=== PATIENT | male | born 1950 | race Caucasian/White ===

== ENCOUNTER 2022-01-07 14:35 | Emergency (ER) | payer OTHER ==
[2022-01-07 16:13] LABS: Absolute Lymphocytes (CBC) 2.1 K/uL (0.7-4.9); Hematocrit 46.5 % (39.6-49.0); Lymphocytes % 28.9 % (15.3-44.8); RBC Red Blood Cell Count 5.09 M/uL (4.33-5.43)
--- NOTE | 2022-01-07 16:26 | RAD REPORT ---
EXAM DESCRIPTION: RAD - Chest Single View - 01/07/2022 3:56 pm CLINICAL HISTORY: DYSPNEA COMPARISON: None available TECHNIQUE: AP portable chest image was obtained 01/07/2022 3:56 pm . FINDINGS: Prominent interstitial lung pattern is present probably baseline. This could mask early in terstitial edema or infiltrate. No consolidated infiltrates seen. Significant failure or volume overl oad are not identified. A 6-8 mm oval nodular density is seen in the left upper lung field superimpos ed on the clavicle. This is probably a calcified granuloma in the lung parenchyma. Small sclerotic fo cus in the clavicle is possible. Neither etiology is considered significant. No worrisome mass the jerri ng parenchyma is seen. Heart and vasculature are normal. No measurable pleural effusion and no pneumothorax. No acute bony abnormality seen. No acute aortic findings suspected. IMPRESSION: Prominent interstitial lung pattern is present. This is probably baseline severity could mask acute interstitial edema or infiltrate.
[2022-01-07 16:39] LABS: Troponin High Sensitivity 12.8 pg/mL (<58.9)
[2022-01-07 16:41] LABS: Potassium 3.9 mmol/L (3.5-5.1)
[2022-01-07] MEDS ORDERED: FUROSEMIDE 20 MG/ 2ML VIAL ONE (16:49)
[2022-01-07] MEDS ORDERED: LEVALBUTEROL 1.25 MG/3 ML NEB ONE (16:49)
--- NOTE | 2022-01-07 18:22 | ER ---
Nurse's Notes [facility] Name: Timoteo Gunn Age: 71 yrs Sex: Male : 1950 Arrival Date: 01/07/2022 Time: 14:38 Bed 14 Private MD: Diagnosis: Dyspnea, unspecified;Edema, unspecified Presentation: 01/07 14:47 Chief complaint: Patient states: Bilateral leg swelling for at least 3 weeks. Hasn't ss had nay meds for a few months since he moved down here with his son. Coronavirus screen: Vaccine status: Patient reports being unvaccinated. Client denies travel out of the [place] in the last 14 days. At this time, the client does not indicate any symptoms associated with coronavirus-19. Ebola Screen: Patient denies travel to an Ebola-affected area in the 21 days before illness onset. Initial Sepsis Screen: Does the patient meet any 2 criteria? No. Patient's initial sepsis screen is negative. Does the patient have a suspected source of infection? No. Patient's initial sepsis screen is negative. Risk Assessment: Do you want to hurt yourself or someone else? Patient reports no desire to harm self or others. Onset of symptoms was December 16, 2021. 14:47 Method Of Arrival: Ambulatory ss 14:47 Acuity: ABIEL 3 ss Historical: - Allergies: 14:46 No Known Allergies; ss - PMHx: 14:46 Myocardial infarction; stroke; Hypercholesterolemia; ss - PSHx: 14:46 heart stent; ss - Immunization history:: Client reports having NOT received the Covid vaccine. - Social history:: Smoking status: Patient reports the use of cigarette tobacco products, smokes one pack cigarettes per day. - Family history:: not pertinent. - Hospitalizations: : No recent hospitalization is reported. Screenin:46 Abuse screen: Denies threats or abuse. Denies injuries from another. Nutritional ss screening: No deficits noted. Tuberculosis screening: Never had TB. Assessment: 16:40 General: Appears in no apparent distress. Behavior is calm, cooperative. Neuro: Level ww of Consciousness is awake, alert, obeys commands, Oriented to person, place, time, situation, Moves all extremities. Gait is steady, Speech is normal. Cardiovascular: Capillary refill Patient's skin is warm and dry. Rhythm is regular Chest pain is denied. Respiratory: Airway is patent Respiratory effort is even, unlabored. 16:40 GI: No signs and/or symptoms were reported involving the gastrointestinal system. ww Abdomen is non-distended. : No signs and/or symptoms were reported regarding the genitourinary system. Derm: No signs and/or symptoms reported regarding the dermatologic system. Skin is intact. 17:24 Reassessment: Patient appears in no apparent distress at this time. No changes from ww previously documented assessment. Patient and/or family updated on plan of care and expected duration. Pain level reassessed. Patient states feeling better. Pain: Denies pain. 18:15 Reassessment: Patient appears in no apparent distress at this time. No changes from ww previously documented assessment. Patient and/or family updated on plan of care and expected duration. Pain level reassessed. Patient states feeling better. Reassessment: Patient walked 2 laps around the nursing station, O2 sat after walking 90-92%. : Urine is clear. Vital Signs: 14:47 BP 141 / 115; Pulse 96; Resp 18; Temp 98.4; Pulse Ox 96% ; Weight 103.87 kg; Height 6 ss ft. 3 in. (190.50 cm); Pain 0/10; 15:46 BP 147 / 78; Pulse 84; Resp 17; ss 17:00 BP 168 / 100; Pulse 91; Resp 16; Pulse Ox 100% ; ww 18:16 BP 157 / 104; Pulse 100; Resp 16; Pulse Ox 100% ; ww 14:47 Body Mass Index 28.62 (103.87 kg, 190.50 cm) ss ED Course: 14:38 Patient arrived in ED. as 14:48 Triage completed. ss 14:48 Arm band placed on. ss 15:21 Figueroa Alicia MD is Attending Physician. rn 15:40 Yenny Eason RN is Primary Nurse. ww 15:46 Patient has correct armband on for positive identification. Placed in gown. Bed in low ss position. Call light in reach. Side rails up X 1. Client placed on continuous cardiac and pulse oximetry monitoring. NIBP monitoring applied. Warm blanket given. 15:58 XRAY Chest (1 view) In Process Unspecified. EDMS 17:00 Inserted saline lock: 20 gauge in right antecubital area, using aseptic technique. ww 18:56 No provider procedures requiring assistance completed. IV discontinued, bleeding ww controlled, No redness/swelling at site. Pressure dressing applied. Administered Medications: 16:57 Drug: Xopenex (levalbuterol) 1.25 mg Route: Inhalation; ww 16:57 Drug: Lasix (furosemide) 20 mg Route: IVP; Site: right antecubital; ww Outcome: 18:21 Discharge ordered by . rn 18:56 Discharged to home with family. ww 18:56 Condition: stable 18:56 Discharge instructions given to patient, family, Instructed on discharge instructions, follow up and referral plans. medication usage, safety practices, Demonstrated understanding of instructions, follow-up care, medications, Prescriptions given X 2. 18:56 Patient left the ED. ww Signatures: Dispatcher [employer] EDMS Breanne Pratt Roman, MD MD rn Smirch, Shelby, RN RN ss Wood, Whitney, RN RN ww Corrections: (The following items were deleted from the chart) 18:15 16:40 Respiratory: Airway is patent Respiratory effort is even, unlabored, ww ww
--- NOTE | 2022-01-07 18:22 | EDPHYS ---
Physician Documentation [facility] Name: Timoteo Gunn Age: 71 yrs Sex: Male : 1950 Arrival Date: 01/07/2022 Time: 14:38 Bed 14 Private MD: ED Physician Figueroa Alicia HPI: 01/07 16:01 This 71 yrs old Male presents to ER via Ambulatory with complaints of Leg Swelling, rn Feet Swelling, Shortness Of Breath. 16:01 The patient has shortness of breath at rest, with light activity. rn 16:02 Onset: The symptoms/episode began/occurred 2 week(s) ago. Duration: The symptoms are rn intermittent. The patient's shortness of breath is aggravated by exertion, light activity, talking, walking, is alleviated by rest, sitting up. Associated signs and symptoms: Pertinent positives:. 16:12 Severity of symptoms: At their worst the symptoms were moderate in the emergency rn department the symptoms are unchanged. The patient has experienced similar episodes in the past. The patient has not recently seen a physician. Pt reports about 3 months of being out of medication, moved here from [place], sent here by pcp for sob and lower ext swelling. Also reports pants have been fitting tight lately and reports dyspnea on exertion. Son does not recall what medications he is supposed to be taking but knows he has not taken them in a few months.. Historical: - Allergies: 14:46 No Known Allergies; ss - PMHx: 14:46 Myocardial infarction; stroke; Hypercholesterolemia; ss - PSHx: 14:46 heart stent; ss - Immunization history:: Client reports having NOT received the Covid vaccine. - Social history:: Smoking status: Patient reports the use of cigarette tobacco products, smokes one pack cigarettes per day. - Family history:: not pertinent. - Hospitalizations: : No recent hospitalization is reported. ROS: 16:12 Constitutional: Negative for fever, chills, and weight loss, Eyes: Negative for injury, rn pain, redness, and discharge, Neck: Negative for injury, pain, and swelling, Cardiovascular: Negative for chest pain, palpitations Respiratory: Negative for pleuritic chest pain, + dyspnea on exertion Abdomen/GI: Negative for abdominal pain, nausea, vomiting, diarrhea, and constipation, Back: Negative for injury and pain, MS/Extremity: + lower ext swelling Skin: Negative for injury, rash, and discoloration, Neuro: Negative for headache, weakness, numbness, tingling, and seizure. Exam: 16:12 Constitutional: This is a well developed, well nourished patient who is awake, alert, rn and in no acute distress. Head/Face: Normocephalic, atraumatic. Eyes: Periorbital areas with no swelling, redness, or edema. Cardiovascular: Regular rate and rhythm. No pulse deficits. Respiratory: Mild tachypnea, no retractions, speaks full sentences Abdomen/GI: Soft, non-tender Skin: Warm, dry MS/ Extremity: Pulses equal, no cyanosis. Neurovascular intact. Full, normal range of motion. Equal circumference. 1+ non-pitting edema bilateral lower ext Neuro: Awake and alert, GCS 15, oriented to person, place, time, and situation. Cranial nerves II-XII grossly intact. Motor strength 5/5 in all extremities. Sensory grossly intact. Vital Signs: 14:47 BP 141 / 115; Pulse 96; Resp 18; Temp 98.4; Pulse Ox 96% ; Weight 103.87 kg; Height 6 ss ft. 3 in. (190.50 cm); Pain 0/10; 15:46 BP 147 / 78; Pulse 84; Resp 17; ss 17:00 BP 168 / 100; Pulse 91; Resp 16; Pulse Ox 100% ; ww 18:16 BP 157 / 104; Pulse 100; Resp 16; Pulse Ox 100% ; ww 14:47 Body Mass Index 28.62 (103.87 kg, 190.50 cm) MDM: 15:21 Patient medically screened. rn 18:18 Differential diagnosis: Anemia Anxiety Reaction CHF exacerbation, Chronic Obstructive rn Pulmonary Disease Myocardial Infarction pneumonia, Pneumothorax pulmonary edema. Data reviewed: vital signs, nurses notes, lab test result(s), EKG, radiologic studies, and as a result, I will discharge patient. Counseling: I had a detailed discussion with the patient and/or guardian regarding: the historical points, exam findings, and any diagnostic results supporting the discharge/admit diagnosis, lab results, radiology results, the need for outpatient follow up, to return to the emergency department if symptoms worsen or persist or if there are any questions or concerns that arise at home. Response to treatment: the patient's symptoms have markedly improved after treatment, and as a result, I will discharge patient. Special discussion: I discussed with the patient/guardian in detail that at this point there is no indication for admission to the hospital. It is understood, however, that if the symptoms persist or worsen the patient needs to return immediately for re-evaluation. ED course: Patient states feels much better, ambulatory to bathroom without dyspnea. Ambulated twice around nurses station without desaturation and without apparent dyspnea. Son states appears much better. Only Lasix given. BNP normal range. Chest x-ray without acute findings. Repeat ECG after ambulating shows sinus rhythm without ischemia. For observation in the hospital but patient and son declined, want to go home and will follow up with PCP. Will restart patient's lisinopril and tamsulosin.. 01/07 15:20 Order name: Basic Metabolic Panel; Complete Time: 17:47 rn 01/07 15:20 Order name: CBC with Diff; Complete Time: 16:27 rn 01/07 15:20 Order name: NT PRO-BNP; Complete Time: 17:47 rn 01/07 15:20 Order name: Troponin HS; Complete Time: 17:47 rn 01/07 15:20 Order name: XRAY Chest (1 view); Complete Time: 16:27 rn 01/07 16:01 Order name: Procalcitonin rn 01/07 15:20 Order name: EKG; Complete Time: 15:21 rn 01/07 15:20 Order name: Cardiac monitoring; Complete Time: 15:45 rn 01/07 15:20 Order name: EKG - Nurse/Tech; Complete Time: 16:42 rn 01/07 15:20 Order name: IV Saline Lock; Complete Time: 16:08 rn 01/07 15:20 Order name: Labs collected and sent; Complete Time: 16:08 rn 01/07 15:20 Order name: O2 Per Protocol; Complete Time: 15:45 rn 01/07 15:20 Order name: O2 Sat Monitoring; Complete Time: 15:45 rn Administered Medications: 16:57 Drug: Xopenex (levalbuterol) 1.25 mg Route: Inhalation; ww 16:57 Drug: Lasix (furosemide) 20 mg Route: IVP; Site: right antecubital; ww Disposition Summary: 01/07/22 18:21 Discharge Ordered Location: Home rn Problem: an ongoing problem rn Symptoms: have improved rn Condition: Stable rn Diagnosis - Dyspnea, unspecified rn - Edema, unspecified rn Followup: rn - With: Private Physician - When: 2 - 3 days - Reason: Recheck today's complaints, Re-evaluation by your physician Discharge Instructions: - Discharge Summary Sheet rn - Shortness of Breath, Adult rn - Peripheral Edema rn Forms: - Medication Reconciliation Form rn - Thank You Letter rn - Antibiotic 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
[2022-01-07 21:22] VITALS: TEMP 98.4
[2022-01-07 21:24] VITALS: O2SAT 100
[2022-01-07 21:26] VITALS: BP 157/104
--- NOTE | 2022-01-08 12:54 | EKG ---
Test Date: 2022-01-07 Test Time: 16:21:58 Director Of Instructional Technology: PEDRO MEASUREMENT RESULTS: Intervals: Rate: 99 SC: QRSD: 92 QT: 370 QTc: 474 [place]: P: SC: QRS: 60 T: 106 INTERPRETIVE STATEMENTS: Accelerated Junctional rhythm Septal infarct, age undetermined ST & T wave abnormality, consider inferior ischemia Abnormal ECG No previous ECG available for comparison Electronically Signed On 01-08-22 12:52:05 CDT by Torrey Bucio
== END 2022-01-07 18:56 | disposition home or self-care (01) ==
LOC: ER 14:35
DX: R06.00 Dyspnea, unspecified (principal); R60.9 Edema, unspecified; F17.210 Nicotine dependence, cigarettes, uncomplicated; I25.2 Old myocardial infarction; Z86.73 Personal history of transient ischemic attack (TIA), and cerebral infarction without residual deficits
CPT/HCPCS: 93005; 85025; 80048; 36415; 84484; 84145; 83880; 71045; J1940; 96374; 99284

== ENCOUNTER 2022-04-26 12:14 | Emergency (ER) | payer OTHER ==
--- OUTSIDE RECORDS SUMMARY | 2022-04-26 12:18 | XMS REPORT | Continuity of Care Document ---
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 11.5-14.5 RDW) PLT (test code = 221 K/UL 150-450 PLT) MPV (test code = 10.1 FL 7.4-10.4 MPV) MANDIFF (test code = NO MANDIFF) SCAN (test code = NO SCAN) NEUT% (test code = 52.1 % 40-75 NEUT%) LYMPH% (test code = 35.5 % 24-44 LYMPH%) MONO% (test code = 9.1 % 0-13 MONO%) EOS% (test code = 1.9 % 0-4 EOS%) BASO % (test code = 1.1 % 0-2 BASO%) IG (test code = IG) 0 % 0-1 IG% (test code = 0.3 % 0-1 IG% = Metam yelocytes, IG%) Myelocytes, and Promyelocytes. (Immature neutr ophils not including " bands".) > 3% IG indic ates risk of sepsis NRBC% (test code = 0 /100 WBC NRBC%) ABS NEUT (test code 3.8 K/UL 1.2-7.2 = NEUT) TROPONIN [id number] 20:30:00 Test Item Value Reference Range Interpretation Comments TROPER (test code = 0.00 NG/ML 0.0-0.08 INTE RPRETIVE TROPER) DATA A POC T ROPONIN OF </= 0.08 NG/ ML IS CONSIDERED NEGA TIVE ISTAT CHEM [id number] 19:50:00 Test Item Value Reference Range Interpretation Comments ISTATNA (test code = 142 MMOL/L 137-145 ISTATNA) ISTATK (test code = 4.1 MMOL/L 3.6-5.0 ISTATK) ISTATCL (test code = 102 MMOL/L 98-107 ISTATCL) ISTIONCA (test code = 1.27 MMOL/L 1.12-1.32 ISTIONCA) ISTCO2 (test code = 30 MMOL/L 22-30 ISTCO2) ISTATGLU (test code = 79 MG/DL 65-110 ISTATGLU) ISTATBUN (test code = 18.0 MG/DL 7.0-20.0 ISTATBUN) ISTCREA (test code = 1.0 MG/DL 0.7-1.5 ISTCREA) ISTATHCT (test code = 50 %PCV 37.0-52.0 ISTATHCT) ISTATHGB (test code = 17.0 G/DL 12.0-18.0 Notifi ed Nurse/MD of ISTATHGB) results outside of Reference Range s ISTANGAP (test code = 16 MMOL/L Notifi ed Nurse/MD of ISTANGAP) results outside of Reference Range s CT HEAD W/O [id number] 17:23:[address] [id number] IMAGING REPORTPatient Name: GUNN, JERRYDate of Service: [id number]: 69 Sex: M Order #: [id number] Room: QERDOB: 1950 X-Ray Number: [id number] Record Number: [id number] Hospital Number: [id number] Physician: ANDRZEJ BOCANEGRAOrdering Physician: ANDRZEJ BOCANEGRACT scan of the brain done without contrast.This patient presents with dizziness.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 There is no recent ischemic infarction. Thereis no mass. There is no evidence of an intracerebral hemorrhageor subduralhematoma.The fossa structures, sellar region, orbits and paranasal sinuses arenormal.IMPRESSION:There are old infarcts in the thalamus bilaterally. There is been no changesince 08 February 2017.Electronically Signed By: Esau Orourke M.D., 04/17/2020 5:20 PMLegally authenticated by ALICIA HECK 2020-04-17 17:20:55ECHO COMPLETE W/[id number] 19:32:00[facility] POINTEECHOCARDIOGRAM REPORTName: MAXINE GUNN Study Date: 02/09/2017 01:39 PMMRN: [id number] Patient Location: 4S\\S\\419\\S\\AHR: 61DOB: 1950 (M/d/yyyy)Gender: MaleAge: 66 yrsHeight: 75 in Weight: 225 lbBSA: 2.3 s5Krajgs For Study: StrokeHistory:CVAProceduresA complete two- dimensional transthoracic echocardiogram was performed (2D,M-mode, Doppler and color flow Doppler).MMode/2D Measurements and CalculationsRVDd: 3.8 cm LVIDd: 5.6 cmIVSd: 0.98cm LVIDs: 3.8 cmIVSs: 1.2 cm LVPWd: 0.96 cmLVPWs: 1.6 cm FS: 32.6 % % IVS thick: 26.3 %EDV(Teich): 154.3 mlESV(Teich): 61.2 mlEF(Teich): 60.4 % SV(Teich): 93.1 ml MV excursion: 2.2 cmMV E-F slope: 14.4 cm/sec Ao root diam: 3.4 cm LVOT diam: 2.0 cmAo root area: 9.1 cm LVOT area: 3.1 cm2ACS: 2.2 cmLA dimension: 4.1 cm RVOT diam: 1.9 cm LVLd ap4: 8.8 cmEDV(MOD-sp4): 159.0 mlLVLs ap4: 7.7 cmESV(MOD-sp4): 56.0 mlEF(MOD- sp4): 64.8 % SV(MOD- sp4): 103.0 mlDoppler Measurements and CalculationsMV E max leann: 72.7 cm/sec MV dec time: 0.28 secMV A max leann: 89.8 cm/secMV E/A: 0.81 Ao V2 max: 117.0 cm/sec LV V1 max P.5 mmHgAo max P.5 mmHg LV V1 mean P.0 mmHgAo V2 mean: 79.3 cm/sec LV V1 max: 117.0 cm/secAo mean P.0 mmHg LV V1 mean: 73.2 cm/secAo V2 VTI: 22.8 cm LV V1 VTI: 22.6 cmAVA(I,D): 3.1 cmAVA(V,D): 3.1 cm2 MR max leann: 148.0 cm/sec SV(LVOT): 71.0 mlMR max P.8 mmHg PA V2 max: 96.1 cm/sec TR max leann: 202.7 cm/secPA max P.7 mmHg TR max P.0 mmHgPA V2 mean: 74.2 cm/sec RVSP(TR): 26.0 mmHgPA mean P.0 mmHgPA V2 VTI: 21.4 cm RAP systole: 10.0 mmHgLeft VentricleThe left ventricle is grossly normal size. Left ventricular systolicfunction is normal. Ejection Fraction = 55-60%. The transmitral spectralDoppler flow pattern is suggestive of impaired LV relaxation. The leftventricular wall motion is normal.Right VentricleThe right ventricle is theo sly normal size. The right ventricular systolicfunction is normal.AtriaThe left atrium is borderlinedilated. Right atrial size is normal.Mitral ValveThe mitral valve is grossly normal. There is mild mitral regurgitation.Tricuspid ValveThe tricuspid valve is not well visualized, but is grossly normal.Rightventricular systolic pressure is normal. There is mild tricuspidregurgitation.Aortic ValveThe aortic valve is normal in structure and function.Great VesselsThe aortic root is normal size.Pericardium/PleuralThere is no pericardial effusion.Interpretation SummaryLeft ventricular systolic function is normal.Ejection Fraction = 55-60%.The transmitral spectral Doppler flow pattern is suggestive of impaired LVrelaxation.Right ventricular systolic pressure is normal. Gatito Lacy MD 02/16/2017Reading Physician: Electronically signed by:07:32 PMOrdering Physician: SADI BURROUGHSeferrangie Physician: PEDRO MARIEEPerformedBy: Aundrea Tilley RVSCTA HEAD 2017-02-09 16:09:[address] [id number] IMAGING REPORTPatient Name: Francia GUNN of Service: [id number]: 66 Sex: M Order #: [id number] Room: [facility] 4SDOB: 1950 X-Ray Number: [id number] Record Number: [id number] Hospital Number: [id number] Physician: PEDRO MARIEE -Ordering Physician: SANTOSH DUMONT carotid angiogram, CT intracranial angiogram.History: Slurred speech, confusion.Technique: CT images of the carotid and intracranial vessels. 3-D MIPSimages were included. This CT exam was performed using one or more of thefollowing dose reduction techniques: Automated exposure control, adjustmentof the MA and/or KV according to patient size or use of iterativereconstruction technique.Findings:There is no evidence to suggest significant carotid vascular disease. Bothcommon carotids appear patent. There is no significant disease involvingthe carotid bulbs. The internal and external carotid arteries are patentthroughout their length. Thereis some mild carotid vascular diseaseinvolving the cavernous carotids.Both middle cerebral arteries appear patent. Both anterior cerebralarteries appear patent. The anterior and posterior communicatingarteriesappear patent. The posterior circulation is intact with patent bilateralvertebral arteries, right vertebral dominant. The basilar artery appearsnormal. There are normal cerebellar and posteriorcerebral arteries.Impression:No evidence of significant carotid or intracranial vascular disease.Electronically Signed By: Luis Vazquez M.D., 02/09/2017 4:06 PMLegally authenticated by ROBYN Stanley 2017-02-09 16:06:37CTA NECK 2017-02-09 16:09:[address]IAGNOST[address] IMAGING REPORTPatient Name: Francia GUNN of Service: [id number]: 66 Sex: M Order #: [id number] Room: [facility] 4SDOB: 1950 X-Ray Number: [id number] Record Number: [id number] Hospital Number: [id number] Physician: PEDRO MARIEE -Ordering Physician: SANTOSH DUMONT carotid angiogram, CT intracranial angiogram.History: Slurred speech, confusion.Technique: CT images of the carotid and intracranial vessels. 3-D MIPSimages were included. This CT exam was performed using one or more of thefollowing dose reduction techniques: Automated exposure control, adjustmentof the MA and/or KV according to patient size or use of iterativereconstruction technique.Findings:There is no evidence to suggest significant carotid vascular disease. Bothcommon carotids appear patent. There is no significant disease involvingthe carotid bulbs. The internal and external carotid arteries are patentthroughout their length. Thereis some mild carotid vascular diseaseinvolving the cavernous carotids.Both middle cerebral arteries appear patent. Both anterior cerebralarteries appear patent. The anterior and posterior communicatingarteriesappear patent. The posterior circulation is intact with patent bilateralvertebral arteries, right vertebral dominant. The basilar artery appearsnormal. There are normal cerebellar and posteriorcerebral arteries.Impression:No evidence of significant carotid or intracranial vascular disease.Electronically Signed By: Luis Vazquez M.D., 02/09/2017 4:06 PMLegally authenticated by ROBYN Stanley 2017-02-09 16:06:37MRI BRAIN W 2017-02-09 09:30:00[place] [id number] IMAGING REPORTPatient Name: Frnacia GUNN of Service: [id number]: 66 Sex: M Order #: [id number] Room: [facility]/ A 4SDOB: 1950 X-Ray Number: [id number] Record Number: [id number] Hospital Number: [id number] Physician: PEDRO MARIEE -Ordering Physician: VANGIE WHELANRI of the brain with and without contrast dated 2:00 AMHistory CVA, slurred beats.Findings:Diffusion weighted imaging demonstrates areas of restricted diffusion rightand the thalamus measuring approximately 2.1 x 1.5 cm and within thethalamus measuring approximately 1.4 x 9 cm., consistent with subacuteinfarcts.There is diffuse cortical atrophy and white matter changes in thedistribution suggestive of mild chronic small vessel gliosis.There is no mass effect or midline shift present.There is no intracranial hemorrhage or hydrocephalus.Enhancement pattern is physiologic.There is no abnormal enhancing mass lesion.Impression:Subacute infarcts in the bilateral thalami.Electronically Signed By: Henry Mcintyre M.D., 02/09/2017 9:27 AMLegallyauthenticated by DAVID ROMEO 2017-02-09 09:27:59US CAROTID [id number] 06:44:00[place] [id number] IMAGING REPORTPatient Name: Francia GUNN of Service: [id number]: 66 Sex: M Order #: [id number] Room: 419/ A 4SDOB: 1950 X-Ray Number: [id number] Record Number: [id number] Hospital Number: [id number] Physician: PEDRO MARIEE -Ordering Physician: UCBAMICHAEL, ELANIEBilateral cervical carotid. duplex ultrasound (grayscale, color flowDoppler, and spectral Doppler analysis performed)History: Carotid stenosis CVAFindings: There is intimal thickening of the cervical carotid arteries.There is homogeneous plaque formation in the left cervical carotidarteries. No elevation of vascular velocities. Antegrade flow bothvertebral arteries.Impression:1. Bilateral cervical internal carotid artery less than 50% stenosis.Electronically Signed By: Bernardo Solorzano M.D., 02/09/2017 6:42 AMLegally authenticated by MARIANNE RAJAN 2017-02-09 06:42:20CT HEAD W/O [id number] 21:13:[address]IAGNOSTIC IMAGING REPORTPatient Name: AMINAFrancia of Service: [id number]: 66 Sex: M Order #: [id number] Room: [facility]: 1950 X-Ray Number: [id number] Record Number: [id number] Hospital Number: [id number] Physician: FABY TAOOrdering Physician: Sharon WHELAN CT exam was performed using one or more of the following dosereduction techniques: Automated exposure control, adjustment of the mAand/or kV according to patient size, or use of iterative reconstructiontechnique.CT headHistory: CVA. Confusion slurred speechCT head: There are moderate-sized areas of hypoattenuation in the bilateralthalami, suspicious for subacute to remote lacunar infarcts. Nointracranial hemorrhage, mass, or mass effect. Calvar ium intact. Moderatemucosal thickening ethmoid air cells.Impression:1. Suspected Subacute to remote infarcts in the bilateral thalami.Electronically Signed By: Bernardo Solorzano M.D., 02/08/2017 9:11 PMLegally authenticated by MARIANNE RAJAN 2017-02-08 21:11:06CHEST 1 VIEW [id number] 21:10:00[place] [id number] IMAGING REPORTPat ient Name: Francia GUNN of Service: [id number]: 66 Sex: M Order #: [id number] [facility] 1950 [facility]-Ray Number: [id number] Record Number: [id number] Hospital Number: [id number] Physician: FABY TAOOrdering Physician: BRIGHT WHELAN chest one viewHistory:DX) AMSPT. FRIEND FOUND HIM WALKING AROUND HIS RESIDENCEAPPEARED CONFUSEDD, SO HE CALLED [id number] SPEECHBPP 167/60HX) HTNPSV: FPFindings:. There is mild basilar pulmonary atelectasis. There is mildpulmonary vascular congestion. Heart size upper limits of normal. Noairspace consolidation or pleural fluid identified.Electronically Signed By: Bernardo Solorzano M.D., 02/08/2017 9:08 PMLegally authenticated by MARIANNE RAJAN 2017-02-08 21:08:48
[2022-04-26 15:07] LABS: Absolute Lymphocytes (CBC) 1.7 K/uL (0.7-4.9); Hematocrit 46.6 % (39.6-49.0); Lymphocytes % 18.8 % (15.3-44.8); MCV 90.1 fL (80-100); MPV 7.9 fL (7.6-11.3); RBC Red Blood Cell Count 5.17 M/uL (4.33-5.43)
[2022-04-26 15:20] LABS: Protime INR 1.13
--- NOTE | 2022-04-26 15:28 | RAD REPORT ---
EXAM DESCRIPTION: Shoulder Right 2 View - 04/26/2022 3:17 pm CLINICAL HISTORY: PAIN COMPARISON: No comparisons TECHNIQUE: Internal and external rotation views of the right shoulder were obtained. FINDINGS: There is no fracture or dislocation. Mild AC joint degenerative changes are present. Acro mial humeral joint space is maintained with no abnormal soft tissue calcification. No acute or suspic ious findings. IMPRESSION: Negative two-view right shoulder examination for acute finding.
--- NOTE | 2022-04-26 15:30 | RAD REPORT ---
EXAM DESCRIPTION: RAD - Elbow Right 3 View - 04/26/2022 3:17 pm CLINICAL HISTORY: Pain COMPARISON: No comparisons FINDINGS: No fracture is identified and no elevated posterior fat pad. There is no dislocation or pe riosteal reaction noted. Joint space narrowing is present. Articular marginal spurs are seen. No path ologic bone process. No suspicious soft tissue finding. Minimal spurring seen at the triceps tendon a ttachment. 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
--- NOTE | 2022-04-26 15:31 | RAD REPORT ---
EXAM DESCRIPTION: RAD - Wrist Right 3 View - 04/26/2022 3:17 pm CLINICAL HISTORY: PAIN COMPARISON: No comparisons FINDINGS: No fracture is identified. There is no dislocation or periosteal reaction noted. Radiocarp al joint space is narrowed. There is irregular cortical contour the distal radius believed to be irvin deling from remote fracture. Advanced degenerative change present at the trapezium first metacarpal a rticulation. No foreign body or other soft tissue abnormality. No pathologic changes. IMPRESSION: Right wrist degenerative change present as detailed. No acute finding.
[2022-04-26 15:33] LABS: Potassium 3.9 mmol/L (3.5-5.1)
--- NOTE | 2022-04-26 15:41 | RAD REPORT ---
EXAM DESCRIPTION: US - Extremity Venous Uni Ltd - 04/26/2022 3:36 pm CLINICAL HISTORY: Right arm pain and swelling COMPARISON: None. TECHNIQUE: Real-time sonographic evaluation of the right upper extremity deep venous systems was per formed. FINDINGS: Normal compressibility, flow augmentation, phasic flow and spontaneous flow are identified in the right upper extremity deep venous system. No intraluminal filling defects seen. Internal jugu lar and subclavian veins are normal as well. IMPRESSION: No DVT in the right upper extremity.
[2022-04-26] MEDS ORDERED: FENTANYL CITR 100 MCG/2 ML ONE (15:43)
--- NOTE | 2022-04-26 16:36 | ER ---
Nurse's Notes [facility] Name: Timoteo Gunn Age: 71 yrs Sex: Male : 1950 Arrival Date: 04/26/2022 Time: 12:15 Bed 10 Private MD: Diagnosis: Pain in right arm Presentation: 04/26 12:31 Chief complaint: Patient states: Pt reports spontaneous onset of right elbow pain kb3 approximately 2100 last night. States pain radiates from right shoulder into right hand, centering in right elbow. Denies injury. Coronavirus screen: Vaccine status: Client denies travel out of the [place] in the last 14 days. At this time, the client does not indicate any symptoms associated with coronavirus-19. Ebola Screen: Patient negative for fever greater than or equal to 101.5 degrees Fahrenheit, and additional compatible Ebola Virus Disease symptoms Patient denies exposure to infectious person. Patient denies travel to an Ebola-affected area in the 21 days before illness onset. No symptoms or risks identified at this time. Initial Sepsis Screen: Does the patient meet any 2 criteria? No. Patient's initial sepsis screen is negative. Does the patient have a suspected source of infection? No. Patient's initial sepsis screen is negative. Risk Assessment: Do you want to hurt yourself or someone else? Patient reports no desire to harm self or others. Onset of symptoms was April 25, 2022 at 21:00. 12:31 Method Of Arrival: Ambulatory kb3 12:31 Acuity: ABIEL 3 kb3 Triage Assessment: 12:34 General: Appears in no apparent distress. uncomfortable, Behavior is calm, cooperative. kb3 Pain: Complains of pain in right elbow Pain radiates to posterior aspect of right shoulder and right hand Pain currently is 10 out of 10 on a pain scale. Quality of pain is described as aching, throbbing, Pain began 1 day ago. Historical: - Allergies: 12:34 No Known Allergies; kb3 - Home Meds: 12:34 lisinopril Oral [Active]; tamsulosin oral [Active]; kb3 - PMHx: 12:34 Hypercholesterolemia; stroke; Myocardial infarction; kb3 - PSHx: 12:34 heart stent; kb3 - Immunization history:: Adult Immunizations up to date, Client reports receiving the 2nd dose of the Covid vaccine, Last tetanus immunization: up to date. - Social history:: Smoking status: Patient reports the use of cigarette tobacco products, smokes one-half pack cigarettes per day, Patient/guardian denies using alcohol, street drugs. Screenin:50 Abuse screen: Denies threats or abuse. Denies injuries from another. Nutritional iw screening: No deficits noted. Tuberculosis screening: No symptoms or risk factors identified. Fall Risk None identified. Assessment: 14:00 General: Appears in no apparent distress. Behavior is calm, cooperative. Pain: iw Complains of pain in right arm and right elbow. Neuro: Level of Consciousness is awake, alert, obeys commands, Oriented to person, place, time, situation, Moves all extremities. Cardiovascular: Patient's skin is warm and dry. Respiratory: Respiratory effort is even, unlabored, Respiratory pattern is regular, symmetrical. Derm: Skin is fragile, is thin. Musculoskeletal: Range of motion: intact in all extremities, Swelling present in right arm. 15:00 Reassessment: Patient appears in no apparent distress at this time. Patient and/or iw family updated on plan of care and expected duration. Pain level reassessed. Patient is alert, oriented x 3, equal unlabored respirations, skin warm/dry/pink. Vital Signs: 12:31 BP 138 / 77; Pulse 110; Resp 20; Pulse Ox 96% ; Weight 96.16 kg; Height 6 ft. 3 in. kb3 (190.50 cm); Pain 10/10; 12:37 Temp 98.3; kb3 12:31 Body Mass Index 26.50 (96.16 kg, 190.50 cm) kb3 ED Course: 12:15 Patient arrived in ED. as 12:34 Triage completed. kb3 12:34 Arm band placed on left wrist. kb3 12:48 Stoney Lipscomb PA is PHCP. cp 12:48 Sierra Puckett MD is Attending Physician. cp 13:40 Lucille Aguilar, CITLALLI is Primary Nurse. iw 14:00 Patient has correct armband on for positive identification. iw 14:37 Basic Metabolic Panel Sent. kc6 14:37 CBC with Diff Sent. kc6 14:37 Magnesium Sent. kc6 14:37 PT-INR Sent. kc6 15:18 Elbow Right 3 View XRAY In Process Unspecified. EDMS 15:19 XRAY Wrist RIGHT 3 view In Process Unspecified. EDMS 15:19 XRAY Shoulder RIGHT 2 view In Process Unspecified. EDMS 15:38 US Extremity Venous Unilateral Ltd In Process Unspecified. EDMS 16:57 No provider procedures requiring assistance completed. IV discontinued, intact, iw bleeding controlled, No redness/swelling at site. Pressure dressing applied. Administered Medications: 13:46 Drug: HYDROcodone-acetaminophen 5 mg-325 mg 1 tabs Route: PO; iw 14:45 Follow up: Response: No adverse reaction; Pain is decreased iw 13:46 Drug: Ibuprofen 400 mg Route: PO; iw 14:30 Follow up: Response: No adverse reaction; Pain is decreased iw 16:35 Drug: fentaNYL (PF) 25 mcg Route: IVP; Site: left antecubital; iw 17:00 Follow up: Response: No adverse reaction; Pain is decreased iw Medication: 16:00 VIS not applicable for this client. iw Outcome: 16:36 Discharge ordered by MD. cp 16:57 Discharged to home via wheelchair, with family. iw 16:57 Condition: good 16:57 Discharge instructions given to patient, family, Instructed on discharge instructions, follow up and referral plans. Demonstrated understanding of instructions, follow-up care, medications, Prescriptions given X 2. 16:58 Patient left the ED. iw Signatures: Dispatcher [employer] Breanne Molina Irene, RN RN iw Stoney Lipscomb PA PA cp Campbell, Kaitlyn kc6 Vinita Lester RN RN kb3 Corrections: (The following items were deleted from the chart) 04/27 07:18 08 16:57 Discharge instructions given to patient, family, Instructed on discharge iw instructions, follow up and referral plans. Demonstrated understanding of instructions, follow-up care, medications, Prescriptions given X 1, iw
--- NOTE | 2022-04-26 16:36 | EDPHYS ---
Physician Documentation [facility] Name: Timoteo Gunn Age: 71 yrs Sex: Male : 1950 Arrival Date: 04/26/2022 Time: 12:15 Bed 10 Private MD: ED Physician Sierra Puckett HPI: 04/26 13:45 This 71 yrs old Male presents to ER via Ambulatory with complaints of r elbow swelling. cp 13:45 The patient or guardian complains of pain, that is acute. Context: resulted from cp unknown cause. Onset: The symptoms/episode began/occurred last night. Associated signs and symptoms: Pertinent positives: swelling, Pertinent negatives: fever, numbness, weakness, chest pain. 13:45 Patient reports right elbow pain started last night that now radiates to right shoulder cp and right elbow. Historical: - Allergies: 12:34 No Known Allergies; kb3 - Home Meds: 12:34 lisinopril Oral [Active]; tamsulosin oral [Active]; kb3 - PMHx: 12:34 Hypercholesterolemia; stroke; Myocardial infarction; kb3 - PSHx: 12:34 heart stent; kb3 - Immunization history:: Adult Immunizations up to date, Client reports receiving the 2nd dose of the Covid vaccine, Last tetanus immunization: up to date. - Social history:: Smoking status: Patient reports the use of cigarette tobacco products, smokes one-half pack cigarettes per day, Patient/guardian denies using alcohol, street drugs. ROS: 13:50 Constitutional: Negative for body aches, chills, fever, poor PO intake. cp 13:50 Eyes: Negative for injury, pain, redness, and discharge. cp 13:50 Neck: Negative for pain with movement, pain at rest, stiffness. 13:50 Cardiovascular: Negative for chest pain, edema, palpitations. 13:50 Respiratory: Negative for cough, shortness of breath, wheezing. 13:50 Abdomen/GI: Negative for abdominal pain, nausea, vomiting, and diarrhea. 13:50 Back: Negative for pain at rest, pain with movement. 13:50 MS/extremity: Positive for pain, swelling, tenderness, of the right arm, Negative for injury or acute deformity, decreased range of motion. 13:50 Skin: Negative for cellulitis, rash. 13:50 Neuro: Negative for altered mental status, headache, weakness. 13:50 All other systems are negative. Exam: 14:00 Head/Face: Normocephalic, atraumatic. cp 14:00 Constitutional: The patient appears in no acute distress, alert, awake, non-toxic, well developed, well nourished. 14:00 ENT: External ear(s): are unremarkable, Nose: is normal, Mouth: Lips: moist, Oral mucosa: pink and intact, moist, Posterior pharynx: Airway: no evidence of obstruction, patent. 14:00 Neck: ROM/movement: is normal, is supple, without pain, no range of motions limitations, Lymph nodes: 14:00 Chest/axilla: Inspection: normal, Palpation: is normal, no crepitus, no tenderness. 14:00 Cardiovascular: Rate: normal, Rhythm: regular, Edema: is not appreciated, JVD: is not appreciated. 14:00 Respiratory: the patient does not display signs of respiratory distress, Respirations: normal, no use of accessory muscles, no retractions, labored breathing, is not present, Breath sounds: are clear throughout, no decreased breath sounds, no stridor, no wheezing. 14:00 Abdomen/GI: Inspection: abdomen appears normal, Bowel sounds: active, all quadrants, Palpation: abdomen is soft and non-tender, in all quadrants. 14:00 Back: pain, is absent, ROM is normal. 14:00 Musculoskeletal/extremity: Extremities: noted in the right arm: ROM: full active range of motion, in the right arm, Perfusion: the extremity is normally perfused throughout, the right arm Sensation intact. 14:00 Skin: cellulitis, is not appreciated, no rash present. 14:00 Eyes: Periorbital structures: appear normal, Conjunctiva: normal, no exudate, no cp injection, Sclera: no appreciated abnormality, Lids and lashes: appear normal, bilaterally. 14:00 Neuro: Orientation: to person, place \T\ time. Mentation: is normal, Motor: moves all fours, strength is normal, Sensation: is normal. 14:57 ECG was reviewed by the Attending Physician. cp Vital Signs: 12:31 BP 138 / 77; Pulse 110; Resp 20; Pulse Ox 96% ; Weight 96.16 kg; Height 6 ft. 3 in. kb3 (190.50 cm); Pain 10/10; 12:37 Temp 98.3; kb3 12:31 Body Mass Index 26.50 (96.16 kg, 190.50 cm) kb3 MDM: 13:18 Patient medically screened. cp 04/26 13:59 Order name: Basic Metabolic Panel; Complete Time: 15:48 cp 04/26 15:49 Interpretation: Normal except: BUN 24; GFR 69. cp 04/26 13:59 Order name: CBC with Diff; Complete Time: 15:28 cp 04/26 15:29 Interpretation: Reviewed. cp 04/26 13:40 Order name: Elbow Right 3 View XRAY; Complete Time: 15:48 iw 04/26 15:50 Interpretation: Report reviewed. cp 04/26 13:58 Order name: US Extremity Venous Unilateral Ltd; Complete Time: 15:48 cp 04/26 15:49 Interpretation: Report reviewed. cp 04/26 13:59 Order name: Magnesium; Complete Time: 15:48 cp 04/26 13:59 Order name: PT-INR; Complete Time: 15:28 cp 04/26 13:58 Order name: XRAY Wrist RIGHT 3 view; Complete Time: 15:48 cp 04/26 15:50 Interpretation: Report reviewed. cp 04/26 13:58 Order name: XRAY Shoulder RIGHT 2 view; Complete Time: 15:48 cp 04/26 13:59 Order name: EKG; Complete Time: 14:00 cp 04/26 13:59 Order name: EKG - Nurse/Tech; Complete Time: 14:58 cp 04/26 13:59 Order name: Cardiac monitoring; Complete Time: 15:07 cp 04/26 13:59 Order name: IV Saline Lock; Complete Time: 14:37 cp 04/26 13:59 Order name: Labs collected and sent; Complete Time: 14:37 cp 04/26 13:59 Order name: O2 Per Protocol; Complete Time: 15:07 cp 04/26 13:59 Order name: O2 Sat Monitoring; Complete Time: 14:37 cp EC:57 Rate is 81 beats/min. Rhythm is regular. [place] interval is normal. QRS interval is normal. cp QT interval is normal. T waves are Inverted in lead aVR. Interpreted by me. Reviewed by me. Administered Medications: 13:46 Drug: HYDROcodone-acetaminophen 5 mg-325 mg 1 tabs Route: PO; iw 14:45 Follow up: Response: No adverse reaction; Pain is decreased iw 13:46 Drug: Ibuprofen 400 mg Route: PO; iw 14:30 Follow up: Response: No adverse reaction; Pain is decreased iw 16:35 Drug: fentaNYL (PF) 25 mcg Route: IVP; Site: left antecubital; iw 17:00 Follow up: Response: No adverse reaction; Pain is decreased iw Disposition: 18:04 Co-signature as Attending Physician, Sierra Puckett MD STAFF ATTESTATION STATEMENT: I sd2 was immediately available onsite in the emergency department for consultation in the care of this patient. I did not see or examine this patient. Sierra Puckett MD. Disposition Summary: 04/26/22 16:36 Discharge Ordered Location: Home cp Problem: new cp Symptoms: have improved cp Condition: Stable cp Diagnosis - Pain in right arm cp Followup: cp - With: Private Physician - When: 2 - 3 days - Reason: Recheck today's complaints Discharge Instructions: - Discharge Summary Sheet cp - Musculoskeletal Pain cp - Heat Therapy cp Forms: - Medication Reconciliation Form cp - Thank You Letter cp - Antibiotic Education cp - Prescription Opioid Use cp Prescriptions: - Diclofenac Sodium 75 mg Oral Tablet Sustained Release - take 1 tablet by ORAL route 2 times per day; 30 tablet; Refills: 0, Product cp Selection Permitted - Tramadol 50 mg Oral Tablet - take 1 tablet by ORAL route every 8 hours as needed; 12 tablet; Refills: 0, cp Product Selection Permitted Signatures: Dispatcher [employer] Lucille Hernandez RN RN Stoney Parmar PA PA cp Dunlop, Stephanie, MD MD sd2 Vinita Lester RN RN kb3 Corrections: (The following items were deleted from the chart) 04/27 16:04/26 14:30 Constitutional: The patient appears in no acute distress, alert, awake, cp non-toxic, well developed, well nourished, cp 04/27 16:04/26 14:30 Head/Face: Normocephalic, atraumatic. cp cp 04/27 16:04/26 14:30 Eyes: Periorbital structures: appear normal, Conjunctiva: normal, no cp exudate, no injection, Sclera: no appreciated abnormality, Lids and lashes: appear normal, bilaterally, cp 08/21 16:57 08/20 14:30 ENT: External ear(s): are unremarkable, Nose: is normal, Mouth: Lips: cp moist, Oral mucosa: pink and intact, moist, Posterior pharynx: Airway: no evidence of obstruction, patent, cp 04/27 16:57 04/26 14:30 Neck: ROM/movement: is normal, is supple, without pain, no range of motions cp limitations, Lymph nodes: cp 04/27 16:04/26 14:30 Chest/axilla: Inspection: normal, Palpation: is normal, no crepitus, no cp tenderness, cp 04/27 16:57 04/26 14:30 Cardiovascular: Rate: normal, Rhythm: regular, Edema: is not appreciated, cp JVD: is not appreciated, cp 04/27 16:04/26 14:30 Respiratory: the patient does not display signs of respiratory distress, cp Respirations: normal, no use of accessory muscles, no retractions, labored breathing, is not present, Breath sounds: are clear throughout, no decreased breath sounds, no stridor, no wheezing, cp 04/27 16:04/26 14:30 Abdomen/GI: Inspection: abdomen appears normal, Bowel sounds: active, all cp quadrants, Palpation: abdomen is soft and non-tender, in all quadrants, cp 04/27 16:04/26 14:30 Back: pain, is absent, ROM is normal, cp cp 04/27 16:04/26 14:30 Neuro: Orientation: to person, place \T\ time. Mentation: is normal, Motor: cp moves all fours, strength is normal, Sensation: is normal, cp 04/27 16:57 04/26 14:30 Musculoskeletal/extremity: Extremities: noted in the right arm: ROM: full cp active range of motion, in the right arm, Perfusion: the extremity is normally perfused throughout, the right arm Sensation intact. cp 04/27 16:04/26 14:30 Skin: cellulitis, is not appreciated, no rash present. cp cp
[2022-04-26 17:07] VITALS: BP 138/77; O2SAT 96
[2022-04-26 17:12] VITALS: TEMP 98.3
--- NOTE | 2022-04-28 08:12 | EKG ---
Test Date: 2022-04-26 Test Time: 14:52:48 Dancing Master: RAI MEASUREMENT RESULTS: Intervals: Rate: 81 MT: 132 QRSD: 86 QT: 406 QTc: 471 [place]: P: 87 MT: 132 QRS: 51 T: 48 INTERPRETIVE STATEMENTS: Normal sinus rhythm Septal infarct, age undetermined Abnormal ECG Compared to ECG 01/07/2022 16:21:58 Accelerated junctional rhythm no longer present ST (T wave) deviation no longer present Possible ischemia no longer present Myocardial infarct finding still present Electronically Signed On 04-28-22 08:06:50 CDT by Torrey Bucio
== END 2022-04-26 16:58 | disposition home or self-care (01) ==
LOC: ER 12:14
DX: M79.601 Pain in right arm (principal); E78.00 Pure hypercholesterolemia, unspecified; F17.210 Nicotine dependence, cigarettes, uncomplicated; Z86.73 Personal history of transient ischemic attack (TIA), and cerebral infarction without residual deficits; Z95.5 Presence of coronary angioplasty implant and graft; I25.2 Old myocardial infarction
CPT/HCPCS: 93005; 85025; 80048; 36415; 83735; 85610; 73080; 73030; 73110; 93971; 96374; 99284; J3010

== ENCOUNTER 2022-08-18 14:45 | Inpatient (IN) | payer OTHER ==
--- OUTSIDE RECORDS SUMMARY | 2022-08-18 14:50 | XMS REPORT | Continuity of Care Document ---
:1950 Author Organization [facility] t Address [address] [place] [address] Dr. Barreto [address] [place] [id number] Care Team Providers Name Role Phone Luciana Go MD Primary Care Physician ROD HANNAH S Attending Clinician Unavailable LUCIANA GO Attending Clinician Unavailable JAS LAST Attending Clinician Unavailable Lab, Ang - Db Attending Clinician Unavailable Doctor Unassigned, [place] Attending Clinician Unavailable KRISTI LEDEZMA Attending Clinician Unavailable Korina Flores MD Attending Clinician KORINA FLORES Attending Clinician Unavailable BRYCE STARKS Attending Clinician Unavailable ZAHRA CARDONA Attending Clinician Unavailable SUJIT VINES Attending Clinician Unavailable ANDRZEJ BOCANEGRA Attending Clinician Unavailable PEDRO MARIEE - Attending Clinician Unavailable AWILDA HANNAHD S Admitting Clinician Unavailable ZAHRA CARDONA S Admitting Clinician Unavailable SUJIT VINES Admitting Clinician Unavailable ANDRZEJ BOCANEGRA Admitting Clinician Unavailable PEDRO MARIEE - Admitting Clinician Unavailable Payers Payer Name Policy Type Policy Number Effective Date Expiration Date Alden Nava [id number] [facility] PLUS [id number] 2022 CLASSIC NO PREMIUM 00:00:00 HMO Problems Condition Condition Condition Status Onset Resolution [...] rs active active ity of problems problems [facility] Allergies, Adverse Reactions, Alerts Allergy Allergy Status Severity Reaction(s) Onset Inactive Treating Comm ents Source Name Type Date Date Clinician No Known NA Active 2020-0 [facility]11 [facility] 21:14: l 59 ([facility]) No Known NA Active 2020-0 [facility] Allergie 9-11 [facility]ospita [facility] 21:14: l 58 ([facility]) No known Miscella Active U Not 2020-0 [facility] Spec[facility] 9- [facility]ospita Allergie Allergy 21:14: l s 07 ([facility]) Denies Miscella Active U Not 2020-0 [facility] latex neous Specified 9- [facility]ospita allergy Allergy 21:14: l 07 ([facility]) No known Miscella Active U Not 2020-0 [facility] Specified 9- Hospita Allergie Allergy 21:14: l s 07 ([facility]) Denies Miscella Active U Not 2020-0 [facility] latex neous Specified 9-11 Hospita allergy Allergy 21:14: l 07 ([facility]) No known Miscella Active U Not 2020-0 [facility] Specified 9-11 [facility]ospita Allergie Allergy 21:14: l s 07 ([facility]) Denies Miscella Active U Not 2020-0 [facility] latex neous Specified 9- Hospita allergy Allergy 21:14: l 07 ([facility]) No known Miscella Active U Not 2020-0 [facility] neous Specified 9-11 Hospita Allergie Allergy 21:14: l s 07 ([facility]) No known Miscella Active U Not 2020-0 [facility] drug neous Specified 8-11 Hospita Allergie Allergy 16:43: l s 09 ([facility]) Denies Miscella Active U Not 2020-0 [facility] latex neous Specified 8-11 Hospita allergy Allergy 16:43: l 09 ([facility]) No known Miscella Active U Not 2020-0 [facility] drug neous Specified 8-11 Hospita Allergie Allergy 16:43: l s 09 ([facility]) Denies Miscella Active U Not 2020-0 [facility] latex neous Specified 8-11 Hospita allergy Allergy 16:43: l 09 ([facility]) No known Miscella Active U Not 2020-0 [facility] neous Specified 8-11 Hospita Allergie Allergy 16:43: l s 09 ([facility]) Denies Miscella Active U Not 2020-0 [facility] latex neous Specified 8-11 Hospita allergy Allergy 16:43: l 09 ([facility]) No known Miscella Active U Not 2020-0 [facility] drug neous Specified 8-11 Hospita Allergie Allergy 16:43: l s 09 ([facility]) Denies Miscella Active U Not 2020-0 [facility] latex neous Specified 8-11 Hospita allergy Allergy 16:43: l 09 ([facility]) No known Miscella Active U Not 2020-0 [facility] drug neous Specified 8-11 Hospita Allergie Allergy 16:43: l s 09 ([facility]) Denies Miscella Active U Not 2020-0 [facility] latex neous Specified 8-11 Hospita allergy Allergy 16:43: l 09 ([facility]) No known Miscella Active U Not 2020-0 [facility] drug neous Specified 8-11 Hospita Allergie Allergy 16:43: l s 09 ([facility]) Denies Miscella Active U Not 2020-0 [facility] latex neous Specified 8-11 Hospita allergy Allergy 16:43: l 09 ([facility]) No Known NA Active 2016-0 [facility] Allergie 6-05 Hospita s 00:46: l 57 ([facility]) No Known Allergy Active Unknown 2014- DONELL U Drug to 05-15 S Allergie substanc 00:00: Health s e 00 NO KNOWN Drug Active Univers ALLERGIE Class ity of S [facility] Social History Social Habit Start Date Stop Date Quantity Comments Source History of Smokes tobacco University of tobacco use daily [facility] Exposure to 2022-06-21 2022-07-01 Not sure University SARS-CoV-2 00:00:00 09:56:00 [facility] (event) [place] Alcohol intake 2022-07-01 2022-07-01 Ex-drinker University 00:00:00 00:00:00 (finding) [facility] Tobacco use and 2022-06-17 2022-06-17 Smokeless tobacco Un iversity of exposure 00:00:00 00:00:00 non-user [facility] Sex Assigned At [birth year] Universit y of 00:00:00 00:00:00 [facility] Smoking Status Start Date Stop Date Source Smokes tobacco daily 2022-06-17 00:00:00 Univers ity of [facility] Medications Ordered Filled Start Stop Current Ordering Indication Dosage Frequency Signature Comments Components Source Medication Medication Date Date Medication? Clinician (SIG) Name Name FLUoxetine 2021-09 Yes [id number] 10mg Take 1 U nivers 10 mg 0-27 capsule by ity of capsule 00:00: mouth in [place] 00 the Medical morning. Branch FLUoxetine 2021-09 Yes [id number] 10mg Take 1 U nivers 10 mg 0-27 capsule by ity of capsule 00:00: mouth in [place] 00 the Medical morning. Branch traMADoL 50 2021-09- Yes [id number] 50mg Take 1 Uni vers mg tablet 0-26 11-03 tablet by ity of 00:00: 04:59 mouth [place] 00 :00 every 6 Medical (six) Branch hours as needed for Pain (scale 4-6) for up to 7 days. Indication s: acute pain, chronic pain traMADoL 50 2021-09- Yes [id number] 50mg Take 1 Uni vers mg tablet 0-26 11-03 tablet by ity of 00:00: 04:59 mouth [place] 00 :00 every 6 Medical (six) Branch hours as needed for Pain (scale 4-6) for up to 7 days. Indication s: acute pain, chronic pain traMADoL 50 2021-09- Yes [id number] 50mg Take 1 Uni vers mg tablet 0-26 11-03 tablet by ity of 00:00: 04:59 mouth [place] 00 :00 every 6 Medical (six) Branch hours as needed for Pain (scale 4-6) for up to 7 days. Indication s: acute pain, chronic pain No known 2021-09 No No known Unive rs medications 0-25 medication it y of 10:00: s [address] PARoxetine 2021-09 Yes [id number] 10mg Take 1 U nivers 10 mg 0-25 tablet by ity of tablet 00:00: mouth in [place] 00 the Medical morning. Branch PARoxetine 2021-09 Yes [id number] 10mg Take 1 U nivers 10 mg 0-25 tablet by ity of tablet 00:00: mouth in [place] 00 the Medical morning. Branch PARoxetine 2021-09 Yes [id number] 10mg Take 1 U nivers 10 mg 0-25 tablet by ity of tablet 00:00: mouth in [place] 00 the Medical morning. Branch PARoxetine 2021-09 Yes [id number] 10mg Take 1 U nivers 10 mg 0-25 tablet by ity of tablet 00:00: mouth in [place] 00 the Medical morning. Branch PARoxetine 2021-09 Yes [id number] 10mg Take 1 U nivers 10 mg 0-25 tablet by ity of tablet 00:00: mouth in [place] 00 the Medical morning. [place] PARoxetine 2021-09 Yes [id number] 10mg Take 1 U nivers 10 mg 0-25 tablet by ity of tablet 00:00: mouth in [place] 00 the Medical morning. Branch PARoxetine 2021-09- No [id number] 10mg Take 1 Univers 10 mg 0-25 10-27 tablet by ity of tablet 00:00: 00:00 mouth in [place] 00 :00 the Medical morning. [place] lisinopriL 2021-09 Yes [id number] 20mg Take 1 U nivers 20 mg 0-11 tablet by ity of tablet 00:00: mouth in [place] 00 the Medical morning. [place] lisinopriL 2021-09 Yes [id number] 20mg Take 1 U nivers 20 mg 0-11 tablet by ity of tablet 00:00: mouth in [place] 00 the Medical morning. Branch lisinopriL 2021-09- No [id number] 20mg Take 1 Univers 20 mg 0-11 10-25 tablet by ity of tablet 00:00: 00:00 mouth in [place] 00 :00 the Medical morning. Branch lisinopriL 2021-09- No [id number] 20mg Take 1 Univers 20 mg 0-11 10-25 tablet by ity of tablet 00:00: 00:00 mouth in [place] 00 :00 the Medical morning. Branch lisinopriL 2021-09- No [id number] 20mg Take 1 Univers 20 mg 0-11 10-25 tablet by ity of tablet 00:00: 00:00 mouth in [place] 00 :00 the Medical morning. Branch lisinopriL 2021-09- No [id number] 20mg Take 1 Univers 20 mg 0-11 10-25 tablet by ity of tablet 00:00: 00:00 mouth in [place] 00 :00 the Medical morning. Branch traMADoL 50 2021-09- Yes [id number] 50mg Take 1 Uni vers mg tablet 0-07 17-19 tablet by ity of 00:00: 04:59 mouth [place] 00 :00 every 6 Medical (six) Branch hours as needed for Pain (scale 4-6) for up to 7 days. Indication s: acute pain traMADoL 50 2021-09- Yes [id number] 50mg Take 1 Uni vers mg tablet 0-07 17-19 tablet by ity of 00:00: 04:59 mouth [place] 00 :00 every 6 Medical (six) Branch hours as needed for Pain (scale 4-6) for up to 7 days. Indication s: acute pain tamsulosin 2021- No .4mg Take 0.4 Un je 0.4 mg 24 02-05 mg by ity of hr capsule 14:07: 00:00 mouth [place] 15 :00 daily. Medical Branch lisinopriL 2021- No 40mg Take 40 mg Univers 40 mg 02-05 by mouth ity of tablet 14:07: 00:00 daily. [place] 15 :00 Medical Branch tamsulosin 0 Yes [id number] .4mg Take 1 Univers 0.4 mg 24 02-05 capsule by ity of hr capsule 00:00: mouth [place] 00 daily. Medical Branch tamsulosin 0 Yes [id number] .4mg Take 1 Univers 0.4 mg 24 02-05 01 capsule by ity of hr capsule 00:00: mouth [place] 00 daily. Medical Branch tamsulosin 2021-0 Yes [id number] .4mg Take 1 Univers 0.4 mg 24 - 01 capsule by ity of hr capsule 00:00: mouth [place] 00 daily. Medical Branch lisinopriL 2021-0 Yes [id number] 40mg Take 1 U nivers 40 mg 6- tablet by ity of tablet 00:00: mouth [place] 00 daily. Medical Branch tamsulosin 2021-0 Yes [id number] .4mg Take 1 Univers 0.4 mg 24 6- 01 capsule by ity of hr capsule 00:00: mouth [place] 00 daily. Medical Branch lisinopriL 2021-0 Yes [id number] 40mg Take 1 U nivers 40 mg 6-01 tablet by ity of tablet 00:00: mouth [place] 00 daily. Medical Branch tamsulosin 2021-0 Yes [id number] .4mg Take 1 Univers 0.4 mg 24 6- 01 capsule by ity of hr capsule 00:00: mouth [place] 00 daily. Medical Branch lisinopriL 2021-0 Yes [id number] 40mg Take 1 U nivers 40 mg 6-01 tablet by ity of tablet 00:00: mouth [place] 00 daily. Medical Branch tamsulosin 2021-0 Yes [id number] .4mg Take 1 Univers 0.4 mg 24 6- 01 capsule by ity of hr capsule 00:00: mouth [place] 00 daily. Medical Branch lisinopriL 2021-0 Yes [id number] 40mg Take 1 U nivers 40 mg 6-01 tablet by ity of tablet 00:00: mouth [place] 00 daily. Medical Branch tamsulosin 2021-0 Yes [id number] .4mg Take 1 Univers 0.4 mg 24 6-09 07 capsule by ity of hr capsule 00:00: mouth [place] 00 daily. Medical Branch lisinopriL 2021-0 Yes [id number] 40mg Take 1 U nivers 40 mg 6-01 tablet by ity of tablet 00:00: mouth [place] 00 daily. Medical Branch tamsulosin 2021-0 Yes [id number] .4mg Take 1 Univers 0.4 mg 24 6- 01 capsule by ity of hr capsule 00:00: mouth [place] 00 daily. Medical Branch lisinopriL 2021-0 Yes [id number] 40mg Take 1 U nivers 40 mg 6-01 tablet by ity of tablet 00:00: mouth [place] 00 daily. Medical Branch tamsulosin 2021-0 2021- No [id number] .4mg Take 1 Univers 0.4 mg 24 6-09 16-01 10 capsule by ity of hr capsule 00:00: 00:00 mouth [place] 00 :00 daily. Medical Branch tamsulosin 2021-2021- No [id number] .4mg Take 1 Univers 0.4 mg 24 02-05 capsule by ity of hr capsule 00:00: 00:00 mouth [place] 00 :00 daily. Medical Branch tamsulosin 2021- No [id number] .4mg Take 1 Univers 0.4 mg 24 02-05 capsule by ity of hr capsule 00:00: 00:00 mouth [place] 00 :00 daily. Medical Branch tamsulosin 2021- No [id number] .4mg Take 1 Univers 0.4 mg 24 02-05 capsule by ity of hr capsule 00:00: 00:00 mouth [place] 00 :00 daily. Medical Branch lisinopriL 2021- No [id number] 40mg Take 1 Univers 40 mg - 10-11 tablet by ity of tablet 00:00: 00:00 mouth [place] 00 :00 daily. Medical Branch lisinopriL 2021- No [id number] 40mg Take 1 Univers 40 mg 02-05 1011 tablet by ity of tablet 00:00: 00:00 mouth [place] 00 :00 daily. Medical Branch Tramadol No 1 Q 4-6 Hr JUN TU Hcl 2-12 Prn S (Ultram) 50 22:56: Health Mg TAB 00 Budesonide/ 0 No 2 Twice A CHR ISTU Formoterol 9-08 Day S Fumarate 12:05: Health (Symbicort 00 160/4.5 Mcg Inh) 120 Puff/10.2 Gm AERO Nitroglycer No .4mg Every 5 CHR ISTU in 7-30 Minutes X S (Nitrostat) 10:35: 3 Doses Hea lth 0.4 Mg SUBL 00 Prasugrel 0 2015- No 10mg Daily DONELL U (Effient) 7-30 09-07 S 10 Mg TAB 08:09: 00:00 Health 00 :00 Aspirin 2014-0 No 81mg Daily CHRISTU (Aspirin 7-30 S Chewable) 08:08: Health 81 Mg CHEW 00 Atorvastati 0 No 40mg Every JUN TU n Calcium 7-30 Evening S (Lipitor) 08:08: Health 40 Mg TAB 00 Metoprolol 0 No 25mg Daily DONELL U Succinate 7-30 S (Toprol Xl) 08:08: Health 25 Mg TABCR 00 Aspirin No 324mg Every 6 CHRISTU (Margaret-Seltz Hours S er Blue) Health 324 Mg TABLET.EFF Clopidogrel No 75mg Daily CHRISTU Bisulfate S (Plavix) 75 Health Mg TAB Vital Signs Vital Name Observation Time Observation Value Comments Source Systolic blood 2022-07-01 15:08:00 150 mm[Hg] Univer sity of pressure [facility] Diastolic blood 2022-07-01 15:08:00 85 mm[Hg] Unive rsity of [facility] Heart rate 2022-07-01 15:00:00 78 /min Universi ty of [facility] Body temperature 2022-07-01 15:00:00 36.72 Kirsten [facility] ersity of [facility] Body height 2022-07-01 15:00:00 190.5 cm Universi ty of [place] [facility] [place] Body weight 2022-07-01 15:00:00 92.08 kg Universi ty of [place] [facility] [place] BMI 2022-07-01 15:00:00 25.37 kg/m2 Universi ty of [place] [facility] [place] Oxygen saturation in 2022-07-01 15:00:00 96 /min University of Arterial blood by [place] [employer] rosalio Pulse oximetry Branch Systolic blood 2022-06-17 21:00:00 93 mm[Hg] Univer sity of pressure [facility] Diastolic blood 2022-06-17 21:00:00 54 mm[Hg] Unive rsity of pressure [facility] Heart rate 2022-06-17 21:00:00 106 /min Universi ty of [place] [facility] [place] Body temperature 2022-06-17 21:00:00 37 Kirsten Univ ersity of [place] [facility] [place] Body height 2022-06-17 21:00:00 190.5 cm Universi ty of [place] [facility] Body weight 2022-06-17 21:00:00 91.173 kg Universi ty of [place] [facility] BMI 2022-06-17 21:00:00 25.12 kg/m2 Universi ty of [place] [facility] Oxygen saturation in 2022-06-17 21:00:00 95 /min University of Arterial blood by [employer] rosalio Pulse oximetry Branch Systolic blood 2022-02-05 18:43:00 154 mm[Hg] Univer sity of pressure [facility] Diastolic blood 2022-02-05 18:43:00 74 mm[Hg] Unive rsity of pressure [facility] Heart rate 2022-02-05 18:42:00 93 /min [facility] Body temperature 2022-02-05 18:42:00 36.78 Kirsten [facility] Body height 2022-02-05 18:42:00 190.5 cm [facility] Body weight 2022-02-05 18:42:00 102.513 kg [facility] BMI 2022-02-05 18:42:00 28.25 kg/m2 [facility] Oxygen saturation in 2022-02-05 18:42:00 95 /min [facility] blood by [facility] Pulse oximetry Branch Procedures Procedure Date / Time Performing Clinician Source Performed CBC WITH DIFF 2022-07-01 15:49:00 [facility] URINE CULTURE 2022-07-01 15:49:00 [facility] ASSIGNMENT OF BENEFITS 2022-06-17 20:33:00 Doctor Unassigned, No [facility] EXTERNAL PROVIDER 2022-04-15 05:01:00 Doctor Unassigned, No [facility] AUTHORIZATION TO RELEASE 2022-02-05 05:01:00 Doctor Unassigned, No [facility] PHI TO [facility] Minor level new patient 2020-08-17 00:00:00 [facility] office visit Encounters Start End Encounter Admission Attending Care Care Encounter Source Date/Time Date/Time Type Type Clinicians Facility Department ID 2020-05-20 Inpatient 1 MANI HANNAH TEL [id number] - [facility] 09:00:00 MOHAMMAD [id number] [facility] ([facility] 2022-08-04 2022-08-04 Outpatient R ABBI [facility] [id number] Univers 14:00:00 14:00:00 [facility] 2022-07-30 2022-07-30 Telephone Abbi [facility] [id number] Univers 00:00:00 00:00:00 Luciana HEALTH 350.1.13.10 ity of [place] 4.2.7.2.686 Arturo as BRAD?BLEA [id number] [address] OFFICE [facility] 2022-07-03 2022-07-03 Telephone [facility] [id number] Univers 00:00:00 00:00:00 Luciana HEALTH 350.1.13.10 ity of [place] 4.2.7.2.686 Arturo as BRAD?BLEA [id number] [address] OFFICE [facility] 2022-07-03 2022-07-03 Telephone [facility] [id number] Univers 00:00:00 00:00:00 Luciana HEALTH 350.1.13.10 ity of [place] 4.2.7.2.686 Arturo as BRAD?BLEA [id number] [address] 2022-07-01 2022-07-01 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, Ang - [facility] [id number] Univers 10:45:00 11:00:00 [facility] 350.1.13.10 ity of [place] 4.2.7.2.686 Arturo as BRAD?BLEA [id number] [address] 2022-07-01 2022-07-01 [facility] [id number] Univers 09:40:00 10:38:49 LUCIANA ity [facility] 2022-07-01 2022-07-01 Office [facility] [id number] Univers 09:40:00 10:38:49 Visit [facility] 350.1.13.10 ity of [place] 4.2.7.2.686 Arturo as BRAD?BLEA [id number] [address] OFFICE [facility] 2022-07-01 2022-07-01 Telephone [facility] [id number] Univers 00:00:00 00:00:00 Luciana HEALTH 350.1.13.10 ity of [place] 4.2.7.2.686 Arturo as BRAD?BLEA [id number] [facility] [address] [place] MEDICAL OFFICE [facility] 2022-06-17 2022-06-17 Outpatient R ABBI [facility] [id number] Univers 15:20:00 16:43:52 LUCIANA ity [facility] 2022-06-17 2022-06-17 [facility] [id number] Univers 15:20:00 15:40:00 Visit [facility] 350.1.13.10 ity of [facility] 4.2.7.2.686 Arturo as BRAD?BLEA [id number] [address] OFFICE [facility] 2022-06-17 2022-06-17 Orders Doctor JULIAN [id number] Univers 00:00:00 00:00:00 Only Unassigned, [place] 350.1.13.10 ity of [place] [facility] 4.2.7.2.686 Arturo as [id number] [address] 2022-04-15 2022-04-15 Orders Doctor JULIAN [id number] Univers 00:00:00 00:00:00 Only [place]assigned[place] 350.1.13.10 ity of [place] [facility] 4.2.7.2.686 Arturo as [id number] [address] 2022-03-20 2022-03-20 Outpatient R DARIEN [facility] [id number] Univers 13:00:00 13:00:00 KRISTI lutz o f [facility] 2022-02-14 2022-02-14 Outpatient R DARIEN [facility] [id number] Univers 10:40:00 10:40:00 KRISTI paintingy o f [facility] 2022-02-05 2022-02-05 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, Kieran - Christian [facility] 1.2.840.1 [id number] Univers 14:15:00 14:30:00 [facility] 350.1.13 .10 ity of [place] 4.2.7.2.686 Arturo as BRAD?BLEA [id number] [place] dicorlando LANIER [address] [place] MEDICAL OFFICE [facility] 2022-02-05 2022-02-05 Outpatient R [facility] [id number] Univers 14:15:00 14:15:00 [facility] 2022-02-05 2022-02-05 Office [facility] [id number] Univers 13:30:00 14:00:00 Visit [facility] 350.1.13.10 it y of [facility] 4.2.7.2.686 Arturo as BRAD?BLEA [id number] [facility] [address] [place] MEDICAL OFFICE [facility] 2022-02-05 2022-02-05 Outpatient R [facility] [id number] Univers 13:30:00 13:30:00 [facility] 2022-02-05 2022-02-05 Telephone [facility] [id number] Univers 00:00:00 00:00:00 [facility] 350.1.13.10 it y of [facility] 4.2.7.2.686 Arturo as BRAD?BLEA [id number] [facility] [address] [place] MEDICAL OFFICE [facility] 2022-02-05 2022-02-05 Orders Doctor JULIAN [id number] Univers 00:00:00 00:00:00 Only [place]assigned, [place] 350.1.13.10 ity of [place] [facility] 4.2.7.2.686 Arturo as [id number] [address] 2020-08-17 2020-08-17 Discharged REINA CORTEZ REINA [id number] CHRISTEnriqueta 12:57:00 12:57:[address] 2020-06-06 2020-06-06 Outpatient 3 DOMINIKENDER MANI OPE 120 [id number] [facility] 11:08:00 11:08:00 , ZAHRA [id number] [facility] ([facility]) 2020-05-18 2020-05-18 Emergency VINES, MEAGAN QER [id number]- [facility] 16:02:00 16:02:00 SUJIT [id number] Hospi [facility] l ([facility]) 2020-04-17 2020-04-17 Emergency MANI BOCANEGRA QER [id number] [facility] 16:42:00 16:42:00 ANDRZEJ [id number] [facility] 2017-02-08 2017-02-12 Inpatient 1 MANI MARIEE TEL [id number] [facility] 23:47:00 17:45:00 RAEES [facility] l [facility] Results Test Description Test Time Test Comments Results Result Comments Source CBC WITH DIFF 2022-07-01 18:43:30 Test Item Value Reference Range Interpretation Comme nts WBC (test code = 6690-2) See_Comment [A utomated message] The system which generated this result transmitted ref erence range: 4.20 - 10.70 10*3/?L . The reference range was not u sed to interpret this result as normal/abnormal. RBC (test code = 789-8) See_Comment [Au tomated message] The system which generated this result transmitted ref erence range: 4.26 - 5.52 10*6/?L. The reference range was not u sed to interpret this result as normal/abnormal. HGB (test code = 718-7) 14.9 g/dL 12.2-16.4 HCT (test code = 4544-3) 45.7 % 38.4-49.3 MCV (test code = 787-2) 92.1 fL 81.7-95.6 MCH (test code = 785-6) 30.0 pg 26.1-32.7 MCHC (test code = 786-4) 32.6 g/dL 31.2-35 RDW-SD (test code = 43.7 fL 38.5-51.6 42928-7) RDW-CV (test code = 13.0 % 12.1-15.4 788-0) PLT (test code = 777-3) See_Comment [Au tomated message] The system which generated this result transmitted ref erence range: 150 - 328 10*3/?L. The reference range was not u sed to interpret this result as normal/abnormal. MPV (test code = 05490-5) 10.2 fL 9.8-13 NRBC/100 WBC (test code = See_Comment [ Automated message] The system [id number]) which generated this result transmitted ref erence range: 0.0 - 10.0 /100 WBC s. The reference range was not u sed to interpret this result as normal/abnormal. NRBC x10^3 (test code = See_Comment [Au tomated message] The system [id number]) which generated this result transmitted ref erence range: 10*3/?L. The re ference range was not used to int erpret this result as normal/abnor mal. GRAN MAT (NEUT) % (test 59.9 % code = 770-8) IMM GRAN % (test code = 0.30 % [id number]) LYMPH % (test code = 29.0 % 736-9) MONO % (test code = 7.5 % 5905-5) EOS % (test code = 713-8) 2.2 % BASO % (test code = 1.1 % 706-2) GRAN MAT x10^3(ANC) (test 4.34 10*3/uL 1.99-6.95 code = [id number]) IMM GRAN x10^3 (test code 0-0.06 = [id number]) LYMPH x10^3 (test code = 2.10 10*3/uL 1.09-3.23 731-0) MONO x10^3 (test code = 0.54 10*3/uL 0.36-1.02 742-7) EOS x10^3 (test code = 0.16 10*3/uL 0.06-0.53 711-2) BASO x10^3 (test code = 0.08 10*3/uL 0.01-0.09 704-7) [facility] WITH [id number] 18:43:30 Test Item Value Reference Range Interpretation Comments WBC (test code = See_Comment [Automated message] 6690-2) The system [employer] generated this result transmitted ref erence range: 4.20 - 1 0.70 10*3/?L. The re ference range was not u sed to interpret this result as normal/abnor mal. RBC (test code = See_Comment [Automated message] 789-8) The system [employer] generated this result transmitted ref erence range: 4.26 - 5 .52 10*6/?L. The re ference range was not u sed to interpret this result as normal/abnor mal. HGB (test code = 14.9 g/dL 12.2-16.4 718-7) HCT (test code = 45.7 % 38.4-49.3 4544-3) MCV (test code = 92.1 fL 81.7-95.6 787-2) MCH (test code = 30.0 pg 26.1-32.7 785-6) MCHC (test code = 32.6 g/dL 31.2-35 786-4) RDW-SD (test code 43.7 fL 38.5-51.6 = 79232-1) RDW-CV (test code 13.0 % 12.1-15.4 = 788-0) PLT (test code = See_Comment [Automated message] 777-3) The system [employer] generated this result transmitted ref erence range: 150 - 32 8 10*3/?L. The re ference range was not u sed to interpret this result as normal/abnor mal. MPV (test code = 10.2 fL 9.8-13 81436-4) NRBC/100 WBC (test See_Comment [Automat ed message] code = 2770698552) The syste m which generated this result transmitted ref erence range: 0.0 - 10 .0 /100 WBCs. The refer ence range was not u sed to interpret this result as normal/abnor mal. NRBC x10^3 (test See_Comment [Automated message] code = 1737339884) The syste m which generated this result transmitted ref erence range: 10*3/?L. The reference range was not used to interpr et this result as normal/abnormal . GRAN MAT (NEUT) % 59.9 % (test code = 770-8) IMM GRAN % (test 0.30 % code = 5420207422) LYMPH % (test code 29.0 % = 736-9) MONO % (test code 7.5 % = 5905-5) EOS % (test code = 2.2 % 713-8) BASO % (test code 1.1 % = 706-2) GRAN MAT 4.34 10*3/uL 1.99-6.95 x10^3(ANC) (test code = 7653234750) IMM GRAN x10^3 0-0.06 (test code = 6285809683) LYMPH x10^3 (test 2.10 10*3/uL 1.09-3.23 code = 731-0) MONO x10^3 (test 0.54 10*3/uL 0.36-1.02 code = 742-7) EOS x10^3 (test 0.16 10*3/uL 0.06-0.53 code = 711-2) BASO x10^3 (test 0.08 10*3/uL 0.01-0.09 code = 704-7) [facility] WITH [id number] 18:43:30 Test Item Value Reference Range Interpretation Comments WBC (test code = See_Comment [Automated message] 7863-2) The system [employer] generated this result transmitted ref erence range: 4.20 - 1 0.70 10*3/?L. The re ference range was not u sed to interpret this result as normal/abnor mal. RBC (test code = See_Comment [Automated message] 409-8) The system [employer] generated this result transmitted ref erence range: 4.26 - 5 .52 10*6/?L. The re ference range was not u sed to interpret this result as normal/abnor mal. HGB (test code = 14.9 g/dL 12.2-16.4 718-7) HCT (test code = 45.7 % 38.4-49.3 4544-3) MCV (test code = 92.1 fL 81.7-95.6 787-2) MCH (test code = 30.0 pg 26.1-32.7 785-6) MCHC (test code = 32.6 g/dL 31.2-35.0 786-4) RDW-SD (test code 43.7 fL 38.5-51.6 = 78254-7) RDW-CV (test code 13.0 % 12.1-15.4 = 788-0) PLT (test code = See_Comment [Automated message] 777-3) The system whic h generated this result transmitted ref erence range: 150 - 32 8 10*3/?L. The re ference range was not u sed to interpret this result as normal/abnor mal. MPV (test code = 10.2 fL 9.8-13.0 30448-5) NRBC/100 WBC (test See_Comment [Automat ed message] code = 3797209366) The syste m which generated this result transmitted ref erence range: 0.0 - 10 .0 /100 WBCs. The refer ence range was not u sed to interpret this result as normal/abnor mal. NRBC x10^3 (test See_Comment [Automated message] code = 0026721139) The syste m which generated this result transmitted ref erence range: 10*3/?L. The reference range was not used to interpr et this result as normal/abnormal . GRAN MAT (NEUT) % 59.9 % (test code = 770-8) IMM GRAN % (test 0.30 % code = 4159872903) LYMPH % (test code 29.0 % = 736-9) MONO % (test code 7.5 % = 5905-5) EOS % (test code = 2.2 % 713-8) BASO % (test code 1.1 % = 706-2) GRAN MAT 4.34 10*3/uL 1.99-6.95 x10^3(ANC) (test code = 6212746037) IMM GRAN x10^3 0.00-0.06 (test code = 7626164289) LYMPH x10^3 (test 2.10 10*3/uL 1.09-3.23 code = 731-0) MONO x10^3 (test 0.54 10*3/uL 0.36-1.02 code = 742-7) EOS x10^3 (test 0.16 10*3/uL 0.06-0.53 code = 711-2) BASO x10^3 (test 0.08 10*3/uL 0.01-0.09 code = 704-7) [facility] WITH [id number] 18:43:30 Test Item Value Reference Range Interpretation Comments WBC (test code = See_Comment [Automated message] 6690-2) The system [employer] generated this result transmitted ref erence range: 4.20 - 1 0.70 10*3/?L. The re ference range was not u sed to interpret this result as normal/abnor mal. RBC (test code = See_Comment [Automated message] 789-8) The system [employer] generated this result transmitted ref erence range: 4.26 - 5 .52 10*6/?L. The re ference range was not u sed to interpret this result as normal/abnor mal. HGB (test code = 14.9 g/dL 12.2-16.4 718-7) HCT (test code = 45.7 % 38.4-49.3 4544-3) MCV (test code = 92.1 fL 81.7-95.6 787-2) MCH (test code = 30.0 pg 26.1-32.7 785-6) MCHC (test code = 32.6 g/dL 31.2-35.0 786-4) RDW-SD (test code 43.7 fL 38.5-51.6 = 59047-6) RDW-CV (test code 13.0 % 12.1-15.4 = 788-0) PLT (test code = See_Comment [Automated message] 777-3) The system [employer] generated this result transmitted ref erence range: 150 - 32 8 10*3/?L. The re ference range was not u sed to interpret this result as normal/abnor mal. MPV (test code = 10.2 fL 9.8-13.0 44852-5) NRBC/100 WBC (test See_Comment [Automat ed message] code = 5807464904) The syste [employer] which generated this result transmitted ref erence range: 0.0 - 10 .0 /100 WBCs. The refer ence range was not u sed to interpret this result as normal/abnor mal. NRBC x10^3 (test See_Comment [Automated message] code = 7052154659) The syste m which generated this result transmitted ref erence range: 10*3/?L. The reference range was not used to interpr et this result as normal/abnormal . GRAN MAT (NEUT) % 59.9 % (test code = 770-8) IMM GRAN % (test 0.30 % code = 1085822447) LYMPH % (test code 29.0 % = 736-9) MONO % (test code 7.5 % = 5905-5) EOS % (test code = 2.2 % 713-8) BASO % (test code 1.1 % = 706-2) GRAN MAT 4.34 10*3/uL 1.99-6.95 x10^3(ANC) (test code = 1656826534) IMM GRAN x10^3 0.00-0.06 (test code = 1151149736) LYMPH x10^3 (test 2.10 10*3/uL 1.09-3.23 code = 731-0) MONO x10^3 (test 0.54 10*3/uL 0.36-1.02 code = 742-7) EOS x10^3 (test 0.16 10*3/uL 0.06-0.53 code = 711-2) BASO x10^3 (test 0.08 10*3/uL 0.01-0.09 code = 704-7) [facility]2020-[facility] 13:41:00 Test Item Value Reference Range Interpretation Comments PSA (test code = PSA-) 0.7 ng/mL 0-4.0 [id number] 13:34:00 Test Item Value Reference Range Interpretation [...] BACTERIA (test code = NEGATIVE NONE BACTERIA) [id number] 13:14:00 Test Item Value Reference Range Interpretation [...] (test code 4.3 K/UL 1.2-7.2 = NEUT) [id number] 13:11:00 Test Item Value Reference Range Interpretation [...] glucose = GLUCOSE) normal <100 MG/ DL- [employer] recommendation* * CALCIUM (test [...] mL/min/1.73m2 mL/min/1.73m2 is considered norm al. LIPID [id number] 13:11:00 Test Item Value Reference Range Interpretation [...] US PATIENTS IS < 7 % HBA1C. [employer] DIABETES CARE 2001;25:S33-S49 [id number] 05:51:00 Test Item Value Reference Range Interpretation [...] K/UL 1.2-7.2 = NEUT) BMP, BASIC METABOLIC [id number] 05:49:00 Test Item Value Reference Range Interpretation [...] glucose = GLUCOSE) normal <100 MG/ DL- [employer] [employer] recommendation* * CALCIUM (test code 8.9 MG/DL 8.4-10.2 = CABLOOD) GFR (test code = 71 A GFR of >9 0 GFR) mL/min/1.73m2 mL/min/1.73m2 is considered norm al. URINE UREA,[id number] 16:53:00 Test Item Value Reference Range Interpretation Comments UUREA (test code = UUREA) 798 MG/DL CREATININE RANDOM [id number] 16:53:00 Test Item Value Reference Range Interpretation Comments UCREARAN (test code = UCREARAN) 165.8 MG/DL URINE SODIUM, [id number] 16:53:00 Test Item Value Reference Range Interpretation Comments ALDA (test code = 137 MMOL/L A REFERENC E RANGE HAS ALDA) NOT BEEN ESTABL ISHED FOR THIS ANALYTE IN RANDOM URINE SAMPLES. BMP, BASIC METABOLIC [id number] 12:08:00 Test Item Value Reference Range Interpretation [...] glucose = GLUCOSE) normal <100 MG/ DL- [employer] [employer] recommendation* * CALCIUM (test code 8.9 MG/DL 8.4-10.2 = CABLOOD) GFR (test code = 53 A GFR of >9 0 GFR) mL/min/1.73m2 mL/min/1.73m2 is considered norm al. [id number] 12:02:00 Test Item Value Reference Range Interpretation [...] K/UL 1.2-7.2 = NEUT) CHEST 1 VIEW [id number] 19:25:[address] [address]VJHCWJLVXM IMAGING REPORTPatient Name: Francia GUNN of Service: [id number]: 69 Sex: M Order #: [id number] Room: ERSDOB: 1950 X-Ray Number: [id number] Record Number: [id number] Hospital Number: [id number] Physician: Ramesh VINES Physician: MADISYN VINES 1 VIEW PORTABLE 05/18/2020 6:51 PMHistory: hypotension, CVAComparisons: None Available.CHEST:FINDINGS:Heart size is normal.There is no focal lung consolidation.There is no definite pleural effusion or pneumothorax identified.Small nodular density projects over the RIGHT lung base. This could densityrepresenting a nipple shadow. Repeat examination with nipple markers may beuseful.IMPRESSION:No acute cardiopulmonary process.Small nodular density pro jects over the RIGHT lung base. This could densityrepresenting a nipple shadow. Repeat examination with nipple markers may beuseful.Electronically Signed By: Henry Mcintyre M.D., 05/18/2020 7:23 PMLegally authenticated by DAVID ROMEO 2020-05-18 19:23:[id number] 18:21:00 Test Item Value Reference Range Interpretation [...] code = URMUCOUS) SLIGHT /LPF NONE LIVER [id number] 17:47:00 Test Item Value Reference Range Interpretation [...] code = ALTV) 17 U/L 13-69 TROPONIN [id number] 17:30:00 Test Item Value Reference Range Interpretation Comments TROPER (test code = 0.02 NG/ML 0.0-0.08 INTE RPRETIVE TROPER) DATA A POC T ROPONIN OF </= 0.08 NG/ ML IS CONSIDERED NEGA TIVE [id number] 17:18:00 Test Item Value Reference Range Interpretation [...] 4.2 K/UL 1.2-7.2 = NEUT) ISTAT CHEM [id number] 17:10:00 Test Item Value Reference Range Interpretation [...] outside of Reference Range s ISTAT CHEM [id number] 20:55:00 Test Item Value Reference Range Interpretation [...] ISTANGAP) results outside of Reference Range s [id number] 20:31:00 Test Item Value Reference Range Interpretation [...] code 3.8 K/UL 1.2-7.2 = NEUT) TROPONIN [id number] 20:30:00 Test Item Value Reference Range Interpretation Comments TROPER (test code = 0.00 NG/ML 0.0-0.08 INTE RPRETIVE TROPER) DATA A POC T ROPONIN OF </= 0.08 NG/ ML IS CONSIDERED NEGA TIVE ISTAT CHEM [id number] 19:50:00 Test Item Value Reference Range Interpretation [...] of Reference Range s CT HEAD W/O [id number] 17:23:[address] [address]ZHZNZKOKFE IMAGING REPORTPatient Name: Francia GUNN of Service: 16-91-1589Meo: 69 Sex: M Order #: [id number] Room: QERDOB: 1950 X-Ray Number: [id number] Record Number: [id number] Hospital Number: [id number] Physician: ANDRZEJ BOCANEGRAOrdering Physician: LEV BOCANEGRA scan of the brain done without contrast.This [...] authenticated by ALICIA HECK 2020-04-17 17:20:55ECHO COMPLETE W/[id number] 19:32:00[facility]CH[facility]IO[facility] REPORTName: MAXINE GUNN Study Date: 02/09/2017 01:39 PMMRN: [id number] Patient Location: 4S\\S\\419\\S\\AHR: 61DOB: 1950 (M/d/yyyy)Gender: MaleAge: 66 yrsHeight: 75 in Weight: 225 lbBSA: 2.3 s5Dqadaz For Study: StrokeHistory:CVAProceduresA complete two- dimensional transthoracic [...] RVOT diam: 1.9 cm LVLd ap4: 8.8 cmEDV(MOD-sp4):159.0 mlLVLs ap4: 7.7 cmESV(MOD-sp4): 56.0 mlEF(MOD-sp4): 64.8 % SV(MOD-sp4): 103.0 mlDoppler Measurements and CalculationsMV E max leann: 72.7cm/sec MV dec time: 0.28 secMV A max [...] motion is normal.Right VentricleThe right ventricle is grossly normal size. The right ventricular systolicfunction is normal.AtriaThe left atrium is borderline dilated. Right atrial size is normal.Mitral ValveThe mitral valve is grossly normal. There is mild mitral regurgitation.Tricuspid ValveThe tricuspid valve is not well visualized, but is grossly normal. R ightventricular systolic pressure is normal. There is mild tricuspidregurgitation.Aortic ValveThe aortic valve is normal in structure and function.Great VesselsThe aortic root is normal size.Pericardium/PleuralThere is no pericardial effusion.Interpretation SummaryLeft ventricular systolic function isnormal.Ejection Fraction = 55-60%.The transmitral spectral Doppler flow pattern is suggestive of impaired LVrelaxation.Right ventricular systolic pressure is normal. Gatito Lacy MD 02/16/2017Reading Physician: Electronically signed by:07:32 PMOrdering Physician: SADI BURROUGHSeferrangie Physician: PEDRO MARIEEPerformed By: Aundrea Tilley RVSCTA HEAD 2017-02-09 16:09:[address] [address]AAMFTOLSTJ IMAGING REPORTPatient Name: Francia UGNN of Service: 88-09-1134Vhq: 66 Sex: M Order #: [id number] Room: [facility] 4SDOB: 1950 X-Ray Number: [id number] Record Number: [id number] Hospital Number: [id number] Physician: PEDRO MARIEE -Ordering Physician: SANTOSH DUMONT [...] by ROBYN Stanley 2017-02-09 16:06:37CTA NECK 2017-02-09 16:09:0075 [address] StreetIAGNOSTIC IMAGING REPORTPatient Name: Francia GUNN of Service: 31-52-5036Epn: 66 Sex: M Order #: [id number] Room: [facility]/ A 4SDOB: 1950 X-Ray Number: [id number] Record Number: [id number] Hospital Number: [id number] Physician: PEDRO MARIEE -Ordering Physician: SANTOSH DUMONT [...] ROBYN Stanley 2017-02-09 16:06:37MRI BRAIN W 2017-02-09 09:30:00[place] [id number] IMAGING REPORTPatient Name: Francia GUNN of Service: 16-24-4664Mup: 66 Sex: M Order #: [id number] Room: [facility] A 4SDOB: 1950 X-Ray Number: [id number] Record Number: [id number] Hospital Number: [id number] Physician: PEDRO MARIEE -Ordering Physician: LAURYN WHELAN of the brain with and without contrast [...] AMLegallyauthenticated by DAVID ROMEO 2017-02-09 09:27:59US CAROTID [id number] 06:44:[address] [address]ZLUOBYZTGZ IMAGING REPORTPatient Name: Francia GUNN of Service: 77-30-9512Moh: 66 Sex: M Order #: [id number] Room: [facility]/ A 4SDOB: 1950 X-Ray Number: [id number] Record Number: [id number] Hospital Number: [id number] Physician: PEDRO MARIEE -Ordering Physician: Tre WHELAN cervical carotid. duplex ultrasound (grayscale, color flowDoppler, [...] by MARIANNE RAJAN 2017-02-09 06:42:20CT HEAD W/O [id number] 21:13:0075 [address] StreetIAGNOSTIC IMAGING REPORTPatient Name: MAXINE GUNNCait of Service: 79-41-5727Ups: 66 Sex: M Order #: [id number] Room: [facility]: 1950 X-Ray Number: [id number] Record Number: [id number] Hospital Number: [id number] Physician: FABY TAOOrdering Physician: Sharon WHELAN CT [...] by MARIANNE RAJAN 2017-02-08 21:11:06CHEST 1 VIEW [id number] 21:10:00[place] [id number] IMAGING REPORTPat ient Name: Farncia GUNN of Service: 23-69-6863Nnc: 66 Sex: M Order #: [id number] Room: QERDOB: 1950 X-Ray Number: [id number] Record Number: [id number] Hospital Number: [id number] Physician: FABY ATOOrdering Physician: BRIGHT WHELAN chest one viewHistory:DX) AMSPT. [...]
[2022-08-18] MEDS ORDERED: NA CHLORIDE 0.9% 1,000 ML ONE (15:32)
[2022-08-18 15:53] LABS: Absolute Lymphocytes (CBC) 0.8 K/uL (0.7-4.9); Hematocrit 46.1 % (39.6-49.0); Lymphocytes % 7.2 % (15.3-44.8); MCV 88.9 fL (80-100); RBC Red Blood Cell Count 5.19 M/uL (4.33-5.43)
[2022-08-18 16:54] LABS: Albumin 3.1 g/dL (3.4-5.0); Bilirubin Total 1.1 mg/dL (0.2-1.0); Protein, Total 7.2 g/dL (6.4-8.2)
[2022-08-18 16:55] LABS: Magnesium 2.1 mg/dL (1.6-2.4); Potassium 4.1 mmol/L (3.5-5.1)
--- NOTE | 2022-08-18 17:05 | RAD REPORT ---
EXAM DESCRIPTION: RAD - Chest Single View - 08/18/2022 4:53 pm CLINICAL HISTORY: low o2 COMPARISON: Chest Single View dated 01/07/2022; Hip Right 2 View dated 08/18/2022 FINDINGS: Lines: None. Lungs: New irregular airspace disease in the right mid lung. Pleural: No significant pleural effusions or pneumothorax. Cardiac: The heart size is within normal limits. Mediastinum: Within normal limits. Bones: No acute fractures. Other: None IMPRESSION: New irregular airspace disease in the right mid lung could be secondary to pneumonia, as piration pneumonitis, or alternate process. Consider either follow-up radiography or chest CT for fur ther evaluation.
--- NOTE | 2022-08-18 17:05 | RAD REPORT ---
EXAM DESCRIPTION: RAD - Hip Right 2 View - 08/18/2022 4:53 pm CLINICAL HISTORY: PAIN COMPARISON: No comparisons FINDINGS: No acute fracture. No malalignment. No significant focal degenerative changes. IMPRESSION: No acute osseous abnormality involving the right hip.
--- NOTE | 2022-08-18 18:17 | RAD REPORT ---
EXAM DESCRIPTION: CT - CTHCSPWOC - 08/18/2022 6:02 pm CLINICAL HISTORY: Trauma, head and neck injury. fall COMPARISON: No comparisons TECHNIQUE: Axial 5 mm thick images of the head were obtained. Axial 2 mm thick images of the cervical spine were obtained with sagittal and coronal reconstruction images generated and reviewed. All CT scans are performed using dose optimization technique as appropriate and may include automated exposure control or mA/KV adjustment according to patient size. FINDINGS: CT HEAD WITHOUT CONTRAST: No acute hemorrhage, hydrocephalus or extra-axial collection is identified.No areas of brain edema or midline shift. Chronic small vessel ischemic changes. Remote basal ganglia lacunar infarcts. Cerebra l atrophy. The paranasal sinuses and mastoids are clear.The calvarium is intact. CT CERVICAL SPINE WITHOUT CONTRAST: No fracture or subluxation.No prevertebral soft tissues swelling is identified. Multilevel degenerati ve changes are present in the spine. IMPRESSION: No acute intracranial or cervical spine findings. Remote bilateral basal ganglia lacunar infarcts.
--- NOTE | 2022-08-18 18:29 | RAD REPORT ---
EXAM DESCRIPTION: CT - Thorax Wo Con - 08/18/2022 6:02 pm CLINICAL HISTORY: fall COMPARISON: Chest Single View dated 08/18/2022; Chest Single View dated 01/07/2022 FINDINGS: Chest Wall: No suspicious thyroid nodules or pathologic lymphadenopathy. Lungs: 2 adjacent masses versus a conglomerate mass the right upper lobe measuring 6.1 by 2.3 cm. Por tions of the mass are lobular. Emphysema. Pleura: No significant effusions or pneumothorax. Mediastinum/aaron: No pathologic lymphadenopathy. Pulmonary arteries/Aorta: Limited evaluation without contrast. No aortic aneurysm. Heart: No significant pericardial effusion. Normal heart size. Upper abdomen: No acute abnormality. Bones: No acute abnormality. All CT scans are performed using dose optimization technique as appropriate and may include automated exposure control or mA/KV adjustment according to patient size. IMPRESSION: Mass versus masses in the right upper lobe that either represents neoplasm or pneumonia. If pneumonia likely, recommend appropriate treatment course and close imaging follow-up with chest r adiograph or CT. If pneumonia unlikely or less likely, neoplasm should be excluded. Initial evaluatio n can be done with PET-CT.
--- NOTE | 2022-08-18 19:07 | ER ---
Nurse's Notes [facility] Name: Timoteo Gunn Age: 71 yrs Sex: Male : 1950 Arrival Date: 08/18/2022 Time: 14:55 Bed 19 Private MD: Diagnosis: Pneumonia in diseases classified elsewhere;Fall on same level, unspecified Presentation: 08/18 14:56 Chief complaint: EMS states: client had an unwitnessed mechanical fall yesterday and kc6 hit his head on the back of a closet. stated he is weak today and reports right hip pain and neck pain. client denies loss of consciousness. alert and oriented x4. Coronavirus screen: Vaccine status: Patient reports receiving the 2nd dose of the covid vaccine. Ebola Screen: No symptoms or risks identified at this time. Initial Sepsis Screen: Does the patient meet any 2 criteria? HR > 90 bpm. No. Patient's initial sepsis screen is negative. Does the patient have a suspected source of infection? No. Patient's initial sepsis screen is negative. Risk Assessment: Do you want to hurt yourself or someone else? Patient reports no desire to harm self or others. Onset of symptoms was August 17, 2022. 14:56 Method Of Arrival: EMS: [facility] kc6 14:56 Acuity: ABIEL 3 kc6 Triage Assessment: 14:59 General: Appears in no apparent distress. comfortable, Behavior is cooperative, kc6 appropriate for age, anxious, crying. Pain: Complains of pain in right hip, back of neck Pain does not radiate. Pain currently is 6 out of 10 on a pain scale. Quality of pain is described as sharp, Pain began 1 day ago. Is continuous, Alleviated by nothing. Aggravated by increased activity, repositioning, weight bearing, Noted to be crying, Also complains of no other associated symptoms. EENT: No signs and/or symptoms were reported regarding the EENT system. Neuro: Granda Agitation-Sedation Scale (RASS): 0 - Alert and Calm Level of Consciousness is awake, alert, obeys commands, Oriented to person, place, time, situation, Appropriate for age. Cardiovascular: Heart tones S1 S2 present Capillary refill < 3 seconds. Respiratory: Airway is patent Trachea midline Respiratory effort is even, unlabored, Respiratory pattern is regular, symmetrical, Breath sounds are clear bilaterally. GI: No signs and/or symptoms were reported involving the gastrointestinal system. : No signs and/or symptoms were reported regarding the genitourinary system. Derm: No signs and/or symptoms reported regarding the dermatologic system. Musculoskeletal: Circulation, motion, and sensation intact. Capillary refill < 3 seconds, Range of motion: intact in all extremities, Reports weakness in right leg and left leg. Historical: - Allergies: 14:58 No Known Allergies; kc6 - PMHx: 15:12 Myocardial infarction; stroke; Hypercholesterolemia; kc6 - PSHx: 15:12 heart stent; kc6 - Immunization history:: Client reports receiving the 2nd dose of the Covid vaccine, Flu vaccine is not up to date. - Social history:: Smoking status: Patient denies any tobacco usage or history of. Screenin:04 Abuse screen: Denies threats or abuse. Denies injuries from another. Nutritional [facility] screening: No deficits noted. Tuberculosis screening: No symptoms or risk factors identified. Fall Risk Fall in past 12 months (25 points). No secondary diagnosis (0 pts). No IV (0 pts). Ambulatory Aid- Crutches/Cane/Walker (15 pts). Gait- Weak (10 pts.). Mental Status- Oriented to own ability (0 pts). Total Pham Fall Scale indicates High Risk Score (45 or more points). Fall prevention measures have been instituted. Side Rails Up X 2 Placed Close to Nursing Station Frequent Obs/Assessments Occuring Family Present and informed to notify staff if the need to leave the bedside As available patient and family educated on Fall Prevention Program and Strategies. Assessment: 15:04 Reassessment: please see triage assessment. [facility] 16:06 Reassessment: Patient appears in no apparent distress at this time. No changes from 6 previously documented assessment. Patient and/or family updated on plan of care and expected duration. Pain level reassessed. Patient is alert, oriented x 3, equal unlabored respirations, skin warm/dry/pink. 17:06 Reassessment: Patient appears in no apparent distress at this time. No changes from [facility] previously documented assessment. Patient and/or family updated on plan of care and expected duration. Pain level reassessed. Patient is alert, oriented x 3, equal unlabored respirations, skin warm/dry/pink. 18:06 Reassessment: Patient appears in no apparent distress at this time. No changes from kc6 previously documented assessment. Patient and/or family updated on plan of care and expected duration. Pain level reassessed. Patient is alert, oriented x 3, equal unlabored respirations, skin warm/dry/pink. Vital Signs: 14:56 BP 139 / 75; Pulse 104; Resp 18 S; Temp 98.2(O); Pulse Ox 97% on R/A; Weight 90.72 kg kc6 (R); Height 6 ft. 3 in. (190.50 cm) (R); 16:06 BP 149 / 79; Pulse 95; Resp 18 S; Pulse Ox 96% on R/A; kc6 17:06 BP 123 / 67; Pulse 94; Resp 16 S; Pulse Ox 92% on R/A; kc6 18:47 BP 145 / 85; Pulse 91; Resp 17; Pulse Ox 91% on R/A; kc6 14:56 Body Mass Index 25.00 (90.72 kg, 190.50 cm) kc6 ED Course: 14:55 Patient arrived in ED. kc6 14:55 Saundra Bailey, RN is Primary Nurse. kc6 14:58 Triage completed. kc6 15:10 Adonis Romero PA is PHCP. jr8 15:10 Calderon Serrano DO is Attending Physician. jr8 15:48 Magnesium Sent. kc6 15:48 CBC with Diff Sent. kc6 15:48 CMP Sent. kc6 15:48 Inserted saline lock: 20 gauge in right antecubital area, using aseptic technique. kc6 Blood collected. 15:49 Arm band placed on. kc6 15:49 Patient has correct armband on for positive identification. Bed in low position. Call kc6 light in reach. Side rails up X2. 16:54 XRAY Hip RIGHT 2 view In Process Unspecified. EDMS 16:54 Chest Single View XRAY In Process Unspecified. EDMS 18:03 Head C Spine Mpr Wo Con In Process Unspecified. EDMS 18:04 Thorax Wo Con In Process Unspecified. EDMS 19:05 Nhung Sterling PA-C is Hospitalizing Provider. cp 19:52 COVID-19/FLU A+B Sent. aa9 19:52 Inserted saline lock: 20 gauge in left antecubital area, using aseptic technique. Blood aa9 collected. 19:52 Blood Culture Adult (2) Sent. aa9 21:19 No provider procedures requiring assistance completed. aa9 21:19 Patient admitted, IV remains in place. aa9 08/19 04:55 Juan Bess MD is Hospitalizing Provider. sb4 Administered Medications: 08/18 15:48 Drug: NS 0.9% 1000 ml Route: IV; Rate: 1000 ml; Site: right antecubital; kc6 19:52 Drug: fentaNYL (PF) 25 mcg Route: IVP; Site: left antecubital; aa9 21:18 Drug: LevaQUIN (levofloxacin) 750 mg Volume: 150 ml; Route: IVPB; Infused Over: 90 aa9 mins; Site: left antecubital; Medication: 21:19 VIS not applicable for this client. aa9 Outcome: 19:06 Decision to Hospitalize by Provider. cp 21:19 Admitted to ER Hold. Please see [facility] for further documentation. aa9 21:19 Condition: stable 21:19 Instructed on the need for admit. 08/19 14:55 Patient left the ED. ph Signatures: Dispatcher [employer] EDMS Adonis Romero PA PA jrSelin Scott RN RN ph Stoney Lipscomb PA PA cp Ofelia Graves, CITLALLI RN aa9 Saundra Bailey RN RN kc6 Nhung Sterling PALinda PALinda sb4
--- NOTE | 2022-08-18 19:07 | EDPHYS ---
Physician Documentation [facility] Name: Timoteo Gunn Age: 71 yrs Sex: Male : 1950 Arrival Date: 08/18/2022 Time: 14:55 Bed 19 Private MD: ED Physician Calderon Serrano HPI: 08/18 16:30 This 71 yrs old Male presents to ER via EMS with complaints of Fall, Hip pain, neck jr8 pain. 16:40 Onset: The symptoms/episode began/occurred acutely, yesterday. Associated injuries: The jr8 patient sustained neck injury, right leg. Severity of symptoms: At their worst the symptoms were moderate, in the emergency department the symptoms are unchanged. The patient has not experienced similar symptoms in the past. The patient has not recently seen a physician. 71-year-old male patient that came in via EMS after sustaining a fall yesterday. Patient was found on the ground by family. Stated that he hit his toe and tripped causing him to fall. Patient stated that he had the back of his neck and had. Landed on his buttock and since then has been having right hip pain along with neck pain. Stated that he felt generally weak today at also. Denies loss of consciousness.. Historical: - Allergies: 14:58 No Known Allergies; kc6 - PMHx: 15:12 Myocardial infarction; stroke; Hypercholesterolemia; kc6 - PSHx: 15:12 heart stent; kc6 - Immunization history:: Client reports receiving the 2nd dose of the Covid vaccine, Flu vaccine is not up to date. - Social history:: Smoking status: Patient denies any tobacco usage or history of. ROS: 16:40 Eyes: Negative for injury, pain, redness, and discharge, ENT: Negative for injury, jr8 pain, and discharge, Cardiovascular: Negative for chest pain, palpitations, and edema, Respiratory: Negative for shortness of breath, cough, wheezing, and pleuritic chest pain, Abdomen/GI: Negative for abdominal pain, nausea, vomiting, diarrhea, and constipation, Back: Negative for injury and pain, Skin: Negative for injury, rash, and discoloration, Neuro: Negative for headache, weakness, numbness, tingling, and seizure. 16:40 Constitutional: Positive for fatigue. 16:40 Neck: Positive for pain with movement, pain at rest, tenderness, Negative for bony tenderness. 16:40 MS/extremity: Positive for Right hip pain. Exam: 16:47 Constitutional: This is a well developed, well nourished patient who is awake, alert, jr8 and in no acute distress. Head/Face: Normocephalic, atraumatic. Eyes: Pupils equal round and reactive to light, extra-ocular motions intact. Lids and lashes normal. Conjunctiva and sclera are non-icteric and not injected. Cornea within normal limits. Periorbital areas with no swelling, redness, or edema. ENT: Nares patent. No nasal discharge, no septal abnormalities noted. Tympanic membranes are normal and external auditory canals are clear. Oropharynx with no redness, swelling, or masses, exudates, or evidence of obstruction, uvula midline. Mucous membranes moist. Chest/axilla: Normal chest wall appearance and motion. Nontender with no deformity. No lesions are appreciated. Cardiovascular: Regular rate and rhythm with a normal S1 and S2. No gallops, murmurs, or rubs. Normal PMI, no JVD. No pulse deficits. Respiratory: Lungs have equal breath sounds bilaterally, clear to auscultation and percussion. No rales, rhonchi or wheezes noted. No increased work of breathing, no retractions or nasal flaring. Abdomen/GI: Soft, non-tender, with normal bowel sounds. No distension or tympany. No guarding or rebound. No evidence of tenderness throughout. Back: No spinal tenderness. No costovertebral tenderness. Full range of motion. Skin: Warm, dry with normal turgor. Normal color with no rashes, no lesions, and no evidence of cellulitis. Neuro: Awake and alert, GCS 15, oriented to person, place, time, and situation. Cranial nerves II-XII grossly intact. Motor strength 5/5 in all extremities. Sensory grossly intact. 16:47 Neck: External neck: tenderness, that is mild, of the left trapezius, lower cervical area and right trapezius, C-spine: vertebral tenderness, that is mild, appreciated at C5 and C6, Thyroid: appears normal, Trachea: is midline with no obvious abnormalities, ROM/movement: is normal, Lymph nodes: no appreciated lymphadenopathy. 16:47 Musculoskeletal/extremity: Extremities: grossly normal except: noted in the Right hip: decreased ROM, pain, tenderness, Circulation is intact in all extremities. Sensation intact. Vital Signs: 14:56 BP 139 / 75; Pulse 104; Resp 18 S; Temp 98.2(O); Pulse Ox 97% on R/A; Weight 90.72 kg kc6 (R); Height 6 ft. 3 in. (190.50 cm) (R); 16:06 BP 149 / 79; Pulse 95; Resp 18 S; Pulse Ox 96% on R/A; kc6 17:06 BP 123 / 67; Pulse 94; Resp 16 S; Pulse Ox 92% on R/A; kc6 18:47 BP 145 / 85; Pulse 91; Resp 17; Pulse Ox 91% on R/A; kc6 14:56 Body Mass Index 25.00 (90.72 kg, 190.50 cm) 6 MDM: 15:10 Patient medically screened. 8 16:47 Data reviewed: vital signs, nurses notes, lab test result(s), radiologic studies, CT jr8 scan, plain films. Data interpreted: Pulse oximetry: on room air is 96 %. Interpretation: normal. Counseling: I had a detailed discussion with the patient and/or guardian regarding: the historical points, exam findings, and any diagnostic results supporting the discharge/admit diagnosis, lab results, radiology results. 17:56 ED course: Patient was 89% room air upon arrival. Was 96% on 4 L and has been slowly jr8 weaned down to 2 L at this time. Holding at 92%. Patient normally does not have any shortness of breath and does not require oxygen at home. Pending CT scan of the chest as there is increased aeration present on plain film.. 18:08 Awaiting: CT scan results. Transition of care: After a detail discussion of the jr8 patient's case, care is transferred to Stoney PRATHER. 08/18 15:24 Order name: CBC with Diff; Complete Time: 16:29 8 08/18 15:24 Order name: CMP; Complete Time: 16:59 jr8 08/18 15:24 Order name: Magnesium; Complete Time: 16:59 jr8 08/18 18:08 Order name: Blood Culture Adult (2) 8 08/18 18:08 Order name: COVID-19 SARS RT PCR [facility] 08/18 19:35 Order name: COVID-19/FLU A+B; Complete Time: 20:48 sb4 08/18 15:24 Order name: XRAY Hip RIGHT 2 view; Complete Time: 17:07 8 08/19 03:03 Order name: CBC with Automated Diff EDMS 08/19 03:23 Order name: Comprehensive Metabolic Panel EDMS 08/19 03:23 Order name: Phosphorus EDMS 08/19 03:23 Order name: Lipid Profile EDMS 08/19 03:23 Order name: Magnesium EDMS 08/19 03:23 Order name: Thyroid Stimulating Hormone EDMS 08/18 15:24 Order name: IV Saline Lock; Complete Time: 15:48 8 08/18 15:24 Order name: Labs collected and sent; Complete Time: 15:48 8 08/18 15:24 Order name: Chest Single View XRAY; Complete Time: 17:07 8 08/18 15:24 Order name: EKG; Complete Time: 15:24 8 08/18 17:08 Order name: CT Chest Wo Con 8 08/18 17:37 Order name: Head C Spine Mpr Wo Con; Complete Time: 18:36 EDMS 08/18 17:37 Order name: Thorax Wo Con; Complete Time: 18:36 EDMS Administered Medications: 15:48 Drug: NS 0.9% 1000 ml Route: IV; Rate: 1000 ml; Site: right antecubital; kc6 19:52 Drug: fentaNYL (PF) 25 mcg Route: IVP; Site: left antecubital; aa9 21:18 Drug: LevaQUIN (levofloxacin) 750 mg Volume: 150 ml; Route: IVPB; Infused Over: 90 aa9 mins; Site: left antecubital; Disposition: 17:58 Co-signature as Attending Physician, Calderon PEDRO was immediately available onsite ms3 in the emergency department for consultation in the care of the patient. Disposition Summary: 08/18/22 19:06 Hospitalization Ordered Hospitalization Status: Inpatient Admission cp Condition: Stable cp Problem: new cp Symptoms: have improved cp Bed/Room Type: Standard cp Provider: Juan Bess(08/19/22 04:55) sb4 Location: Telemetry/MedSurg (Inpatient)(08/19/22 13:48) ja1 Room Assignment: 411(08/19/22 13:48) ja1 Diagnosis - Pneumonia in diseases classified elsewhere cp - Fall on same level, unspecified cp Forms: - Medication Reconciliation Form cp - SBAR form cp Signatures: Dispatcher [employer] EDMS Darien Blanchard PA PA jmm Roszak, Josh, PA PA 8 Stoney Lipscomb PA PA cp Garcia, Cindy, RN RN cg Michael Carbajal RN RN ja1 Calderon Serrano, DO DO ms3 Ofelia Graves RN RN aa9 Saundra Bailey RN RN kc6 Nhung Sterling PALinda PALinda sb4 Corrections: (The following items were deleted from the chart) 18:47 18:41 Thorax Wo Con ordered. EDMS EDMS 18:50 18:37 Head C Spine MPR Wo Con+CT.RAD.BRZ ordered. EDMS EDMS 19:45 19:06 Telemetry/MedSurg (Inpatient) cp cg 19:45 19:06 cp cg 08/19 04:55 08/18 19:06 Nhung Sterling cp sb4 08/19 13:48 08/18 19:45 [facility] ER HOLD cg ja1 08/19 13:48 08/18 19:45 ERHOLD- cg ja1
[2022-08-18] MEDS ORDERED: FENTANYL CITR 100 MCG/2 ML ONE (19:31)
[2022-08-18] MEDS ORDERED: Levofloxacin 750mg IV 750 MG/150 ML BAG IV ONE (19:32)
--- NOTE | 2022-08-18 19:42 | P.HP ---
Certification for Inpatient Patient admitted to: Inpatient With expected LOS: <2 Midnights Patient will require the following post-hospital care: None Practitioner: I am a practitioner with admitting privileges, knowledge of patient current condition, hospital course, and medical plan of care. Services: Services provided to patient in accordance with Admission requirements found in Title 42 Section 412.3 of the Code of Federal Regulations Patient History Date of Service: 08/18/22 Primary Care Provider: Devi Reason for admission: Pneumonia History of Present Illness: Patient is a 71-year-old male with CAD, history of IN and CVA, COPD, hypertension, and hyperlipidemia who presented to the ED with complaints of hip pain and neck pain secondary to a mechanical fall he sustained yesterday. He did not hit his head, lose consciousness, nor is he taking any blood thinners. He is complaining of continued pain and generalized weakness today. His labs are significant for sodium 133, BUN 28, creatinine 1.43. Hip x-ray and head/cervical spine CT are negative for acute findings. Chest CT showed "mass versus masses in the right upper lobe that either represents neoplasm or pneumonia. If pneumonia likely, recommend appropriate treatment course and close imaging follow-up with chest radiograph or CT. If pneumonia unlikely or less likely, neoplasm should be excluded." He was given Levaquin, 1 L fluid, and fentanyl in ED. Patient is admitted for further management. Home medications list reviewed: Yes - Past Medical/Surgical History Diabetic: No -: Coronary Artery Disease -: Hyperlipidemia -: Hypertension -: Emphysema -: Cardiac catheterization with stent Psychosocial/ Personal History: Patient lives at home. He has a son. - Family History Family History: Reviewed- Non-Contributory - Social History Smoking Status: Former smoker Alcohol use: No CD- Drugs: No Caffeine use: Yes Place of Residence: Home Physical Examination - Vital Signs Temperature: 98.2 F Blood Pressure: 144/88 Pulse: 91 Respirations: 17 Pulse Ox (%): 92 (2L NC) - Physical Exam General: Alert, In no apparent distress HEENT: Atraumatic, PERRLA, EOMI, Sclerae nonicteric Neck: Supple, 2+ carotid pulse no bruit, No LAD, Without JVD or thyroid abnormality Respiratory: Clear to auscultation bilaterally, Normal air movement Cardiovascular: Regular rate/rhythm, Normal S1 S2 Gastrointestinal: Normal bowel sounds, No tenderness Musculoskeletal: No tenderness Integumentary: No rashes Neurological: Normal speech, Normal strength at 5/5 x4 extr, Normal tone, Normal affect - Studies Laboratory Data (last 24 hrs) 08/18/22 15:46: Sodium 133 L, Potassium 4.1, BUN 28 H, Creatinine 1.43 H, Glucose 114 H, Magnesium 2.1, Total Bilirubin 1.1 H, AST 16, ALT 15 L, Alkaline Phosphatase 107 08/18/22 15:46: WBC 10.90, Hgb 15.6, Hct 46.1, Plt Count 205 Assessment and Plan - Problems (Diagnosis) (1) Pneumonia Current Visit: Yes Status: Acute Qualifiers: Pneumonia type: due to unspecified organism Laterality: right Lung location: upper lobe of lung Qualified Code(s): J18.9 - Pneumonia, unspecified organism (2) CAD (coronary artery disease) Current Visit: Yes Status: Chronic Qualifiers: Coronary Disease-Associated Artery/Lesion type: [place] artery [place] vs. transplanted heart: [place] heart Associated angina: without angina Qualified Code(s): I25.10 - Atherosclerotic heart disease of [place] coronary artery without angina pectoris (3) Hypertension Current Visit: Yes Status: Chronic Qualifiers: Hypertension type: primary hypertension Qualified Code(s): I10 - Essential (primary) hypertension (4) Hyperlipidemia Current Visit: Yes Status: Chronic Qualifiers: Hyperlipidemia type: unspecified Qualified Code(s): E78.5 - Hyperlipidemia, unspecified (5) COPD (chronic obstructive pulmonary disease) Current Visit: Yes Status: Chronic Qualifiers: COPD type: emphysema Emphysema type: unspecified Qualified Code(s): J43.9 - Emphysema, unspecified - Plan Patient is admitted for further management. Will proceed with treatment of right upper lobe pneumonia vs mass. Continue azithromycin and ceftriaxone. Blood cultures obtained. Pulmonology consulted. Patient will likely need further work up of consolidation if symptoms do not improve. Breathing treatments and supplemental O2 as needed. Incentive spirometry. Physical therapy consult. Monitor and replete electrolytes per protocol. Reconcile and continue home medications. Lovenox for VTE prophylaxis. Full code Discharge Plan: Home Plan to discharge in: 48 Hours - Advance Directives Does patient have a Living Will: No Does patient have a Durable POA for Healthcare: No - Code Status/Comfort Care Code Status Assessed: Yes Code Status: Full Code Physician Review: Patient Assessed, Agree with Above Assessment and Plan Critical Care: No Time Spent Managing Pts Care (In Minutes): 50
[2022-08-18] MEDS ORDERED: ONDANSETRON 4 MG/2 ML VIAL IV PRN (19:59)
[2022-08-18] MEDS ORDERED: ALBUTEROL 2.5 MG/3 ML NEB SOL NEB PRN (19:59)
[2022-08-18 20:40] LABS: SARS-COV-2 RT PCR NEGATIVE (NEGATIVE)
[2022-08-19 02:58] LABS: Absolute Lymphocytes (CBC) 1.5 K/uL (0.7-4.9); Hematocrit 41.7 % (39.6-49.0); Lymphocytes % 15.6 % (15.3-44.8); MCV 89.7 fL (80-100); RBC Red Blood Cell Count 4.65 M/uL (4.33-5.43)
[2022-08-19 03:23] LABS: Albumin 2.8 g/dL (3.4-5.0); Bilirubin Total 0.9 mg/dL (0.2-1.0); Phosphorus 2.4 mg/dL (2.5-4.9); Potassium 3.7 mmol/L (3.5-5.1); Protein, Total 6.6 g/dL (6.4-8.2); Thyroid Stimulating Hormone 1.14 uIU/mL (0.358-3.740)
[2022-08-19 03:55] VITALS: BMI 25.0
[2022-08-19] MEDS ORDERED: INFLUENZA VACCINE (for 6+ mo) 0.5 ML DOSE IMVAC ONE (08:00)
[2022-08-19] MEDS: CEFTRIAXONE 1,000 MG in NA CHLORIDE 0.9% 50 ML IVPB SCH (09:00)
[2022-08-19] MEDS: ENOXAPARIN 40 MG/0.4 ML SQ SCH (09:00)
[2022-08-19] MEDS ORDERED: AZITHROMYCIN 500 MG INJ IVPB ONE (09:05)
[2022-08-19] MEDS ORDERED: CEFTRIAXONE 1000 MG/VIAL ONE (09:05)
[2022-08-19] MEDS ORDERED: NA CHLORIDE 0.9% 250 ML ONE (09:05)
[2022-08-19] MEDS ORDERED: ENOXAPARIN 40 MG/0.4 ML SQ ONE (09:06)
[2022-08-19] MEDS ORDERED: NA CHLORIDE 0.9% 100 ML IV ONE (09:06)
[2022-08-19] MEDS: AZITHROMYCIN IV 500 MG in NA CHLORIDE 0.9% 250 ML IVPB SCH (09:30)
[2022-08-19] MEDS ORDERED: ALBUTEROL 2.5 MG/3 ML NEB SOL NEB PRN (14:00)
[2022-08-19] MEDS: ACETAMINOPHEN 325 MG TABLET PO PRN (20:35)
[2022-08-20 06:09] LABS: Absolute Lymphocytes (CBC) 1.6 K/uL (0.7-4.9); Hematocrit 39.4 % (39.6-49.0); Lymphocytes % 21.6 % (15.3-44.8); MCV 89.1 fL (80-100); RBC Red Blood Cell Count 4.42 M/uL (4.33-5.43)
[2022-08-20 06:29] LABS: Albumin 2.6 g/dL (3.4-5.0); Bilirubin Total 0.5 mg/dL (0.2-1.0); Magnesium 2.1 mg/dL (1.6-2.4); Potassium 3.4 mmol/L (3.5-5.1)
--- NOTE | 2022-08-20 08:39 | RAD REPORT ---
EXAM DESCRIPTION: RAD - Chest Single View - 08/20/2022 6:27 am CLINICAL HISTORY: pneumonia Chest pain. COMPARISON: Chest Single View dated 08/18/2022; Chest Single View dated 01/07/2022 FINDINGS: Portable technique limits examination quality. Emphysematous changes are seen with moderate bilateral pulmonary opacities again noted. Right mid eamon g poorly defined opacity appears mildly improved. The heart is normal in size. No displaced fractures . IMPRESSION: Mild improvement lung aeration seen since comparative study.
[2022-08-20] MEDS: CEFTRIAXONE 1,000 MG in NA CHLORIDE 0.9% 50 ML IVPB SCH ×2 (09:00→12:06)
[2022-08-20] MEDS: ENOXAPARIN 40 MG/0.4 ML SQ SCH (09:00)
[2022-08-20] MEDS: AZITHROMYCIN IV 500 MG in NA CHLORIDE 0.9% 250 ML IVPB SCH ×2 (09:00→12:06)
[2022-08-20] MEDS ORDERED: POTASSIUM CL SA 10 MEQ TAB PO ONE (09:00)
[2022-08-21] MEDS: CEFTRIAXONE 1,000 MG in NA CHLORIDE 0.9% 50 ML IVPB SCH (08:43)
[2022-08-21] MEDS: AZITHROMYCIN IV 500 MG in NA CHLORIDE 0.9% 250 ML IVPB SCH (08:43)
[2022-08-21] MEDS: ENOXAPARIN 40 MG/0.4 ML SQ SCH (08:43)
[2022-08-21] MEDS: ACETAMINOPHEN 325 MG TABLET PO PRN (08:48)
[2022-08-22 00:47] VITALS: O2SAT 92
[2022-08-22 14:00] VITALS: BP 152/63; TEMP 98.2
--- NOTE | 2022-09-03 17:38 | P.PN ---
Date of Service: 08/19/22 Subjective Patient's respiratory status are somewhat improved. Patient looks to have a pneumonic process. Continue with antibiotic therapy and continue monitoring closely. Physical Examination - Vital Signs Reviewed - Physical Exam General: Alert, In no apparent distress Respiratory: Clear to auscultation bilaterally, Normal air movement Cardiovascular: Regular rate/rhythm, Normal S1 S2 Gastrointestinal: Normal bowel sounds, No tenderness Neurological: No focal deficits Assessment and Plan - Problems (Diagnosis) (1) Pneumonia Current Visit: Yes Status: Acute Qualifiers: Pneumonia type: due to unspecified organism Laterality: right Lung location: upper lobe of lung Qualified Code(s): J18.9 - Pneumonia, unspecified organism (2) CAD (coronary artery disease) Current Visit: Yes Status: Chronic Qualifiers: Coronary Disease-Associated Artery/Lesion type: [place] artery [place] vs. transplanted heart: [place] heart Associated angina: without angina Qualified Code(s): I25.10 - Atherosclerotic heart disease of [place] coronary artery without angina pectoris (3) Hypertension Current Visit: Yes Status: Chronic Qualifiers: Hypertension type: primary hypertension Qualified Code(s): I10 - Essential (primary) hypertension (4) Hyperlipidemia Current Visit: Yes Status: Chronic Qualifiers: Hyperlipidemia type: unspecified Qualified Code(s): E78.5 - Hyperlipidemia, unspecified (5) COPD (chronic obstructive pulmonary disease) Current Visit: Yes Status: Chronic Qualifiers: COPD type: emphysema Emphysema type: unspecified Qualified Code(s): J43.9 - Emphysema, unspecified - Plan Plan: 1. Continue with IV antibiotics 2. Awaiting sputum and blood culture 3. Repeat chest x-ray 4. CT scan of the chest if pneumonia is not improving 5. Appreciate pulmonary consultation 6. Continue with nebs as needed 7. O2 per protocol 8. Continue with gentle hydration 9. Repeat labs including CBC and renal function in a.m. 10. GI and DVT prophylaxis
--- NOTE | 2022-09-03 17:40 | P.PN ---
Date of Service: 08/20/22 Subjective Patient is feeling better. Patient did have a chest x-ray today and the mass looked like it has gotten smaller. Continue with current plan of care at this time Physical Examination - Vital Signs Reviewed - Physical Exam General: Alert, In no apparent distress Respiratory: Clear to auscultation bilaterally, Normal air movement Cardiovascular: Regular rate/rhythm, Normal S1 S2 Gastrointestinal: Normal bowel sounds, No tenderness Neurological: No focal deficits Assessment and Plan - Problems (Diagnosis) (1) Pneumonia Current Visit: Yes Status: Acute Qualifiers: Pneumonia type: due to unspecified organism Laterality: right Lung location: upper lobe of lung Qualified Code(s): J18.9 - Pneumonia, unspecified organism (2) CAD (coronary artery disease) Current Visit: Yes Status: Chronic Qualifiers: Coronary Disease-Associated Artery/Lesion type: [place] artery [place] vs. transplanted heart: [place] heart Associated angina: without angina Qualified Code(s): I25.10 - Atherosclerotic heart disease of [place] coronary artery without angina pectoris (3) Hypertension Current Visit: Yes Status: Chronic Qualifiers: Hypertension type: primary hypertension Qualified Code(s): I10 - Essential (primary) hypertension (4) Hyperlipidemia Current Visit: Yes Status: Chronic Qualifiers: Hyperlipidemia type: unspecified Qualified Code(s): E78.5 - Hyperlipidemia, unspecified (5) COPD (chronic obstructive pulmonary disease) Current Visit: Yes Status: Chronic Qualifiers: COPD type: emphysema Emphysema type: unspecified Qualified Code(s): J43.9 - Emphysema, unspecified - Plan Plan: Continue with plan of care as mentioned below: 1. Continue with IV antibiotics 2. Awaiting culture 3. Repeat chest x-ray shows lesion has improved. Most likely pneumonic process instead of mass 4. Outpatient CT to reassess mass versus pneumonia 5. Appreciate pulmonary consultation 6. Continue with nebs as needed 7. O2 per protocol 8. Hep-Lock IV 9. Repeat labs including CBC and renal function in a.m. 10. GI and DVT prophylaxis
--- NOTE | 2022-09-03 17:42 | P.PN ---
Date of Service: 08/21/22 Subjective No new complaints. Symptoms are continuing to improve. Lung sounds have improved. Physical Examination - Vital Signs Reviewed - Physical Exam General: Alert, In no apparent distress Respiratory: Clear to auscultation bilaterally, Normal air movement Cardiovascular: Regular rate/rhythm, Normal S1 S2 Gastrointestinal: Normal bowel sounds, No tenderness Neurological: No focal deficits Assessment and Plan - Problems (Diagnosis) (1) Pneumonia Current Visit: Yes Status: Acute Qualifiers: Pneumonia type: due to unspecified organism Laterality: right Lung location: upper lobe of lung Qualified Code(s): J18.9 - Pneumonia, unspecified organism (2) CAD (coronary artery disease) Current Visit: Yes Status: Chronic Qualifiers: Coronary Disease-Associated Artery/Lesion type: [place] artery [place] vs. transplanted heart: [place] heart Associated angina: without angina Qualified Code(s): I25.10 - Atherosclerotic heart disease of [place] coronary artery without angina pectoris (3) Hypertension Current Visit: Yes Status: Chronic Qualifiers: Hypertension type: primary hypertension Qualified Code(s): I10 - Essential (primary) hypertension (4) Hyperlipidemia Current Visit: Yes Status: Chronic Qualifiers: Hyperlipidemia type: unspecified Qualified Code(s): E78.5 - Hyperlipidemia, unspecified (5) COPD (chronic obstructive pulmonary disease) Current Visit: Yes Status: Chronic Qualifiers: COPD type: emphysema Emphysema type: unspecified Qualified Code(s): J43.9 - Emphysema, unspecified - Plan Plan: Continue with plan of care as mentioned below: 1. Continue with IV antibiotics; discharge on oral antibiotics in the morning 2. Cultures are negative 3. Repeat chest x-ray shows lesion has improved. Most likely pneumonic process instead of mass 4. Outpatient CT to reassess mass versus pneumonia 5. Appreciate pulmonary consultation 6. Continue with nebs as needed 7. O2 per protocol 8. Hep-Lock IV 9. GI and DVT prophylaxis
--- NOTE | 2022-09-03 17:44 | P.DS ---
Discharge Date: 08/22/22 Primary Care Provider: Devi Disposition: ROUTINE DISCHARGE Discharge Condition: GOOD Reason for Admission: Pneumonia Brief History of Present Illness: Patient is a 71-year-old male with CAD, history of MT and CVA, COPD, hypertension, and hyperlipidemia who presented to the ED with complaints of hip pain and neck pain secondary to a mechanical fall he sustained yesterday. He did not hit his head, lose consciousness, nor is he taking any blood thinners. He is complaining of continued pain and generalized weakness today. His labs are significant for sodium 133, BUN 28, creatinine 1.43. Hip x-ray and head/cervical spine CT are negative for acute findings. Chest CT showed "mass versus masses in the right upper lobe that either represents neoplasm or pneumonia. If pneumonia likely, recommend appropriate treatment course and close imaging follow-up with chest radiograph or CT. If pneumonia unlikely or less likely, neoplasm should be excluded." He was given Levaquin, 1 L fluid, and fentanyl in ED. Patient is admitted for further management. Hospital Course: Pts clinical symptoms have gotten much better. Symptoms have improved. I plan to discharge patient home with outpatient follow-up. Vital Signs/Physical Exam: Temp Pulse Resp BP Pulse Ox 98.2 F 89 16 152/63 H 93 08/22/22 12:00 08/22/22 12:00 08/22/22 12:00 08/22/22 12:00 08/22/22 12:00 General: Alert, In no apparent distress, Oriented x3 Laboratory Data at Discharge: WBC 7.40 K/uL (4.3-10.9) 08/20/22 05:55 Hgb 13.2 g/dL (13.6-17.9) L 08/20/22 05:55 Hct 39.4 % (39.6-49.0) L 08/20/22 05:55 Plt Count 200 K/uL (152-406) 08/20/22 05:55 Sodium 138 mmol/L (136-145) 08/20/22 05:55 Potassium 4.0 mmol/L (3.5-5.1) D 08/20/22 17:33 BUN 33 mg/dL (7-18) H 08/20/22 05:55 Creatinine 0.92 mg/dL (0.70-1.30) 08/20/22 05:55 Glucose 113 mg/dL (74-106) H 08/20/22 05:55 Phosphorus 2.4 mg/dL (2.5-4.9) L 08/19/22 02:22 Magnesium 2.1 mg/dL (1.6-2.4) 08/20/22 05:55 Total Bilirubin 0.5 mg/dL (0.2-1.0) 08/20/22 05:55 AST 16 U/L (15-37) 08/20/22 05:55 ALT 15 U/L (16-61) L 08/20/22 05:55 Alkaline Phosphatase 84 U/L (45-117) 08/20/22 05:55 Triglycerides 92 mg/dL (<150) 08/19/22 02:22 Cholesterol 131 mg/dL (<200) 08/19/22 02:22 HDL Cholesterol 37 mg/dL (40-60) L 08/19/22 02:22 Cholesterol/HDL Ratio 3.54 08/19/22 02:22 Home Medications: Lisinopril [Zestril] 20 mg PO DAILY 08/19/22 PARoxetine HCL [Paxil*] 10 mg PO DAILY 08/19/22 Tamsulosin [Flomax*] 0.4 mg PO DAILY 08/19/22 Albuterol Inhaler [Ventolin Inhaler*] 2 puff IH Q6H PRN #1 inh 08/20/22 Azithromycin Tab [Zithromax*] 250 mg PO ZPAK #1 rogerio 08/20/22 Cefdinir [Cefdinir*] 300 mg PO BID #14 cap 08/20/22 predniSONE [Deltasone] 20 mg PO DAILY #5 tab 08/20/22 Benzonatate [Tessalon Perle] 200 mg PO TID PRN #30 cap 08/21/22 Hydrocodone 5/APAP 325 [[place] 5/325] 1 tab PO Q6H PRN #30 tab 08/22/22 Ipratropium Neb [Atrovent*] 0.5 mg NEB Q6H #60 amp 08/22/22 Levalbuterol [Xopenex] 1 puff NEB Q6H #60 amp 08/22/22 Nebulizer 1 each MC DAILY #1 box 08/22/22 Nebulizer Accessories [Aeroneb Go] 1 each MC DAILY #1 box 08/22/22 New Medications: Nebulizer Accessories [Aeroneb Go] 1 each MC DAILY #1 box Ipratropium Neb [Atrovent*] 0.5 mg NEB Q6H #60 amp Cefdinir [Cefdinir*] 300 mg PO BID #14 cap Nebulizer 1 each MC DAILY #1 box Hydrocodone 5/APAP 325 [[place] 5/325] 1 tab PO Q6H PRN #30 tab PRN Reason: Pain predniSONE [Deltasone] 20 mg PO DAILY #5 tab Benzonatate [Tessalon Perle] 200 mg PO TID PRN #30 cap PRN Reason: Cough Albuterol Inhaler [Ventolin Inhaler*] 2 puff IH Q6H PRN #1 inh PRN Reason: Shortness Of Breath Levalbuterol [Xopenex] 1 puff NEB Q6H #60 amp Azithromycin Tab [Zithromax*] 250 mg PO ZPAK #1 rogerio Physician Discharge Instructions: -DC IV and DC home -Follow-up with PCP in 1 to 2 weeks -Follow-up with Pulmonary in 1 to 2 weeks -Please call Dr. Bess at [phone] if any questions regarding hospital stay -Please call nursing station at [phone] if any nursing or medication questions -Return to the emergency room if symptoms worsen Diet: AHA Activity: Fall precautions Followup: Rolando Rodgers MD [ACTIVE - CAN ADMIT] - 1-2 Weeks NONE,NONE [Primary Care Provider] - 1-2 Weeks Time spent managing pt's care (in minutes): 35
== END 2022-08-22 18:21 | disposition home or self-care (01) | DRG 195 ==
LOC: ER 14:45 → ERHOLD 19:35 → 4TH 08-19 14:40
PROVIDERS: ADMIT Hospitalist; ATTEND Hospitalist
DX: J18.9 Pneumonia, unspecified organism (principal); J43.9 Emphysema, unspecified; E78.5 Hyperlipidemia, unspecified; I10 Essential (primary) hypertension; M25.551 Pain in right hip; M54.2 Cervicalgia; I25.10 Atherosclerotic heart disease of native coronary artery without angina pectoris; I25.2 Old myocardial infarction; Z23 Encounter for immunization; Z95.5 Presence of coronary angioplasty implant and graft; Z79.52 Long term (current) use of systemic steroids; Z86.73 Personal history of transient ischemic attack (TIA), and cerebral infarction without residual deficits; Z87.891 Personal history of nicotine dependence; Z79.899 Other long term (current) drug therapy; Z20.822 Contact with and (suspected) exposure to COVID-19; W01.0XXA Fall on same level from slipping, tripping and stumbling without subsequent striking against object, initial encounter; Y93.9 Activity, unspecified; Y92.9 Unspecified place or not applicable
CPT/HCPCS: 0240U; 36415; 70450; 71045; 71250; 72125; 80053; 80061; 83735; 84100; 84132; 84145; 84443; 85025; 87040; 90471; 94010; 94760; 96374; 96375; 97116; 97161; 97530; 99285; J0456; J1650; J3010; J7030; J7050; Q2035

== ENCOUNTER 2023-02-13 15:33 | Emergency (ER) | payer OTHER ==
--- OUTSIDE RECORDS SUMMARY | 2023-02-13 15:39 | XMS REPORT | Continuity of Care Document ---
:1950 Author Organization [facility] t Address [address] [place] [address] Care Team Providers Name Role Phone Luciana Go MD Primary Care Physician ROD HANNAH Attending Clinician Unavailable LUCIANA GO Attending Clinician Unavailable LUCIANA GO Attending Clinician Unavailable PABLO SAGE Attending Clinician Unavailable PABLO SAGE Attending Clinician Unavailable [facility] Carlton MD Attending Clinician [phone] SACHIN CALIX Attending Clinician Unavailable Sachin Calix MD Attending Clinician [facility] Attending Clinician Unavailable Doctor Unassigned, Powers Attending Clinician Unavailable JAS LAST Attending Clinician Unavailable Lab, Ang - Db Attending Clinician Unavailable KRISTI LEDEZMA Attending Clinician Unavailable Korina Flores MD Attending Clinician KORINA FLORES Attending Clinician Unavailable BRYCE STARKS Attending Clinician Unavailable ZAHRA CARDONA Attending Clinician Unavailable SUJIT VINES Attending Clinician Unavailable ANDRZEJ BOCAENGRA Attending Clinician Unavailable PEDRO MARIEE - Attending Clinician Unavailable ROD HANNAH Admitting Clinician Unavailable ZAHRA CARDONA Admitting Clinician Unavailable SUJIT VINES Admitting Clinician Unavailable ANDRZEJ BOCANEGRA Admitting Clinician Unavailable PEDRO MARIEE - Admitting Clinician Unavailable Payers Payer Name Policy Type Policy Number Effective Date Expiration Date S jennifer Nava [id number] [facility] [id number] 2022 CLASSIC NO PREMIUM 00:00:00 HMO Problems [...] rs active active ity of problems problems [facility] Allergies, Adverse Reactions, Alerts Allergy Allergy Status Severity Reaction(s) Onset Inactive Treating Comm ents Source Name Type Date Date Clinician No Known NA Active 2020-0 [facility] 21[facility]: l 59 ([facility]) No Known NA Active 2020-0 [facility] Allergie -11 [facility] 21:14: l 58 ([facility]) No known Miscella Active U Not 2020-0 [facility] Specified 9- Hospita Allergie Allergy 21:14: l s 07 ([facility]) Denies Miscella Active U Not 2020-0 [facility] latex neous Specified 9-11 Hospita allergy Allergy 21:14: l 07 ([facility]) No known Miscella Active U Not 2020-0 [facility] drug neous Specified 9-11 Hospita Allergie Allergy 21:14: l s 07 ([facility]) Denies Miscella Active U Not 2020-0 [facility] latex neous Specified 9-11 Hospita allergy Allergy 21:14: l 07 ([facility]) No known Miscella Active U Not 2020-0 [facility] drug neous Specified 9-11 Hospita Allergie Allergy 21:14: l s 07 ([facility]) Denies Miscella Active U Not 2020-0 [facility] latex neous Specified 9-11 Hospita allergy Allergy 21:14: l 07 ([facility]) No known Miscella Active U Not 2020-0 [facility] drug neous Specified 9-11 Hospita Allergie Allergy 21:14: l s 07 ([facility]) No known Miscella Active U Not 2020-0 [facility] drug neous Specified 8-11 Hospita Allergie Allergy 16:43: l s 09 ([facility]) Denies Miscella Active U Not 2020-0 Congregation latex neous Specified 8-11 Hospita allergy Allergy 16:43: l 09 ([facility]) No known Miscella Active U Not 2020-0 Baptis t drug neous Specified 8-11 Hospita Allergie Allergy 16:43: l s 09 ([facility]) Denies Miscella Active U Not 2020-0 Congregation latex neous Specified 8-11 Hospita allergy Allergy 16:43: l 09 ([facility]) No known Miscella Active U Not 2020-0 [facility] drug neous Specified 8-11 Hospita Allergie Allergy 16:43: l s 09 ([facility]) Denies Miscella Active U Not 2020-0 [facility]regation latex neous Specified 8-11 Hospita allergy Allergy 16:43: l 09 ([facility]) No known Miscella Active U Not 2020-0 Baptis t drug neous Specified 8-11 Hospita Allergie Allergy 16:43: l s 09 ([facility]) Denies Miscella Active U Not 2020-0 Congregation latex neous Specified 8-11 Hospita allergy Allergy 16:43: l 09 ([facility]) No known Miscella Active U Not 2020-0 Baptis t drug neous Specified 8-11 Hospita Allergie Allergy 16:43: l s 09 ([facility]) Denies Miscella Active U Not 2020-0 Congregation latex neous Specified 8-11 Hospita allergy Allergy 16:43: l 09 ([facility]) No known Miscella Active U Not 2020-0 Bapt[facility] t drug neous Specified 8-11 Hospita Allergie Allergy 16:43: l s 09 ([facility]) Denies Miscella Active U Not 2020-0 [facility]regation latex neous Specified 8-11 Hospita allergy Allergy 16:43: l 09 ([facility]) No Known NA Active 2017-0 [facility] Allergie 05 Hospita s 00:46: l 57 ([facility]) No Known Allergy Active Unknown 2014-0 DONELL U Drug to 05-15 S Allergie substan 00:00: Health s e 00 NO KNOWN Drug Active Univers ALLERGIE Class ity of S [facility] Social History Social Habit Start Date Stop Date Quantity Comments Source History of Cigarette Smoker Universi ty of tobacco use [facility] Alcohol intake 2023-02-12 2023-02-12 Ex-drinker [facility] 00:00:00 00:00:00 (finding) [facility] Exposure to 2022-11-07 2022-11-17 Not sure [facility] SARS-CoV-2 00:00:00 13:56:00 [facility] (event) Branch Tobacco use and 2022-11-17 2022-11-17 Smokeless tobacco Un iversity of exposure 00:00:00 00:00:00 non-user [facility] Tobacco Comment 2022-11-17 2022-11-17 1 pack every 4-5 Uni versity of 00:00:00 00:00:00 days [facility] Sex [birth year] Universit y of 00:00:00 00:00:00 [facility] Smoking Status Start Date Stop Date Source Smokes tobacco daily 2022-11-17 00:00:00 [facility] Medications Ordered Filled Start Stop Current Ordering Indication Dosage Frequency Signature Comments Components Source Medication Medication Date Date Medication? Clinician (SIG) Name Name promethazin Yes [id number] 5mL Take 5 mL Univers e-dextromet 6-08 by mouth 4 it y of [place] 00:00: (four) [place] 6.25-15 00 times Medical mg/5 mL daily as Branch syrup needed for Cough. promethazin Yes [id number] 5mL Take 5 mL Univers e-dextromet 6-08 by mouth 4 it y of [place] 00:00: (four) [place] 6.25-15 00 times Medical mg/5 mL daily as Branch syrup needed for Cough. traMADoL 50 2022- Yes [id number] 50mg Take 1 Uni vers mg tablet 02-12 tablet by ity of 00:00: 04:59 mouth [place] 00 :00 every 6 Medical (six) Branch hours as needed for Pain (scale 4-6) for up to 7 days. Indication s: chronic pain traMADoL 50 2022- Yes [id number] 50mg Take 1 Uni vers mg tablet 6-08 06-16 tablet by ity of 00:00: 04:59 mouth [place] 00 :00 every 6 Medical (six) Branch hours as needed for Pain (scale 4-6) for up to 7 days. Indication s: chronic pain MELOXICAM 2023-0 Yes [id number] TAKE 1 Un je 7.5 mg 4-25 TABLET BY ity of tablet 00:00: MOUTH [place] 00 EVERY DAY Medical IN THE Branch MORNING MELOXICAM 2023-0 Yes [id number] TAKE 1 Un je 7.5 mg 4-25 TABLET BY ity of tablet 00:00: MOUTH [place] 00 EVERY DAY Medical IN THE Branch MORNING MELOXICAM 2023-0 Yes [id number] TAKE 1 Un je 7.5 mg 4-25 TABLET BY ity of tablet 00:00: MOUTH [place] [id number] EVERY DAY Medical IN THE Branch MORNING SERTraline 2023-0 Yes 25mg Take 1 Unive rs 25 mg 3-06 tablet by ity of tablet 00:00: mouth in [place] 00 the Medical morning. Branch SERTraline 2023-0 Yes 25mg Take 1 Unive rs 25 mg 3-06 tablet by ity of tablet 00:00: mouth in [place] 00 the Medical morning. Branch SERTraline 2023-0 Yes 25mg Take 1 Unive rs 25 mg 3-06 tablet by ity of tablet 00:00: mouth in [place] 00 the Medical morning. Branch SERTraline 2023-0 Yes 25mg Take 1 Unive rs 25 mg 3-06 tablet by ity of tablet 00:00: mouth in [place] 00 the Medical morning. Branch SERTraline 2023-0 Yes 25mg Take 1 Unive rs 25 mg 3-06 tablet by ity of tablet 00:00: mouth in [place] 00 the Medical morning. Branch SERTraline 2023-0 Yes 25mg Take 1 Unive rs 25 mg 3-06 tablet by ity of tablet 00:00: mouth in [place] 00 the Medical morning. Branch acetaminoph 2023-0 Yes [id number] 1000mg Take 2 Univers en (TYLENOL 3-03 tablets by it y of EXTRA 00:00: mouth in [place] STRENGTH) 00 the Medical 500 mg morning Branch tablet and 2 tablets in the evening. meloxicam 2023-0 Yes [id number] 7.5mg Take 1 U nivers 7.5 mg 3-03 tablet by ity of tablet 00:00: mouth in [place] 00 the Medical morning. Branch acetaminoph 2023-0 Yes [id number] 1000mg Take 2 Univers en (TYLENOL 3-03 tablets by it y of EXTRA 00:00: mouth in [place] STRENGTH) 00 the Medical 500 mg morning Branch tablet and 2 tablets in the evening. meloxicam 2023-0 Yes [id number] 7.5mg Take 1 U nivers 7.5 mg 3-03 tablet by ity of tablet 00:00: mouth in [place] 00 the Medical morning. Branch acetaminoph 2023-0 Yes [id number] 1000mg Take 2 Univers en (TYLENOL 3-03 tablets by it y of EXTRA 00:00: mouth in [place] STRENGTH) 00 the Medical 500 mg morning Branch tablet and 2 tablets in the evening. meloxicam 2023-0 Yes [id number] 7.5mg Take 1 U nivers 7.5 mg 3-03 tablet by ity of tablet 00:00: mouth in [place] 00 the Medical morning. Branch acetaminoph 2023-0 Yes [id number] 1000mg Take 2 Univers en (TYLENOL 3-03 tablets by it y of EXTRA 00:00: mouth in [place] STRENGTH) 00 the Medical 500 mg morning Branch tablet and 2 tablets in the evening. meloxicam 2023-0 Yes [id number] 7.5mg Take 1 U nivers 7.5 mg 3-03 tablet by ity of tablet 00:00: mouth in [place] 00 the Medical morning. Branch acetaminoph 2023-0 Yes [id number] 1000mg Take 2 Univers en (TYLENOL 3-03 tablets by it y of EXTRA 00:00: mouth in [place] STRENGTH) 00 the Medical 500 mg morning Branch tablet and 2 tablets in the evening. acetaminoph 2023-0 Yes [id number] 1000mg Take 2 Univers en (TYLENOL 3-03 tablets by it y of EXTRA 00:00: mouth in [place] STRENGTH) 00 the Medical 500 mg morning Branch tablet and 2 tablets in the evening. acetaminoph 2023-0 Yes [id number] 1000mg Take 2 Univers en (TYLENOL 3-03 tablets by it y of EXTRA 00:00: mouth in [place] STRENGTH) 00 the Medical 500 mg morning Branch tablet and 2 tablets in the evening. acetaminoph 2023-0 Yes [id number] 1000mg Take 2 Univers en (TYLENOL 3-03 tablets by it y of EXTRA 00:00: mouth in [place] STRENGTH) 00 the Medical 500 mg morning Branch tablet and 2 tablets in the evening. meloxicam 0 2022- No [id number] 7.5mg Take 1 Univers 7.5 mg 3- 04-25 tablet by ity of tablet 00:00: 00:00 mouth in [place] 00 :00 the Medical morning. Branch FLUoxetine 2021-09 Yes [id number] 10mg Take 1 U nivers 10 mg 0-27 capsule by ity of capsule 00:00: mouth in [place] 00 the Medical morning. Branch FLUoxetine 2021-09 Yes [id number] 10mg Take 1 U nivers 10 mg 0-27 capsule by ity of capsule 00:00: mouth in [place] 00 the Medical morning. Branch FLUoxetine 2021-09 Yes [id number] 10mg Take 1 U nivers 10 mg 0-27 capsule by ity of capsule 00:00: mouth in [place] 00 the Medical morning. Branch FLUoxetine 2021-09 Yes [id number] 10mg Take 1 U nivers 10 mg 0-27 capsule by ity of capsule 00:00: mouth in [place] the Medical morning. Branch FLUoxetine 2021-09 Yes [id number] 10mg Take 1 U nivers 10 mg 0-27 capsule by ity of capsule 00:00: mouth in [place] the Medical morning. Branch FLUoxetine 2021-09 Yes [id number] 10mg Take 1 U nivers 10 mg 0-27 capsule by ity of capsule 00:00: mouth in [place] 00 the Medical morning. Branch FLUoxetine 2021-09 Yes [id number] 10mg Take 1 U nivers 10 mg 0-27 capsule by ity of capsule 00:00: mouth in [place] 00 the Medical morning. Branch FLUoxetine 2021-09 Yes [id number] 10mg Take 1 U nivers 10 mg 0-27 capsule by ity of capsule 00:00: mouth in [place] 00 the Medical morning. Branch FLUoxetine 2021-09 Yes [id number] 10mg Take 1 U nivers 10 mg 0-27 capsule by ity of capsule 00:00: mouth in [place] 00 the Medical morning. Branch FLUoxetine 2021-09 Yes [id number] 10mg Take 1 U nivers 10 mg 0-27 capsule by ity of capsule 00:00: mouth in [place] 00 the Medical morning. Branch FLUoxetine 2021-09 Yes [id number] 10mg Take 1 U nivers 10 mg 0-27 capsule by ity of capsule 00:00: mouth in [place] 00 the Medical morning. Branch FLUoxetine 2021-09 Yes [id number] 10mg Take 1 U nivers 10 mg 0-27 capsule by ity of capsule 00:00: mouth in [place] 00 the Medical morning. Branch FLUoxetine 2021-09 Yes [id number] 10mg Take 1 U nivers 10 mg 0-27 capsule by ity of capsule 00:00: mouth in [place] 00 the Medical morning. Branch FLUoxetine 2021-09 Yes [id number] 10mg Take 1 U nivers 10 mg 0-27 capsule by ity of capsule 00:00: mouth in [place] 00 the Medical morning. Branch FLUoxetine 2021-09 Yes [id number] 10mg Take 1 U nivers 10 mg 0-27 capsule by ity of capsule 00:00: mouth in [place] 00 the Medical morning. Branch FLUoxetine 2021-09- No [id number] 10mg Take 1 Univers 10 mg 0-27 06-08 capsule by ity of capsule 00:00: 00:00 mouth in [place] 00 :00 the Medical morning. Branch FLUoxetine 2021-09- No [id number] 10mg Take 1 Univers 10 mg 0-27 06-08 capsule by ity of capsule 00:00: 00:00 mouth in [place] 00 :00 the Medical morning. Branch traMADoL 50 2021-09- No [id number] 50mg Take 1 Uni vers mg tablet 0-26 11-03 tablet by ity of 00:00: 04:59 mouth [place] 00 :00 every 6 Medical (six) Branch hours as needed for Pain (scale 4-6) for up to 7 days. Indication s: acute pain, chronic pain traMADoL 50 2021-09- No [id number] 50mg Take 1 Uni vers mg tablet 0-26 11-03 tablet by ity of 00:00: 04:59 mouth [place] 00 :00 every 6 Medical (six) Branch hours as needed for Pain (scale 4-6) for up to 7 days. Indication s: acute pain, chronic pain traMADoL 50 2021-09- No [id number] 50mg Take 1 Uni vers mg tablet 0-26 11-03 tablet by ity of 00:00: 04:59 mouth [place] 00 :00 every 6 Medical (six) Branch hours as needed for Pain (scale 4-6) for up to 7 days. Indication s: acute pain, chronic pain No known 2021-09 No No known Unive rs medications 0-25 medication it y of 10:00: s [place] [address] Medical Branch PARoxetine 2021-09 Yes [id number] 10mg Take 1 U nivers 10 mg 0-25 tablet by ity of tablet 00:00: mouth in [place] 00 the Medical morning. Branch PARoxetine 2021-09 Yes [id number] 10mg Take 1 U nivers 10 mg 0-25 tablet by ity of tablet 00:00: mouth in [place] 00 the Medical morning. Branch PARoxetine 2021-09 Yes [id number] 10mg Take 1 U nivers 10 mg 0-25 tablet by ity of tablet 00:00: mouth in [place] 00 the Medical morning. Branch PARoxetine 2021-09 Yes [id number] 10mg Take 1 U nivers 10 mg 0-25 tablet by ity of tablet 00:00: mouth in [place] 00 the Medical morning. Branch PARoxetine 2021-09 Yes [id number] 10mg Take 1 U nivers 10 mg 0-25 tablet by ity of tablet 00:00: mouth in [place] 00 the Medical morning. Branch PARoxetine 2021-09 Yes [id number] 10mg Take 1 U nivers 10 mg 0-25 tablet by ity of tablet 00:00: mouth in [place] 00 the Medical morning. Branch PARoxetine 2021-09- No [id number] 10mg Take 1 Univers 10 mg 0-25 10-27 tablet by ity of tablet 00:00: 00:00 mouth in [place] 00 :00 the Medical morning. [place] lisinopriL 2021-09 Yes [id number] 20mg Take 1 U nivers 20 mg 0-11 tablet by ity of tablet 00:00: mouth in [place] 00 the Medical morning. Branch lisinopriL 2021-09 Yes [id number] 20mg Take 1 U nivers 20 mg 0-11 tablet by ity of tablet 00:00: mouth in [place] 00 the Medical morning. Branch lisinopriL 2021-09- No [id number] 20mg Take 1 Univers 20 mg 0-11 10-25 tablet by ity of tablet 00:00: 00:00 mouth in [place] 00 :00 the Medical morning. Branch lisinopriL 2021-09- No [id number] 20mg Take 1 Univers 20 mg 0-11 10-25 tablet by ity of tablet 00:00: 00:00 mouth in [place] 00 :00 the Medical morning. Branch lisinopriL 2021-09- No [id number] 20mg Take 1 Univers 20 mg 0-11 10-25 tablet by ity of tablet 00:00: 00:00 mouth in [place] 00 :00 the Medical morning. Branch lisinopriL 2021-09- No [id number] 20mg Take 1 Univers 20 mg 0-11 10-25 tablet by ity of tablet 00:00: 00:00 mouth in [place] 00 :00 the Medical morning. Branch traMADoL 50 2021-09- No [id number] 50mg Take 1 Uni vers mg tablet 0-11 10-19 tablet by ity of 00:00: 04:59 mouth [place] 00 :00 every 6 Medical (six) Branch hours as needed for Pain (scale 4-6) for up to 7 days. Indication s: acute pain traMADoL 50 2021-09- No [id number] 50mg Take 1 Uni vers mg tablet 0-11 10-19 tablet by ity of 00:00: 04:59 mouth [place] 00 :00 every 6 Medical (six) Branch hours as needed for Pain (scale 4-6) for up to 7 days. Indication s: acute pain tamsulosin 2021-2021- No .4mg Take 0.4 Un je 0.4 mg 24 02-05 mg by ity of hr capsule 14:07: 00:00 mouth [place] 15 :00 daily. Medical Branch lisinopriL 2021-2021- No 40mg Take 40 mg Univers 40 mg 02-05 by mouth ity of tablet 14:07: 00:00 daily. [place] 15 :00 Medical Branch tamsulosin 2021-0 Yes [id number] .4mg Take 1 Univers 0.4 mg 24 02-05 01 capsule by ity of hr capsule 00:00: mouth [place] 00 daily. Medical Branch tamsulosin 2-0 Yes [id number] .4mg Take 1 Univers 0.4 mg 24 02-05 01 capsule by ity of hr capsule 00:00: mouth [place] 00 daily. Medical Branch tamsulosin 2-0 Yes [id number] .4mg Take 1 Univers 0.4 mg 24 02-05 01 capsule by ity of hr capsule 00:00: mouth [place] 00 daily. Medical Branch lisinopriL 2021-0 Yes [id number] 40mg Take 1 U nivers 40 mg 6-01 tablet by ity of tablet 00:00: mouth [place] 00 daily. Medical Branch tamsulosin 2021-0 Yes [id number] .4mg Take 1 Univers 0.4 mg 24 6- 01 capsule by ity of hr capsule 00:00: mouth [place] 00 daily. Medical Branch lisinopriL 2021-0 Yes [id number] 40mg Take 1 U nivers 40 mg 6-01 tablet by ity of tablet 00:00: mouth [place] 00 daily. Medical Branch tamsulosin 2021-0 Yes [id number] .4mg Take 1 Univers 0.4 mg 24 6- 01 capsule by ity of hr capsule 00:00: mouth [place] 00 daily. Medical Branch lisinopriL 2021-0 Yes [id number] 40mg Take 1 U nivers 40 mg 6-01 tablet by ity of tablet 00:00: mouth [place] 00 daily. Medical Branch tamsulosin 2021-0 Yes [id number] .4mg Take 1 Univers 0.4 mg 24 6- 01 capsule by ity of hr capsule 00:00: mouth [place] 00 daily. Medical Branch lisinopriL 2021-0 Yes [id number] 40mg Take 1 U nivers 40 mg 6-01 tablet by ity of tablet 00:00: mouth [place] 00 daily. Medical Branch tamsulosin 2021-0 Yes [id number] .4mg Take 1 Univers 0.4 mg 24 6- 01 capsule by ity of hr capsule 00:00: mouth [place] 00 daily. Medical Branch lisinopriL 2021-0 Yes [id number] 40mg Take 1 U nivers 40 mg 6-01 tablet by ity of tablet 00:00: mouth [place] 00 daily. Medical Branch tamsulosin 2021-0 Yes [id number] .4mg Take 1 Univers 0.4 mg 24 6- 01 capsule by ity of hr capsule 00:00: mouth [place] 00 daily. Medical Branch lisinopriL 2021-0 Yes [id number] 40mg Take 1 U nivers 40 mg 6-01 tablet by ity of tablet 00:00: mouth [place] 00 daily. Medical Branch tamsulosin 2-0 2- No [id number] .4mg Take 1 Univers 0.4 mg 24 6-01 10-25 01 capsule by ity of hr capsule 00:00: 00:00 mouth [place] 00 :00 daily. Medical Branch tamsulosin 2021- No [id number] .4mg Take 1 Univers 0.4 mg 24 02-05 capsule by ity of hr capsule 00:00: 00:00 mouth [place] 00 :00 daily. Medical Branch tamsulosin 2021- No [id number] .4mg Take 1 Univers 0.4 mg 24 02-05 capsule by ity of hr capsule 00:00: 00:00 mouth [place] 00 :00 daily. Medical Branch tamsulosin 2021- No [id number] .4mg Take 1 Univers 0.4 mg 24 02-05 capsule by ity of hr capsule 00:00: 00:00 mouth [place] 00 :00 daily. Medical Branch lisinopriL 2021- No [id number] 40mg Take 1 Univers 40 mg - 10-11 tablet by ity of tablet 00:00: 00:00 mouth [place] 00 :00 daily. Medical Branch lisinopriL 2021- No [id number] 40mg Take 1 Univers 40 mg - 10-11 tablet by ity of tablet 00:00: 00:00 mouth [place] 00 :00 daily. Medical Branch Tramadol No 1 Q 4-6 Hr JUN TU Hcl 2-12 Prn S (Ultram) 50 22:56: Health Mg TAB 00 Budesonide/ No 2 Twice A CHR ISTU Formoterol 908 Day S Fumarate 12:05: Health (Symbicort 00 160/4.5 Mcg Inh) 120 Puff/10.2 Gm AERO Nitroglycer No .4mg Every 5 CHR ISTU in 7-30 Minutes X S (Nitrostat) 10:35: 3 Doses Hea lth 0.4 Mg SUBL 00 Prasugrel 2015- No 10mg Daily DONELL U (Effient) 30 09-07 S 10 Mg TAB 08:09: 00:00 [...] Time Observation Value Comments Source Systolic blood 2023-02-12 21:34:00 165 mm[Hg] Univer sity of [facility] Diastolic blood 2023-02-12 21:34:00 93 mm[Hg] Unive rsity of [facility] Heart rate 2023-02-12 21:23:00 83 /min [facility]i ty [facility] Body height 2023-02-12 21:23:[address] [facility] Body weight 2023-02-12 21:23:[address] [facility] BMI 2023-02-12 21:23:00 21.44 kg/m2 [facility]i [facility] Oxygen saturation in 2023-02-12 21:23:00 99 /min [facility] Arterial blood by [facility] Pulse oximetry Branch Systolic blood 2022-11-17 19:07:00 164 mm[Hg] Univer sity of [facility] Diastolic blood 2022-11-17 19:07:00 97 mm[Hg] Unive rsity of [facility] Heart rate 2022-11-17 19:04:00 82 /min [facility]i [facility] Respiratory rate 2022-11-17 19:04:00 18 /min Univ ersity of [facility] Body height 2022-11-17 19:04:[address] [facility] Body weight 2022-11-17 19:04:[address] [facility] BMI 2022-11-17 19:04:00 22.50 kg/m2 [facility]i [facility] Systolic blood 2022-11-07 16:14:00 158 mm[Hg] Univer sity of [facility] Diastolic blood 2022-11-07 16:14:00 92 mm[Hg] Unive rsity of pressure [place] [facility] Heart rate 2022-11-07 16:13:00 89 /min Universi ty of [place] [facility] Body temperature 2022-11-07 16:13:00 36.94 Kirsten Univ ersity of [place] [facility] Respiratory rate 2022-11-07 16:13:00 18 /min Univ ersity of [place] [facility] Body height 2022-11-07 16:13:00 190.5 cm Universi ty of [place] [facility] Body weight 2022-11-07 16:13:00 82.781 kg Universi ty of [place] [facility] BMI 2022-11-07 16:13:00 22.81 kg/m2 Universi ty of [place] [facility] Oxygen saturation in 2022-11-07 16:13:00 97 /min University of Arterial blood by [place] [employer] rosalio Pulse oximetry Branch Systolic blood 2022-07-01 15:08:00 150 mm[Hg] Univer sity of pressure [place] [facility] Diastolic blood 2022-07-01 15:08:00 85 mm[Hg] Unive rsity of pressure [place] [facility] Heart rate 2022-07-01 15:00:00 78 /min Universi ty of [place] [facility] Body temperature 2022-07-01 15:00:00 36.72 Kirsten Univ ersity of [place] [facility] Body height 2022-07-01 15:00:00 190.5 cm Universi ty of [place] [facility] Body weight 2022-07-01 15:00:00 92.08 kg Universi ty of [place] [facility] BMI 2022-07-01 15:00:00 25.37 kg/m2 Universi ty of [place] [facility] Oxygen saturation in 2022-07-01 15:00:00 96 /min University of Arterial blood by [place] [facility]sal[facility] Pulse oximetry Branch Systolic blood 2022-06-17 21:00:00 93 mm[Hg] Univer sity of pressure [place] [facility] Diastolic blood 2022-06-17 21:00:00 54 mm[Hg] Unive rsity of pressure [place] [facility] Heart rate 2022-06-17 21:00:00 106 /min Universi ty of [place] [facility] Body temperature 2022-06-17 21:00:00 37 Kirsten Univ ersity of [place] [facility] Body height 2022-06-17 21:00:00 190.5 cm Universi ty of [place] [facility] Body weight 2022-06-17 21:00:00 91.173 kg Universi ty of [place] [facility] BMI 2022-06-17 21:00:00 25.12 kg/m2 Universi ty of [place] [facility] Oxygen saturation in 2022-06-17 21:00:00 95 /min University of Arterial blood by [facility] Pulse oximetry Branch Systolic blood 2022-02-05 18:43:00 154 mm[Hg] Univer sity of pressure [place] [facility] [place] Diastolic blood 2022-02-05 18:43:00 74 mm[Hg] Unive rsity of [facility] Heart rate 2022-02-05 18:42:00 93 /min Universi ty [facility] [place] Body temperature 2022-02-05 18:42:00 36.78 Kirsten [facility] Body height 2022-02-05 18:42:00 190.5 cm Universi ty [facility] [place] Body weight 2022-02-05 18:42:00 102.513 kg Universi ty [facility] BMI 2022-02-05 18:42:00 28.25 kg/m2 Universi ty [facility] Oxygen saturation in 2022-02-05 18:42:00 95 /min University of Arterial blood by [facility] Pulse oximetry Branch Procedures Procedure Date / Time Performing Clinician Source Performed EXTERNAL PROVIDER RECORDS 2022-10-29 06:01:00 Doctor Xiomara [facility] Name Medical [place] EXTERNAL PROVIDER RECORDS 2022-09-12 06:01:[address] [facility] INSURANCE CORRESPONDENCE 2022-08-19 06:01:00 Doctor Solano [facility] Name [facility] [place] CBC WITH DIFF 2022-07-01 15:49[facility]00 [facility] 2022-07-01 15:49:00 [facility] ASSIGNMENT OF BENEFITS 2022-06-17 20:33:00 Doctor Solano [facility] EXTERNAL PROVIDER RECORDS 2022-04-15 05:01:[address] [facility] AUTHORIZATION TO RELEASE 2022-02-05 05:01:00 Doctor Unassigned, [facility] PHI TO [facility] Minor level new patient 2020-08-17 00:00:00 [facility] office visit Encounters Start End Encounter Admission Attending Care Care Encounter Source Date/Time Date/Time Type Type Clinicians Facility Department ID 2020-05-20 Inpatient 1 MANI HANNAH TEL [id number] - Cong[facility] 09:[id number] 2023-04-17 2023-04-17 Outpatient R LUCIANA GO [facility] [id number] Univers 08:00:00 08:00:[address] [facility] 2023-03-03 2023-03-03 Outpatient R PABLO SAGE [facility] [id number] Univers 10:00:00 10:00:[address] [facility] 2023-02-12 2023-02-12 Outpatient R LUCIANA GO [facility] [id number] Univers 16:20:00 17:21:51 LUCIANA GO [facility] 2023-02-12 2023-02-12 [facility] 1.2.840.114 [id number] Univers 16:20:00 17:21:51 Visit [place] [address].1.13.10 [facility] 4.2.7.2.686 Arturo as BRAD?BLEA [id number] [address] MEDICAL OFFICE [facility] 2023-01-27 2023-01-27 Outpatient R LUCIANA GO [facility] [id number] Univers 11:20:00 11:20:00 LUCIANA GO [facility] 2022-12-30 2022-12-30 Refill Bianka [facility] 1.2.840.114 [id number] Univers 00:00:00 00:00:00 , [facility] 350.1.13.10 ity [facility] 4.2.7.2.686 Arturo as BRAD?BLEA [id number] [address] MEDICAL OFFICE BUILDING 2022-12-23 2022-12-23 Telephone [facility] [id number] Univers 00:00:00 00:00:00 [facility] 350.1.13.10 ity of [place] 4.2.7.2.686 Arturo as BRAD?BLEA [id number] [address] MEDICAL OFFICE [facility] 2022-12-02 2022-12-02 Outpatient R PABLO SAGE [facility] [id number] Univers 10:00:00 10:00:[address] [facility] 2022-11-21 2022-11-21 [facility] [id number] Univers 10:20:00 10:20:[address] [facility] 2022-11-17 2022-11-17 [facility] [id number] Univers 14:15:00 14:46:[address] [facility] 2022-11-17 2022-11-17 Office [facility] 1.2.840.114 [id number] Univers 14:15:00 14:46:06 Visit Sachin CHRISTINA 350.1.13.10 ity of [place] 4.2.7.2.686 [place] RASHE[place]A [id number] Pr shelia [address] 2022-11-07 2022-11-07 Outpatient R BIANKA [facility] [id number] Univers 10:59:37 11:05:00 , SINAI mert rachel [facility] 2022-11-07 2022-11-07 Office [facility] 1.2.840.114 [id number] Univers 10:15:00 10:47:00 Visit , [facility] ALCALA 350.1.13.10 ity of [place] CHRISTINA 4.2.7.2.686 Arturo as BRAD?BLEA [id number] [address] MEDICAL OFFICE [facility] 2022-10-29 2022-10-29 Orders Doctor JORDAN 1.2.840.114 [id number] Univers 00:00:00 00:00:00 Only [place]assigned, [place] 350.1.13.10 ity of [place] [facility] 4.2.7.2.686 Arturo as [phone] [address] 2022-10-29 2022-10-29 Telephone [facility], [facility] [id number] Univers 00:00:00 00:00:00 Luciana HEALTH 350.1.13.10 ity of [place] 4.2.7.2.686 Arturo as BRAD?BLEA [id number] [address] OFFICE [facility] 2022-10-27 2022-10-27 Telephone [facility], [facility] [id number] [id number] Univers 00:00:00 00:00:00 Luciana HEALTH 350.1.13.10 ity of [place] 4.2.7.2.686 Arturo as BRAD?BLEA [phone] [address] 2022-10-24 2022-10-24 Telephone [facility], [facility] 1.2.471.629 [id number] Univers 00:00:00 00:00:00 Luciana HEALTH 350.1.13.10 ity of [place] 4.2.7.2.686 Arturo as BRAD?BLEA [id number] [address] OFFICE [facility] 2022-10-02 2022-10-02 Telephone [facility] [id number] [id number] Univers 00:00:00 00:00:00 Luciana HEALTH 350.1.13.10 ity of [place] 4.2.7.2.686 Arturo as BRAD?BLEA [id number] [address] OFFICE [facility] 2022-09-12 2022-09-12 Orders Doctor JULIAN 1.2.840.114 [id number] Univers 00:00:00 00:00:00 Only [place]assigned[place] 350.1.13.10 ity of [facility] 4.2.7.2.686 Arturo as [phone] [address] 2022-08-19 2022-08-19 Orders Doctor JULIAN 1.2.840.114 [id number] Univers 00:00:00 00:00:00 Only [place]assigned[place] 350.1.13.10 ity of [facility] 4.2.7.2.686 Arturo as [phone] [address] 2022-08-04 2022-08-04 Outpatient R EMELINA [facility] [id number] Univers 14:00:00 14:00:[address] [facility] 2022-07-30 2022-07-30 Telephone [facility] [id number] [id number] Univers 00:00:00 00:00:00 [facility] 350.1.13.10 ity of [facility] 4.2.7.2.686 Arturo as BRAD?BLEA [phone] [address] OFFICE [facility] 2022-07-03 2022-07-03 Telephone [facility] 1.2.589.020 [id number] Univers 00:00:00 00:00:00 [facility] 350.1.13.10 ity of [place] 4.2.7.2.686 Arturo as BRAD?BLEA [id number] [address] OFFICE [facility] 2022-07-03 2022-07-03 Telephone [facility] [id number] Univers 00:00:00 00:00:00 [facility] 350.1.13.10 ity of [place] 4.2.7.2.686 Arturo as BRAD?BLEA [phone] [address] 2022-07-01 2022-07-01 X Ray Inspector Lab, Ang - Db [facility] 1.2.840.1 14 [id number] Univers 10:45:00 11:00:00 Visit [facility] 350.1.13.10 ity of [place] 4.2.7.2.686 Arturo as BRAD?BLEA [phone] [address] OFFICE [facility] 2022-07-01 2022-07-01 Outpatient R EMELINA [facility] [id number] Univers 09:40:00 10:38:49 [facility] 2022-07-01 2022-07-01 Office [facility] 1.2.840.114 [id number] Univers 09:40:00 10:38:49 Visit [facility] 350.1.13.10 ity of [facility] 4.2.7.2.686 Arturo as BRAD?BLEA [id number] [address] MEDICAL OFFICE [facility] 2022-07-01 2022-07-01 Telephone [facility] 1.2.264.061 [id number] Univers 00:00:00 00:00:00 [facility] 350.1.13.10 ity of [place] 4.2.7.2.686 Arturo as BRAD?BLEA [phone] [address] MEDICAL OFFICE [facility] 2022-06-17 2022-06-17 [facility] [id number] Univers 15:20:00 16:43:52 [facility]22-06-17 2022-06-17 Office [facility] 1.2.840.114 [id number] Univers 15:20:00 15:40:00 Visit [facility] 350.1.13.10 ity of [place] 4.2.7.2.686 Arturo as BRAD?BLEA [phone] [address] OFFICE [facility] 2022-06-17 2022-06-17 Orders Doctor JULIAN 1.2.840.114 [id number] Univers 00:00:00 00:00:00 Only [place]igned[place] 350.1.13.10 ity of [facility] 4.2.7.2.686 Arturo as [phone] [address] 2022-04-15 2022-04-15 Orders Doctor JULIAN 1.2.840.114 [id number] Univers 00:00:00 00:00:00 Only [place]igned[place] 350.1.13.10 ity of [facility] 4.2.7.2.686 Arturo as [phone] [address] 2022-03-20 2022-03-20 Outpatient [facility] [id number] Univers 13:00:00 13:00:00 KRISTI stanley [facility] 2022-02-14 2022-02-14 Outpatient [facility] [id number] Univers 10:40:00 10:40:00 COOKIENGFARRUKH lutz o f [facility] 2022-02-05 2022-02-05 X Ray Inspector Lab, Ang - Db [facility] 1.2.840.1 14 [id number] Univers 14:15:00 14:30:00 Visit Korina Flores [facility] 350.1.13 .10 ity of [place] 4.2.7.2.686 Arturo as BRAD?BLEA [phone] Pr dical [facility] [address] MEDICAL OFFICE BUILDING 2022-02-05 2022-02-05 Outpatient R [facility] [id number] Univers 14:15:00 14:15:[address] [facility] 2022-02-05 2022-02-[address] [facility] 1.2.840.114 [id number] Univers 13:30:00 14:00:00 Visit [facility] 350.1.13.10 it y of [place] 4.2.7.2.686 Arturo as BRAD?BLEA [phone] [address] MEDICAL OFFICE [facility] 2022-02-05 2022-02-05 Outpatient R [facility] [id number] Univers 13:30:00 13:30:[address] [facility] 2022-02-05 2022-02-[address] [facility] 1.2.840.114 [id number] Univers 00:00:00 00:00:00 [facility] 350.1.13.10 it y of [place] [facility] 4.2.7.2.686 Arturo as BRAD?BLEA [phone] [address] MEDICAL OFFICE BUILDING 2022-02-05 2022-02-05 Orders Doctor JULIAN 1.2.840.114 [id number] Univers 00:00:00 00:00:00 Only [place]assigned[place] 350.1.13.10 ity of [place] [facility] 4.2.7.2.686 Arturo as [phone] [address] 2020-08-17 2020-08-17 Discharged REINA CORTEZ [id number] REMY 12:57:00 12:57:00 Recurring BRYCE [address] [facility] 2020-06-06 2020-06-06 Outpatient 3 [facility]PE [id number] Congregation 11:08:00 11:08:00 , ZAHRA [id number] Hospi ta l (Beaumo nt) 2020-05-18 2020-05-18 Emergency VINES, [facility] QER [id number]- Congregation 16:02:00 16:02:00 SUJIT [id number] Hospi ta l (Beaumo nt) 2020-04-17 2020-04-17 Emergency BOCANEGRA, [facility] QER [id number]- Congregation 16:42:00 16:42:00 ANDRZEJ [id number] Hospi ta l (Beaumo nt) 2017-02-08 2017-02-12 Inpatient 1 MANI MARIEE TEL [id number] Congregation 23:47:00 17:45:00 [facility] Hospit [facility] l (Beaumo [...] RDW-SD (test code = 43.7 fL 38.5-51.6 19356-5) RDW-CV (test code = 13.0 % 12.1-15.4 788-0) PLT (test code = 777-3) See_Comment [Au tomated message] The system which generated this result transmitted ref erence range: 150 - 328 10*3/?L. The reference range was not u sed to interpret this result as normal/abnormal. MPV (test code = 69296-4) 10.2 fL 9.8-13 NRBC/100 WBC (test code = See_Comment [ Automated message] The system 4391225317) which generated this result transmitted ref erence range: 0.0 - 10.0 /100 WBC s. The reference range was not u sed to interpret this result as normal/abnormal. NRBC x10^3 (test code = See_Comment [Au tomated message] The system 3042253727) which generated this result transmitted ref erence range: 10*3/?L. The re ference range was not used to int erpret this result as normal/abnor mal. GRAN MAT (NEUT) % (test 59.9 % code = 770-8) IMM GRAN % (test code = 0.30 % 1828309656) LYMPH % (test code = 29.0 % 736-9) MONO % (test code = 7.5 % 5905-5) EOS % (test code = 713-8) 2.2 % BASO % (test code = 1.1 % 706-2) GRAN MAT x10^3(ANC) (test 4.34 10*3/uL 1.99-6.95 code = 5165492095) IMM GRAN x10^3 (test code 0-0.06 = 3161279900) LYMPH x10^3 (test code = 2.10 10*3/uL 1.09-3.23 731-0) MONO x10^3 (test code = 0.54 10*3/uL 0.36-1.02 742-7) EOS x10^3 (test code = 0.16 10*3/uL 0.06-0.53 711-2) BASO x10^3 (test code = 0.08 10*3/uL 0.01-0.09 704-7) [facility] WITH [id number] 18:43:30 Test Item Value Reference Range Interpretation Comments WBC (test code = See_Comment [Automated message] 7790-2) The system iPointer generated this result transmitted ref erence range: 4.20 - 1 0.70 10*3/?L. The re ference range was not u sed to interpret this result as normal/abnor mal. RBC (test code = See_Comment [Automated message] 749-8) The system iPointer generated this result transmitted ref erence range: [...] RDW-SD (test code 43.7 fL 38.5-51.6 = 43927-0) RDW-CV (test code 13.0 % 12.1-15.4 = 788-0) PLT (test code = See_Comment [Automated message] 777-3) The system iPointer generated this result transmitted ref erence range: 150 - 32 8 10*3/?L. The re ference range was not u sed to interpret this result as normal/abnor mal. MPV (test code = 10.2 fL 9.8-13 72770-9) NRBC/100 WBC (test See_Comment [Automat ed message] code = 9657870948) The syste [facility] which generated this result transmitted ref erence range: 0.0 - 10 .0 /100 WBCs. The refer ence range was not u sed to interpret this result as normal/abnor mal. NRBC x10^3 (test See_Comment [Automated message] code = 3995083823) The syste m which generated this result transmitted ref erence range: 10*3/?L. The reference range was not used to interpr et this result as normal/abnormal . GRAN MAT (NEUT) % 59.9 % (test code = 770-8) IMM GRAN % (test 0.30 % code = 1556409899) LYMPH % (test code 29.0 % = 736-9) MONO % (test code 7.5 % = 5905-5) EOS % (test code = 2.2 % 713-8) BASO % (test code 1.1 % = 706-2) GRAN MAT 4.34 10*3/uL 1.99-6.95 x10^3(ANC) (test code = 3583566191) IMM GRAN x10^3 0-0.06 (test code = 1127489890) LYMPH x10^3 (test 2.10 10*3/uL 1.09-3.23 code = 731-0) MONO x10^3 (test 0.54 10*3/uL 0.36-1.02 code = 742-7) EOS x10^3 (test 0.16 10*3/uL 0.06-0.53 code = 711-2) BASO x10^3 (test 0.08 10*3/uL 0.01-0.09 code = 704-7) [facility] WITH [id number] 18:43:30 Test Item Value Reference Range Interpretation Comments WBC (test code = See_Comment [Automated message] 8390-2) The system iPointer generated this result transmitted ref erence range: 4.20 - 1 0.70 10*3/?L. The re ference range was not u sed to interpret this result as normal/abnor mal. RBC (test code = See_Comment [Automated message] 649-8) The system iPointer generated this result transmitted ref erence range: 4.26 - 5 .52 10*6/?L. The re ference range was not u sed to interpret this result as normal/abnor mal. HGB (test code = 14.9 g/dL 12.2-16.4 308-7) HCT (test code = 45.7 % 38.4-49.3 4544-3) MCV (test code = 92.1 fL 81.7-95.6 787-2) MCH (test code = 30.0 pg 26.1-32.7 785-6) MCHC (test code = 32.6 g/dL 31.2-35.0 786-4) RDW-SD (test code 43.7 fL 38.5-51.6 = 14090-7) RDW-CV (test code 13.0 % 12.1-15.4 = 788-0) PLT (test code = See_Comment [Automated message] 777-3) The system whic h generated this result transmitted ref erence range: 150 - 32 8 10*3/?L. The re ference range was not u sed to interpret this result as normal/abnor mal. MPV (test code = 10.2 fL 9.8-13.0 77264-0) NRBC/100 WBC (test See_Comment [Automat ed message] code = 1874344957) The syste m which generated this result transmitted ref erence range: 0.0 - 10 .0 /100 WBCs. The refer ence range was not u sed to interpret this result as normal/abnor mal. NRBC x10^3 (test See_Comment [Automated message] code = 6759535892) The syste m which generated this result transmitted ref erence range: 10*3/?L. The reference range was not used to interpr et this result as normal/abnormal . GRAN MAT (NEUT) % 59.9 % (test code = 770-8) IMM GRAN % (test 0.30 % code = 8518271955) LYMPH % (test code 29.0 % = 736-9) MONO % (test code 7.5 % = 5905-5) EOS % (test code = 2.2 % 713-8) BASO % (test code 1.1 % = 706-2) GRAN MAT 4.34 10*3/uL 1.99-6.95 x10^3(ANC) (test code = 4084375898) IMM GRAN x10^3 0.00-0.06 (test code = 7774439390) LYMPH x10^3 (test 2.10 10*3/uL 1.09-3.23 code = 731-0) MONO x10^3 (test 0.54 10*3/uL 0.36-1.02 code = 742-7) EOS x10^3 (test 0.16 10*3/uL 0.06-0.53 code = 711-2) BASO x10^3 (test 0.08 10*3/uL 0.01-0.09 code = 704-7) [facility] WITH [id number] 18:43:30 Test Item Value Reference Range Interpretation Comments WBC (test code = See_Comment [Automated message] 5790-2) The system iPointer generated this result transmitted ref erence range: 4.20 - 1 0.70 10*3/?L. The re ference range was not u sed to interpret this result as normal/abnor mal. RBC (test code = See_Comment [Automated message] 789-8) The system iPointer generated this result transmitted ref erence range: [...] RDW-SD (test code 43.7 fL 38.5-51.6 = 42298-9) RDW-CV (test code 13.0 % 12.1-15.4 = 788-0) PLT (test code = See_Comment [Automated message] 777-3) The system iPointer generated this result transmitted ref erence range: 150 - 32 8 10*3/?L. The re ference range was not u sed to interpret this result as normal/abnor mal. MPV (test code = 10.2 fL 9.8-13.0 15352-9) NRBC/100 WBC (test See_Comment [Automat ed message] code = 2806512307) The syste m which generated this result transmitted ref erence range: 0.0 - 10 .0 /100 WBCs. The refer ence range was not u sed to interpret this result as normal/abnor mal. NRBC x10^3 (test See_Comment [Automated message] code = 2771897440) The syste m which generated this result transmitted ref erence range: 10*3/?L. The reference range was not used to interpr et this result as normal/abnormal . GRAN MAT (NEUT) % 59.9 % (test code = 770-8) IMM GRAN % (test 0.30 % code = 4305588850) LYMPH % (test code 29.0 % = 736-9) MONO % (test code 7.5 % = 5905-5) EOS % (test code = 2.2 % 713-8) BASO % (test code 1.1 % = 706-2) GRAN MAT 4.34 10*3/uL 1.99-6.95 x10^3(ANC) (test code = 4789650139) IMM GRAN x10^3 0.00-0.06 (test code = 8123769982) LYMPH x10^3 (test 2.10 10*3/uL 1.09-3.23 code = 731-0) MONO x10^3 (test 0.54 10*3/uL 0.36-1.02 code = 742-7) EOS x10^3 (test 0.16 10*3/uL 0.06-0.53 code = 711-2) BASO x10^3 (test 0.08 10*3/uL 0.01-0.09 code = 704-7) [facility]2020-06-06 13:41:00 Test Item Value Reference Range Interpretation Comments PSA (test code = PSA-) 0.7 ng/mL 0-4.0 [id number] 13:34:00 Test Item Value Reference Range Interpretation [...] BACTERIA (test code = NEGATIVE NONE BACTERIA) [id number] 13:14:00 Test Item Value Reference Range Interpretation [...] (test code 4.3 K/UL 1.2-7.2 = NEUT) [id number] 13:11:00 Test Item Value Reference Range Interpretation [...] glucose = GLUCOSE) normal <100 MG/ DL- [employer] recommendation* * CALCIUM (test [...] mL/min/1.73m2 mL/min/1.73m2 is considered norm al. LIPID [id number] 13:11:00 Test Item Value Reference Range Interpretation [...] US PATIENTS IS < 7 % HBA1C. [facility] 2002;25:S33-S49 [id number] 05:51:00 Test Item Value Reference Range Interpretation [...] (test code 3.5 K/UL 1.2-7.2 = NEUT) [facility], BASIC METABOLIC [id number] 05:49:00 Test Item Value Reference Range Interpretation [...] glucose = GLUCOSE) normal <100 MG/ DL- [employer] recommendation* * CALCIUM (test code 8.9 MG/DL 8.4-10.2 = CABLOOD) GFR (test code = 71 A GFR of >9 0 GFR) mL/min/1.73m2 mL/min/1.73m2 is considered norm al. URINE UREA,[id number] 16:53:00 Test Item Value Reference Range Interpretation Comments UUREA (test code = UUREA) 798 MG/DL CREATININE RANDOM [id number] 16:53:00 Test Item Value Reference Range Interpretation Comments UCREARAN (test code = UCREARAN) 165.8 MG/DL URINE SODIUM, [id number] 16:53:00 Test Item Value Reference Range Interpretation Comments ALDA (test code = 137 MMOL/L A REFERENC E RANGE HAS ALDA) NOT BEEN ESTABL ISHED FOR THIS ANALYTE IN RANDOM URINE SAMPLES. [facility], BASIC METABOLIC [id number] 12:08:00 Test Item Value Reference Range Interpretation [...] glucose = GLUCOSE) normal <100 MG/ DL- [employer] recommendation* * CALCIUM (test code 8.9 MG/DL 8.4-10.2 = CABLOOD) GFR (test code = 53 A GFR of >9 0 GFR) mL/min/1.73m2 mL/min/1.73m2 is considered norm al. [id number] 12:02:00 Test Item Value Reference Range Interpretation [...] K/UL 1.2-7.2 = NEUT) CHEST 1 VIEW [id number] 19:25:[address] [id number] IMAGING REPORTPatient Name: Francia GUNN of Service: [id number]: 69 Sex: M Order #: [id number] [facility] 1950 [facility] Number: [id number] Record Number: [id number] Hospital Number: [id number] Physician: Ramesh VINES Physician: MADISYN VINES 1 [...] with nipple markers may beuseful.Electronically Signed By: Agueda Mcintyre M.D., 05/18/2020 7:23 PMLegally authenticated by DAVID ROMEO 2020-05-18 19:23:[id number] 18:21:00 Test Item Value Reference Range Interpretation [...] code = URMUCOUS) SLIGHT /LPF NONE LIVER [id number] 17:47:00 Test Item Value Reference Range Interpretation [...] code = ALTV) 17 U/L 13-69 TROPONIN [id number] 17:30:00 Test Item Value Reference Range Interpretation Comments TROPER (test code = 0.02 NG/ML 0.0-0.08 INTE RPRETIVE TROPER) DATA A POC T ROPONIN OF </= 0.08 NG/ ML IS CONSIDERED NEGA TIVE [id number] 17:18:00 Test Item Value Reference Range Interpretation [...] 4.2 K/UL 1.2-7.2 = NEUT) ISTAT CHEM [id number] 17:10:00 Test Item Value Reference Range Interpretation [...] outside of Reference Range s ISTAT CHEM [id number] 20:55:00 Test Item Value Reference Range Interpretation [...] 17.3 G/DL 12.0-18.0 Notifi ed Nurse/MD of ISTATHGB) results outside of Reference Range s ISTANGAP (test code = 16 MMOL/L Notifi ed Nurse/MD of ISTANGAP) results outside of Reference Range s [id number] 20:31:00 Test Item Value Reference Range Interpretation [...] code 3.8 K/UL 1.2-7.2 = NEUT) TROPONIN [id number] 20:30:00 Test Item Value Reference Range Interpretation Comments TROPER (test code = 0.00 NG/ML 0.0-0.08 INTE RPRETIVE TROPER) DATA A POC T ROPONIN OF </= 0.08 NG/ ML IS CONSIDERED NEGA TIVE ISTAT CHEM [id number] 19:50:00 Test Item Value Reference Range Interpretation [...] of Reference Range s CT HEAD W/O [id number] 17:23:[address] [id number] IMAGING REPORTPatient Name: MAXINE GUNNDate of Service: [id number]: 69 Sex: M Order #: [id number] Room: QERDOB: 1950 X-Ray Number: [id number] Record Number: [id number] Hospital Number: [id number] Physician: ANDRZEJ BOCANEGRAOrdering Physician: ANDRZEJ BOCANEGRACT scan [...] authenticated by ALICIA HECK 2020-04-17 17:20:55ECHO COMPLETE [id number] 19:32:00[facility]ERECHOCARDIOGRAM REPORTName: MAXINE GUNN Study Date: 02/09/2017 01:39 PMMRN: [id number] Patient Location: 4S\\S\\419\\S\\AHR: 61DOB: 1950 (M/d/yyyy)Gender: MaleAge: 66 yrsHeight: 75 in Weight: 225 lbBSA: 2.3 k2Bguako For Study: StrokeHistory:CVAProceduresA complete two- dimensional transthoracic echocardiogram was performed (2D,M-mode, Doppler and color flow Doppler).MMode/2D Measurements and CalculationsRVDd: 3.8 cm LVIDd: 5.6 cmIVSd: 0.98 cm LVIDs: 3.8 cmIVSs: 1.2 cm LVPWd: 0.96 cmLVPWs: 1.6 cm FS: 32.6 % % IVS thick: 26.3 %EDV(Teich): 154.3 mlESV(Teich): 61.2 mlEF(Teich): 60.4 % SV(Teich): 93.1 ml MV excursion: 2.2cmMV E-F slope: 14.4 cm/sec Ao root diam: [...] max P.5 mmHgAo max P.5 mmHg LV V1mean P.0 mmHgAo V2 mean: 79.3 cm/sec LV V1 max: 117.0 cm/secAo mean P.0 mmHg LV V1 mean: 73.2 cm/secAo V2 VTI: 22.8 cm LV V1 VTI: 22.6 cmAVA(I,D): 3.1 cmAVA(V,D): 3.1 cm2 MR max leann: 148.0 cm/sec SV(LVOT): 71.0 mlMR max P.8 mmHg__ PA V2 max: 96.1 cm/sec TR max leann: 202.7 cm/secPA max P.7 mmHg TR max P.0 mmHgPA V2 mean: 74.2 cm/sec RVSP(TR): 26.0 mmHgPA mean P.0 mmHgPA V2 VTI: 21.4 cm RAP systole: 10.0 mmHgLeft VentricleThe left ventricle is grossly normal size. Left ventricular systolicfunction isnormal. Ejection Fraction = 55-60%. The transmitral spectralDoppler [...] not well visualized, but is grossly normal. Rightventricular systolic pressure is normal. There is mild tricuspidregurgitation.Aortic ValveThe aortic valve is normal in structure and function.Great VesselsThe aortic root is normal size.Pericardium/PleuralThere is no pericardial effusion.Interpretation SummaryLeft ventricular systolic function is normal.Ejection Fraction = 55-60%.The transmitral spectral Doppler flow pattern is suggestive of impaired LVrelaxation.Right ventricular systolic pressure is normal. Gatito Lacy MD 02/16/2017Reading Physician: Electronically signed by:07:32 PMOrdering Physician: SADI BURROUGHSclint Physician: PEDRO MARIEEPerformed By: Aundrea Tilley RVSCTA [id number] 16:09:[address] [id number] IMAGING REPORTPatient Name: Francia GUNN of Service: [id number]: 66 Sex: M Order #: [id number] Room: [facility] 4SDOB: 1950 X-Ray Number: [id number] Record Number: [id number] Hospital Number: [id number] Physician: PEDRO MARIEE -Ordering Physician: SANTOSH DUMONT [...] by ROBYN Stanley 2017-02-09 16:06:37CTA NECK 2017-02-09 16:09:[address] [id number] IMAGING REPORTPatient Name: Francia GUNN of Service: [id number]: 66 Sex: M Order #: [id number] Room: [facility] 4SDOB: 1950 X-Ray Number: [id number] Record Number: [id number] Hospital Number: [id number] Physician: PEDRO MARIEE -Ordering Physician: SANTOSH DUMONT [...] ROBYN Stanley 2017-02-09 16:06:37MRI BRAIN W 2017-02-09 09:30:[address] [id number] IMAGING REPORTPatient Name: Francia GUNN of Service: [id number]: 66 Sex: M Order #: [id number] Room: [facility] A 4SDOB: 1950 X-Ray Number: [id number] Record Number: [id number] Hospital Number: [id number] Physician: PEDRO MARIEE -Ordering Physician: LAURYN WHELAN of the brain with and without contrast [facility] 2:[facility]A, slurred beats.Findings:Diffusion weighted imaging demonstrates areas [...] infarcts in the bilateral thalami.Electronically Signed By: Agueda Mcintyre M.D., 02/09/2017 9:27 AMLegallyauthenticated by DAVID ROMEO 2017-02-09 09:27:59US CAROTID [id number] 06:44:[address] [place], [place] [id number] IMAGING REPORTPatient Name: Francia GUNN of Service: [id number]: 66 Sex: M Order #: [id number] Room: [facility]/ A 4SDOB: 1950 X-Ray Number: [id number] Record Number: [id number] Hospital Number: [id number] Physician: PEDRO MARIEE -Ordering Physician: Tre WHELAN [...] by MARIANNE RAJAN 2017-02-09 06:42:20CT HEAD W/O [id number] 21:13:[address] [id number] IMAGING REPORTPatient Name: Francia GUNN of Service: [id number]: 66 Sex: M Order #: [id number] Room: QERDOB: 1950 X-Ray Number: [id number] Record Number: [id number] Hospital Number: [id number] Physician: FABY TAOOrdering Physician: Sharon WHELAN CT exam was performed using one or more ofthe following dosereduction techniques: Automated exposure control, adjustment of the mAand/or kV according to patient size, or use of iterative reconstructiontechnique.CT headHistory: CVA. Confusion slurred speechCT head: There are moderate-sized areas of hypoattenuation in the bilateralthalami, suspicious for subacute to remote lacunar infarcts. Nointracranial hemorrhage, mass, or mass effect. Calvarium intact. Moderatemucosal thickening ethmoid air cells.Impression:1. 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 FRIEND FOUND HIM WALKING AROUND HIS RESIDENCEAPPEARED CONFUSEDD, SO HE CALLED 911SLURRED SPEECHBPP 167/60HX) HTNPSV: FPFindings:. There is mild basilar pulmonary atelectasis. There is mildpulmonary vascular congestion. Heart size upper limits of normal. Noairspace consolidation or pleural fluid identified.Electronically Signed By: Bernardo Solorzano M.D., 02/08/2017 9:08 PMLegally authenticated by MARIANNE RAJAN 2017-02-08 21:08:48 Notes Date/Time Note Provider Source 2020-05-18 19:23:46-00:00 [facility] AGUEDA RODRIGES [address] [address] DIAGNOSTIC IMAGING REPORT Patient Name: MAXINE GUNN Date of Service: 05-18-2020 Age: 69 Sex: M Order #: [id number] Room: [facility] : 1950 X-Ray Number: [id number] Hospital Number : [id number] Admitting Physician: SUJIT VINES Ordering Physician: SUJIT VINES CHEST 1 VIEW PORTABLE 05/18/2020 6:51 PM History: hypotension, CVA Comparisons: None Available. CHEST: FINDINGS: Heart size is normal. There is no focal lung consolidation. There is no definite pleural effusion or pneumot horax identified. Small nodular density projects over the RIGHT jerri ng base. This could density representing a nipple shadow. Repeat examination with nipple markers may be useful. IMPRESSION: No acute cardiopulmonary process. Small nodular density projects over the RIGHT jerri ng base. This could density representing a nipple shadow. Repeat examination with nipple markers may be useful. Electronically Signed By: Agueda Mcintyre M.D., 05/18/2020 7:23 PM Legally authenticated by DAVID ROMEO 2020-05-18 19:23:46 2020-04-17 17:20:55-00:00 [facility] [place] [address] DIAGNOSTIC IMAGING REPORT Patient Name: MAXINE GUNN Date of Service: 04-17-2020 Age: 69 Sex: M Order #: [id number] Room: [facility] : 1950 X-Ray Number: [id number] Hospital Number : [id number] Admitting Physician: ANDRZEJ BOCANEGRA Ordering Physician: ANDRZEJ BOCANEGRA CT scan of the brain done without contrast. This patient presents with dizziness. There are old ischemic infarctions in the thalam us bilaterally, unchanged since 08 February 2017. Also findings of mild cerebral atrophy. There are no acute findings. There is no recent ischemic infarction. There is no mass. There is no evidence of an intracere bral hemorrhage or subdural hematoma. The fossa structures, sellar region, orbits and paranasal sinuses are normal. IMPRESSION: There are old infarcts in the thalamus bilateral ly. There is been no change since 08 February 2017. Electronically Signed By: Debbie Gaviria, 04/17/2020 5:20 PM Legally authenticated by ALICIA HECK 2020-04 17:20:55 2017-02-12 09:49:02-00:00 [place] [address] Patient Name: MAXINE GUNN Patient#: [id number] Admission Date: 02/08/2017 Discharge Date: 02/12/2017 Age/Gender: 66/M Date of : 1950 HSSV//BED: TEL/419/A Admitting Phys: Pedro Mariee MD DISCHARGE SUMMARY DATE OF ADMISSION: 02/08/2017 DATE OF DISCHARGE: 02/12/2017 FINAL DIAGNOSES 1. Acute cerebrovascular accident, likely emboli c. 2. Hypertension. 3. Hyperlipidemia. DISCHARGE MEDICATIONS See list. DISCHARGE INSTRUCTIONS The patient will be discharged today to follow u p with the primary care physician as an outpatient, as well as Dr. Viviana mejia. CONSULTATIONS Dr. Lacy OPERATIONS AND PROCEDURES None. HOSPITAL COURSE This is a 66-year-old male who presented to the ER complaining of slurred speech and weakness. He was admitted and had an MRI of the brain without contrast, showed subacute infarcts in bilateral thalami. T katina Neuro was consulted. They saw the patient. The patient had an echocardiogr am, carotid Doppler, CT of the head and neck. The patient was cleared by Tele N euro for discharge. He was restarted on his home medications, including Franklin vix, as the patient was not taking his Plavix routinely at home. We instruct ed him on the importance of medication compliance and blood pressure control . The patient verbalizes understanding. His brother wishes for patient to go somewhere other than home at time of discharge. We have consulted Case Man tiffanie, who is consulting detention to see if the patient to go, Medica id pending. The patient is in stable condition. At this point, we will dischar ge to follow up with the primary care physician as an outpatient, as well as Dr. Leyva. For any additional information, please see chart and ord ers. DICTATED BY: CITLALLI Gonzáles MD Legally authenticated by JAYLENE VASQUEZ 2017-02-15 06:12:35 TT: 02/12/2017 09:49:02 JOSE/VALERIEL /[id number] Electronically Authenticated by: Pedro Mariee M.D. On 02/15/2017 06:12 PM CDT Legally authenticated by JAYLENE VASQUEZ 2017-02-15 06:12:35
[2023-02-13 17:12] LABS: Absolute Lymphocytes (CBC) 1.7 K/uL (0.7-4.9); Hematocrit 36.4 % (39.6-49.0); Lymphocytes % 14.2 % (15.3-44.8); MCV 84.9 fL (80-100); MPV 7.3 fL (7.6-11.3); RBC Red Blood Cell Count 4.29 M/uL (4.33-5.43)
[2023-02-13 17:14] LABS: Protime INR 1.1
[2023-02-13 17:31] LABS: Albumin 2.9 g/dL (3.4-5.0); Bilirubin Direct 0.2 mg/dL (0-0.2); Bilirubin Indirect, Calculated 0.3 mg/dL (0.2-0.8); Bilirubin Total 0.5 mg/dL (0.2-1.0); Potassium 4.4 mEq/L (3.5-5.1); Protein, Total 6.9 g/dL (6.4-8.2); Troponin High Sensitivity 7.4 pg/mL (<58.9)
--- NOTE | 2023-02-13 18:39 | RAD REPORT ---
EXAM DESCRIPTION: CT - Thorax W/ Con - 02/13/2023 6:18 pm CLINICAL HISTORY: Chest pain COMPARISON: 2021 TECHNIQUE: Computed axial tomography of the chest was obtained. 100 cc Isovue 300 was administered i ntravenously. All CT scans are performed using dose optimization technique as appropriate and may include automated exposure control or mA/KV adjustment according to patient size. FINDINGS: 6.6 centimeter right upper lobe mass extends into the right middle lobe. The mass extends into mediastinum. Moderate COPD 2.2 centimeter pretracheal lymph node. Small mass anterior left chest subcutaneous tissue without significant change may be a sebaceous cyst A pleural effusion is not present. A small pericardial effusion IMPRESSION: 6.6 centimeter right lung mass consistent with neoplasm 2.2 centimeter pretracheal lymph node likely neoplastic
--- NOTE | 2023-02-13 18:40 | RAD REPORT ---
EXAM DESCRIPTION: Geeta Single View02/13/2023 5:33 pm CLINICAL HISTORY: Chest pain COMPARISON: 2021 FINDINGS: 6.6 centimeter mass medial right upper lobe extends to the mediastinum Moderate COPD Heart is normal size IMPRESSION: 6.6 centimeter right lung mass likely neoplasm
--- NOTE | 2023-02-13 19:43 | EDPHYS ---
Physician Documentation [facility] Name: Timoteo Gunn Age: 72 yrs Sex: Male : 1950 Arrival Date: 02/13/2023 Time: 15:33 Bed 12 Private MD: ED Physician Calderon Serrano HPI: 02/13 16:05 This 72 yrs old Male presents to ER via Ambulatory with complaints of Pain on right cp side. 16:05 The patient or guardian reports chest pain that is located primarily in the right side cp of chest. Onset: 3 day(s) ago. The pain does not radiate. Associated signs and symptoms: The patient has no apparent associated signs or symptoms. The chest pain is described as waxing and waning. Modifying factors: the symptoms are aggravated by deep breath. Historical: - Allergies: 15:48 No Known Allergies; ld1 - PMHx: 15:48 Hypercholesterolemia; Myocardial infarction; stroke; ld1 - PSHx: 15:48 heart stent; ld1 - Immunization history:: Adult Immunizations up to date, Client reports receiving the 2nd dose of the Covid vaccine. - Social history:: Smoking status: Patient denies any tobacco usage or history of. Patient/guardian denies using alcohol. ROS: 16:10 Constitutional: Negative for body aches, chills, fever, poor PO intake. cp 16:10 Eyes: Negative for injury, pain, redness, and discharge. cp 16:10 Neck: Negative for pain with movement, pain at rest, stiffness, tenderness, bony tenderness. 16:10 Cardiovascular: Positive for chest pain, of the right lateral anterior chest, Negative for edema, palpitations. 16:10 Respiratory: Negative for hemoptysis, shortness of breath, wheezing. 16:10 Abdomen/GI: Negative for abdominal pain, vomiting, diarrhea, constipation. 16:10 Back: Negative for pain at rest, pain with movement. 16:10 Neuro: Negative for altered mental status, dizziness, headache, numbness, syncope, weakness. 16:10 All other systems are negative. Exam: 16:15 Constitutional: The patient appears in no acute distress, alert, awake, cp non-diaphoretic, non-toxic, well developed, well nourished. 16:15 Head/Face: Normocephalic, atraumatic. cp 16:15 Eyes: Periorbital structures: appear normal, Conjunctiva: normal, no exudate, no injection, Sclera: no appreciated abnormality, Lids and lashes: appear normal, bilaterally. 16:15 ENT: External ear(s): are unremarkable, Nose: is normal, Mouth: Lips: moist, Oral mucosa: pink and intact, moist, Posterior pharynx: is normal, airway is patent, no erythema, no exudate. 16:15 Neck: ROM/movement: is normal, is supple, without pain, no range of motions limitations. 16:15 Chest/axilla: Inspection: normal, Palpation: is normal, no crepitus, no tenderness. 16:15 Cardiovascular: Rate: normal, Rhythm: regular, Edema: is not appreciated, JVD: is not appreciated. 16:15 Respiratory: the patient does not display signs of respiratory distress, Respirations: normal, no use of accessory muscles, no retractions, labored breathing, is not present, Breath sounds: are clear throughout, no decreased breath sounds, no stridor, no wheezing. 16:15 Abdomen/GI: Inspection: abdomen appears normal, Palpation: abdomen is soft and non-tender, in all quadrants. 16:15 Back: pain, is absent, ROM is normal. 16:15 Skin: cellulitis, is not appreciated, no rash present. 16:15 Neuro: Orientation: is normal, Mentation: is normal, Motor: moves all fours, strength is normal, Gait: is steady. 17:05 ECG was reviewed by the Attending Physician. cp Vital Signs: 15:47 BP 117 / 70; Pulse 80; Resp 18; Temp 97.5(O); Pulse Ox 99% on R/A; Pain 8/10; ld1 15:50 Weight 77.56 kg; Height 6 ft. 3 in. ; ld1 19:50 BP 118 / 71; Pulse 70; Resp 16; Pulse Ox 99% on R/A; ha1 15:50 Body Mass Index 21.37 (77.56 kg, 190.5 cm) ld1 15:47 Pain Scale: Adult ld1 MDM: 15:50 Patient medically screened. cp 17:00 Differential diagnosis: acute myocardial infarction, acute pericarditis, pericarditis, cp pleurisy, pneumonia, pneumothorax, pulmonary embolus, stable angina, thoracic aortic disection, unstable angina, lung mass. 19:42 Data reviewed: vital signs, nurses notes, lab test result(s), EKG, radiologic studies, cp CT scan, plain films. 19:42 Consideration of Admission/Observation Escalation of care including cp admission/observation considered. Counseling: I had a detailed discussion with the patient and/or guardian regarding: the historical points, exam findings, and any diagnostic results supporting the discharge/admit diagnosis, lab results, radiology results, the need for outpatient follow up, for definitive care, an service observer, a police district switchboard operator, to return to the emergency department if symptoms worsen or persist or if there are any questions or concerns that arise at home. 02/13 15:57 Order name: Basic Metabolic Panel; Complete Time: 17:33 02/13 17:33 Interpretation: Normal except: NA 134; BUN 34; GFR 59. 02/13 15:57 Order name: CBC with Diff; Complete Time: 17:29 02/13 17:29 Interpretation: Normal except: WBC 11.70; RBC 4.29; HGB 11.8; HCT 36.4; MPV 7.3; JOSE DANIEL% cp 77.3; LYM% 14.2; NEUT A 9.0. 02/13 15:57 Order name: LFT's; Complete Time: 17:33 02/13 17:33 Interpretation: Normal except: AST 12; ALB 2.9; GLOB 4.0; A/G 0.7. 02/13 15:57 Order name: Magnesium; Complete Time: 17:33 02/13 15:57 Order name: NT PRO-BNP; Complete Time: 17:33 02/13 17:34 Interpretation: Abnormal: NT PRO-BNP 832. 02/13 15:57 Order name: PT-INR; Complete Time: 17:29 02/13 15:57 Order name: Troponin HS; Complete Time: 17:33 02/13 17:34 Interpretation: Troponin HS 7.4; Reviewed. 02/13 15:57 Order name: XRAY Chest (1 view); Complete Time: 18:52 02/13 18:52 Interpretation: Report review. 02/13 17:48 Order name: CT Chest W/ Con; Complete Time: 18:52 02/13 15:57 Order name: EKG; Complete Time: 16:54 02/13 15:57 Order name: Cardiac monitoring; Complete Time: 16:59 cp 02/13 15:57 Order name: EKG - Nurse/Tech; Complete Time: 16:59 cp 02/13 15:57 Order name: IV Saline Lock; Complete Time: 16:59 cp 02/13 15:57 Order name: Labs collected and sent; Complete Time: 16:59 cp 02/13 15:57 Order name: O2 Per Protocol; Complete Time: 16:25 cp 02/13 15:57 Order name: O2 Sat Monitoring; Complete Time: 16:25 cp EC:05 Rate is 70 beats/min. Rhythm is regular. WI interval is normal. QRS interval is normal. cp QT interval is normal. T waves are Inverted in lead aVR. Interpreted by me. Reviewed by me. Administered Medications: No medications were administered Disposition: 20:56 Co-signature as Attending Physician, Calderon Serrano DO I was immediately available on-site ms3 in the Emergency Department for consultation in the care of the patient. 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 cp Followup: cp - With: Rolando Rodgers MD - When: 2 - 3 days - Reason: Recheck today's complaints Followup: cp - With: Private Physician - When: 2 - 3 days - Reason: Recheck today's complaints Discharge Instructions: - Discharge Summary Sheet cp - Lung Cancer cp - Lung Biopsy cp Forms: - Medication Reconciliation Form cp - Thank You Letter cp - Antibiotic Education cp - Prescription Opioid Use cp Signatures: Dispatcher [employer] EDMS Stoney Lipscomb PA PA cp Calderon Serrano DO DO ms3 Salma Serrano RN RN ld1 Corrections: (The following items were deleted from the chart) 17:05 16:45 Chest Single View ordered. EDSD EDMS 19:44 19:43 Malignant neoplasm of unspecified part of right bronchus or lung cp cp
--- NOTE | 2023-02-13 19:43 | ER ---
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 ld1 Denies injury. Coronavirus screen: At this time, the client does not indicate any symptoms associated with coronavirus-19. Ebola Screen: No symptoms or risks identified at this time. Initial Sepsis Screen: Does the patient meet any 2 criteria? No. Patient's initial sepsis screen is negative. Does the patient have a suspected source of infection? No. Patient's initial sepsis screen is negative. Risk Assessment: Do you want to hurt yourself or someone else? Patient reports no desire to harm self or others. Onset of symptoms was February 13, 2023. 15:47 Method Of Arrival: Ambulatory ld1 15:47 Acuity: ABIEL 3 ld1 Triage Assessment: 15:48 General: Appears in no apparent distress. comfortable, Behavior is calm, cooperative, ld1 appropriate for age. Pain: Complains of pain in anterior aspect of right upper chest and right breast Pain does not radiate. Pain currently is 8 out of 10 on a pain scale. Quality of pain is described as throbbing. EENT: No signs and/or symptoms were reported regarding the EENT system. Neuro: Level of Consciousness is awake, alert, obeys commands, Oriented to person, place, time, situation. Cardiovascular: Capillary refill < 3 seconds Patient's skin is warm and dry. Respiratory: Reports pain with respiration since 4 dYA Airway is patent Respiratory effort is even, unlabored. GI: Abdomen is flat, non-distended, Reports lower abdominal pain. : No signs and/or symptoms were reported regarding the genitourinary system. Derm: No signs and/or symptoms reported regarding the dermatologic system. Musculoskeletal: No signs and/or symptoms reported regarding the musculoskeletal system. Historical: - Allergies: 15:48 No Known Allergies; ld1 - PMHx: 15:48 Hypercholesterolemia; Myocardial infarction; stroke; ld1 - PSHx: 15:48 heart stent; ld1 - Immunization history:: Adult Immunizations up to date, Client reports receiving the 2nd dose of the Covid vaccine. - Social history:: Smoking status: Patient denies any tobacco usage or history of. Patient/guardian denies using alcohol. Screenin:49 [facility] ED Fall Risk Assessment (Adult) History of falling in the last 3 months, nj1 including since admission No falls in past 3 months (0 pts) Confusion or Disorientation No (0 pts) Intoxicated or Sedated No (0 pts) Impaired Gait No (0 pts) Mobility Assist Device Used No (0 pt) Altered Elimination No (0 pt) Score/Fall Risk Level 0 - 2 = Low Risk Oriented to surroundings, Maintained a safe environment, Hourly rounding (assess needs \T\ fall precautionary measures) done. Abuse screen: Denies threats or abuse. Denies injuries from another. Nutritional screening: No deficits noted. Tuberculosis screening: No symptoms or risk factors identified. Assessment: 18:08 Reassessment: Not in room, in CT scan. nj1 18:48 Reassessment: Patient appears in no apparent distress at this time. Patient and/or nj1 family updated on plan of care and expected duration. Pain level reassessed. Patient is alert, oriented x 3, equal unlabored respirations, skin warm/dry/pink. Pain: Complains of pain in right lateral anterior chest Pain currently is 8 out of 10 on a pain scale. Is intermittent. 19:55 General: Appears comfortable, Behavior is calm, cooperative. Pain: Denies pain. Neuro: ha1 Level of Consciousness is awake, alert, obeys commands, Oriented to person, place, time, situation. Cardiovascular: Patient's skin is warm and dry. Respiratory: Airway is patent Respiratory effort is even, unlabored, Respiratory pattern is regular, symmetrical. GI: No signs and/or symptoms were reported involving the gastrointestinal system. Musculoskeletal: Circulation, motion, and sensation intact. 20:50 Reassessment: Patient and/or family updated on plan of care and expected duration. Pain ha1 level reassessed. Patient is alert, oriented x 3, equal unlabored respirations, skin warm/dry/pink. Vital Signs: 15:47 BP 117 / 70; Pulse 80; Resp 18; Temp 97.5(O); Pulse Ox 99% on R/A; Pain 8/10; ld1 15:50 Weight 77.56 kg; Height 6 ft. 3 in. ; ld1 19:50 BP 118 / 71; Pulse 70; Resp 16; Pulse Ox 99% on R/A; ha1 15:50 Body Mass Index 21.37 (77.56 kg, 190.5 cm) ld1 15:47 Pain Scale: Adult ld1 ED Course: 15:37 Patient arrived in ED. ts1 15:44 Stoney Lipscomb PA is PHCP. cp 15:44 Calderon Serrano DO is Attending Physician. cp 15:48 Triage completed. ld1 15:48 Arm band placed on right wrist. ld1 16:58 Inserted saline lock: 20 gauge in left antecubital area, using aseptic technique. Blood zm collected. 16:58 Basic Metabolic Panel Sent. zm 16:58 CBC with Diff Sent. zm 16:58 LFT's Sent. zm 16:58 Magnesium Sent. zm 16:58 NT PRO-BNP Sent. zm 16:58 PT-INR Sent. zm 16:59 Troponin HS Sent. zm 17:00 Initial lab(s) drawn, by wa, sent to lab. zm 17:35 XRAY Chest (1 view) In Process Unspecified. EDMS 18:08 Gina Wilson, CITLALLI is Primary Nurse. nj1 18:20 CT Chest W/ Con In Process Unspecified. EDMS 18:49 Patient has correct armband on for positive identification. Bed in low position. Call nj1 light in reach. 19:41 Rolando Rodgers MD is Referral Physician. cp 21:11 No provider procedures requiring assistance completed. ha1 21:12 IV discontinued, intact, bleeding controlled, No redness/swelling at site. Pressure pf1 dressing applied. Administered Medications: No medications were administered Medication: 21:12 VIS not applicable for this client. ha1 Outcome: 19:43 Discharge ordered by . cp 21:11 Discharged to home via wheelchair, with family. pf1 21:11 Condition: improved 21:11 Discharge instructions given to patient, family, Instructed on discharge instructions, follow up and referral plans. Demonstrated understanding of instructions, follow-up care. 21:12 Patient left the ED. pf1 Signatures: Dispatcher [employer] EDIL Stoney Lipscomb PA PA cp Sims, Lauren, RN RN ld1 Terence, Sara Appiah, RN RN ha1 Barbara Cornejo, RN RN pf1 Gina Wilson RN RN nj1 Keke Melton, [facility] ts1
[2023-02-13 22:18] VITALS: BP 117/70; TEMP 97.5; O2SAT 99
--- NOTE | 2023-02-16 12:10 | EKG ---
Test Date: 2023-02-13 Test Time: 16:58:27 Manager [employer]: ETHEL MEASUREMENT RESULTS: Intervals: Rate: 70 MS: 130 QRSD: 94 QT: 448 QTc: 483 [place]: P: 75 MS: 130 QRS: 73 T: 67 INTERPRETIVE STATEMENTS: Normal sinus rhythm Anteroseptal infarct, age undetermined Abnormal ECG Compared to ECG 04/26/2022 14:52:48 No significant changes Electronically Signed On 02-16-23 12:01:29 CDT by Torrey Bucio
== END 2023-02-13 21:12 | disposition home or self-care (01) ==
LOC: ER 15:33
DX: D02.21 Carcinoma in situ of right bronchus and lung (principal); E78.00 Pure hypercholesterolemia, unspecified; I25.2 Old myocardial infarction; Z86.73 Personal history of transient ischemic attack (TIA), and cerebral infarction without residual deficits; Z95.818 Presence of other cardiac implants and grafts
CPT/HCPCS: 93005; 85025; 80048; 36415; 83735; 85610; 80076; 84484; 83880; 71260; 71045; 99284; Q9967

== ENCOUNTER 2023-02-16 12:18 | Emergency (ER) | payer OTHER ==
--- OUTSIDE RECORDS SUMMARY | 2023-02-16 12:24 | XMS REPORT | Continuity of Care Document ---
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 [facility] [id number] Univers 14:15:00 14:46:06 SACHIN paintingrachel [facility] 2022-11-17 2022-11-17 Office [facility] 1.2.840.114 [id number] Univers 14:15:00 14:46:06 Visit Sachin Moreira [place] 350.1.13.10 ity lobo [facility] 4.2.7.2.686 [place] PROF[place] [phone] Pa shelia [address] 2022-11-07 2022-11-07 Outpatient Emelyn CARLTON [facility] [id number] Univers 10:59:37 11:05:00 , SINAI it rachel [facility] 2022-11-07 2022-11-07 Office [facility] 1.2.840.114 [id number] Univers 10:15:00 10:47:00 Visit , [facility] 350.1.13.10 ity of [place]RI[place] 4.2.7.2.686 Arturo as BRAD?BLEA [phone] [address] OFFICE [facility] 2022-10-29 2022-10-29 Orders Doctor JORDAN 1.2.840.114 [id number] Univers 00:00:00 00:00:00 Only [place]assigned[place] 350.1.13.10 ity of [place] [facility] 4.2.7.2.686 Arturo as [phone] [address] 2022-10-29 2022-10-29 Telephone [facility] 1.2.570.441 [id number] Univers 00:00:00 00:00:00 Luciana HEALTH 350.1.13.10 ity of [place] 4.2.7.2.686 Arturo as BRAD?BLEA [phone] [address] MEDICAL OFFICE [facility] 2022-10-27 2022-10-27 Telephone [facility] 1.2.767.086 [id number] Univers 00:00:00 00:00:00 Luciana HEALTH 350.1.13.10 ity of [place] 4.2.7.2.686 Arturo as BRAD?BLEA [phone] [address] OFFICE [facility] 2022-10-24 2022-10-24 [facility] 1.2.697.235 [id number] Univers 00:00:00 00:00:00 Luciana HEALTH 350.1.13.10 ity of [place] 4.2.7.2.686 Arturo as BRAD?BLEA [id number] [address] OFFICE [facility] 2022-10-02 2022-10-02 Telephone [facility] 1.2.724.293 [id number] [id number] Univers 00:00:00 00:00:00 Luciana HEALTH 350.1.13.10 ity of [place] 4.2.7.2.686 Arturo as BRAD?BLEA [phone] [address] OFFICE [facility] 2022-09-12 2022-09-12 Orders Doctor JULIAN 1.2.840.114 [id number] Univers 00:00:00 00:00:00 Only [place]igned[place] 350.1.13.10 ity of [place] [facility] 4.2.7.2.686 Arturo as [phone] [address] 2022-08-19 2022-08-19 Orders Doctor JULIAN 1.2.840.114 [id number] Univers 00:00:00 00:00:00 Only [place]assigned[place] 350.1.13.10 ity of [place] [facility] 4.2.7.2.686 Arturo as [phone] [address] 2022-08-04 2022-08-04 Outpatient R EMELINA [facility] [id number] Univers 14:00:00 14:00:00 LUCIANA ity [facility] 2022-07-30 2022-07-30 Telephone [facility] 1.2.057.440 [id number] Univers 00:00:00 00:00:00 Luciana HEALTH 350.1.13.10 [facility] 4.2.7.2.686 Arturo as BRAD?BLEA [phone] [address] MEDICAL OFFICE [facility] 2022-07-03 2022-07-03 Telephone [facility] 1.2.551.436 [id number] Univers 00:00:00 00:00:00 [place] [facility] 350.1.13.10 ity of [place] 4.2.7.2.686 Arturo as BRAD?BLEA [phone] [address] OFFICE [facility] 2022-07-03 2022-07-03 Telephone [facility] 1.2.689.350 [id number] Univers 00:00:00 00:00:00 Luciana HEALTH 350.1.13.10 ity of [place] 4.2.7.2.686 Artuor as BRAD?BLEA [phone] [address] OFFICE [facility] 2022-07-01 2022-07-01 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 Lab, Ang - Db [facility] 1.2.840.1 14 [id number] Univers 10:45:00 11:00:00 Visit Jordanrachel [facility] 350.1.13.10 [facility] 4.2.7.2.686 Arturo as BRAD?BLEA [phone] [address] MEDICAL OFFICE [facility] 2022-07-01 2022-07-01 Outpatient R EMELINA [facility] [id number] Univers 09:40:00 10:38:49 [facility] 2022-07-01 2022-07-01 Office [facility] 1.2.840.114 [id number] Univers 09:40:00 10:38:49 Visit [facility] 350.1.13.10 [facility] 4.2.7.2.686 Arturo as BRAD?BLEA [phone] [address] OFFICE [facility] 2022-07-01 2022-07-01 Telephone [facility] 1.2.430.915 [id number] Univers 00:00:00 00:00:00 [facility] 350.1.13.10 ity of [place] 4.2.7.2.686 Arturo as BRAD?BLEA [phone] [address] OFFICE [facility] 2022-06-17 2022-06-17 Outpatient R [facility] [id number] Univers 15:20:00 16:43:52 [facility] 2022-06-17 2022-06-17 Office [facility] 1.2.840.114 [id number] Univers 15:20:00 15:40:00 Visit [facility] 350.1.13.10 ity of [place] 4.2.7.2.686 Arturo as BRAD?BLEA [phone] [address] OFFICE [facility] 2022-06-17 2022-06-17 Orders Doctor JULIAN 1.2.840.114 [id number] Univers 00:00:00 00:00:00 Only [place]igned[place] 350.1.13.10 ity of [place] [facility] 4.2.7.2.686 Arturo as [phone] [address] 2022-04-15 2022-04-15 Orders Doctor JULIAN 1.2.840.114 [id number] Univers 00:00:00 00:00:00 Only [place]igned[place] 350.1.13.10 ity of [place] [facility] 4.2.7.2.686 Arturo as [phone] [address] 2022-03-20 2022-03-20 Outpatient [facility] [id number] Univers 13:00:00 13:00:00 KRISTI paintingy o f [facility] 2022-02-14 2022-02-14 Outpatient Emelyn LEDEZMA [facility] [id number] Univers 10:40:00 10:40:00 KRISTI paintingy o f [facility] 2022-02-05 2022-02-05 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 350.1.13 .10 ity of [place] 4.2.7.2.686 Arturo as BRAD?BLEA [phone] Pa shelia [address] MEDICAL OFFICE [facility] 2022-02-05 2022-02-05 Outpatient Emelyn [facility] [id number] Univers 14:15:00 14:15:00 KORINA rachel [facility] 2022-02-05 2022-02-05 Office [facility] 1.2.840.114 [id number] Univers 13:30:00 14:00:00 Visit [facility] 350.1.13.10 it y of [place] 4.2.7.2.686 Arturo as BRAD?BLEA [phone] [address] OFFICE [facility] 2022-02-05 2022-02-05 Outpatient R [facility] [id number] Univers 13:30:00 13:30:00 KORINA rachel [facility] 2022-02-05 2022-02-05 Telephone [facility] 1.2.840.114 [id number] Univers 00:00:00 00:00:00 [facility] 350.1.13.10 it y of [place] 4.2.7.2.686 Arturo as BRAD?BLEA [phone] Pa shelia [address] MEDICAL OFFICE [facility] 2022-02-05 2022-02-05 Orders Doctor JORDAN 1.2.840.114 [id number] Univers 00:00:00 00:00:00 Only [place]assigned[place] 350.1.13.10 ity of [place] [facility] 4.2.7.2.686 Arturo as [phone] [facility] [address] 2020-08-17 2020-08-17 Discharged REINA CORTEZ ED220 00578 CHRISTEnriqueta 12:57:00 12:57:00 [place] [address] [address] [facility] 2020-06-06 2020-06-06 Outpatient 3 DULCE [facility] OPE 120 [id number]- Hoahaoism 11:08:00 11:08:00 , ZAHRA [id number] Hospi [facility] l ([place]) 2020-05-18 2020-05-18 Emergency VINES, [facility] QER [id number]- [place]ahaoism 16:02:00 16:02:00 SUJIT [id number] Hospi ta l ([place]) 2020-04-17 2020-04-17 Emergency BOCANEGRA, [facility] QER [id number]- [place]aoism 16:42:00 16:42:00 ANDRZEJ [id number] Hospi ta l ([place]) 2017-02-08 2017-02-12 Inpatient 1 JAYLENE [facility] TEL [id number] [facility]ism 23:47:00 17:45:00 [facility] ([place] [...] RDW-SD (test code = 43.7 fL 38.5-51.6 76145-5) RDW-CV (test code = 13.0 % 12.1-15.4 788-0) PLT (test code = 777-3) See_Comment [Au tomated message] The system which generated this result transmitted ref erence range: 150 - 328 10*3/?L. The reference range was not u sed to interpret this result as normal/abnormal. MPV (test code = 63664-3) 10.2 fL 9.8-13 NRBC/100 WBC (test code = See_Comment [ Automated message] The system 1408960275) which generated this result transmitted ref erence range: 0.0 - 10.0 /100 WBC s. The reference range was not u sed to interpret this result as normal/abnormal. NRBC x10^3 (test code = See_Comment [Au tomated message] The system 8356676534) which generated this result transmitted ref erence range: 10*3/?L. The re ference range was not used to int erpret this result as normal/abnor mal. GRAN MAT (NEUT) % (test 59.9 % code = 770-8) IMM GRAN % (test code = 0.30 % 2520005276) LYMPH % (test code = 29.0 % 736-9) MONO % (test code = 7.5 % 5905-5) EOS % (test code = 713-8) 2.2 % BASO % (test code = 1.1 % 706-2) GRAN MAT x10^3(ANC) (test 4.34 10*3/uL 1.99-6.95 code = 9128894206) IMM GRAN x10^3 (test code 0-0.06 = 0628812794) LYMPH x10^3 (test code = 2.10 10*3/uL 1.09-3.23 731-0) MONO x10^3 (test code = 0.54 10*3/uL 0.36-1.02 742-7) EOS x10^3 (test code = 0.16 10*3/uL 0.06-0.53 711-2) BASO x10^3 (test code = 0.08 10*3/uL 0.01-0.09 704-7) [facility] WITH [id number] 18:43:30 Test Item Value Reference Range Interpretation Comments WBC (test code = See_Comment [Automated message] 5790-2) The system [employer] generated this result transmitted ref erence range: 4.20 - 1 0.70 10*3/?L. The re ference range was not u sed to interpret this result as normal/abnor mal. RBC (test code = See_Comment [Automated message] 429-8) The system [employer] generated this result transmitted ref erence range: [...] RDW-SD (test code 43.7 fL 38.5-51.6 = 50078-6) RDW-CV (test code 13.0 % 12.1-15.4 = 788-0) PLT (test code = See_Comment [Automated message] 777-3) The system [employer] generated this result transmitted ref erence range: 150 - 32 8 10*3/?L. The re ference range was not u sed to interpret this result as normal/abnor mal. MPV (test code = 10.2 fL 9.8-13 31030-8) NRBC/100 WBC (test See_Comment [Automat ed message] code = 1129805212) The Bundle [employer] which generated this result transmitted ref erence range: 0.0 - 10 .0 /100 WBCs. The refer ence range was not u sed to interpret this result as normal/abnor mal. NRBC x10^3 (test See_Comment [Automated message] code = 6392086509) The [employer] which generated this result transmitted ref erence range: 10*3/?L. The reference range was not used to interpr et this result as normal/abnormal . GRAN MAT (NEUT) % 59.9 % (test code = 770-8) IMM GRAN % (test 0.30 % code = 8567324700) LYMPH % (test code 29.0 % = 736-9) MONO % (test code 7.5 % = 5905-5) EOS % (test code = 2.2 % 713-8) BASO % (test code 1.1 % = 706-2) GRAN MAT 4.34 10*3/uL 1.99-6.95 x10^3(ANC) (test code = 4215195836) IMM GRAN x10^3 0-0.06 (test code = 2911857101) LYMPH x10^3 (test 2.10 10*3/uL 1.09-3.23 code = 731-0) MONO x10^3 (test 0.54 10*3/uL 0.36-1.02 code = 742-7) EOS x10^3 (test 0.16 10*3/uL 0.06-0.53 code = 711-2) BASO x10^3 (test 0.08 10*3/uL 0.01-0.09 code = 704-7) [facility] WITH [id number] 18:43:30 Test Item Value Reference Range Interpretation Comments WBC (test code = See_Comment [Automated message] 6690-2) The system [employer] generated this result transmitted ref erence range: 4.20 - 1 0.70 10*3/?L. The re ference range was not u sed to interpret this result as normal/abnor mal. RBC (test code = See_Comment [Automated message] 789-8) The system [employer] generated this result transmitted ref erence range: [...] RDW-SD (test code 43.7 fL 38.5-51.6 = 98886-2) RDW-CV (test code 13.0 % 12.1-15.4 = 788-0) PLT (test code = See_Comment [Automated message] 777-3) The system whic h generated this result transmitted ref erence range: 150 - 32 8 10*3/?L. The re ference range was not u sed to interpret this result as normal/abnor mal. MPV (test code = 10.2 fL 9.8-13.0 80543-8) NRBC/100 WBC (test See_Comment [Automat ed message] code = 5500365871) The syste m which generated this result transmitted ref erence range: 0.0 - 10 .0 /100 WBCs. The refer ence range was not u sed to interpret this result as normal/abnor mal. NRBC x10^3 (test See_Comment [Automated message] code = 2576231315) The syste m which generated this result transmitted ref erence range: 10*3/?L. The reference range was not used to interpr et this result as normal/abnormal . GRAN MAT (NEUT) % 59.9 % (test code = 770-8) IMM GRAN % (test 0.30 % code = 5388837874) LYMPH % (test code 29.0 % = 736-9) MONO % (test code 7.5 % = 5905-5) EOS % (test code = 2.2 % 713-8) BASO % (test code 1.1 % = 706-2) GRAN MAT 4.34 10*3/uL 1.99-6.95 x10^3(ANC) (test code = 0470042464) IMM GRAN x10^3 0.00-0.06 (test code = 3768557041) LYMPH x10^3 (test 2.10 10*3/uL 1.09-3.23 code = 731-0) MONO x10^3 (test 0.54 10*3/uL 0.36-1.02 code = 742-7) EOS x10^3 (test 0.16 10*3/uL 0.06-0.53 code = 711-2) BASO x10^3 (test 0.08 10*3/uL 0.01-0.09 code = 704-7) [facility] WITH [id number] 18:43:30 Test Item Value Reference Range Interpretation Comments WBC (test code = See_Comment [Automated message] 1590-2) The system [employer] generated this result transmitted ref erence range: 4.20 - 1 0.70 10*3/?L. The re ference range was not u sed to interpret this result as normal/abnor mal. RBC (test code = See_Comment [Automated message] 239-8) The system [employer] generated this result transmitted ref erence range: [...] RDW-SD (test code 43.7 fL 38.5-51.6 = 28045-3) RDW-CV (test code 13.0 % 12.1-15.4 = 788-0) PLT (test code = See_Comment [Automated message] 977-3) The system [employer] generated this result transmitted ref erence range: 150 - 32 8 10*3/?L. The re ference range was not u sed to interpret this result as normal/abnor mal. MPV (test code = 10.2 fL 9.8-13.0 36275-5) NRBC/100 WBC (test See_Comment [Automat ed message] code = 0544639969) The syste m which generated this result transmitted ref erence range: 0.0 - 10 .0 /100 WBCs. The refer ence range was not u sed to interpret this result as normal/abnor mal. NRBC x10^3 (test See_Comment [Automated message] code = 4002647974) The syste m which generated this result transmitted ref erence range: 10*3/?L. The reference range was not used to interpr et this result as normal/abnormal . GRAN MAT (NEUT) % 59.9 % (test code = 770-8) IMM GRAN % (test 0.30 % code = 1836654666) LYMPH % (test code 29.0 % = 736-9) MONO % (test code 7.5 % = 5905-5) EOS % (test code = 2.2 % 713-8) BASO % (test code 1.1 % = 706-2) GRAN MAT 4.34 10*3/uL 1.99-6.95 x10^3(ANC) (test code = 1184510134) IMM GRAN x10^3 0.00-0.06 (test code = 7988761839) LYMPH x10^3 (test 2.10 10*3/uL 1.09-3.23 code = 731-0) MONO x10^3 (test 0.54 10*3/uL 0.36-1.02 code = 742-7) EOS x10^3 (test 0.16 10*3/uL 0.06-0.53 code = 711-2) BASO x10^3 (test 0.08 10*3/uL 0.01-0.09 code = 704-7) [facility]2020-06-06 13:41:00 Test Item Value Reference Range Interpretation Comments PSA (test code = PSA-) 0.7 ng/mL 0-4.0 [id number] 13:34:00 Test Item Value Reference Range Interpretation [...] BACTERIA (test code = NEGATIVE NONE BACTERIA) [id number] 13:14:00 Test Item Value Reference Range Interpretation [...] (test code 4.3 K/UL 1.2-7.2 = NEUT) [id number] 13:11:00 Test Item Value Reference Range Interpretation [...] glucose = GLUCOSE) normal <100 MG/ DL- [employer] recommendation* * CALCIUM (test [...] mL/min/1.73m2 mL/min/1.73m2 is considered norm al. LIPID [id number] 13:11:00 Test Item Value Reference Range Interpretation [...] US PATIENTS IS < 7 % HBA1C. [employer]. DIABETES CARE 2002;25:S33-S49 [id number] 05:51:00 Test Item Value Reference Range Interpretation [...] (test code 3.5 K/UL 1.2-7.2 = NEUT) [facility], BASIC METABOLIC [id number] 05:49:00 Test Item Value Reference Range Interpretation [...] glucose = GLUCOSE) normal <100 MG/ DL- [employer] recommendation* * CALCIUM (test code 8.9 MG/DL 8.4-10.2 = CABLOOD) GFR (test code = 71 A GFR of >9 0 GFR) mL/min/1.73m2 mL/min/1.73m2 is considered norm al. URINE UREA,[id number] 16:53:00 Test Item Value Reference Range Interpretation Comments UUREA (test code = UUREA) 798 MG/DL CREATININE RANDOM [id number] 16:53:00 Test Item Value Reference Range Interpretation Comments UCREARAN (test code = UCREARAN) 165.8 MG/DL URINE SODIUM, [id number] 16:53:00 Test Item Value Reference Range Interpretation Comments ALDA (test code = 137 MMOL/L A REFERENC E RANGE HAS ALDA) NOT BEEN ESTABL ISHED FOR THIS ANALYTE IN RANDOM URINE SAMPLES. [facility], BASIC METABOLIC [id number] 12:08:00 Test Item Value Reference Range Interpretation [...] glucose = GLUCOSE) normal <100 MG/ DL- [employer] recommendation* * CALCIUM (test code 8.9 MG/DL 8.4-10.2 = CABLOOD) GFR (test code = 53 A GFR of >9 0 GFR) mL/min/1.73m2 mL/min/1.73m2 is considered norm al. [id number] 12:02:00 Test Item Value Reference Range Interpretation [...] K/UL 1.2-7.2 = NEUT) CHEST 1 VIEW [id number] 19:25:[address] [address]RLMBMMBBRG IMAGING REPORTPatient Name: Francia HUYNH of Service: 57-57-4714Qne: 69 Sex: M Order #: [id number] Room: ERSDOB: 1950 X-Ray Number: [id number] Record Number: [id number] Hospital Number: [id number] Physician: Ramesh VINES Physician: MADISYN VINES 1 [...] 7:23 PMLegally authenticated by DAVID ROMEO 2020-05-18 19:23:[id number] 18:21:00 Test Item Value Reference Range Interpretation [...] code = URMUCOUS) SLIGHT /LPF NONE LIVER [id number] 17:47:00 Test Item Value Reference Range Interpretation [...] code = ALTV) 17 U/L 13-69 TROPONIN [id number] 17:30:00 Test Item Value Reference Range Interpretation Comments TROPER (test code = 0.02 NG/ML 0.0-0.08 INT ERPRETIVE TROPER) DATA A POC T ROPONIN OF </= 0.08 NG/ ML IS CONSIDERED NEGA TIVE [id number] 17:18:00 Test Item Value Reference Range Interpretation [...] 4.2 K/UL 1.2-7.2 = NEUT) ISTAT CHEM [id number] 17:10:00 Test Item Value Reference Range Interpretation [...] = 18 MMOL/L Notifi ed Nurse/MD of [facility]) results outside of Reference Range s ISTAT CHEM [id number] 20:55:00 Test Item Value Reference Range Interpretation [...] 17.3 G/DL 12.0-18.0 Notifi ed Nurse/MD of [facility]) results outside of Reference Range s ISTANGAP (test code = 16 MMOL/L Notifi ed Nurse/MD of [facility]) results outside of Reference Range s [id number] 20:31:00 Test Item Value Reference Range Interpretation [...] code 3.8 K/UL 1.2-7.2 = NEUT) TROPONIN [id number] 20:30:00 Test Item Value Reference Range Interpretation Comments TROPER (test code = 0.00 NG/ML 0.0-0.08 INTE RPRETIVE TROPER) DATA A POC T ROPONIN OF </= 0.08 NG/ ML IS CONSIDERED NEGA TIVE ISTAT CHEM [id number] 19:50:00 Test Item Value Reference Range Interpretation [...] of Reference Range s CT HEAD W/O [id number] 17:23:[address] [id number] IMAGING REPORTPatient Name: MAXINE HUYNHDate of Service: 51-12-9895Nle: 69 Sex: M Order #: [id number] Room: ERDOB: 1950 X-Ray Number: [id number] Record Number: [id number] Hospital Number: [id number] Physician: ANDRZEJ BOCANEGRAOrdering Physician: LEV BOCANEGRA scan [...] authenticated by ALICIA HECK 2020-04-17 17:20:55ECHO COMPLETE [id number] 19:32:00[facility]IO[facility] REPORTName: MAXINE HUYNH Study Date: 02/09/2017 01:39 PMMRN: [id number] Patient Location: 4S\\S\\419\\S\\AHR: 61DOB: 1950 (M/d/yyyy)Gender: MaleAge: 66 yrsHeight: 75 in Weight: 225 lbBSA: 2.3 t2Przbmr For Study: StrokeHistory:CVAProceduresA complete two- dimensional transthoracic [...] signed by:07:32 PMOrdering Physician: SADI BURROUGHSeferrangie Physician: Mike MARIEEformedBy: Aundrea Tilley RVSCTA HEAD 2017-02-09 16:09:00BA42 Rodriguez StreetIAGNOSTIC IMAGING REPORTPatient Name: Francia HUYNH of Service: 22-29-6254Ibc: 66 Sex: M Order #: [id number] Room: 419/ A 4SDOB: 1950 X-Ray Number: [id number] Record Number: [id number] Hospital Number: [id number] Physician: PEDRO MARIEE -Ordering Physician: SANTOSH DUMONT [...] by ROBYN Stanley 2017-02-09 16:06:37CTA NECK 2017-02-09 16:09:[address] [id number] IMAGING REPORTPatient Name: Francia HUYNH of Service: 82-72-1336Ajn: 66 Sex: M Order #: 4000 Room: 419/ A 4SDOB: 1950 X-Ray Number: [id number] Record Number: [id number] Hospital Number: [id number] Physician: PEDRO MARIEE -Ordering Physician: SANTOSH DUMONT [...] ROBYN Stanley 2017-02-09 16:06:37MRI BRAIN W 2017-02-09 09:30:0098 [address]IAG[address] IMAG[address] REPORTPatient Name: Francia HUYNH of Service: [id number]: 66 Sex: M Order #: [id number] Room: [facility]/ A 4SDOB: 1950 X-Ray Number: [id number] Record Number: [id number] Hospital Number: [id number] Physician: PEDRO MARIEE -Ordering Physician: LAURYN WHELAN [...] AMLegallyauthenticated by DAVID ROMEO 2017-02-09 09:27:59US CAROTID [id number] 06:44:00[place] [id number] IMAGING REPORTPatient Name: Francia HUYNH of Service: 14-14-5349Zyd: 66 Sex: M Order #: 3000 Room: [facility]/ A 4SDOB: 1950 X-Ray Number: [id number] Record Number: [id number] Hospital Number: [id number] Physician: PEDRO MARIEE -Ordering Physician: Tre WHELAN [...] by MARIANNE RAJAN 2017-02-09 06:42:20CT HEAD W/O [id number] 21:13:00[place] [id number] IMAGING REPORTPatient Name: Francia HUYNH of Service: 54-13-2089Muq: 66 Sex: M Order #: 1000 Room: QDOB: 1950 X-Ray Number: [id number] Record Number: [id number] Hospital Number: [id number] Physician: FABY TAOOrdering Physician: Sharon WHELAN CT [...] by MARIANNE RAJAN 2017-02-08 21:11:06CHEST 1 VIEW [id number] 21:10:00[place] [id number] IMAGING REPORTPat ient Name: MAXINE HUYNHDate of Service: [id number]: 66 Sex: M Order #: 900 Room: QERDOB: 1950 X-Ray Number: [id number] Record Number: [id number] Hospital Number: [id number] Physician: FABY TAOOrdering Physician: BRIGHT WHELAN chest [...] Notes Date/Time Note Provider Source 2020-05-18 19:23:46-00:00 [facility] AGUEDA RODRIGES [address] [address] DIAGNOSTIC IMAGING REPORT Patient Name: MAXINE HUYNH Date of Service: 05-18-2020 Age: 69 Sex: M Order #: 400 Room: [facility] : 1950 X-Ray Number: [id number] Hospital Number : [id number] Admitting Physician: SUJIT VINES Ordering Physician: SUJIT [...] by DAVID ROMEO 2020-05-18 19:23:46 2020-04-17 17:20:55-00:00 [facility] [place] [address] DIAGNOSTIC IMAGING REPORT Patient Name: MAXINE HUYNH Date of Service: 04-17-2020 Age: 69 Sex: M Order #: [id number] Room: [facility] : 1950 X-Ray Number: [id number] Hospital Number : [id number] Admitting Physician: ANDRZEJ BOCANEGRA Ordering Physician: ANDRZEJ [...] HECK 2020-04 17:20:55 2017-02-12 09:49:02-00:00 PEDRO MARIEE [address] [address] Patient Name: MAXINE HUYNH Patient#: [id number] Admission Date: 02/08/2017 Discharge Date: 02/12/2017 Age/Gender: 66/M Date of : 1950 HSSV/RM/BED: TEL/419/A Admitting Phys: Pedro Mariee MD DISCHARGE [...] time of discharge. We have consulted Case Rinku moreno, who is consulting penitentiary to see if the patient to go, [...] JAYLENE VASQUEZ 2017-02-15 06:12:35 TT: 02/12/2017 09:49:02 JOSE/SYDNEY /[id number] Electronically Authenticated by: Pedro Mariee M.D. On 02/15/2017 06:12 PM CDT Legally authenticated by JAYLENE VASQUEZ 2017-02-15 06:12:35
--- NOTE | 2023-02-16 13:45 | RAD REPORT ---
EXAM DESCRIPTION: Geeta Single View02/16/2023 1:28 pm CLINICAL HISTORY: Chest pain COMPARISON: February 13 2023 FINDINGS: No change in the size of right lung mass. Mild adjacent linear lung opacities Left lung appears clear. Heart is normal size
--- NOTE | 2023-02-16 13:47 | RAD REPORT ---
EXAM DESCRIPTION: CT - Head Brain Wo Cont - 02/16/2023 1:30 pm CLINICAL HISTORY: Syncope COMPARISON: 2021 TECHNIQUE: Computed axial tomography of the head was obtained. IV contrast was not requested. All CT scans are performed using dose optimization technique as appropriate and may include automated exposure control or mA/KV adjustment according to patient size. FINDINGS: An intracranial bleed is not seen The ventricles are normal in caliber No extra-axial fluid collection is noted. 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 Fluid within the sinuses/ mastoids is not seen. IMPRESSION: No acute intracranial abnormality is seen If patient's symptoms persist MRI of the brain would be recommended
[2023-02-16 14:10] LABS: Absolute Lymphocytes (CBC) 0.9 K/uL (0.7-4.9); Hematocrit 31.4 % (39.6-49.0); Lymphocytes % 9.5 % (15.3-44.8); MCV 85.2 fL (80-100); MPV 7.4 fL (7.6-11.3); RBC Red Blood Cell Count 3.69 M/uL (4.33-5.43)
[2023-02-16 14:11] LABS: Protime INR 1.17
[2023-02-16 14:20] LABS: Albumin 2.6 g/dL (3.4-5.0); Bilirubin Direct 0.1 mg/dL (0-0.2); Bilirubin Indirect, Calculated 0.3 mg/dL (0.2-0.8); Bilirubin Total 0.4 mg/dL (0.2-1.0); Magnesium 2.2 mg/dL (1.6-2.4); Potassium 4.3 mEq/L (3.5-5.1); Protein, Total 6.4 g/dL (6.4-8.2); Troponin High Sensitivity 6.9 pg/mL (<58.9)
[2023-02-16] MEDS ORDERED: TRAMADOL HCL 50 MG TAB ONE (15:00)
--- NOTE | 2023-02-16 15:10 | ER ---
Nurse's Notes [facility] Name: Timoteo Gunn Age: 72 yrs Sex: Male : 1950 Arrival Date: 02/16/2023 Time: 12:18 Bed 15 Private MD: Diagnosis: Syncope Near;Weakness;Lung Cancer - undifferentiated;Chest pain, unspecified-Right anterior chest wall Presentation: 02/16 12:20 Chief complaint: EMS states: "toned out for syncope episode while standing, son caught mb9 pt and didn't hit anything. Pt states he has been having chest pain x 3 days, weak, forgetful, and just not feeling right. Pt recently diagnosed with lung cancer and not sure what stage yet. 18 g left AC, administered 324 mg of Aspirin, and 250 ml of LR.". Coronavirus screen: Vaccine status: Patient reports receiving the 2nd dose of the covid vaccine. Ebola Screen: No symptoms or risks identified at this time. Initial Sepsis Screen: Does the patient meet any 2 criteria? No. Patient's initial sepsis screen is negative. Does the patient have a suspected source of infection? No. Patient's initial sepsis screen is negative. Risk Assessment: Do you want to hurt yourself or someone else? Patient reports no desire to harm self or others. Onset of symptoms was February 16, 2023. 12:20 Method Of Arrival: EMS: [facility] mb9 12:20 Acuity: ABIEL 3 mb9 Triage Assessment: 12:24 General: Appears in no apparent distress. Behavior is appropriate for age. Pain: mb9 Complains of pain in chest Pain radiates to right arm Pain currently is 4 out of 10 on a pain scale. Quality of pain is described as pressure, Pain began 2-3 days ago. Is continuous. Neuro: Granda Agitation-Sedation Scale (RASS): 0 - Alert and Calm Level of Consciousness is awake, alert, obeys commands, Oriented to person, place, time, situation, Appropriate for age Genetic Supervisor are equal bilaterally Moves all extremities. Speech is normal, Facial symmetry appears normal, Pupils are PERRLA, Reports weakness. Cardiovascular: Reports chest pain, Denies shortness of breath, Heart tones S1 S2 present Patient's skin is warm and dry. Respiratory: Airway is patent Respiratory effort is even, unlabored, Respiratory pattern is regular, symmetrical. GI: Abdomen is flat, non-distended, Reports nausea, vomiting. Derm: Skin is pink, warm \\T\\ dry. Musculoskeletal: Range of motion: intact in all extremities. Historical: - Allergies: 12:23 No Known Allergies; mb9 - Home Meds: 12:23 None [Active]; mb9 - PMHx: 12:23 Hypercholesterolemia; Myocardial infarction; stroke; Lung cancer; mb9 - PSHx: 12:23 heart stent; mb9 - Immunization history:: Adult Immunizations up to date. - Social history:: Smoking status: Patient/guardian denies using tobacco. Screenin:00 [facility] ED Fall Risk Assessment (Adult) History of falling in the last 3 months, db including since admission Yes- single mechanical fall (1 pt) Confusion or Disorientation No (0 pts) Intoxicated or Sedated No (0 pts) Impaired Gait No (0 pts) Mobility Assist Device Used No (0 pt) Altered Elimination No (0 pt) Score/Fall Risk Level 0 - 2 = Low Risk Oriented to surroundings, Maintained a safe environment. Tuberculosis screening: No symptoms or risk factors identified. 15:52 Abuse screen: Denies threats or abuse. Denies injuries from another. Nutritional db screening: No deficits noted. Assessment: 12:34 Reassessment: see triage assessment. mb9 13:30 Reassessment: Patient appears in no apparent distress at this time. Patient and/or db family updated on plan of care and expected duration. Pain level reassessed. Patient is alert, oriented x 3, equal unlabored respirations, skin warm/dry/pink. General: Appears in no apparent distress. comfortable, Behavior is calm, cooperative. Pain: Complains of pain in chest and right arm. Neuro: Level of Consciousness is awake, alert, obeys commands, Oriented to person, place, time, situation. Respiratory: Airway is patent Respiratory effort is even, unlabored, Respiratory pattern is regular, symmetrical. 14:30 Reassessment: Patient appears in no apparent distress at this time. Patient and/or db family updated on plan of care and expected duration. Pain level reassessed. Patient is alert, oriented x 3, equal unlabored respirations, skin warm/dry/pink. 15:30 Reassessment: Patient appears in no apparent distress at this time. Patient and/or db family updated on plan of care and expected duration. Pain level reassessed. Patient is alert, oriented x 3, equal unlabored respirations, skin warm/dry/pink. 15:30 Reassessment: PATIENT ambulatory in the hallway with shuffled gate. Nursing staff db walking with patient. Patient denies complaint. Vital Signs: 12:20 BP 115 / 71; Pulse 81; Resp 16; Temp 97.4(O); Pulse Ox 100% on R/A; Weight 83.91 kg; mb9 Height 6 ft. 3 in. ; Pain 4/10; 13:30 BP 124 / 56; Pulse 74; Resp 18; Pulse Ox 95% on R/A; db 14:30 BP 100 / 51; Pulse 58; Resp 16; Pulse Ox 95% on R/A; db 15:15 BP 104 / 53; Pulse 55; Resp 16; Pulse Ox 95% on R/A; db 12:20 Body Mass Index 23.12 (83.91 kg, 190.5 cm) mb9 12:20 Pain Scale: Adult mb9 ED Course: 12:20 Patient arrived in ED. mb9 12:20 Arm band placed on. mb9 12:22 Meño Tang MD is Attending Physician. kdr 12:23 Triage completed. mb9 12:27 Placed in gown. Bed in low position. Call light in reach. Side rails up X 1. Client mb9 placed on continuous cardiac and pulse oximetry monitoring. NIBP monitoring applied. bus driver/monitor on. 12:27 Maintain EMS IV. Dressing intact. Good blood return noted. Site clean \\T\\ dry. Gauge \\T\\ mb 9 site: 18 g left AC. 12:35 EKG done, by ED staff, reviewed by Meoñ Tang MD. mb9 12:38 Era Bustillos, RN is Primary Nurse. db 13:30 XRAY Chest (1 view) In Process Unspecified. EDMS 13:32 CT Head Brain wo Cont In Process Unspecified. EDMS 15:55 No provider procedures requiring assistance completed. IV discontinued, intact, db bleeding controlled, No redness/swelling at site. Administered Medications: 14:45 Drug: traMADol PO 50 mg Route: PO; db 15:54 Follow up: Response: No adverse reaction db Medication: 12:27 VIS not applicable for this client. mb9 Outcome: 15:10 Discharge ordered by . kdr 15:54 Discharged to home ambulatory, with family. ingris 15:54 Condition: good 15:54 Discharge instructions given to patient, family, Instructed on discharge instructions, follow up and referral plans. Prescriptions given X 2. 15:55 Patient left the ED. db Signatures: Dispatcher [employer] Meño Patton MD MD kdr Benton, Danielle RN RN Kimmy Barrientos RN RN mb9
--- NOTE | 2023-02-16 15:11 | EDPHYS ---
Physician Documentation [facility] Name: Timoteo Gunn Age: 72 yrs Sex: Male : 1950 Arrival Date: 02/16/2023 Time: 12:18 Bed 15 Private MD: ED Physician Meño Tang Historical: - Allergies: 02/16 12:23 No Known Allergies; mb9 - Home Meds: 12:23 None [Active]; mb9 - PMHx: 12:23 Hypercholesterolemia; Myocardial infarction; stroke; Lung cancer; mb9 - PSHx: 12:23 heart stent; mb9 - Immunization history:: Adult Immunizations up to date. - Social history:: Smoking status: Patient/guardian denies using tobacco. Vital Signs: 12:20 BP 115 / 71; Pulse 81; Resp 16; Temp 97.4(O); Pulse Ox 100% on R/A; Weight 83.91 kg; mb9 Height 6 ft. 3 in. ; Pain 4/10; 13:30 BP 124 / 56; Pulse 74; Resp 18; Pulse Ox 95% on R/A; db 14:30 BP 100 / 51; Pulse 58; Resp 16; Pulse Ox 95% on R/A; db 15:15 BP 104 / 53; Pulse 55; Resp 16; Pulse Ox 95% on R/A; db 12:20 Body Mass Index 23.12 (83.91 kg, 190.5 cm) mb9 12:20 Pain Scale: Adult mb9 MDM: 15:10 Patient medically screened. [facility] 02/16 13:07 Order name: Basic Metabolic Panel; Complete Time: 14:30 [facility] 02/16 13:07 Order name: CBC with Diff; Complete Time: 14:30 [facility] 02/16 13:07 Order name: LFT's; Complete Time: 14:30 [facility] 02/16 13:07 Order name: Magnesium; Complete Time: 14:30 [facility] 02/16 13:07 Order name: NT PRO-BNP; Complete Time: 14:30 [facility] 02/16 13:07 Order name: PT-INR; Complete Time: 14:30 [facility] 02/16 13:07 Order name: Troponin HS; Complete Time: 14:30 [facility] 02/16 13:07 Order name: XRAY Chest (1 view); Complete Time: 13:51 [facility] 02/16 13:08 Order name: CT Head Brain wo Cont; Complete Time: 13:51 kdr 02/16 13:07 Order name: EKG; Complete Time: 13:07 kdr 02/16 13:07 Order name: Cardiac monitoring; Complete Time: 13:53 kdr 02/16 13:07 Order name: EKG - Nurse/Tech; Complete Time: 13:21 kdr 02/16 13:07 Order name: IV Saline Lock; Complete Time: 13:53 kdr 02/16 13:07 Order name: Labs collected and sent; Complete Time: 13:53 kdr 02/16 13:07 Order name: O2 Per Protocol; Complete Time: 13:53 kdr 02/16 13:07 Order name: O2 Sat Monitoring; Complete Time: 13:53 kdr Administered Medications: 14:45 Drug: traMADol PO 50 mg Route: PO; db 15:54 Follow up: Response: No adverse reaction db Disposition Summary: 02/16/23 15:10 Discharge Ordered Location: Home kdr Problem: new kdr Symptoms: have improved kdr Condition: Stable kdr Diagnosis - Syncope Near kdr - Weakness kdr - Lung Cancer - undifferentiated kdr - Chest pain, unspecified - Right anterior chest wall kdr Followup: kdr - With: Private Physician - When: 2 - 3 days - Reason: If symptoms return, Further diagnostic work-up, Recheck today's complaints, Continuance of care, Re-evaluation by your physician Discharge Instructions: - Syncope kdr - Fatigue kdr - Nonspecific Chest Pain, Adult, [id number] kdr - Weakness, Aran-wo-Fazq kdr - Discharge Summary Sheet db Forms: - Medication Reconciliation Form kdr - Thank You Letter kdr - Prescription Opioid Use kdr - SBAR form db Prescriptions: - Promethazine VC-Codeine 6.25-5-10 mg/5 mL Oral syrup - administer 5 milliliter by ORAL route every 6 hours As needed as needed for kdr cold symptoms; 150 milliliter; Refills: 0, Product Selection Permitted Signatures: Dispatcher [employer] Meño Patton MD MD kdr Era Bustillos, RN RN db Kimmy Reed RN RN mb9
[2023-02-16 17:38] VITALS: O2SAT 95
[2023-02-16 17:40] VITALS: BP 104/53
--- NOTE | 2023-02-18 08:23 | EKG ---
Test Date: 2023-02-16 Test Time: 12:31:29 Venetian Blind Mechanic: MB MEASUREMENT RESULTS: Intervals: Rate: 65 [place]: 136 QRSD: 86 QT: 454 QTc: 472 [place]: P: 60 [place]: 136 QRS: 64 T: 41 INTERPRETIVE STATEMENTS: Normal sinus rhythm Possible Left atrial enlargement Septal infarct, age undetermined Abnormal ECG Compared to ECG 02/13/2023 16:58:27 No significant changes Electronically Signed On 02-18-23 08:18:28 CDT by Torrey Bucio
--- NOTE | 2023-02-18 08:23 | EKG ---
Test Date: 2023-02-16 Test Time: 13:15:31 Deli Clerk: CHRISTAL MEASUREMENT RESULTS: Intervals: Rate: 61 [place]: 132 QRSD: 80 QT: 456 QTc: 459 [place]: P: 66 [place]: 132 QRS: 70 T: 47 INTERPRETIVE STATEMENTS: Normal sinus rhythm Possible Left atrial enlargement Anteroseptal infarct, age undetermined Abnormal ECG Compared to ECG 02/13/2023 16:58:27 No significant changes Electronically Signed On 02-18-23 08:18:23 CDT by Torrey Bucio
== END 2023-02-16 15:55 | disposition home or self-care (01) ==
LOC: ER 12:18
DX: R55 Syncope and collapse (principal); R07.89 Other chest pain; R53.1 Weakness; C34.92 Malignant neoplasm of unspecified part of left bronchus or lung; I25.2 Old myocardial infarction; Z95.818 Presence of other cardiac implants and grafts
CPT/HCPCS: 36415; 70450; 71045; 80048; 80076; 83735; 83880; 84484; 85025; 85610; 93005; 99284

== ENCOUNTER 2023-02-20 10:16 | Day surgery (SDC) | payer OTHER ==
[2023-02-20] MEDS ORDERED: Ringers Lactate 1,000 ML IV ONE (10:51)
[2023-02-20] MEDS ORDERED: Phenylephrine HCl 10 MG/ML 1 ML VIAL ONE (11:14)
[2023-02-20] MEDS: LIDOCAINE 4% TOP SOLUTION ONE ×2 (11:15→11:29)
[2023-02-20] MEDS ORDERED: GLYCOPYRROLATE 0.2 MG/ML SYR ONE (11:39)
[2023-02-20] MEDS ORDERED: FENTANYL CITR 100 MCG/2 ML ONE (11:42)
[2023-02-20] MEDS ORDERED: LIDOCAINE 1% MPF 5 ML VIAL ONE (11:42)
[2023-02-20] MEDS ORDERED: propofoL 200 MG/20 ML VIAL IV ONE ×2 (11:42→12:22)
[2023-02-20] MEDS ORDERED: LIDOCAINE 1% MPF 30 ML VIAL ONE (12:07)
[2023-02-20] MEDS ORDERED: LIDOCAINE VISCOUS 2% SOLN 15 ML UDC ONE (12:07)
--- NOTE | 2023-02-20 12:32 | P.OP ---
Date of Service: 02/20/23 (Bronchoscopy with right upper lobe anterior segment endobronchial biopsies, BAL and a wire brush) Findings and Operative Technique Patient is 72 years of age evaluated my office for a large right upper lobe mass patient is an active smoker has the reason for bronchoscopy Obtaining informed consent from the patient in the present of his children he was premedicated by anesthesia. Findings normal vocal cords normal trachea normal Silvana . Patient's right upper lobe anterior segmental bronchus was completely occluded difficulty to perform biopsies multiple multiple were taken endobronchially including a wire brush and a BAL. The rest of the bronchoscopy was entirely normal there was no lesions visible in any of the subsegmental bronchi on the right or the left side. Patient tolerated the procedure very well did not experience any complications hypotension or hypoxemia. He is to be discharged after a chest x-ray we will contact the patient once the biopsy results are available. May have to have fine-needle biopsy in case of bronchoscopy is negative
--- NOTE | 2023-02-20 13:21 | RAD REPORT ---
EXAM DESCRIPTION: RAD - Fluoroscopy <1 Hour - 02/20/2023 1:04 pm CLINICAL HISTORY: Device placement bronchoscopy FINDINGS: Bronchoscope placed into the right lung Four fluoroscopic spot images obtained. Fluoroscopy time 95 seconds The examination was performed by Dr. Rodgers
--- NOTE | 2023-02-20 13:40 | RAD REPORT ---
EXAM DESCRIPTION: GALLOMalaika Single View02/20/2023 1:33 pm CLINICAL HISTORY: Device placement/ bronchoscopy IMPRESSION: No pneumothorax seen status post bronchoscopy
[2023-02-20 14:04] VITALS: TEMP 96.8
[2023-02-20 14:05] VITALS: BP 134/61; O2SAT 98
== END 2023-02-20 13:56 | disposition home or self-care (01) ==
LOC: OR 10:16
PROVIDERS: ATTEND Internal Medicine Sleep Medicine
PROC: 0B9C8ZX Drainage of Right Upper Lung Lobe, Via Natural or Artificial Opening Endoscopic, Diagnostic (ICD-10-PCS; 2023-02-20)
PROC: 0BDC8ZX Extraction of Right Upper Lung Lobe, Via Natural or Artificial Opening Endoscopic, Diagnostic (ICD-10-PCS; principal; 2023-02-20 12:00)
DX: C34.11 Malignant neoplasm of upper lobe, right bronchus or lung (principal)
CPT/HCPCS: 31625; 31624; 88108 ×2; 88305 ×2; 71045; J2704 ×2; J2001 ×2; J2370; J3010; J7120; 76000

== ENCOUNTER 2023-03-01 13:21 | Emergency (ER) | payer OTHER ==
--- OUTSIDE RECORDS SUMMARY | 2023-03-01 13:37 | XMS REPORT | Continuity of Care Document ---
:1950 Author Organization [facility] t Address [address] [facility] [address] [place] [address] Care Team Providers Name Role Phone Luciana Go MD Primary Care Physician ROD HANNAH Attending Clinician Unavailable LUCIANA GO Attending Clinician Unavailable LUCIANA GO Attending Clinician Unavailable PABLO SAGE Attending Clinician Unavailable PABLO SAGE Attending Clinician Unavailable Darius LEAVITT, Catie Vergara Attending Clinician [facility] Carlton MD Attending Clinician [phone] SACHIN CALIX Attending Clinician Unavailable Sachin Calix MD Attending Clinician [facility] CARLTON Attending Clinician Unavailable Doctor Unassigned, [place] Attending Clinician Unavailable JAS LAST Attending Clinician Unavailable Lab, Ang - Db Attending Clinician Unavailable KRISTI LEDEZMA Attending Clinician Unavailable Korina lFores MD Attending Clinician KORINA FLORES Attending Clinician Unavailable BRYCE STARKS Attending Clinician Unavailable ZAHRA CARDONA Attending Clinician Unavailable SUJIT VINES Attending Clinician Unavailable ANDRZEJ BOCANEGRA Attending Clinician Unavailable PEDRO MARIEE - Attending Clinician Unavailable ROD HANNAH Admitting Clinician Unavailable DULCE ZAHRA S Admitting Clinician Unavailable SUJIT VINES Admitting Clinician Unavailable ANDRZEJ BOCANEGRA Admitting Clinician Unavailable PEDRO MARIEE - Admitting Clinician Unavailable Payers Payer Name Policy Type Policy Number Effective Date Expiration Date Alden Nava [id number] [employer] [place] [id number] 2022 CLASSIC NO PREMIUM 00:00:00 HMO Problems [...] rs active active ity of problems problems [place] [facility] Allergies, Adverse Reactions, Alerts Allergy Allergy Status Severity Reaction(s) Onset Inactive Treating Comm ents Source Name Type Date Date Clinician No Known NA Active 2020-0 [facility] -[facility] 21:14: l 59 ([facility]) No Known NA Active 2020-0 [facility] Allergie - Hospita s 21:14: l 58 ([facility]) No known Miscella Active U Not 2020-0 [facility] Specified 05-18 Hospita Allergie Allergy 21:14: l s 07 ([facility]) Denies Miscella Active U Not 2020-0 [facility] latex neous Specified 05-18 Hospita allergy Allergy 21:14: l 07 ([facility]) No known Miscella Active U Not 2020-0 [facility] drug neous Specified 05-18 Hospita Allergie Allergy 21:14: l s 07 ([facility]) Denies Miscella Active U Not 2020-0 [facility] latex neous Specified 05-18 Hospita allergy Allergy 21:14: l 07 ([facility]) No known Miscella Active U Not 2020-0 [facility] drug neous Specified 9-11 Hospita Allergie Allergy 21:14: l s 07 ([facility]) Denies Miscella Active U Not 2020-0 [facility] latex neous Specified 05-18 Hospita allergy Allergy 21:14: l 07 ([facility]) No known Miscella Active U Not 2020-0 [facility] drug neous Specified 05-18 Hospita Allergie Allergy 21:14: l s 07 ([facility]) No known Miscella Active U Not 2020-0 [facility] drug neous Specified 04-17 Hospita Allergie Allergy 16:43: l s 09 ([facility]) Denies Miscella Active U Not 2020-0 [facility] latex neous Specified 04-17 Hospita allergy Allergy 16:43: l 09 ([facility]) No known Miscella Active U Not 2020-0 [facility] drug neous Specified 04-17 Hospita Allergie Allergy 16:43: l s 09 ([facility]) Denies Miscella Active U Not 2020-0 [facility] latex neous Specified 04-17 Hospita allergy Allergy 16:43: l 09 ([facility]) No known Miscella Active U Not 2020-0 [facility] drug neous Specified 04-17 Hospita Allergie Allergy 16:43: l s 09 ([facility]) Denies Miscella Active U Not 2020-0 [facility] latex neous Specified 04-17 Hospita allergy Allergy 16:43: l 09 ([facility]) No known Miscella Active U Not 2020-0 [facility] drug neous Specified 04-17 Hospita Allergie Allergy 16:43: l s 09 ([facility]) Denies Miscella Active U Not 2020-0 [facility] latex neous Specified 04-17 Hospita allergy Allergy 16:43: l 09 ([facility]) No known Miscella Active U Not 2020-0 [facility] drug neous Specified 04-17 Hospita Allergie Allergy 16:43: l s 09 ([facility]) Denies Miscella Active U Not 2020-0 [facility] latex neous Specified 04-17 Hospita allergy Allergy 16:43: l 09 ([facility]) No known Miscella Active U Not 2020-0 [facility] drug neous Specified 04-17 Hospita Allergie Allergy 16:43: l s 09 ([facility]) Denies Miscella Active U Not 2020-0 [facility] latex neous Specified 04-17 Hospita allergy Allergy 16:43: l 09 ([facility]) No Known NA Active 2017-0 [facility] Allergie - Hospita s 00:46: l 57 ([facility]) No Known Allergy Active Unknown DONELL U Drug to 05-15 S Allergie substanc 00:00: Health s e 00 NO KNOWN Drug Active Univers ALLERGIE Class ity of S [facility] Social History Social Habit Start Date Stop Date Quantity Comments Source History of Cigarette Smoker Universi ty of tobacco use [facility] Alcohol intake 2023-02-12 2023-02-12 Ex-drinker [facility] 00:00:00 00:00:00 (finding) [facility] Exposure to 2022-11-07 2022-11-17 Not sure [facility] SARS-CoV-2 00:00:00 13:56:00 [facility] (event) [place] Tobacco use and 2022-11-17 2022-11-17 Smokeless tobacco Un iversity of exposure 00:00:00 00:00:00 non-user [facility] Tobacco Comment 2022-11-17 2022-11-17 1 pack every 4-5 Uni versity of 00:00:00 00:00:00 days [facility] Sex Ass[birth year] At [birth year] Universit y of 00:00:00 00:00:00 [facility] Smoking Status Start Date Stop Date Source Smokes tobacco daily 2022-11-17 00:00:00 [facility] Medications Ordered Filled Start Stop Current Ordering Indication Dosage Frequency Signature Comments Components Source Medication Medication Date Date Medication? Clinician (SIG) Name Name promethazin Yes [id number] 5mL Take 5 mL Univers e-dextromet 6-08 by mouth 4 it y of [place] 00:00: (four) [place] 6.25-15 00 times Medical mg/5 mL daily as Branch syrup needed for Cough. promethazin Yes [id number] 5mL Take 5 mL Univers e-dextromet 6-08 by mouth 4 it y of [place] 00:00: (four) [place] 6.25-15 00 times Medical mg/5 mL daily as Branch syrup needed for Cough. promethazin Yes [id number] 5mL Take 5 mL Univers e-dextromet 6-08 by mouth 4 it y of [place] 00:00: (four) [place] 6.25-15 00 times Medical mg/5 mL daily as Branch syrup needed for Cough. promethazin Yes [id number] 5mL Take 5 mL Univers e-dextromet 6-08 by mouth 4 it y of [place] 00:00: (four) [place] 6.25-15 00 times Medical mg/5 mL daily as Branch syrup needed for Cough. promethazin 2022-0 Yes [id number] 5mL Take 5 mL Univers e-dextromet 6-08 by mouth 4 it y of [place] 00:00: (four) [place] 6.25-15 00 times Medical mg/5 mL daily as Branch syrup needed for Cough. promethazin 2022-0 Yes [id number] 5mL Take 5 mL Univers e-dextromet 6-08 by mouth 4 it y of [place] 00:00: (four) [place] 6.25-15 00 times Medical mg/5 mL daily as Branch syrup needed for Cough. promethazin 0 Yes [id number] 5mL Take 5 mL Univers e-dextromet 6-08 by mouth 4 it y of [place] 00:00: (four) [place] 6.25-15 00 times Medical mg/5 mL daily as Branch syrup needed for Cough. traMADoL 50 2022- Yes [id number] 50mg Take 1 Uni vers mg tablet -04 12-16 tablet by ity of 00:00: 04:59 mouth [place] 00 :00 every 6 Medical (six) Branch hours as needed for Pain (scale 4-6) for up to 7 days. Indication s: chronic pain traMADoL 50 2022- Yes [id number] 50mg Take 1 Uni vers mg tablet 02-12-16 tablet by ity of 00:00: 04:59 mouth [place] 00 :00 every 6 Medical (six) Branch hours as needed for Pain (scale 4-6) for up to 7 days. Indication s: chronic pain traMADoL 50 2022- Yes [id number] 50mg Take 1 Uni vers mg tablet -04 12-16 tablet by ity of 00:00: 04:59 mouth [place] 00 :00 every 6 Medical (six) Branch hours as needed for Pain (scale 4-6) for up to 7 days. Indication s: chronic pain traMADoL 50 2022- Yes [id number] 50mg Take 1 Uni vers mg tablet - 06-16 tablet by ity of 00:00: 04:59 mouth [place] 00 :00 every 6 Medical (six) Branch hours as needed for Pain (scale 4-6) for up to 7 days. Indication s: chronic pain traMADoL 50 0 2022- No 2745 50mg Take 1 Uni vers mg tablet 02-12 06-16 tablet by ity of 00:00: 04:59 mouth [place] 00 :00 every 6 Medical (six) Branch hours as needed for Pain (scale 4-6) for up to 7 days. Indication s: chronic pain MELOXICAM 0 Yes [id number] TAKE 1 Un je 7.5 mg 4-25 TABLET BY ity of tablet 00:00: MOUTH [place] 00 EVERY DAY Medical IN THE [place] MORNING MELOXICAM Yes [id number] TAKE 1 Un je 7.5 mg 4-25 TABLET BY ity of tablet 00:00: MOUTH [place] 00 EVERY DAY Medical IN THE [facility] MELOXICAM Yes [id number] TAKE 1 Un je 7.5 mg 4-25 TABLET BY ity of tablet 00:00: MOUTH [place] 00 EVERY DAY Medical IN THE [facility] MELOXICAM Yes [id number] TAKE 1 Un je 7.5 mg 4-25 TABLET BY ity of tablet 00:00: MOUTH [place] 00 EVERY DAY Medical IN THE [facility] MELOXICAM Yes [id number] TAKE 1 Un je 7.5 mg 4-25 TABLET BY ity of tablet 00:00: MOUTH [place] 00 EVERY DAY Medical IN THE [facility] MELOXICAM Yes [id number] TAKE 1 Un je 7.5 mg 4-25 TABLET BY ity of tablet 00:00: MOUTH [place] 00 EVERY DAY Medical IN THE [facility] MELOXICAM Yes [id number] TAKE 1 Un je 7.5 mg 4-25 TABLET BY ity of tablet 00:00: MOUTH [place] 00 EVERY DAY Medical IN THE [place] MORNING MELOXICAM Yes [id number] TAKE 1 Un je 7.5 mg 4-25 TABLET BY ity of tablet 00:00: MOUTH [place] 00 EVERY DAY Medical IN THE [facility] SERTraline 0 Yes 25mg Take 1 Unive rs 25 mg 3-06 tablet by ity of tablet 00:00: mouth in [place] 00 the Medical morning. Branch SERTraline 0 Yes 25mg Take 1 Unive rs 25 mg 3-06 tablet by ity of tablet 00:00: mouth in [place] the Medical morning. Branch SERTraline 2023-0 Yes 25mg Take 1 Unive rs 25 mg 3-06 tablet by ity of tablet 00:00: mouth in [place] the Medical morning. Branch SERTraline 2023-0 Yes 25mg Take 1 Unive rs 25 mg 3-06 tablet by ity of tablet 00:00: mouth in [place] the Medical morning. Branch SERTraline 2023-0 Yes 25mg Take 1 Unive rs 25 mg 3-06 tablet by ity of tablet 00:00: mouth in [place] the Medical morning. Branch SERTraline 2023-0 Yes 25mg Take 1 Unive rs 25 mg 3-06 tablet by ity of tablet 00:00: mouth in [place] the Medical morning. Branch SERTraline 2023-0 Yes 25mg Take 1 Unive rs 25 mg 3-06 tablet by ity of tablet 00:00: mouth in [place] the Medical morning. Branch SERTraline 2023-0 Yes 25mg Take 1 Unive rs 25 mg 3-06 tablet by ity of tablet 00:00: mouth in [place] the Medical morning. Branch SERTraline 2023-0 Yes 25mg Take 1 Unive rs 25 mg 3-06 tablet by ity of tablet 00:00: mouth in [place] the Medical morning. Branch SERTraline 2023-0 Yes 25mg Take 1 Unive rs 25 mg 3-06 tablet by ity of tablet 00:00: mouth in [place] the Medical morning. Branch SERTraline 2023-0 Yes 25mg Take 1 Unive rs 25 mg 3-06 tablet by ity of tablet 00:00: mouth in [place] the Medical morning. Branch acetaminoph 2023-0 Yes [id number] 1000mg Take 2 Univers en (TYLENOL 3-03 tablets by it y of EXTRA 00:00: mouth in [facility]) 00 the Medical 500 mg morning Branch tablet and 2 tablets in the evening. meloxicam 2023-0 Yes [id number] 7.5mg Take 1 U nivers 7.5 mg 3-03 tablet by ity of tablet 00:00: mouth in [place] [address] the Medical morning. Branch acetaminoph 2023-0 Yes [id number] 1000mg Take 2 Univers en (TYLENOL 3-03 tablets by it y of EXTRA 00:00: mouth in [place] [facility]) 00 the Medical 500 mg morning Branch tablet and 2 tablets in the evening. meloxicam 2023-0 Yes [id number] 7.5mg Take 1 U nivers 7.5 mg 3-03 tablet by ity of tablet 00:00: mouth in [place] 00 the Medical morning. Branch acetaminoph 2023-0 Yes [id number] 1000mg Take 2 Univers en (TYLENOL 3-03 tablets by it y of EXTRA 00:00: mouth in [place] [facility]) 00 the Medical 500 mg morning Branch tablet and 2 tablets in the evening. meloxicam 2023-0 Yes [id number] 7.5mg Take 1 U nivers 7.5 mg 3-03 tablet by ity of tablet 00:00: mouth in [place] 00 the Medical morning. Branch acetaminoph 2023-0 Yes [id number] 1000mg Take 2 Univers en (TYLENOL 3-03 tablets by it y of EXTRA 00:00: mouth in [place] [facility]) 00 the Medical 500 mg morning Branch tablet and 2 tablets in the evening. meloxicam 2023-0 Yes [id number] 7.5mg Take 1 U nivers 7.5 mg 3-03 tablet by ity of tablet 00:00: mouth in [place] 00 the Medical morning. Branch acetaminoph 2023-0 Yes [id number] 1000mg Take 2 Univers en (TYLENOL 3-03 tablets by it y of EXTRA 00:00: mouth in [place] [facility]) 00 the Medical 500 mg morning Branch tablet and 2 tablets in the evening. acetaminoph 2023-0 Yes [id number] 1000mg Take 2 Univers en (TYLENOL 3-03 tablets by it y of EXTRA 00:00: mouth in [place] [facility]) 00 the Medical 500 mg morning Branch tablet and 2 tablets in the evening. acetaminoph 2023-0 Yes [id number] 1000mg Take 2 Univers en (TYLENOL 3-03 tablets by it y of EXTRA 00:00: mouth in [place] [facility]) 00 the Medical 500 mg morning Branch tablet and 2 tablets in the evening. acetaminoph 2023-0 Yes [id number] 1000mg Take 2 Univers en (TYLENOL 3-03 tablets by it y of EXTRA 00:00: mouth in [place] [facility]) 00 the Medical 500 mg morning Branch tablet and 2 tablets in the evening. acetaminoph 2023-0 Yes [id number] 1000mg Take 2 Univers en (TYLENOL 3-03 tablets by it y of EXTRA 00:00: mouth in [place]) 00 the Medical 500 mg morning Branch tablet and 2 tablets in the evening. acetaminoph 3-0 Yes [id number] 1000mg Take 2 Univers en (TYLENOL 3-03 tablets by it y of EXTRA 00:00: mouth in [place] [facility]) 00 the Medical 500 mg morning Branch tablet and 2 tablets in the evening. acetaminoph 3-0 Yes [id number] 1000mg Take 2 Univers en (TYLENOL 3-03 tablets by it y of EXTRA 00:00: mouth in [place] [facility]) 00 the Medical 500 mg morning Branch tablet and 2 tablets in the evening. acetaminoph 3-0 Yes [id number] 1000mg Take 2 Univers en (TYLENOL 3-03 tablets by it y of EXTRA 00:00: mouth in [place] [facility]) 00 the Medical 500 mg morning Branch tablet and 2 tablets in the evening. acetaminoph 3-0 Yes [id number] 1000mg Take 2 Univers en (TYLENOL 3-03 tablets by it y of EXTRA 00:00: mouth in [place] [facility]) 00 the Medical 500 mg morning Branch tablet and 2 tablets in the evening. meloxicam 2022-0 2023- No [id number] 7.5mg Take 1 Univers 7.5 mg 3-03 04-25 tablet by ity of tablet 00:00: 00:00 mouth in [place] 00 :00 the Medical morning. Branch FLUoxetine 2021-09 Yes [id number] 10mg Take 1 U nivers 10 mg 0-27 capsule by ity of capsule 00:00: mouth in [place] 00 the Medical morning. Branch FLUoxetine 2021-09 Yes [id number] 10mg Take 1 U nivers 10 mg 0-27 capsule by ity of capsule 00:00: mouth in [place] 00 the Medical morning. Branch FLUoxetine 2021-09 Yes [id number] 10mg Take 1 U nivers 10 mg 0-27 capsule by ity of capsule 00:00: mouth in [place] 00 the Medical morning. Branch FLUoxetine 2021-09 Yes [id number] 10mg Take 1 U nivers 10 mg 0-27 capsule by ity of capsule 00:00: mouth in [place] 00 the Medical morning. Branch FLUoxetine 2021-09 Yes [id number] 10mg Take 1 U nivers 10 mg 0-27 capsule by ity of capsule 00:00: mouth in [place] 00 the Medical morning. Branch FLUoxetine 2021-09 Yes [id number] 10mg Take 1 U nivers 10 mg 0-27 capsule by ity of capsule 00:00: mouth in [place] 00 the Medical morning. Branch FLUoxetine 2021-09 Yes [id number] 10mg Take 1 U nivers 10 mg 0-27 capsule by ity of capsule 00:00: mouth in [place] 00 the Medical morning. Branch FLUoxetine 2021-09 Yes [id number] 10mg Take 1 U nivers 10 mg 0-27 capsule by ity of capsule 00:00: mouth in [place] 00 the Medical morning. Branch FLUoxetine 2021-09 Yes [id number] 10mg Take 1 U nivers 10 mg 0-27 capsule by ity of capsule 00:00: mouth in [place] 00 the Medical morning. Branch FLUoxetine 2021-09 Yes [id number] 10mg Take 1 U nivers 10 mg 0-27 capsule by ity of capsule 00:00: mouth in [place] 00 the Medical morning. Branch FLUoxetine 2021-09 Yes [id number] 10mg Take 1 U nivers 10 mg 0-27 capsule by ity of capsule 00:00: mouth in [place] the Medical morning. Branch FLUoxetine 2021-09 Yes [id number] 10mg Take 1 U nivers 10 mg 0-27 capsule by ity of capsule 00:00: mouth in [place] 00 the Medical morning. Branch FLUoxetine 2021-09 Yes [id number] 10mg Take 1 U nivers 10 mg 0-27 capsule by ity of capsule 00:00: mouth in [place] 00 the Medical morning. Branch FLUoxetine 2021-09 Yes [id number] 10mg Take 1 U nivers 10 mg 0-27 capsule by ity of capsule 00:00: mouth in [place] 00 the Medical morning. Branch FLUoxetine 2021-09 Yes [id number] 10mg Take 1 U nivers 10 mg 0-27 capsule by ity of capsule 00:00: mouth in [place] 00 the Medical morning. Branch FLUoxetine 2021-09- No [id number] 10mg Take 1 Univers 10 mg 0-27 06-08 capsule by ity of capsule 00:00: 00:00 mouth in [place] 00 :00 the Medical morning. Branch FLUoxetine 2021-09- No [id number] 10mg Take 1 Univers 10 mg 0-27 06-08 capsule by ity of capsule 00:00: 00:00 mouth in [place] 00 :00 the Medical morning. Branch traMADoL 50 2021-09- No [id number] 50mg Take 1 Uni vers mg tablet 0-02 08-03 tablet by ity of 00:00: 04:59 mouth [place] 00 :00 every 6 Medical (six) Branch hours as needed for Pain (scale 4-6) for up to 7 days. Indication s: acute pain, chronic pain traMADoL 50 2021-09- No [id number] 50mg Take 1 Uni vers mg tablet 0-02 08- tablet by ity of 00:00: 04:59 mouth [place] 00 :00 every 6 Medical (six) Branch hours as needed for Pain (scale 4-6) for up to 7 days. Indication s: acute pain, chronic pain traMADoL 50 2021-09- No [id number] 50mg Take 1 Uni vers mg tablet 0-02 08- tablet by ity of 00:00: 04:59 mouth [place] 00 :00 every 6 Medical (six) Branch hours as needed for Pain (scale 4-6) for up to 7 days. Indication s: acute pain, chronic pain No known 2021-09 No No known Unive rs medications 0-25 medication it y of 10:00: s [place] 41 Medical Branch PARoxetine 2021-09 Yes [id number] 10mg Take 1 U nivers 10 mg 0-25 tablet by ity of tablet 00:00: mouth in [place] 00 the Medical morning. Branch PARoxetine 2021-09 Yes [id number] 10mg Take 1 U nivers 10 mg 0-25 tablet by ity of tablet 00:00: mouth in [place] 00 the Medical morning. Branch PARoxetine 2021-09 Yes [id number] 10mg Take 1 U nivers 10 mg 0-25 tablet by ity of tablet 00:00: mouth in [place] 00 the Medical morning. Branch PARoxetine 2021-09 Yes [id number] 10mg Take 1 U nivers 10 mg 0-25 tablet by ity of tablet 00:00: mouth in [place] 00 the Medical morning. Branch PARoxetine 2021-09 Yes [id number] 10mg Take 1 U nivers 10 mg 0-25 tablet by ity of tablet 00:00: mouth in [place] 00 the Medical morning. Branch PARoxetine 2021-09 Yes [id number] 10mg Take 1 U nivers 10 mg 0-25 tablet by ity of tablet 00:00: mouth in [place] 00 the Medical morning. Branch PARoxetine 2021-09- No [id number] 10mg Take 1 Univers 10 mg 0-25 10-27 tablet by ity of tablet 00:00: 00:00 mouth in [place] 00 :00 the Medical morning. Branch lisinopriL 2021-09 Yes [id number] 20mg Take 1 U nivers 20 mg 0-11 tablet by ity of tablet 00:00: mouth in [place] 00 the Medical morning. Branch lisinopriL 2021-09 Yes [id number] 20mg Take 1 U nivers 20 mg 0-11 tablet by ity of tablet 00:00: mouth in [place] 00 the Medical morning. Branch lisinopriL 2021-09- No [id number] 20mg Take 1 Univers 20 mg 0-11 10-25 tablet by ity of tablet 00:00: 00:00 mouth in [place] 00 :00 the Medical morning. Branch lisinopriL 2021-09- No [id number] 20mg Take 1 Univers 20 mg 0-11 10-25 tablet by ity of tablet 00:00: 00:00 mouth in [place] 00 :00 the Medical morning. Branch lisinopriL 2021-09- No [id number] 20mg Take 1 Univers 20 mg 0-11 10-25 tablet by ity of tablet 00:00: 00:00 mouth in [place] 00 :00 the Medical morning. Branch lisinopriL 2021-09- No [id number] 20mg Take 1 Univers 20 mg 0-11 10-25 tablet by ity of tablet 00:00: 00:00 mouth in [place] 00 :00 the Medical morning. Branch traMADoL 50 2021-09- No [id number] 50mg Take 1 Uni vers mg tablet 0-11 10-19 tablet by ity of 00:00: 04:59 mouth [place] 00 :00 every 6 Medical (six) Branch hours as needed for Pain (scale 4-6) for up to 7 days. Indication s: acute pain traMADoL 50 2021-09- No [id number] 50mg Take 1 Uni vers mg tablet 0-11 10-19 tablet by ity of 00:00: 04:59 mouth [place] 00 :00 every 6 Medical (six) Branch hours as needed for Pain (scale 4-6) for up to 7 days. Indication s: acute pain tamsulosin 2- No .4mg Take 0.4 Un je 0.4 mg 24 02-05 06- mg by ity of hr capsule 14:07: 00:00 mouth [place] 15 :00 daily. Medical Branch lisinopriL 2021-0 2021- No 40mg Take 40 mg Univers 40 mg -02-05 by mouth ity of tablet 14:07: 00:00 daily. [place] 15 :00 Medical Branch tamsulosin 2021-0 Yes [id number] .4mg Take 1 Univers 0.4 mg 24 02-05 capsule by ity of hr capsule 00:00: mouth [place] 00 daily. Medical Branch tamsulosin 2021-0 Yes [id number] .4mg Take 1 Univers 0.4 mg 24 -09 07 capsule by ity of hr capsule 00:00: mouth [place] 00 daily. Medical Branch tamsulosin 2021-0 Yes [id number] .4mg Take 1 Univers 0.4 mg 24 -09 07 capsule by ity of hr capsule 00:00: mouth [place] 00 daily. Medical Branch lisinopriL 2021-0 Yes [id number] 40mg Take 1 U nivers 40 mg 6-01 tablet by ity of tablet 00:00: mouth [place] 00 daily. Medical Branch tamsulosin 2021-0 Yes [id number] .4mg Take 1 Univers 0.4 mg 24 6-09 07 capsule by ity of hr capsule 00:00: mouth [place] 00 daily. Medical Branch lisinopriL 2021-0 Yes [id number] 40mg Take 1 U nivers 40 mg 6-01 tablet by ity of tablet 00:00: mouth [place] 00 daily. Medical Branch tamsulosin 2021-0 Yes [id number] .4mg Take 1 Univers 0.4 mg 24 6-09 07 capsule by ity of hr capsule 00:00: mouth [place] 00 daily. Medical Branch lisinopriL 2021-0 Yes [id number] 40mg Take 1 U nivers 40 mg 6-01 tablet by ity of tablet 00:00: mouth [place] 00 daily. Medical Branch tamsulosin 2021-0 Yes [id number] .4mg Take 1 Univers 0.4 mg 24 6-09 07 capsule by ity of hr capsule 00:00: mouth [place] 00 daily. Medical Branch lisinopriL 2021-0 Yes [id number] 40mg Take 1 U nivers 40 mg 6-01 tablet by ity of tablet 00:00: mouth [place] 00 daily. Medical Branch tamsulosin 2021-0 Yes [id number] .4mg Take 1 Univers 0.4 mg 24 02-05 capsule by ity of hr capsule 00:00: mouth [place] 00 daily. Medical Branch lisinopriL 2021-0 Yes [id number] 40mg Take 1 U nivers 40 mg 6-01 tablet by ity of tablet 00:00: mouth [place] 00 daily. Medical Branch tamsulosin 2021-0 Yes [id number] .4mg Take 1 Univers 0.4 mg 24 02-05 capsule by ity of hr capsule 00:00: mouth [place] 00 daily. Medical Branch lisinopriL 2021-0 Yes [id number] 40mg Take 1 U nivers 40 mg 6-01 tablet by ity of tablet 00:00: mouth [place] 00 daily. Medical Branch tamsulosin 2021- No [id number] .4mg Take 1 Univers 0.4 mg 24 02-05 capsule by ity of hr capsule 00:00: 00:00 mouth [place] 00 :00 daily. Medical Branch tamsulosin 2021- No [id number] .4mg Take 1 Univers 0.4 mg 24 02-05 capsule by ity of hr capsule 00:00: 00:00 mouth [place] 00 :00 daily. Medical Branch tamsulosin 0 2021- No [id number] .4mg Take 1 Univers 0.4 mg 24 02-05 capsule by ity of hr capsule 00:00: 00:00 mouth [place] 00 :00 daily. Medical Branch tamsulosin 0 2021- No [id number] .4mg Take 1 Univers 0.4 mg 24 02-05 capsule by ity of hr capsule 00:00: 00:00 mouth [place] 00 :00 daily. Medical Branch lisinopriL 2021-0 2- No [id number] 40mg Take 1 Univers 40 mg 6- 10 tablet by ity of tablet 00:00: 00:00 mouth [place] 00 :00 daily. Medical Branch lisinopriL 2021-0 2- No [id number] 40mg Take 1 Univers 40 mg 6- 1011 tablet by ity of tablet 00:00: [...] 2023-02-12 21:34:00 165 mm[Hg] Univer sity of pressure [facility] Diastolic blood 2023-02-12 21:34:00 93 [facility]Hg[facility]12 21:23:00 83 /min [facility] Body height 2023-02-12 21:23:00 190.5 cm [facility] Body weight 2023-02-12 21:23:00 77.792 kg [facility] BMI 2023-02-12 21:23:00 21.44 kg/m2 [facility] Oxygen saturation in 2023-02-12 21:23:00 99 /min University of Arterial blood by [place] [employer] [facility] Pulse oximetry Branch Systolic blood 2022-11-17 19:07:00 164 mm[Hg] Univer sity of pressure [place] [facility] Diastolic blood 2022-11-17 19:07:00 97 mm[Hg] [facility] Heart rate 2022-11-17 19:04:00 82 /min [facility] Respiratory rate 2022-11-17 19:04:00 18 /min [facility] Body height 2022-11-17 19:04:00 190.5 cm [facility] Body weight 2022-11-17 19:04:00 81.647 kg [facility] BMI 2022-11-17 19:04:00 22.50 kg/m2 [facility] Systolic blood 2022-11-07 16:14:00 158 mm[Hg] [facility] Diastolic blood 2022-11-07 16:14:00 92 mm[Hg] [facility] Heart rate 2022-11-07 16:13:00 89 /min [facility] Body temperature 2022-11-07 16:13:00 36.94 Kirsten [facility] Respiratory rate 2022-11-07 16:13:00 18 /min [facility] Body height 2022-11-07 16:13:00 190.5 cm [facility] Body weight 2022-11-07 16:13:00 82.781 kg [facility] BMI 2022-11-07 16:13:00 22.81 kg/m2 [facility] Oxygen saturation in 2022-11-07 16:13:00 97 /min [facility] of Arterial blood by [facility] Pulse oximetry Branch Systolic blood 2022-07-01 15:08:00 150 mm[Hg] [facility] Diastolic blood 2022-07-01 15:08:00 85 mm[Hg] [facility] Heart rate 2022-07-01 15:00:00 78 /min [facility] Body temperature 2022-07-01 15:00:00 36.72 Kirsten [facility] Body height 2022-07-01 15:00:00 190.5 cm [facility] Body weight 2022-07-01 15:00:00 92.08 kg [facility] BMI 2022-07-01 15:00:00 25.37 kg/m2 [facility] Oxygen saturation in 2022-07-01 15:00:00 96 /min [facility] [place] [facility] P[facility] oxim[facility] Systolic blood 2022-06-17 21:00:00 93 mm[Hg] [facility] Diastolic blood 2022-06-17 21:00:00 54 mm[Hg] [facility] Heart rate 2022-06-17 21:00:00 106 /min [facility] Body temperature 2022-06-17 21:00:00 37 Kirsten [facility] Body height 2022-06-17 21:00:00 190.5 cm [facility] Body weight 2022-06-17 21:00:00 91.173 kg [facility] BMI 2022-06-17 21:00:00 25.12 kg/m2 [facility] Oxygen saturation in 2022-06-17 21:00:00 95 /min [facility] Arterial blood by [facility] rosalio Pulse oximetry Branch Systolic blood 2022-02-05 18:43:00 154 mm[Hg] [facility] Diastolic blood 2022-02-05 18:43:00 74 mm[Hg] [facility] Heart rate 2022-02-05 18:42:00 93 /min [facility] Body temperature 2022-02-05 18:42:00 36.78 Kirsten [facility] Body height 2022-02-05 18:42:00 190.5 cm [facility] Body weight 2022-02-05 18:42:00 102.513 kg [facility] BMI 2022-02-05 18:42:00 28.25 kg/m2 [facility] Oxygen saturation in 2022-02-05 18:42:00 95 /min University Arterial blood by [facility] Pulse oximetry Branch Procedures Procedure Date / Time Performing Clinician Source Performed EXTERNAL PROVIDER RECORDS 2022-10-29 06:01:00 Doctor Xiomara [facility] [place] [facility] [place] EXTERNAL PROVIDER RECORDS 2022-09-12 06:01:00 Doctor Solano [facility] [place] [facility] INSURANCE CORRESPONDENCE 2022-08-19 06:01:00 Doctor Solano [facility] Name [facility] CBC WITH DIFF 2022-07-01 15:49:00 [facility] 2022-07-01 15:49:00 [facility] ASSIGNMENT OF BENEFITS 2022-06-17 20:33:00 [facility] [place] EXTERNAL PROVIDER RECORDS 2022-04-15 05:01:00 Doctor Solano [facility] Name [facility] AUTHORIZATION TO RELEASE 2022-02-05 05:01:00 Doctor Solano [facility] PHI TO [facility] Minor level new patient 2020-08-17 00:00:00 [facility] office visit Encounters Start End Encounter Admission Attending Care Care Encounter Source Date/Time Date/Time Type Type Clinicians Facility Department ID 2020-05-20 Inpatient 1 MANI HANNAH TEL [id number] - [facility] 09:00:00 MOHAMMAD [id number] Hospi [place] l ([place]) 2023-04-17 2023-04-17 Outpatient LUCIANA JAIMES [facility] [id number] Univers 08:00:00 08:00:00 LUCIANA GO rachel [facility] 2023-03-03 2023-03-03 Outpatient PABLO ROBLERO [facility] [id number] Univers 10:00:00 10:00:00 PABLO SAGE [facility] 2023-02-26 2023-02-26 Patient Darius [facility] 1.2.840.114 [id number] Univers 00:00:00 00:00:00 Outreach [facility] 350.1.13.10 angélica Pavon 4.2.7.2.686 Arturo as BRAD?BLEA [phone] [address] MEDICAL OFFICE [facility] 2023-02-20 2023-02-20 Telephone [facility] [id number] Univers 00:00:00 00:00:00 [place] [facility] 350.1.13.10 ity of [place] 4.2.7.2.686 Arturo as BRAD?BLEA [phone] [address] OFFICE [facility] 2023-02-16 2023-02-16 Outpatient R LUCIANA GO [facility] [id number] Univers 13:40:00 13:40:00 LUCIANA GO [facility] 2023-02-16 2023-02-16 Telephone [facility] [id number] Univers 00:00:00 00:00:00 [facility] 350.1.13.10 ity of [place] 4.2.7.2.686 Arturo as BRAD?BLEA [phone] [address] OFFICE [facility] 2023-02-16 2023-02-16 [facility]phone [facility] [id number] Univers 00:00:00 00:00:00 [facility] 350.1.13.10 ity of [place] 4.2.7.2.686 Arturo as BRAD?BLEA [phone] [address] OFFICE [facility] 2023-02-12 2023-02-12 Outpatient R LUCIANA GO [facility] [id number] Univers 16:20:00 17:21:51 LUCIANA GO [facility] 2023-02-12 2023-02-12 Office [facility] 1.2.840.114 [id number] Univers 16:20:00 17:21:51 Visit [facility] 350.1.13.10 ity of [place] 4.2.7.2.686 Arturo as BRAD?BLEA [id number] [address] OFFICE [facility] 2023-01-27 2023-01-27 Outpatient R KLEY, [facility] [id number] Univers 11:20:00 11:20:00 LUCIANA GO [facility] 2022-12-30 2022-12-30 Refill Bianka [facility] 1.2.840.114 [id number] Univers 00:00:00 00:00:00 , Sinai [place]A 350.1.13.10 ity of [place] 4.2.7.2.686 Arturo as BRAD?BLEA [phone] [facility] [address] [facility] OFFICE [facility] 2022-12-23 2022-12-23 Telephone [facility] [id number] Univers 00:00:00 00:00:00 Luciana [facility] 350.1.13.10 [facility] 4.2.7.2.686 Arturo as BRAD?BLEA [phone] [address] 2022-12-02 2022-12-02 Outpatient R PABLO SAGE [facility] [id number] Univers 10:00:00 10:00:00 PABLO SAGE [facility] 2022-11-21 2022-11-21 Out[facility] [id number] Univers 10:20:00 10:20:00 LUCIANA [facility] 2022-11-17 2022-11-17 Outpatient [facility] [id number] Univers 14:15:00 14:46:06 SACHIN [facility] 2022-11-17 2022-11-17 Office [facility] 1.2.840.114 [id number] Univers 14:15:00 14:46:06 Visit Sachin CHRISTINA 350.1.13.10 ity lobo [facility] 4.2.7.2.686 [place] [phone] Nm shelia [facility] 201 [facility] 2022-11-07 2022-11-07 Outpatient R BIANKA [facility] [id number] Univers 10:59:37 11:05:00 , SINAI painting [facility] 2022-11-07 2022-11-07 Office [facility] 1.2.840.114 [id number] Univers 10:15:00 10:47:00 Visit , [facility]ALTH 350.1.13.10 ity of [place] 4.2.7.2.686 Arturo as BRAD?BLEA [phone] [address] MEDICAL OFFICE [facility] 2022-10-29 2022-10-29 Orders Doctor JULIAN 1.2.840.114 [id number] Univers 00:00:00 00:00:00 Only [place]assigned[place] 350.1.13.10 ity of [place] [facility] 4.2.7.2.686 Arturo as [phone] [address] 2022-10-29 2022-10-29 Telephone [facility] 1.2.878.963 [id number] Univers 00:00:00 00:00:00 Luciana HEALTH 350.1.13.10 ity of [place] 4.2.7.2.686 Arturo as BRAD?BLEA [phone] [address] MEDICAL OFFICE [facility] 2022-10-27 2022-10-27 Telephone [facility] 1.2.263.306 [id number] Univers 00:00:00 00:00:00 Luciana HEALTH 350.1.13.10 ity of [place] 4.2.7.2.686 Arturo as BRAD?BLEA [id number] [address] OFFICE [facility] 2022-10-24 2022-10-24 Telephone [facility] 1.2.427.212 [id number] Univers 00:00:00 00:00:00 Luciana HEALTH 350.1.13.10 ity of [place] 4.2.7.2.686 Arturo as BRAD?BLEA [id number] [address] MEDICAL OFFICE [facility] 2022-10-02 2022-10-02 Telephone [facility] 1.2.702.812 [id number] Univers 00:00:00 00:00:00 Luciana HEALTH 350.1.13.10 ity of [place] 4.2.7.2.686 Arturo as BRAD?BLEA [phone] [address] MEDICAL OFFICE [facility] 2022-09-12 2022-09-12 Orders Doctor JULIAN 1.2.840.114 [id number] Univers 00:00:00 00:00:00 [place]igned[place] 350.1.13.10 it[place] [facility] 4.2.7.2.686 Arturo as [phone] [address] 2022-08-19 2022-08-19 Orders Doctor JULIAN 1.2.840.114 [id number] Univers 00:00:00 00:00:00 [place]igned[place] 350.1.13.10 ity of [place] [facility] 4.2.7.2.686 Arturo as [phone] [address] 2022-08-04 2022-08-04 Outpatient R EMELINA [facility] [id number] Univers 14:00:00 14:00:00 [facility] 2022-07-30 2022-07-30 Telephone [facility] [id number] [id number] Univers 00:00:00 00:00:00 [facility] 350.1.13.10 [facility] 4.2.7.2.686 Arturo as BRAD?BLEA [phone] [address] OFFICE [facility] 2022-07-03 2022-07-03 Telephone [facility] 1.2.336.372 [id number] Univers 00:00:00 00:00:00 Luciana HEALTH 350.1.13.10 [facility] 4.2.7.2.686 Arturo as BRAD?BLEA [id number] [address] 2022-07-03 2022-07-03 Telephone [facility] 1.2.772.047 [id number] Univers 00:00:00 00:00:00 Luciana HEALTH 350.1.13.10 it[facility] 4.2.7.2.686 Arturo as BRAD?BLEA [id number] [address] 2022-07-01 2022-07-01 Rn Peritoneal Dialysis Lab, Ang - [facility] 1.2.840.1 14 [id number] Univers 10:45:00 11:00:00 [facility] 350.1.13.10 [facility] 4.2.7.2.686 Arturo as BRAD?BLEA [id number] [facility] CROSS [address] MEDICAL OFFICE [facility] 2022-07-01 2022-07-01 Outpatient R [facility] [id number] Univers 09:40:00 10:38:49 [facility] 2022-07-01 2022-07-01 Office [facility] 1.2.840.114 [id number] Univers 09:40:00 10:38:49 Visit [facility] 350.1.13.10 ity of [place] 4.2.7.2.686 Arturo as BRAD?BLEA [phone] [address] MEDICAL OFFICE [facility] 2022-07-01 2022-07-01 Telephone [facility] 1.2.910.951 [id number] Univers 00:00:00 00:00:00 [facility] 350.1.13.10 ity of [place] 4.2.7.2.686 Arturo as BRAD?BLEA [phone] [address] MEDICAL OFFICE [facility] 2022-06-17 2022-06-17 Outpatient R [facility] [id number] Univers 15:20:00 16:43:52 [facility] 2022-06-17 2022-06-17 Office [facility] 1.2.840.114 [id number] Univers 15:20:00 15:40:00 Visit [facility] 350.1.13.10 it[facility] 4.2.7.2.686 Arturo as BRAD?BLEA [phone] [address] MEDICAL OFFICE [facility] 2022-06-17 2022-06-17 Orders Doctor JORDAN 1.2.840.114 [id number] Univers 00:00:00 00:00:00 Only [place]igned[place] 350.1.13.10 ity of [place] [facility] 4.2.7.2.686 Arturo as [phone] [address] 2022-04-15 2022-04-15 Orders Doctor JULIAN 1.2.840.114 [id number] Univers 00:00:00 00:00:00 Only [place] 350.1.13.10 ity of [place] [facility] 4.2.7.2.686 Arturo as [id number] [address] 2022-03-20 2022-03-20 Outpatient Emelyn [facility] [id number] Univers 13:00:00 13:00:00 KRISTI paintingrachel karyna [facility] 2022-02-14 2022-02-14 Outpatient Emelyn [facility] [id number] Univers 10:40:00 10:40:00 [facility] nelda [facility] 2022-02-05 2022-02-05 Rn Peritoneal Dialysis Lab, Ang - [facility] 1.2.840.1 14 [id number] Univers 14:15:00 14:30:00 Visit EverettramonviniKorina [facility] 350.1.13 .10 ity of [place] 4.2.7.2.686 Arturo as BRAD?BLEA [phone] [address] MEDICAL OFFICE BUILDING 2022-02-05 2022-02-05 Outpatient R [facility] [id number] Univers 14:15:00 14:15:00 KORINA rachel [facility] 2022-02-05 2022-02-05 Office [facility] 1.2.840.114 [id number] Univers 13:30:00 14:00:00 Visit [facility] 350.1.13.10 it y of [place] 4.2.7.2.686 Arturo as BRAD?BLEA [phone] [address] MEDICAL OFFICE BUILDING 2022-02-05 2022-02-05 Outpatient R [facility] [id number] Univers 13:30:00 13:30:00 KORINA [facility] 2022-02-05 2022-02-05 Telephone [facility] 1.2.840.114 [id number] Univers 00:00:00 00:00:00 [facility] 350.1.13.10 it y of [place] 4.2.7.2.686 Arturo as BRAD?BLEA [id number] Nm shelia LANIER [address] [place] [address] MEDICAL OFFICE BUILDING 2022-02-05 2022-02-05 Orders Doctor JULIAN 1.2.840.114 [id number] 00:00:00 00:00:00 [place]igned[place] 350.1.13.10 ity of [place] [facility] 4.2.7.2.686 Arturo as [id number] [address] 2020-08-17 2020-08-17 Discharged REINA CORTEZ CHRIST [id number] CHRISTEnriqueta 12:57:00 12:57:[address] 2020-06-06 2020-06-06 Outpatient 3 VANDEVENDER [facility] OPE [id number] [facility] 11:08:00 11:08:00 , ZAHRA [id number] Hospi ta l ([place]) 2020-05-18 2020-05-18 Emergency VINES, [facility] QER [id number]- [facility] 16:02:00 16:02:00 SUJIT [id number] Hospi ta l ([place]) 2020-04-17 2020-04-17 Emergency BOCANEGRA, [facility] QER [id number] [facility] 16:42:00 16:42:00 ANDRZEJ [id number] Hospi ta l ([place]) 2017-02-08 2017-02-12 Inpatient 1 MANI MARIEE TEL [id number] [facility] 23:47:00 17:45:00 [facility] Hospit a l ([place]umo [...] RDW-SD (test code = 43.7 fL 38.5-51.6 95205-9) RDW-CV (test code = 13.0 % 12.1-15.4 788-0) PLT (test code = 777-3) See_Comment [Au tomated message] The system which generated this result transmitted ref erence range: 150 - 328 10*3/?L. The reference range was not u sed to interpret this result as normal/abnormal. MPV (test code = 24108-6) 10.2 fL 9.8-13 NRBC/100 WBC (test code = See_Comment [ Automated message] The system [id number]) which generated this result transmitted ref erence range: 0.0 - 10.0 /100 WBC s. The reference range was not u sed to interpret this result as normal/abnormal. NRBC x10^3 (test code = See_Comment [Au tomated message] The system 2715733514) which generated this result transmitted ref erence range: 10*3/?L. The re ference range was not used to int erpret this result as normal/abnor mal. GRAN MAT (NEUT) % (test 59.9 % code = 770-8) IMM GRAN % (test code = 0.30 % 9651415378) LYMPH % (test code = 29.0 % 736-9) MONO % (test code = 7.5 % 5905-5) EOS % (test code = 713-8) 2.2 % BASO % (test code = 1.1 % 706-2) GRAN MAT x10^3(ANC) (test 4.34 10*3/uL 1.99-6.95 code = 4005432609) IMM GRAN x10^3 (test code 0-0.06 = 5058204588) LYMPH x10^3 (test code = 2.10 10*3/uL 1.09-3.23 731-0) MONO x10^3 (test code = 0.54 10*3/uL 0.36-1.02 742-7) EOS x10^3 (test code = 0.16 10*3/uL 0.06-0.53 711-2) BASO x10^3 (test code = 0.08 10*3/uL 0.01-0.09 704-7) [facility] WITH [id number] 18:43:30 Test Item Value Reference Range Interpretation Comments WBC (test code = See_Comment [Automated message] 3122-2) The system [employer] generated this result transmitted ref erence range: 4.20 - 1 0.70 10*3/?L. The re ference range was not u sed to interpret this result as normal/abnor mal. RBC (test code = See_Comment [Automated message] 479-8) The system [employer] generated this result transmitted ref erence range: [...] RDW-SD (test code 43.7 fL 38.5-51.6 = 12104-3) RDW-CV (test code 13.0 % 12.1-15.4 = 788-0) PLT (test code = See_Comment [Automated message] 877-3) The system [employer] generated this result transmitted ref erence range: 150 - 32 8 10*3/?L. The re ference range was not u sed to interpret this result as normal/abnor mal. MPV (test code = 10.2 fL 9.8-13 89924-1) NRBC/100 WBC (test See_Comment [Automat ed message] code = 8067572602) The syste m which generated this result transmitted ref erence range: 0.0 - 10 .0 /100 WBCs. The refer ence range was not u sed to interpret this result as normal/abnor mal. NRBC x10^3 (test See_Comment [Automated message] code = 2410452591) The syste m which generated this result transmitted ref erence range: 10*3/?L. The reference range was not used to interpr et this result as normal/abnormal . GRAN MAT (NEUT) % 59.9 % (test code = 770-8) IMM GRAN % (test 0.30 % code = 8862683963) LYMPH % (test code 29.0 % = 736-9) MONO % (test code 7.5 % = 5905-5) EOS % (test code = 2.2 % 713-8) BASO % (test code 1.1 % = 706-2) GRAN MAT 4.34 10*3/uL 1.99-6.95 x10^3(ANC) (test code = 4930207221) IMM GRAN x10^3 0-0.06 (test code = 1847825530) LYMPH x10^3 (test 2.10 10*3/uL 1.09-3.23 code = 731-0) MONO x10^3 (test 0.54 10*3/uL 0.36-1.02 code = 742-7) EOS x10^3 (test 0.16 10*3/uL 0.06-0.53 code = 711-2) BASO x10^3 (test 0.08 10*3/uL 0.01-0.09 code = 704-7) [facility] WITH [id number] 18:43:30 Test Item Value Reference Range Interpretation Comments WBC (test code = See_Comment [Automated message] 6690-2) The system whic h generated this result transmitted ref erence range: 4.20 - 1 0.70 10*3/?L. The re ference range was not u sed to interpret this result as normal/abnor mal. RBC (test code = See_Comment [Automated message] 789-8) The system [employer] generated this result transmitted ref erence range: [...] RDW-SD (test code 43.7 fL 38.5-51.6 = 63359-7) RDW-CV (test code 13.0 % 12.1-15.4 = 788-0) PLT (test code = See_Comment [Automated message] 777-3) The system [employer] generated this result transmitted ref erence range: 150 - 32 8 10*3/?L. The re ference range was not u sed to interpret this result as normal/abnor mal. MPV (test code = 10.2 fL 9.8-13.0 18251-5) NRBC/100 WBC (test See_Comment [Automat ed message] code = 4065567920) The syste m which generated this result transmitted ref erence range: 0.0 - 10 .0 /100 WBCs. The refer ence range was not u sed to interpret this result as normal/abnor mal. NRBC x10^3 (test See_Comment [Automated message] code = 0452858233) The syste m which generated this result transmitted ref erence range: 10*3/?L. The reference range was not used to interpr et this result as normal/abnormal . GRAN MAT (NEUT) % 59.9 % (test code = 770-8) IMM GRAN % (test 0.30 % code = 4828173865) LYMPH % (test code 29.0 % = 736-9) MONO % (test code 7.5 % = 5905-5) EOS % (test code = 2.2 % 713-8) BASO % (test code 1.1 % = 706-2) GRAN MAT 4.34 10*3/uL 1.99-6.95 x10^3(ANC) (test code = 0748619152) IMM GRAN x10^3 0.00-0.06 (test code = 8457897155) LYMPH x10^3 (test 2.10 10*3/uL 1.09-3.23 code = 731-0) MONO x10^3 (test 0.54 10*3/uL 0.36-1.02 code = 742-7) EOS x10^3 (test 0.16 10*3/uL 0.06-0.53 code = 711-2) BASO x10^3 (test 0.08 10*3/uL 0.01-0.09 code = 704-7) [facility] WITH [id number] 18:43:30 Test Item Value Reference Range Interpretation Comments WBC (test code = See_Comment [Automated message] 5490-2) The system [employer] generated this result transmitted ref erence range: 4.20 - 1 0.70 10*3/?L. The re ference range was not u sed to interpret this result as normal/abnor mal. RBC (test code = See_Comment [Automated message] 039-8) The system [employer] generated this result transmitted ref erence range: [...] RDW-SD (test code 43.7 fL 38.5-51.6 = 63823-3) RDW-CV (test code 13.0 % 12.1-15.4 = 788-0) PLT (test code = See_Comment [Automated message] 777-3) The system whic h generated this result transmitted ref erence range: 150 - 32 8 10*3/?L. The re ference range was not u sed to interpret this result as normal/abnor mal. MPV (test code = 10.2 fL 9.8-13.0 17702-9) NRBC/100 WBC (test See_Comment [Automat ed message] code = 5480412682) The syste m which generated this result transmitted ref erence range: 0.0 - 10 .0 /100 WBCs. The refer ence range was not u sed to interpret this result as normal/abnor mal. NRBC x10^3 (test See_Comment [Automated message] code = [id number]) The syste m which generated this result transmitted ref erence range: 10*3/?L. The reference range was not used to interpr et this result as normal/abnormal . GRAN MAT (NEUT) % 59.9 % (test code = 770-8) IMM GRAN % (test 0.30 % code = [id number]) LYMPH % (test code 29.0 % = 736-9) MONO % (test code 7.5 % = 5905-5) EOS % (test code = 2.2 % 713-8) BASO % (test code 1.1 % = 706-2) GRAN MAT 4.34 10*3/uL 1.99-6.95 x10^3(ANC) (test code = [id number]) IMM GRAN x10^3 0.00-0.06 (test code = [id number]) LYMPH x10^3 (test 2.10 10*3/uL 1.09-3.23 code = 731-0) MONO x10^3 (test 0.54 10*3/uL 0.36-1.02 code = 742-7) EOS x10^3 (test 0.16 10*3/uL 0.06-0.53 code = 711-2) BASO x10^3 (test 0.08 10*3/uL 0.01-0.09 code = 704-7) [facility]2020-[facility] 13:41:00 Test Item Value Reference Range Interpretation Comments PSA (test code = PSA-) 0.7 ng/mL 0-4.0 [id number] 13:34:00 Test Item Value Reference Range Interpretation [...] BACTERIA (test code = NEGATIVE NONE BACTERIA) [id number] 13:14:00 Test Item Value Reference Range Interpretation [...] (test code 4.3 K/UL 1.2-7.2 = NEUT) [id number] 13:11:00 Test Item Value Reference Range Interpretation [...] glucose = GLUCOSE) normal <100 MG/ DL- [employer] recommendation* * CALCIUM (test [...] mL/min/1.73m2 mL/min/1.73m2 is considered norm al. LIPID [id number] 13:11:00 Test Item Value Reference Range Interpretation [...] US PATIENTS IS < 7 % HBA1C. [facility] 2002;25:S33-S49 [id number] 05:51:00 Test Item Value Reference Range Interpretation [...] K/UL 1.2-7.2 = NEUT) BMP, BASIC METABOLIC [id number] 05:49:00 Test Item Value Reference Range Interpretation [...] glucose = GLUCOSE) normal <100 MG/ DL- [facility] recommendation* * CALCIUM (test code 8.9 MG/DL 8.4-10.2 = CABLOOD) GFR (test code = 71 A GFR of >9 0 GFR) mL/min/1.73m2 mL/min/1.73m2 is considered norm al. URINE UREA,[id number] 16:53:00 Test Item Value Reference Range Interpretation Comments UUREA (test code = UUREA) 798 MG/DL CREATININE RANDOM [id number] 16:53:00 Test Item Value Reference Range Interpretation Comments UCREARAN (test code = UCREARAN) 165.8 MG/DL URINE SODIUM, [id number] 16:53:00 Test Item Value Reference Range Interpretation Comments ALDA (test code = 137 MMOL/L A REFERENC E RANGE HAS ALDA) NOT BEEN ESTABL ISHED FOR THIS ANALYTE IN RANDOM URINE SAMPLES. BMP, BASIC METABOLIC [id number] 12:08:00 Test Item Value Reference Range Interpretation [...] glucose = GLUCOSE) normal <100 MG/ DL- [facility] recommendation* * CALCIUM (test code 8.9 MG/DL 8.4-10.2 = CABLOOD) GFR (test code = 53 A GFR of >9 0 GFR) mL/min/1.73m2 mL/min/1.73m2 is considered norm al. [id number] 12:02:00 Test Item Value Reference Range Interpretation [...] K/UL 1.2-7.2 = NEUT) CHEST 1 VIEW [id number] 19:25:[address] [address]MNZKEFSZUM IMAGING REPORTPatient Name: Francia GUNN of Service: 33-50-4000Rlk: 69 Sex: M Order #: [id number] [facility] 1950 [facility] Number: [id number] Record Number: [id number] Hospital Number: [id number] Physician: Ramesh VINES Physician: MADISYN VINES 1 [...] 7:23 PMLegally authenticated by DAVID ROMEO 2020-05-18 19:23:[id number] 18:21:00 Test Item Value Reference Range Interpretation [...] code = URMUCOUS) SLIGHT /LPF NONE LIVER [id number] 17:47:00 Test Item Value Reference Range Interpretation [...] code = ALTV) 17 U/L 13-69 TROPONIN [id number] 17:30:00 Test Item Value Reference Range Interpretation Comments TROPER (test code = 0.02 NG/ML 0.0-0.08 INTE RPRETIVE TROPER) DATA A POC T ROPONIN OF </= 0.08 NG/ ML IS CONSIDERED NEGA TIVE [id number] 17:18:00 Test Item Value Reference Range Interpretation [...] 4.2 K/UL 1.2-7.2 = NEUT) ISTAT CHEM [id number] 17:10:00 Test Item Value Reference Range Interpretation [...] G/DL 12.0-18.0 H Notifi ed Nurse/MD of [facility]) results outside of Reference Range s ISTANGAP (test code = 18 MMOL/L Notifi ed Nurse/MD of [facility]) results outside of Reference Range s ISTAT CHEM [id number] 20:55:00 Test Item Value Reference Range Interpretation [...] 17.3 G/DL 12.0-18.0 Notifi ed Nurse/MD of [facility]) results outside of Reference Range s ISTANGAP (test code = 16 MMOL/L Notifi ed Nurse/MD of [facility]) results outside of Reference Range s [id number] 20:31:00 Test Item Value Reference Range Interpretation [...] code 3.8 K/UL 1.2-7.2 = NEUT) TROPONIN [id number] 20:30:00 Test Item Value Reference Range Interpretation Comments TROPER (test code = 0.00 NG/ML 0.0-0.08 INTE RPRETIVE TROPER) DATA A POC T ROPONIN OF </= 0.08 NG/ ML IS CONSIDERED NEGA TIVE ISTAT CHEM [id number] 19:50:00 Test Item Value Reference Range Interpretation [...] of Reference Range s CT HEAD W/O [id number] 17:23:[address] [address]IGUTCPACEU IMAGING REPORTPatient Name: Francia GUNN of Service: [id number]: 69 Sex: M Order #: 200 [facility] 1950 [facility]-Ray Number: [id number] Record Number: [id number] Hospital Number: [id number] Physician: ANDRZEJ BOCANEGRAOrdering Physician: LEV BOCANEGRA scan [...] authenticated by ALICIA HECK 2020-04-17 17:20:55ECHO COMPLETE [id number] 19:32:00[facility]CHOCARDIOGRAM REPORTName: MAXINE GUNN Study Date: 02/09/2017 01:39 PMMRN: [id number] Patient Location: 4S\\S\\419\\S\\AHR: 61DOB: 1950 (M/d/yyyy)Gender: MaleAge: 66 yrsHeight: 75 in Weight: 225 lbBSA: 2.3 z3Nkayra For Study: StrokeHistory:CVAProceduresA complete two- dimensional transthoracic [...] MV dec time: 0.28 secMV A max elann: 89.8 cm/secMV E/A: 0.81 Ao V2 max: [...] 02/16/2017Reading Physician: Electronically signed by:07:32 PMOrdering Physician: JOSSELIN BURROUGHSANCEReferring Physician: PEDRO MARIEEPerformedBy: Aundrea Tilley RVSCTA HEAD 2017-02-09 16:09:00[place] [id number] IMAGING REPORTPatient Name: Francia GUNN of Service: [id number]: 66 Sex: M Order #: [id number] Room: [facility]/ A 4SDOB: 1950 X-Ray Number: [id number] Record Number: [id number] Hospital Number: [id number] Physician: PEDRO MARIEE -Ordering Physician: SANTOSH DUMONT [...] by ROBYN Stanley 2017-02-09 16:06:37CTA NECK 2017-02-09 16:09:[address] [address]ZVFPZIOCHH IMAGING REPORTPatient Name: Francia GUNN of Service: [id number]: 66 Sex: M Order #: [id number] Room: [facility]/ A 4SDOB: 1950 X-Ray Number: [id number] Record Number: [id number] Hospital Number: [id number] Physician: PEDRO MARIEE -Ordering Physician: SANTOSH DUMONT [...] ROBYN Stanley 2017-02-09 16:06:37MRI BRAIN W 2017-02-09 09:30:[address] IMAG[address] REPORTPatient Name: Francia GUNN of Service: [id number]: 66 Sex: M Order #: [id number] Room: [facility]/ A 4SDOB: 1950 X-Ray Number: [id number] Record Number: [id number] Hospital Number: [id number] Physician: PEDRO MARIEE -Ordering Physician: LAURYN WHELAN [...] AMLegallyauthenticated by DAVID ROMEO 2017-02-09 09:27:59US CAROTID [id number] 06:44:00[place] [id number] IMAGING REPORTPatient Name: Francia GUNN of Service: [id number]: 66 Sex: M Order #: [id number] Room: [facility] 4SDOB: 1950 X-Ray Number: [id number] Record Number: [id number] Hospital Number: [id number] Physician: PEDRO MARIEE -Ordering Physician: Tre WHELAN [...] by MARIANNE RAJAN 2017-02-09 06:42:20CT HEAD W/O [id number] 21:13:[address] [id number] IMAGING REPORTPatient Name: Elke GUNNchencho of Service: 80-08-0594Cqe: 66 Sex: M Order #: 1000 Room: QERDOB: 1950 X-Ray Number: [id number] Record Number: [id number] Hospital Number: [id number] Physician: FABY TAOOrdering Physician: Sharon WHLEAN CT exam was performed using one or [...] by MARIANNE RAJAN 2017-02-08 21:11:06CHEST 1 VIEW [id number] 21:10:00[place] [id number] IMAGING REPORTPat ient Name: MAXINE GUNNDate of Service: 55-05-5041Qif: 66 Sex: M Order #: [id number] Room: ERDOB: 1950 X-Ray Number: [id number] Record Number: [id number] Hospital Number: [id number] Physician: FABY TAOOrdering Physician: BRIGHT WHELAN chest [...] Notes Date/Time Note Provider Source 2020-05-18 19:23:46-00:00 [facility] AGUEDA RODRIGES [address] [place] [address] DIAGNOSTIC IMAGING REPORT Patient Name: MAXINE GUNN Date of Service: 05-18-2020 Age: 69 Sex: M Order #: [id number] [facility] 1950 X-Ray Number: [id number] Hospital Number : [id number] Admitting Physician: SUJIT VINES Ordering Physician: SUJIT [...] by DAVID ROMEO 2020-05-18 19:23:46 2020-04-17 17:20:55-00:00 [facility] [place] [address] DIAGNOSTIC IMAGING REPORT Patient Name: MAXINE GUNN Date of Service: 04-17-2020 Age: 69 Sex: M Order #: 200 Room: [facility] : 1950 X-Ray Number: [id number] Hospital Number : [id number] Admitting Physician: ANDRZEJ BOCANEGRA Ordering Physician: ANDRZEJ [...] HECK 2020-04 17:20:55 2017-02-12 09:49:02-00:00 PEDRO MARIEE [address] [address] Patient Name: MAXINE GUNN Patient#: [id number] Admission Date: 02/08/2017 Discharge Date: 02/12/2017 Age/Gender: 66/M Date of : 1950 SV//BED: TEL/419/A Admitting Phys: Pedro Mariee MD DISCHARGE [...] consulted Case Man tiffanie, who is consulting half-way to see if the patient to go, [...] JAYLENE VASQUEZ 2017-02-15 06:12:35 TT: 02/12/2017 09:49:02 CRG/MODL /[id number] Electronically Authenticated by: Pedro Mariee M.D. On 02/15/2017 06:12 PM CDT Legally authenticated by JAYLENE VASQUEZ 2017-02-15 06:12:35
[2023-03-01 14:01] LABS: Absolute Lymphocytes (CBC) 0.5 K/uL (0.7-4.9); Lymphocytes % 2.2 % (15.3-44.8); MCV 83.9 fL (80-100); MPV 7.4 fL (7.6-11.3); RBC Red Blood Cell Count 4.41 M/uL (4.33-5.43)
[2023-03-01 14:04] LABS: Protime INR 1.27
[2023-03-01 14:21] LABS: Albumin 2.3 g/dL (3.4-5.0); Bilirubin Direct 0.2 mg/dL (0-0.2); Bilirubin Indirect, Calculated 0.6 mg/dL (0.2-0.8); Bilirubin Total 0.8 mg/dL (0.2-1.0); Magnesium 1.9 mg/dL (1.6-2.4); Potassium 3.7 mEq/L (3.5-5.1); Troponin High Sensitivity 12.8 pg/mL (<58.9)
[2023-03-01 14:42] LABS: Blood Morphology Comment NOTED (NOT SEEN); Platelet Estimate ADEQ
[2023-03-01 14:43] LABS: SARS-CoV-2 Antigen Rapid Res Negative (Negative)
--- NOTE | 2023-03-01 14:45 | RAD REPORT ---
EXAM DESCRIPTION: CT - Head Brain Wo Cont - 03/01/2023 2:38 pm CLINICAL HISTORY: MENTAL STATUS CHANGE Headache, drowsiness, fever COMPARISON: Head Brain Wo Cont dated 02/16/2023 TECHNIQUE: All CT scans are performed using dose optimization technique as appropriate and may inclu de automated exposure control or mA/KV adjustment according to patient size. FINDINGS: No intracranial hemorrhage, hydrocephalus or extra-axial fluid collection.Evidence of old lacunar infarcts in the basal ganglia bilaterally.No areas of brain edema or evidence of midline shif t. Mild brain atrophy. The paranasal sinuses and mastoids are clear. The calvarium is intact. IMPRESSION: No acute intracranial abnormality.
--- NOTE | 2023-03-01 14:48 | RAD REPORT ---
EXAM DESCRIPTION: RAD - Chest Single View - 03/01/2023 2:36 pm CLINICAL HISTORY: COUGH Chest pain. COMPARISON: Chest Single View dated 02/20/2023; Chest Single View dated 02/16/2023; Chest Single View dated 02/13/2023; Chest Single View dated 08/20/2022 FINDINGS: Portable technique limits examination quality. There is a large area of consolidation seen in the right upper lobe. This likely represents postobstr uctive pneumonia. The left lung is grossly clear. The heart is normal in size. No displaced fractures . IMPRESSION: Large postobstructive right upper lobe pneumonia.
--- NOTE | 2023-03-01 14:53 | RAD REPORT ---
EXAM DESCRIPTION: CT - Thorax Wo Con CLINICAL HISTORY: Chest pain COUGH COMPARISON: Thorax W/ Con dated 02/13/2023 FINDINGS: There is a large area of lung consolidation involving the right upper lobe. There is soft tissue mass was cystic/necrotic component noted right hilar region. . Small right pleural effusion. N o pneumothorax. 25 mm metastatic pretracheal lymph node. No concerning bony finding. No gross upper abdominal finding. All CT scans are performed using dose optimization technique as appropriate and may include automated exposure control or mA/KV adjustment according to patient size. IMPRESSION: Large right upper lobe postobstructive pneumonia.
[2023-03-01] MEDS ORDERED: NA CHLORIDE 0.9% 100 ML ONE (15:17)
[2023-03-01] MEDS ORDERED: FAMOTIDINE 20 MG/2 ML VIAL IV ONE (15:17)
[2023-03-01] MEDS ORDERED: PIPERACIL/TAZO 3.375 GM VIAL IV ONE (15:17)
[2023-03-01] MEDS ORDERED: ACETAMINOPHEN 325 MG TABLET ONE (15:17)
[2023-03-01] MEDS ORDERED: Levofloxacin500mg IV 500 MG/100 ML BAG IV ONE (15:17)
--- NOTE | 2023-03-01 15:24 | ER ---
Nurse's Notes [facility] Name: Timoteo Gunn Age: 72 yrs Sex: Male : 1950 Arrival Date: 03/01/2023 Time: 13:21 Bed 2 Private MD: Diagnosis: Pneumonia due to other specified bacteria-LARGE RIGHT UPPER LOBE POST OBSTRUCTIVE PMEUMONIA;Malignant neoplasm of lower lobe, right bronchus or lung;Elevated white blood cell count Presentation: 03/01 13:23 Chief complaint: EMS states: toned out for cough, ran out of his meds, hx of lung iw cancer , family reported productive cough, pt states he always has a cough, had low grade temp per EMS 100.9, , states the apartment was hot and he was wearing a heavy jacket , 96% on RA , EMS gave fluids. Coronavirus screen: Client presents with at least one sign or symptom that may indicate coronavirus-19. Ebola Screen: Patient negative for fever greater than or equal to 101.5 degrees Fahrenheit, and additional compatible Ebola Virus Disease symptoms Patient denies exposure to infectious person. Patient denies travel to an Ebola-affected area in the 21 days before illness onset. No symptoms or risks identified at this time. Initial Sepsis Screen: Does the patient meet any 2 criteria? No. Patient's initial sepsis screen is negative. Does the patient have a suspected source of infection? No. Patient's initial sepsis screen is negative. Risk Assessment: Do you want to hurt yourself or someone else? Patient reports no desire to harm self or others. Onset of symptoms was March 01, 2023. 13:23 Method Of Arrival: EMS: [facility] iw 13:23 Acuity: ABIEL 3 iw Historical: - Allergies: 15:22 No Known Allergies; iw - PMHx: 13:26 Hypercholesterolemia; Lung Cancer; Myocardial infarction; stroke; iw - PSHx: 13:26 heart stent; iw Screenin:26 [facility] ED Fall Risk Assessment (Adult) History of falling in the last 3 months, iw including since admission. Abuse screen: Denies threats or abuse. Denies injuries from another. Nutritional screening: No deficits noted. Tuberculosis screening: No symptoms or risk factors identified. Assessment: 16:26 Reassessment: Patient appears in no apparent distress at this time. Patient and/or iw family updated on plan of care and expected duration. Pain level reassessed. Patient is alert, oriented x 3, equal unlabored respirations, skin warm/dry/pink. 19:08 Reassessment: Patient appears in no apparent distress at this time. Patient and/or iw family updated on plan of care and expected duration. Pain level reassessed. Patient is alert, oriented x 3, equal unlabored respirations, skin warm/dry/pink. Vital Signs: 13:23 BP 114 / 74; Pulse 101; Resp 20; Temp 99.8; Pulse Ox 96% on R/A; iw 15:15 BP 93 / 67; Pulse 84; Resp 20; Temp 98.9; iw 16:26 BP 119 / 76; Pulse 81; Resp 20; Temp 98.9(O); Pulse Ox 96% on R/A; Pain 0/10; iw 18:14 BP 100 / 44; Pulse 82; Resp 19 S; Temp 97.9(O); Pulse Ox 96% on R/A; aa5 19:15 BP 112 / 58; Pulse 64; Resp 20; Pulse Ox 98% ; jb4 16:26 Pain Scale: Adult iw ED Course: 13:23 Patient arrived in ED. iw 13:23 Gina Wilson, RN is Primary Nurse. nj1 13:24 Stoney Eli MD is Attending Physician. disha 13:26 Triage completed. iw 13:26 Arm band placed on. iw 14:15 EKG done, by ED staff, reviewed by Stoney Eli MD. mm9 14:16 Patient has correct armband on for positive identification. Placed in gown. Bed in low mm9 position. Call light in reach. Side rails up X2. Warm blanket given. Client placed on continuous cardiac and pulse oximetry monitoring. NIBP monitoring applied. header boss on. Pulse ox on. NIBP on. 14:27 Lucille Aguilar, CITLALLI is Primary Nurse. iw 14:27 Flu Sent. iw 14:27 SARS RAPID Sent. iw 14:31 Notified ED physician of a critical lab result(s). Lactate 2.2. aa5 14:38 XRAY Chest (1 view) In Process Unspecified. EDMS 14:40 CT Head Brain wo Cont In Process Unspecified. EDMS 14:40 CT Chest Wo Con In Process Unspecified. EDMS 19:15 No provider procedures requiring assistance completed. Patient admitted, IV remains in jb4 place. Administered Medications: 13:30 CANCELLED (Duplicate Order): morphine IVP or IV 4 mg IVP once over 4 mins [facility] 13:59 Drug: NS 0.9% IV 1000 ml Route: IV; Rate: 1 bolus; Site: left forearm; iw 16:28 Follow up: IV Status: Completed infusion iw 15:17 Drug: Famotidine IVP 20 mg Route: IVP; Site: left forearm; nj1 15:18 Drug: Acetaminophen PO 650 mg Route: PO; nj1 15:20 Drug: levofloxacin IVPB 500 mg Volume: 100 ml; Route: IVPB; Infused Over: 60 mins; nj1 Site: left forearm; 16:28 Follow up: IV Status: Completed infusion iw 15:20 Drug: Piperacillin-Tazobactam IVPB 3.375 grams Route: IVPB; Infused Over: 60 mins; nj1 Site: right forearm; 15:50 Follow up: Response: No adverse reaction; IV Status: Completed infusion; IV Intake: nj1 100ml 16:28 Follow up: IV Status: Completed infusion iw 18:18 Drug: NS 0.9% IV 1000 ml Route: IV; Rate: 1000 ml; Site: right forearm; aa5 Medication: 19:15 VIS not applicable for this client. jb4 Intake: 15:50 IV: 100ml; Total: 100ml. nj1 Outcome: 15:23 ER care complete, transfer ordered by . [facility] 19:15 Transferred to [facility], Transfer form completed. X-rays sent w/ jb4 patient. 19:15 Condition: stable 19:15 Discharge instructions given to patient, Instructed on the need for transfer, Demonstrated understanding of instructions. 19:41 Patient left the ED. jb4 Signatures: Dispatcher [employer] Stoney Mccollum MD MD cha Williams, Irene, RN RN iw Tiana Domingo RN RN aa5 Jose Martin Vuong RN RN jb4 Krystle Pratt Gina Zamora RN RN nj1
--- NOTE | 2023-03-01 15:24 | EDPHYS ---
Physician Documentation [facility] Name: Timoteo Gunn Age: 72 yrs Sex: Male : 1950 Arrival Date: 03/01/2023 Time: 13:21 Bed 2 Private MD: ED Physician Stoney Eli HPI: 03/01 13:39 This 72 yrs old Male presents to ER via EMS with complaints of Cough. disha 13:39 The patient or guardian reports airway noise, cough, difficulty breathing. Onset: The disha symptoms/episode began/occurred 2 day(s) ago. Severity of symptoms: At their worst the symptoms were mild, in the emergency department the symptoms. Associated signs and symptoms: Pertinent positives: fever, nausea, rhinorrhea. The patient has experienced similar episodes in the past, several times. Historical: - Allergies: 15:22 No Known Allergies; iw - PMHx: 13:26 Hypercholesterolemia; Lung Cancer; Myocardial infarction; stroke; iw - PSHx: 13:26 heart stent; iw ROS: 13:41 Constitutional: Negative for fever, chills, and weight loss, Eyes: Negative for injury, disha pain, redness, and discharge, ENT: Negative for injury, pain, and discharge, Neck: Negative for injury, pain, and swelling, Cardiovascular: Negative for chest pain, palpitations, and edema, Abdomen/GI: Negative for abdominal pain, nausea, vomiting, diarrhea, and constipation, Back: Negative for injury and pain, : Negative for injury, bleeding, discharge, and swelling, MS/Extremity: Negative for injury and deformity, Skin: Negative for injury, rash, and discoloration, Neuro: Negative for headache, weakness, numbness, tingling, and seizure, Psych: Negative for depression, anxiety, suicide ideation, homicidal ideation, and hallucinations, Allergy/Immunology: Negative for hives, rash, and allergies, Endocrine: Negative for neck swelling, polydipsia, polyuria, polyphagia, and marked weight changes, Hematologic/Lymphatic: Negative for swollen nodes, abnormal bleeding, and unusual bruising. 13:41 Respiratory: Positive for cough, shortness of breath, at rest. Exam: 13:41 Constitutional: This is a well developed, well nourished patient who is awake, alert, disha and in no acute distress. Head/Face: Normocephalic, atraumatic. Eyes: Pupils equal round and reactive to light, extra-ocular motions intact. Lids and lashes normal. Conjunctiva and sclera are non-icteric and not injected. Cornea within normal limits. Periorbital areas with no swelling, redness, or edema. ENT: Nares patent. No nasal discharge, no septal abnormalities noted. Tympanic membranes are normal and external auditory canals are clear. Oropharynx with no redness, swelling, or masses, exudates, or evidence of obstruction, uvula midline. Mucous membranes moist. Neck: Trachea midline, no thyromegaly or masses palpated, and no cervical lymphadenopathy. Supple, full range of motion without nuchal rigidity, or vertebral point tenderness. No Meningismus. Chest/axilla: Normal chest wall appearance and motion. Nontender with no deformity. No lesions are appreciated. Cardiovascular: Regular rate and rhythm with a normal S1 and S2. No gallops, murmurs, or rubs. Normal PMI, no JVD. No pulse deficits. Abdomen/GI: Soft, non-tender, with normal bowel sounds. No distension or tympany. No guarding or rebound. No evidence of tenderness throughout. Back: No spinal tenderness. No costovertebral tenderness. Full range of motion. Male : Normal genitalia with no discharge or lesions. Skin: Warm, dry with normal turgor. Normal color with no rashes, no lesions, and no evidence of cellulitis. MS/ Extremity: Pulses equal, no cyanosis. Neurovascular intact. Full, normal range of motion. Psych: Awake, alert, with orientation to person, place and time. Behavior, mood, and affect are within normal limits. 13:41 Respiratory: the patient does not display signs of respiratory distress, Respirations: normal, Breath sounds: bronchial sounds, that are mild, rhonchi, that are mild, are scattered, stridor, is not appreciated, + upper airway congestion. 13:41 Musculoskeletal/extremity: DVT Exam: No signs of deep vein thrombosis. no pain, no swelling, no tenderness, negative Homans' sign noted on exam, no appreciated bluish discoloration, no erythema, no increased warmth. 14:14 ECG was reviewed by the Attending Physician. disha Vital Signs: 13:23 BP 114 / 74; Pulse 101; Resp 20; Temp 99.8; Pulse Ox 96% on R/A; iw 15:15 BP 93 / 67; Pulse 84; Resp 20; Temp 98.9; iw 16:26 BP 119 / 76; Pulse 81; Resp 20; Temp 98.9(O); Pulse Ox 96% on R/A; Pain 0/10; iw 18:14 BP 100 / 44; Pulse 82; Resp 19 S; Temp 97.9(O); Pulse Ox 96% on R/A; aa5 19:15 BP 112 / 58; Pulse 64; Resp 20; Pulse Ox 98% ; jb4 16:26 Pain Scale: Adult iw MDM: 13:24 Patient medically screened. disha 13:43 Differential diagnosis: viral Infection, bacterial infection, URI, bronchitis, disha pneumonia UTI, gastroenteritis. Differential Diagnosis: Obstructed Airway Bronchitis Influenza Upper Respiratory Infection Sinusitis Asthma Exacerbation Viral Syndrome Pneumonia. Data reviewed: vital signs, nurses notes, lab test result(s), EKG, radiologic studies, CT scan, plain films. Consideration of Admission/Observation Escalation of care including admission/observation considered. I considered the following discharge prescriptions or medication management in the emergency department Medications were administered in the Emergency Department. See MAR. Independent interpretation of the following test(s) in the Emergency Department EKG: See my EKG interpretation above. Test considered but Not performed: MRI: no brain mri. Care significantly affected by the following chronic conditions: Hypertension, Cancer, cva, mi, increased cholesterol. 03/01 13:30 Order name: Basic Metabolic Panel; Complete Time: 14:47 [facility] 03/01 13:30 Order name: CBC with Diff; Complete Time: 14:47 03/01 13:30 Order name: LFT's; Complete Time: 14:47 03/01 13:30 Order name: Magnesium; Complete Time: 14:47 03/01 13:30 Order name: NT PRO-BNP; Complete Time: 14:47 disha 03/01 13:30 Order name: PT-INR; Complete Time: 14:47 03/01 13:30 Order name: Troponin HS; Complete Time: 14:47 03/01 13:30 Order name: Lipase; Complete Time: 14:47 [facility] 03/01 13:30 Order name: Blood Culture Adult (2) [facility] 03/01 13:30 Order name: Lactate w/ 2H reflex if indic.; Complete Time: 14:47 [facility] 03/01 13:30 Order name: SARS RAPID; Complete Time: 14:47 disha 03/01 13:30 Order name: Flu; Complete Time: 15:14 [facility] 03/01 14:07 Order name: Manual Differential; Complete Time: 14:47 [facility] 03/01 13:30 Order name: XRAY Chest (1 view); Complete Time: 15:14 [facility] 03/01 13:32 Order name: CT Head Brain wo Cont; Complete Time: 14:47 [facility] 03/01 13:32 Order name: CT Chest Wo Con; Complete Time: 15:14 [facility] 03/01 13:30 Order name: EKG; Complete Time: 13:31 [facility] 03/01 16:26 Order name: Diet Regular; Complete Time: 16:26 03/01 13:30 Order name: Cardiac monitoring; Complete Time: 13:59 [facility] 03/01 13:30 Order name: EKG - Nurse/Tech; Complete Time: 14:15 [facility] 03/01 13:30 Order name: IV Saline Lock; Complete Time: 13:59 [facility] 03/01 13:30 Order name: Labs collected and sent; Complete Time: 13:59 [facility] 03/01 13:30 Order name: O2 Per Protocol; Complete Time: 13:59 [facility] 03/01 13:30 Order name: O2 Sat Monitoring; Complete Time: 13:59 [facility] EC:14 Rate is 93 beats/min. QRS [place] is Normal. [place] interval is normal. QRS interval is disha normal. QT interval is normal. No Q waves. T waves are Normal. No ST changes noted. Clinical impression: NSR w/ Non-specific ST/T Changes and No evidence of ischemia. Interpreted by me. Reviewed by me. Administered Medications: 13:30 CANCELLED (Duplicate Order): morphine IVP or IV 4 mg IVP once over 4 mins disha 13:59 Drug: NS 0.9% IV 1000 ml Route: IV; Rate: 1 bolus; Site: left forearm; iw 16:28 Follow up: IV Status: Completed infusion iw 15:17 Drug: Famotidine IVP 20 mg Route: IVP; Site: left forearm; nj1 15:18 Drug: Acetaminophen PO 650 mg Route: PO; nj1 15:20 Drug: levofloxacin IVPB 500 mg Volume: 100 ml; Route: IVPB; Infused Over: 60 mins; nj1 Site: left forearm; 16:28 Follow up: IV Status: Completed infusion iw 15:20 Drug: Piperacillin-Tazobactam IVPB 3.375 grams Route: IVPB; Infused Over: 60 mins; nj1 Site: right forearm; 15:50 Follow up: Response: No adverse reaction; IV Status: Completed infusion; IV Intake: nj1 100ml 16:28 Follow up: IV Status: Completed infusion iw 18:18 Drug: NS 0.9% IV 1000 ml Route: IV; Rate: 1000 ml; Site: right forearm; aa5 Disposition Summary: 03/01/23 15:23 Transfer Ordered Transfer Location: [facility] disha Reason: Higher level of care disha Condition: Fair disha Problem: new disha Symptoms: have improved disha Accepting Physician: to [facility](03/01/23 19:41) jb4 Diagnosis - Pneumonia due to other specified bacteria - LARGE RIGHT UPPER LOBE POST OBSTRUCTIVE disha PMEUMONIA - Malignant neoplasm of lower lobe, right bronchus or lung disha - Elevated white blood cell count disha Forms: - Medication Reconciliation Form disha - SBAR form disha Signatures: Dispatcher [employer] EDStoney Miller MD MD cha Williams, Irene, RN RN iw Tiana Domingo RN RN aa5 Jose Martin Vuong RN RN jb4 Gina Wilson RN RN nj1 Corrections: (The following items were deleted from the chart) 13:30 13:30 morphine IVP or IV 4 mg IVP once over 4 mins ordered. disha disha 19:41 15:23 to [facility] disha jb4
[2023-03-01] MEDS ORDERED: NA CHLORIDE 0.9% 1,000 ML ONE (18:24)
[2023-03-01 19:50] VITALS: TEMP 97.9
[2023-03-01 19:51] VITALS: BP 112/58; O2SAT 98
--- NOTE | 2023-03-02 17:12 | EKG ---
Test Date: 2023-03-01 Test Time: 14:10:13 Staking Technician: KIMBERLY MEASUREMENT RESULTS: Intervals: Rate: 93 VA: 124 QRSD: 80 QT: 362 QTc: 450 [place]: P: 56 VA: 124 QRS: 48 T: 56 INTERPRETIVE STATEMENTS: Sinus rhythm with premature supraventricular complexes Septal infarct, age undetermined Abnormal ECG Compared to ECG 02/16/2023 13:15:31 Atrial premature complex(es) now present Myocardial infarct finding still present Electronically Signed On 03-02-23 17:10:09 CDT by German Fagan
== END 2023-03-01 19:41 | disposition short-term general hospital (02) ==
LOC: ER 13:21
DX: J15.8 Pneumonia due to other specified bacteria (principal); C34.31 Malignant neoplasm of lower lobe, right bronchus or lung; D72.829 Elevated white blood cell count, unspecified; E78.00 Pure hypercholesterolemia, unspecified; Z20.822 Contact with and (suspected) exposure to COVID-19; Z95.818 Presence of other cardiac implants and grafts
CPT/HCPCS: 93005; 87040 ×2; 85025; 80048; 36415; 83735; 85610; 80076; 83605 ×2; 84484; 83690; 83880; 87804 ×2; 70450; 71250; 71045; 99285; 87811; J2543; J7030

== ENCOUNTER 2023-03-06 18:26 | Emergency (ER) | payer OTHER ==
--- OUTSIDE RECORDS SUMMARY | 2023-03-06 18:33 | XMS REPORT | Continuity of Care Document ---
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 Take [...] 7 days. Indication s: acute pain tamsulosin 2021-0 2021- No .4mg Take 0.4 Un je 0.4 mg 24 6- 06-01 mg by ity of hr capsule 14:07: 00:00 mouth [place] 15 :00 daily. Medical Branch lisinopriL 2021-0 2021- No 40mg Take 40 mg Univers 40 mg 02-05 by mouth ity of tablet 14:07: 00:00 daily. [place] 15 :00 Medical Branch tamsulosin 2021-0 Yes [id number] .4mg Take 1 Univers 0.4 mg 24 02-05 01 capsule by ity of hr capsule 00:00: mouth [place] 00 daily. Medical Branch tamsulosin 2021-0 Yes [id number] .4mg Take 1 Univers 0.4 mg 24 - 01 capsule by ity of hr capsule 00:00: mouth [place] 00 daily. Medical Branch tamsulosin 2021-0 Yes [id number] .4mg Take 1 Univers 0.4 mg 24 6- 01 capsule by ity of hr capsule 00:00: mouth [place] 00 daily. Medical Branch lisinopriL 2021-0 Yes [id number] 40mg Take 1 U nivers 40 mg 6-01 tablet by ity of tablet 00:00: mouth [place] 00 daily. Medical Branch tamsulosin 2021-0 Yes [id number] .4mg Take 1 Univers 0.4 mg 24 - 01 capsule by ity of hr capsule 00:00: mouth [place] 00 daily. Medical Branch lisinopriL 2021-0 Yes [id number] 40mg Take 1 U nivers 40 mg 6-01 tablet by ity of tablet 00:00: mouth [place] 00 daily. Medical Branch tamsulosin 2021-0 Yes [id number] .4mg Take 1 Univers 0.4 mg 24 6- 01 capsule by ity of hr capsule 00:00: mouth [place] 00 daily. Medical Branch lisinopriL 2021-0 Yes [id number] 40mg Take 1 U nivers 40 mg 6-01 tablet by ity of tablet 00:00: mouth [place] 00 daily. Medical Branch tamsulosin 2021-0 Yes [id number] .4mg Take 1 Univers 0.4 mg 24 02-05 capsule by ity of hr capsule 00:00: mouth [place] 00 daily. Medical Branch lisinopriL 2021-0 Yes [id number] 40mg Take 1 U nivers 40 mg 6-01 tablet by ity of tablet 00:00: mouth [place] 00 daily. Medical Branch tamsulosin 2021-0 Yes [id number] .4mg Take 1 Univers 0.4 mg 24 02-05 capsule by ity of hr capsule 00:00: mouth [place] 00 daily. Medical Branch lisinopriL 2021-0 Yes [id number] 40mg Take 1 U nivers 40 mg 6-01 tablet by ity of tablet 00:00: mouth [place] 00 daily. Medical Branch tamsulosin 2021-0 Yes [id number] .4mg Take 1 Univers 0.4 mg 24 02-05 capsule by ity of hr capsule 00:00: mouth 00 daily. Medical Branch lisinopriL 2021-0 Yes [id number] 40mg Take 1 U nivers 40 mg 6-01 tablet by ity of tablet 00:00: mouth [place] 00 daily. Medical Branch tamsulosin 2021-0 2- No [id number] .4mg Take 1 Univers 0.4 mg 24 02-05 capsule by ity of hr capsule 00:00: 00:00 mouth [place] 00 :00 daily. Medical Branch tamsulosin 2021-0 2- No [id number] .4mg Take 1 Univers 0.4 mg 24 02-05 capsule by ity of hr capsule 00:00: 00:00 mouth [place] 00 :00 daily. Medical Branch tamsulosin 2021-0 2- No [id number] .4mg Take 1 Univers 0.4 mg 24 02-05 capsule by ity of hr capsule 00:00: 00:00 mouth [place] 00 :00 daily. Medical Branch tamsulosin 2021-0 2- No [id number] .4mg Take 1 Univers 0.4 mg 24 02-05 capsule by ity of hr capsule 00:00: 00:00 mouth [place] 00 :00 daily. Medical Branch lisinopriL 2- No [id number] 40mg Take 1 Univers 40 mg 6- 10-11 tablet by ity of tablet 00:00: 00:00 mouth [place] 00 :00 daily. Medical Branch lisinopriL 2021- No [id number] 40mg Take 1 Univers 40 mg 6-01 10-11 tablet by ity of tablet 00:00: [...] Name Observation Time Observation Value Comments Source WEIGHT 2023-03-05 06:00:00 78.926 kg WEIGHT 2023-03-04 06:22:00 77.111 kg WEIGHT 2023-03-03 06:02:00 76.2 kg HEIGHT 2023-03-01 21:51:00 188 cm WEIGHT 2023-03-01 21:51:00 76.204 kg WEIGHT 2023-03-05 06:00:00 78.926 kg WEIGHT 2023-03-04 06:22:00 77.111 kg WEIGHT 2023-03-03 06:02:00 76.2 kg HEIGHT 2023-03-01 21:51:00 188 cm WEIGHT 2023-03-01 21:51:00 76.204 kg WEIGHT 2023-03-05 06:00:00 78.926 kg WEIGHT 2023-03-04 06:22:00 77.111 kg WEIGHT 2023-03-03 06:02:00 76.2 kg HEIGHT 2023-03-01 21:51:00 188 cm WEIGHT 2023-03-01 21:51:00 76.204 kg Systolic blood 2023-02-12 21:34:00 165 mm[Hg] Univer sity of pressure [facility] Diastolic blood 2023-02-12 21:34:00 93 mm[Hg] Unive rsity of pressure [facility] Heart rate 2023-02-12 21:23:00 83 /min Universi ty of [facility] Body height 2023-02-12 21:23:00 190.5 cm Universi ty of [facility] Body weight 2023-02-12 21:23:00 77.792 kg Universi ty of [place] [facility] BMI 2023-02-12 21:23:00 21.44 kg/m2 Universi ty of [facility] Oxygen saturation in 2023-02-12 21:23:00 99 /min University Arterial blood by [facility] Pulse oximetry Branch Systolic blood 2022-11-17 19:07:00 164 mm[Hg] Univer sity of pressure [facility] Diastolic blood 2022-11-17 19:07:00 97 mm[Hg] Unive rsity of pressure [facility] Heart rate 2022-11-17 19:04:00 82 /min Universi ty of [facility] Respiratory rate 2022-11-17 19:04:00 18 /min Univ ersity of [facility] Body height 2022-11-17 19:04:00 190.5 cm Universi ty of [facility] Body weight 2022-11-17 19:04:00 81.647 kg Universi ty of [facility] BMI 2022-11-17 19:04:00 22.50 kg/m2 Universi ty of [facility] Systolic blood 2022-11-07 16:14:00 158 mm[Hg] Univer sity of pressure [place] [facility] Diastolic blood 2022-11-07 16:14:00 92 mm[Hg] Unive rsity of pressure [place] [facility] Heart rate 2022-11-07 16:13:00 89 /min Universi ty of [place] [facility] Body temperature 2022-11-07 16:13:00 36.94 Kirsten Univ ersity of [place] [facility] Respiratory rate 2022-11-07 16:13:00 18 /min Univ ersity of [place] [facility] Body height 2022-11-07 16:13:00 190.5 cm Universi ty of [place] [facility] Body weight 2022-11-07 16:13:00 82.781 kg Universi ty of [place] [facility] BMI 2022-11-07 16:13:00 22.81 kg/m2 Universi ty of [place] [facility] Oxygen saturation in 2022-11-07 16:13:00 97 /min University of Arterial blood by [place] documistic rosalio Pulse oximetry Branch Systolic blood 2022-07-01 15:08:00 150 mm[Hg] Univer sity of pressure [place] [facility] Diastolic blood 2022-07-01 15:08:00 85 mm[Hg] Unive rsity of pressure [place] [facility] Heart rate 2022-07-01 15:00:00 78 /min Universi ty of [place] [facility] Body temperature 2022-07-01 15:00:00 36.72 Kirsten Univ ersity of [place] [facility] Body height 2022-07-01 15:00:00 190.5 cm Universi ty of [place] [facility] Body weight 2022-07-01 15:00:00 92.08 kg Universi ty of [place] [facility] BMI 2022-07-01 15:00:00 25.37 kg/m2 Universi ty of [place] [facility] Oxygen saturation in 2022-07-01 15:00:00 96 /min University of Arterial blood by [place] documistic rosalio Pulse oximetry Branch Systolic blood 2022-06-17 21:00:00 93 mm[Hg] Univer sity of pressure [place] [facility] Diastolic blood 2022-06-17 21:00:00 54 mm[Hg] Unive rsity of pressure [place] [facility] Heart rate 2022-06-17 21:00:00 106 /min Universi ty of [place] [facility] Body temperature 2022-06-17 21:00:00 37 Kirsten [facility] ersity of [place] [facility] Body height 2022-06-17 21:00:00 190.5 cm Universi ty of [place] [facility] Body weight 2022-06-17 21:00:00 91.173 kg Universi ty of [place] [facility] BMI 2022-06-17 21:00:00 25.12 kg/m2 Universi ty of [facility] Oxygen saturation in 2022-06-17 21:00:00 95 /min University of Arterial blood by [facility] Pulse oximetry Branch Systolic blood 2022-02-05 18:43:00 154 mm[Hg] Univer sity of pressure [facility] Diastolic blood 2022-02-05 18:43:00 74 mm[Hg] Unive rsity of [email or web address] Heart rate 2022-02-05 18:42:00 93 /min Universi ty of [place] [facility] Novi Body temperature 2022-02-05 18:42:00 36.78 Kirsten [place] [facility] ersity of [place] [facility] Novi Body height 2022-02-05 18:42:00 190.5 cm Universi ty of [place] [facility] Body weight 2022-02-05 18:42:00 102.513 kg Universi ty of [place] [facility] BMI 2022-02-05 18:42:00 28.25 kg/m2 Universi ty of [place] [facility] Novi Oxygen saturation in 2022-02-05 18:42:00 95 /min University of Arterial blood by [facility] Pulse oximetry Branch Heart rate 2023-03-05 14:32:00 90 /min [facility] Respiratory rate 2023-03-05 14:32:00 18 /min [facility] Oxygen saturation in 2023-03-05 14:32:00 94 /min [facility] Arterial blood by Medical nter Pulse oximetry Body temperature 2023-03-05 11:00:22 36.67 Kirsten [facility] Systolic blood 2023-03-05 10:59:45 142 mm[Hg] [facility] Diastolic blood 2023-03-05 10:59:45 70 mm[Hg] [facility] Body weight 2023-03-05 06:00:00 78.926 kg [facility] BMI 2023-03-05 06:00:00 22.34 kg/m2 [facility] Body height 2023-03-01 21:51:00 188 cm [facility] Procedures Procedure Date / Time Performing Clinician Source Performed CBC W/PLT COUNT & AUTO 2023-03-05 04:41:00 [facility] BASIC METABOLIC PANEL 2023-03-05 04:41:00 [facility] CBC W/PLT COUNT & AUTO 2023-03-05 04:41:00 [facility] CBC W/PLT COUNT & AUTO 2023-03-04 04:30:00 [facility] BASIC METABOLIC PANEL 2023-03-04 04:30:00 [facility] CBC W/PLT COUNT & AUTO 2023-03-04 04:30:00 [facility] VANCOMYCIN LEVEL, TROUGH 2023-03-03 21:50:00 Chiki Castellon [facility] NM BONE SCAN WHOLE BODY 2023-03-03 14:48:18 [facility] MRSA SCREEN 2023-03-03 13:12:00 Chiki Castellon [facility] CT ABDOMEN/PELVIS WITH IV 2023-03-03 11:52:00 [facility] CONTRAST [place] CT CHEST WITH IV CONTRAST 2023-03-03 11:51:00 [facility] EXTERNAL PROVIDER RECORDS 2023-03-03 05:01:00 Doctor Unassigned, [facility] [place] [facility] CBC W/PLT COUNT & AUTO 2023-03-03 04:34:00 [facility] BASIC METABOLIC PANEL 2023-03-03 04:34:00 [facility] LACTIC ACID, VENOUS 2023-03-03 04:34:00 [facility] CBC W/PLT COUNT & AUTO 2023-03-03 04:34:00 Haydel, Ada [facility] MR BRAIN WITH & WITHOUT 2023-03-02 21:59:00 [facility] CONTRAST [place] LACTIC ACID, VENOUS 2023-03-02 18:53:00 [facility] BLOOD CULTURE 2023-03-02 11:41:00 [facility] LACTIC ACID, VENOUS 2023-03-01 22:50:00 AnastacioMaddie [facility] COMPREHENSIVE METABOLIC 2023-03-01 22:50:[facility] CBC W/PLT COUNT & AUTO 2023-03-01 22:50:00 [facility] PT/APTT 2023-03-01 22:50:00 [facility] CBC W/PLT COUNT & AUTO 2023-03-01 22:50:00 [facility] (CELLAVISION MANUAL DIFF) 2023-03-01 22:50:00 Latia [facility] EKG-SCANNED 2023-03-01 00:00:00 Provider, Juan Diego [facility] EXTERNAL PROVIDER RECORDS 2022-10-29 06:01:00 Doctor Xiomara, [facility] [place] [facility] EXTERNAL PROVIDER RECORDS 2022-09-12 06:01:00 Doctor Xiomara, [facility] [place] [facility] INSURANCE CORRESPONDENCE 2022-08-19 06:01:00 Doctor Xiomara, [facility] [place] [facility] CBC WITH DIFF 2022-07-01 15:49:00 Emelina [facility] URINE CULTURE 2022-07-01 15:49[facility]00 [facility] ASSIGNMENT OF BENEFITS 2022-06-17 20:33:00 Doctor Xiomara [facility] [place] [facility] EXTERNAL PROVIDER RECORDS 2022-04-15 05:01:00 Doctor Xiomara, [facility] [place] [facility] AUTHORIZATION TO RELEASE 2022-02-05 05:01:00 Doctor Unassigned, [facility] PHI TO [facility] [place] [facility] Minor level new patient 2020-08-17 00:00:00 [facility] Health office visit Plan of Care Planned Activity Planned Date Details Comments Source Future Scheduled 2024-03-[address] [facility] 00:00:00 Counseling and Medical Cente r Screening (12+) [code = Tobacco Cessation Counseling and Screening (12+)] Future Scheduled 2023-02-[address] [facility] [facility] 00:00:00 WELLNESS (YEAR 2 or Medical Center FIRST YEAR if no IPPE) [code = MEDICARE ANNUAL WELLNESS (YEAR 2 or FIRST YEAR if no IPPE)] Future Scheduled 2022-09-[address] [facility] 00:00:00 (12+) [code = Medical Center DEPRESSION SCREENING (12+)] Future Scheduled 2022-09-07 FALLS RISK SCREENING [facility] Test 00:00:00 [code = FALLS RISK Medical C enter SCREENING] Future Scheduled 2000 SHINGLES VACCINES ([address] [facility] 00:00:00 2) [code = SHINGLES Medical Center VACCINES (1 of 2)] Future Scheduled 1969 DTAP/TDAP/TD VACCINES [facility] 00:00:00 (1 - Tdap) [code = Medical C enter DTAP/TDAP/TD VACCINES (1 - Tdap)] Future Scheduled 1968 HEPATITIS C SCREENING [facility] 00:00:00 [code = HEPATITIS C Medical Center SCREENING] Future Scheduled 1956 PNEUMOCOCCAL 65+ YRS ([address] [facility] 00:00:00 - PCV) [code = Medical Cente r PNEUMOCOCCAL 65+ YRS (1 - PCV)] Future Scheduled 1951-04-15 COVID-19 VACCINE (#1) [facility] 00:00:00 [code = COVID-[address] VACCINE (#1)] Future Scheduled 1950 CT Colonography (combo) [facility] Test 00:00:00 [code = CT Colonography [facility] (combo)] Future Scheduled 1950 Screening for malignant [facility] Test 00:00:00 neoplasm of colon Medical Ce nter (procedure) [code = 055625758] Future Scheduled 1950 Screening for malignant [facility] Test 00:00:00 neoplasm of colon Medical Ce nter (procedure) [code = 274042437] Future Scheduled 1950 Screening for malignant [facility] Test 00:00:00 neoplasm of colon Medical Ce nter (procedure) [code = 357343197] Future Scheduled 1950 Screening for malignant [facility] Test 00:00:00 neoplasm of colon Medical Ce nter (procedure) [code = 469664905] Future Scheduled 1950 Sigmoidoscopy [code = [facility] 00:[facility]:00 Sigmoidoscopy] Medical Cente r Encounters Start End Encounter Admission Attending Care Care Encounter Source Date/Time Date/Time Type Type Clinicians Facility Department ID 2023-03-02 Inpatient ER [facility] [id number] SLE 19:23:34 , COLIN 2020-05-20 Inpatient 1 MANI HANNAH TEL [id number] - [facility] 09:00:00 [facility] [id number] Hospi [facility] l ([place]v nt) 2023-04-17 2023-04-17 Outpatient R LUCIANA GO [facility] [id number] [facility] 08:00:00 08:00:00 LUCIANA GO [facility] 2023-03-01 2023-03-05 [facility] [id number] 20:34:00 15:38:00 THUY [facility] 2023-03-01 2023-03-05 [facility] Leah [facility] [id number] [facility] 20:34[facility]00 15:38:00 [facility] 2023-03-03 2023-03-03 Inpatient ER [facility] [id number] SLE 10:20:51 23:59:00 COLIN 2023-03-03 2023-03-03 [facility] [id number] 09:50:00 23:59:00 Encounter Latia [facility] 2023-03-03 2023-03-03 Outpatient R PABLO SAGE [facility] [id number] Univers 10:00:00 10:00:00 PABLO SAGE itrachel [facility] 2023-03-03 2023-03-03 Inpatient ER [facility] [id number] SLE 11:34:23 00:00:00 , COLIN 2023-03-03 2023-03-03 Inpatient ER [facility] [id number] [facility] 11:34:19 00:00:00 , COLIN 2023-03-03 2023-03-03 Orders Doctor JULIAN 1..840.114 [id number] Univers 00:00:00 00:00:00 Only [place]assigned[place] 350.1.13.10 ity of [place] [facility] 4.2.7.2.686 Arturo as [phone] [address] 2023-02-26 2023-02-26 Patient [facility] [id number] Univers 00:00:00 00:00:00 Outreach [facility] [id number] i ty of [place] 4.2.7.2.686 Arturo as BRAD?BLEA [phone] [address] MEDICAL OFFICE [facility] 2023-02-25 2023-02-25 Telephone [facility] [id number] Univers 00:00:00 00:00:00 [place] 350.1.13.10 ity of [place] 4.2.7.2.686 Arturo as BRAD?BLEA [phone] [address] [facility] 2023-02-20 2023-02-20 Telephone [facility] [id number] Univers 00:00:00 00:00:00 Luciana HEALTH 350.1.13.10 ity of [place] 4.2.7.2.686 Arturo as BRAD?BLEA [phone] [address] [facility] 2023-02-16 2023-02-16 Outpatient R KLEY, [facility] [id number] Univers 13:40:00 13:40:00 JORDANLUCIANA Amador [facility] 2023-02-16 2023-02-16 [facility] [id number] Univers 00:00:00 00:00:00 [facility] [id number] ity of [place] 4.2.7.2.686 Arturo as BRAD?BLEA [phone] [address] MEDICAL OFFICE [facility] 2023-02-16 2023-02-16 [facility] [id number] Univers 00:00:00 00:00:00 [facility] 350.1.13.10 ity of [place] 4.2.7.2.686 Arturo as BRAD?BLEA [phone] [address] [facility] 2023-02-12 2023-02-12 Outpatient R LUCIANA GO [facility] [id number] Univers 16:20:00 17:21:51 [facility]23-[facility]-12 2023-02-12 [facility] 1.2.840.114 [id number] Univers 16:20:00 17:21:51 Visit [facility] 350.1.13.10 ity of [place] 4.2.7.2.686 Arturo as BRAD?BLEA [id number] [address] [facility] 2023-01-27 2023-01-27 Outpatient R JORDANRachel LUCIANA [facility] [id number] Univers 11:20:00 11:20:00 LUCIANA GO rachel [facility] 2022-12-30 2022-12-30 Refill Bianka [facility] 1.2.840.114 [id number] Univers 00:00:00 00:00:00 , [place] [facility] 350.1.13.10 ity of [facility] 4.2.7.2.686 Arturo as BRAD?BLEA [phone] [address] [facility] 2022-12-23 2022-12-23 [facility] [id number] Univers 00:00:00 00:00:00 [facility] 350.1.13.10 ity of [place] 4.2.7.2.686 Arturo as BRAD?BLEA [phone] [address] [facility] 2022-12-02 2022-12-02 Outpatient R PABLO SAGE [facility] [id number] Univers 10:00:00 10:00:00 PABLO SAGE rachel [facility] 2022-11-21 2022-11-21 [facility] [id number] Univers 10:20:00 10:20:00 LUCIANA lutz [facility] 2022-11-17 2022-11-17 [facility] [id number] Univers 14:15:00 14:46:06 SACHIN lutz [facility] 2022-11-17 2022-11-17 Office [facility] 1.2.840.114 [id number] Univers 14:15:00 14:46:06 Visit Sachin CHRISTINA 350.1.13.10 ity of [place] 4.2.7.2.686 [place] [id number] Nd shelia [address] 2022-11-07 2022-11-07 Outpatient Emelyn CARLTON [facility] [id number] Univers 10:59:37 11:05:00 , SINAI mert rachel [facility] 2022-11-07 2022-11-07 Office [facility] 1.2.840.114 [id number] Univers 10:15:00 10:47:00 Visit , [facility] 350.1.13.10 ity of [place] CHRISTINA 4.2.7.2.686 Arturo as BRAD?BLEA [phone] [address] MEDICAL OFF[address] [facility] 2022-10-29 2022-10-29 Orders Doctor JORDAN 1.2.840.114 [id number] Univers 00:00:00 00:00:00 [place] 350.1.13.10 ity of [place] [facility] 4.2.7.2.686 Arturo as [phone] [address] 2022-10-29 2022-10-29 Telephone [facility], [facility] [id number] Univers 00:00:00 00:00:00 Luciana HEALTH 350.1.13.10 ity of [place] 4.2.7.2.686 Arturo as BRAD?BLEA [id number] [address] [facility] 2022-10-27 2022-10-27 Telephone [facility], [facility] [id number] Univers 00:00:00 00:00:00 Luciana HEALTH 350.1.13.10 ity of [place] 4.2.7.2.686 Arturo as BRAD?BLEA [id number] [address] 2022-10-24 2022-10-24 Telephone [facility], [facility] [id number] Univers 00:00:00 00:00:00 Luciana HEALTH 350.1.13.10 ity of [place] 4.2.7.2.686 Arturo as BRAD?BLEA [phone] [address] [facility] 2022-10-02 2022-10-02 Telephone [facility], [facility] [id number] Univers 00:00:00 00:00:00 Luciana HEALTH 350.1.13.10 ity of [place] 4.2.7.2.686 Arturo as BRAD?BLEA [id number] [address] [facility] 2022-09-12 2022-09-12 Orders Doctor JULIAN 1.2.840.114 [id number] Univers 00:00:00 00:00:00 [place] 350.1.13.10 ity of [place] [facility] 4.2.7.2.686 Arturo as [phone] [address] 2022-08-19 2022-08-19 Orders Doctor JULIAN 1.2.840.114 [id number] Univers 00:00:00 00:00:00 [place] 350.1.13.10 ity of [place] [facility] 4.2.7.2.686 Arturo as [phone] [address] 2022-08-04 2022-08-04 Outpatient R EMELINA [facility] [id number] Univers 14:00:00 14:00:00 LUCIANA itrachel [facility] 2022-07-30 2022-07-30 Telephone [facility] [id number] Univers 00:00:00 00:00:00 [facility] 350.1.13.10 [facility] 4.2.7.2.686 Arturo as BRAD?BLEA [id number] [address] [facility] 2022-07-03 2022-07-03 Telephone [facility] [id number] Univers 00:00:00 00:00:00 [facility] 350.1.13.10 ity of [place] 4.2.7.2.686 Arturo as BRAD?BLEA [phone] [address] [facility] 2022-07-03 2022-07-03 Telephone [facility] [id number] Univers 00:00:00 00:00:00 [facility] 350.1.13.10 ity of [place] 4.2.7.2.686 Arturo as BRAD?BLEA [phone] [address] 2022-07-01 2022-07-01 Hand Surgeon Lab, Ang - Db [facility] 1.2.840.1 14 [id number] Univers 10:45:00 11:00:00 [facility] 350.1.13.10 ity of [place] 4.2.7.2.686 Arturo as BRAD?BLEA [phone] [address] [facility] 2022-07-01 2022-07-01 Outpatient R EMELINA [facility] [id number] Univers 09:40:00 10:38:49 [facility] 2022-07-01 2022-07-01 [facility] 1.2.840.114 [id number] Univers 09:40:00 10:38:49 Visit [facility] 350.1.13.10 ity [facility] 4.2.7.2.686 Arturo as BRAD?BLEA [phone] [address] [facility] [facility] 2022-07-01 2022-07-01 Telephone [facility] 1.2.802.205 [id number] Univers 00:00:00 00:00:00 [facility] 350.1.13.10 ity of [place] 4.2.7.2.686 Arturo as BRAD?BLEA [phone] [address] MED[address] OFF[address] [facility] 2022-06-17 2022-06-17 [facility] [id number] Univers 15:20:00 16:43:52 [place] [facility]22-[facility]-17 2022-06-17 Office [facility] 1.2.840.114 [id number] Univers 15:20:00 15:40:00 Visit [facility] 350.1.13.10 ity of [place] 4.2.7.2.686 Arturo as BRAD?BLEA [phone] [address] [facility] 2022-06-17 2022-06-17 Orders Doctor JULIAN 1.2.840.114 [id number] Univers 00:00:00 00:00:00 Only [place]assigned[place] 350.1.13.10 ity of [place] [facility] 4.2.7.2.686 Arturo as [phone] [address] 2022-04-15 2022-04-15 Orders Doctor JULIAN 1.2.840.114 [id number] Univers 00:00:00 00:00:00 Only [place]igned[place] 350.1.13.10 ity of [place] [facility] 4.2.7.2.686 Arturo as [phone] [address] 2022-03-20 2022-03-20 Outpatient [facility] [id number] Univers 13:00:00 13:00:00 KRISTI stanley [facility] 2022-02-14 2022-02-14 Outpatient [facility] [id number] Univers 10:40:00 10:40:00 KRISTI lutz o f [facility] 2022-02-05 2022-02-05 Hand Surgeon Lab, Ang - Db [facility] 1.2.840.1 14 [id number] Univers 14:15:00 14:30:00 Visit Korina Flores [facility] 350.1.13 .10 ity of [place] 4.2.7.2.686 Arturo as BRAD?BLEA [phone] Nd dical [facility] [address] MEDICAL OFFICE BUILDING 2022-02-05 2022-02-[address] [facility] [id number] Univers 14:15:00 14:15:00 KORINA rachel [facility] 2022-02-05 2022-02-05 Office [facility] 1.2.840.114 [id number] Univers 13:30:00 14:00:00 Visit [facility] 350.1.13.10 it y of [place] 4.2.7.2.686 Arturo as BRAD?BLEA [phone] [address] MED[address] OFFICE [facility] 2022-02-05 2022-02-[address] [facility] [id number] Univers 13:30:00 13:30:00 KORINA rachel [facility] 2022-02-05 2022-02-05 Telephone [facility] 1.2.840.114 [id number] Univers 00:00:00 00:00:00 [facility] 350.1.13.10 it y of [place] [facility] 4.2.7.2.686 Arturo as BRAD?BLEA [phone] [address] MED[address] OFF[address] [facility] 2022-02-05 2022-02-05 Orders Doctor JULIAN 1.2.840.114 [id number] Univers 00:00:00 00:00:00 Only [place]assigned[place] 350.1.13.10 ity of [place] [facility] 4.2.7.2.686 Arturo as [phone] [address] 2020-08-17 2020-08-17 Discharged REINA CORTEZ [id number] REMY 12:57:00 12:57:00 [place] [address] [facility] 2020-06-06 2020-06-06 Outpatient 3 VANDREGGIE [facility] OPE 120 [id number] [place] 11:08:00 11:08:00 , ZAHRA [id number] [facility] 2020-05-18 2020-05-18 Emergency VINES, [facility] QER [id number]- [place] 16:02:00 16:02:00 SUJIT [id number] Hos[facility] [place] 2020-04-17 2020-04-17 Emergency BOCANEGRA, [facility] QER [id number]- [place] 16:42:00 16:42:00 ANDRZEJ [id number] Hos[facility] [place] [facility] [place]) 2017-02-08 2017-02-12 Inpatient 1 MANI MARIEE TEL [id number] [place] 23:47:00 17:45:00 [facility] Results Test Description Test Time Test Comments Results Result Comments Source MRSA screen 2023-03-06 12:19:43 Test Item Value Reference Range Interpretation Comme nts Result (test code = 6463-4) No [facility] [id number] 12:19:43 Test Item Value Reference Range Interpretation Comments CULTURE (BEAKER) (test code No MRSA isolated = 1095) BASIC METABOLIC [id number] 08:02:00 Test Item Value Reference Range Interpretation Comments SODIUM (BEAKER) 136 meq/L 136-145 (test code = 381) POTASSIUM 4.0 meq/L 3.5-5.1 (BEAKER) (test code = 379) CHLORIDE (BEAKER) 104 meq/L 98-107 (test code = 382) CO2 (BEAKER) 26 meq/L 22-29 (test code = 355) BLOOD UREA 23 mg/dL 7-21 H NITROGEN (BEAKER) (test code = 354) CREATININE 0.78 mg/dL 0.57-1.25 (BEAKER) (test code = 358) GLUCOSE RANDOM 99 mg/dL 70-105 (BEAKER) (test code = 652) CALCIUM (BEAKER) 8.2 mg/dL 8.4-10.2 L (test code = 697) EGFR (BEAKER) 95 Interpretatio n of eGFR (test code = mL/min/1.73 values Stage De scription 1092) sq m Result G1 Gina l or high >=90 G2 Mildly decreased 60-89 G3a Mildl y to moderately 45-5 9 G3b Moderately to s everely 30-44 G4 Severl y decreased 15-29 G5 Kidney failure <15Reported eGF R is based on the CKD-EPI 2021 equation that d oes not use a race coefficientEsti mated GFR is not as accur ate as Creatinine Daniela marjan in predicting glom erular filtration rate . Estimated GFR is not appl icable for dialysis patien ts CBC W/PLT COUNT & AUTO [id number] 05:16:39 Test Item Value Reference Range Interpretation Comments WHITE BLOOD CELL COUNT (BEAKER) 17.4 K/ L 3.5-10.5 H (test code = 775) RED BLOOD CELL COUNT (BEAKER) 3.66 M/ L 4.63-6.08 L (test code = 761) HEMOGLOBIN (BEAKER) (test code = 10.2 GM/DL 13.7-17.5 L 410) HEMATOCRIT (BEAKER) (test code = 31.2 % 40.1-51.0 L 411) MEAN CORPUSCULAR VOLUME (BEAKER) 85 fL 79-92 (test code = 753) MEAN CORPUSCULAR HEMOGLOBIN 27.9 pg 25.7-32.2 (BEAKER) (test code = 751) MEAN CORPUSCULAR HEMOGLOBIN CONC 32.7 GM/DL 32.3-36.5 (BEAKER) (test code = 752) RED CELL DISTRIBUTION WIDTH 14.6 % 11.6-14.4 H (BEAKER) (test code = 412) PLATELET COUNT (BEAKER) (test 257 K/CU MM 150-450 code = 756) MEAN PLATELET VOLUME (BEAKER) 9.1 fL 9.4-12.4 L (test code = 754) NUCLEATED RED BLOOD CELLS 0 /100 WBC 0-0 (BEAKER) (test code = 413) NEUTROPHILS RELATIVE PERCENT 83 % (BEAKER) (test code = 429) LYMPHOCYTES RELATIVE PERCENT 8 % (BEAKER) (test code = 430) MONOCYTES RELATIVE PERCENT 6 % (BEAKER) (test code = 431) EOSINOPHILS RELATIVE PERCENT 2 % (BEAKER) (test code = 432) BASOPHILS RELATIVE PERCENT 0 % (BEAKER) (test code = 437) NEUTROPHILS ABSOLUTE COUNT 14.40 K/ L 1.78-5.38 H (BEAKER) (test code = 670) LYMPHOCYTES ABSOLUTE COUNT 1.44 K/ L 1.32-3.57 (BEAKER) (test code = 414) MONOCYTES ABSOLUTE COUNT (BEAKER) 1.12 K/ L 0.30-0.82 H (test code = 415) EOSINOPHILS ABSOLUTE COUNT 0.31 K/ L 0.04-0.54 (BEAKER) (test code = 416) BASOPHILS ABSOLUTE COUNT (BEAKER) 0.02 K/ L 0.01-0.08 (test code = 417) IMMATURE GRANULOCYTES-RELATIVE 0.90 % 0.00-1.00 PERCENT (BEAKER) (test code = 2801) CBC W/PLT COUNT & AUTO [id number] 05:57:49 Test Item Value Reference Range Interpretation Comments WHITE BLOOD CELL COUNT (BEAKER) 18.6 K/ L 3.5-10.5 H (test code = 775) RED BLOOD CELL COUNT (BEAKER) 3.66 M/ L 4.63-6.08 L (test code = 761) HEMOGLOBIN (BEAKER) (test code = 10.1 GM/DL 13.7-17.5 L 410) HEMATOCRIT (BEAKER) (test code = 30.2 % 40.1-51.0 L 411) MEAN CORPUSCULAR VOLUME (BEAKER) 83 fL 79-92 (test code = 753) MEAN CORPUSCULAR HEMOGLOBIN 27.6 pg 25.7-32.2 (BEAKER) (test code = 751) MEAN CORPUSCULAR HEMOGLOBIN CONC 33.4 GM/DL 32.3-36.5 (BEAKER) (test code = 752) RED CELL DISTRIBUTION WIDTH 14.6 % 11.6-14.4 H (BEAKER) (test code = 412) PLATELET COUNT (BEAKER) (test 297 K/CU MM 150-450 code = 756) MEAN PLATELET VOLUME (BEAKER) 9.3 fL 9.4-12.4 L (test code = 754) NUCLEATED RED BLOOD CELLS 0 /100 WBC 0-0 (BEAKER) (test code = 413) NEUTROPHILS RELATIVE PERCENT 84 % (BEAKER) (test code = 429) LYMPHOCYTES RELATIVE PERCENT 8 % (BEAKER) (test code = 430) MONOCYTES RELATIVE PERCENT 6 % (BEAKER) (test code = 431) EOSINOPHILS RELATIVE PERCENT 1 % (BEAKER) (test code = 432) BASOPHILS RELATIVE PERCENT 0 % (BEAKER) (test code = 437) NEUTROPHILS ABSOLUTE COUNT 15.65 K/ L 1.78-5.38 H (BEAKER) (test code = 670) LYMPHOCYTES ABSOLUTE COUNT 1.46 K/ L 1.32-3.57 (BEAKER) (test code = 414) MONOCYTES ABSOLUTE COUNT (BEAKER) 1.07 K/ L 0.30-0.82 H (test code = 415) EOSINOPHILS ABSOLUTE COUNT 0.24 K/ L 0.04-0.54 (BEAKER) (test code = 416) BASOPHILS ABSOLUTE COUNT (BEAKER) 0.02 K/ L 0.01-0.08 (test code = 417) IMMATURE GRANULOCYTES-RELATIVE 0.90 % 0.00-1.00 PERCENT (BEAKER) (test code = 2801) BASIC METABOLIC [id number] 05:31:36 Test Item Value Reference Range Interpretation Comments SODIUM (BEAKER) 134 meq/L 136-145 L (test code = 381) POTASSIUM 4.0 meq/L 3.5-5.1 (BEAKER) (test code = 379) CHLORIDE (BEAKER) 102 meq/L 98-107 (test code = 382) CO2 (BEAKER) 24 meq/L 22-29 (test code = 355) BLOOD UREA 22 mg/dL 7-21 H NITROGEN (BEAKER) (test code = 354) CREATININE 0.80 mg/dL 0.57-1.25 (BEAKER) (test code = 358) GLUCOSE RANDOM 81 mg/dL 70-105 (BEAKER) (test code = 652) CALCIUM (BEAKER) 8.4 mg/dL 8.4-10.2 (test code = 697) EGFR (BEAKER) 94 Interpretatio n of eGFR (test code = mL/min/1.73 values Stage De scription 1092) sq m Result G1 Gina l or high >=90 G2 Mildly decreased 60-89 G3a Mildl y to moderately 45-5 9 G3b Moderately to s everely 30-44 G4 Severl y decreased 15-29 G5 Kidney failure <15Reported eGF R is based on the CKD-EPI 2020 equation that d oes not use a race coefficientEsti mated GFR is not as accur ate as Creatinine Daniela marjan in predicting glom erular filtration rate . Estimated GFR is not appl icable for dialysis patien ts Equipment Manager ID - MMVANCOMYCIN LEVEL, [id number] 22:12:22 Test Item Value Reference Range Interpretation Comments VANCOMYCIN TROUGH (LINHAKER) (test 15.0 ug/mL 10.0-20.0 code = 522) Equipment Manager ID - ADMINNM BONE SCAN WHOLE [id number] 15:24:19 [facility] [place] [facility] : 1950 Sex: MPROCEDURE: BONE SCAN, WHOLE BODYCPT CODE: [id number]: Malignant neoplasm of the right upper lobe of the right lungTECHNIQUE: 21.8 mCi of Tc-99m MDP was injected intravenously. Whole bodyand selected spot images were obtained approximately 3 hours later.Comparison: Chest and abdominal CT on March 03, 2023FIND INGS:Irregular uptake within the spine, shoulders, hips, knees, and feet. Foci of moderately increased radiotracer activity including at theanterior mid right sixth rib, posteromedial right 11th rib,costochondral junction of the left sixth rib. The posterior right 11thrib focus correlates with the healing fracture visualized on recentchest imaging. There is no radiologic correlate for the bilateral sixthrib foci on recent imaging. IMPRESSION:1. Indeterminate bilateral sixth rib foci of increased radiotraceractivity may represent osseous metastases or prior trauma.2. Healing right 11th posterior ribfracture.3. Degenerative changes of the spine and peripheral joints.Electronically Signed By: Torres Spence03/03/2023 15:26 CDTWorkstation Name: [id number] ABDOMEN/PELVIS WITH IV [id number] 14:17:24 [facility] [place] : 1950 Sex: MCT of thechest, abdomen and pelvis, with contrastClinical History: Small cell lung cancer, stagingTechnique: CT of the chest, abdomen and pelvis is performed withintravenous contrast administration. This exam was performed accordingto our departmental dose optimization program which includes automatedexposure control, adjustment of the mA and/or kV according to patient'ssize and/or use of iterative reconstructive technique.Comparison Film: March 01iscussion:Exam is mildly degraded by patient's respiratory motion.Visualized thyroid gland is normal. There is a enlarged right highparatracheal lymph node that is centrally necrotic, and measures 3.2 cm,likely metastatic. Several additional paratracheal nodes are borderlineprominent; a left paratracheal node measures up to 1.2 cm in short axis.Heart is normal in size. There is a small pericardial effusion.There is masslike consolidation in anterior inferior right upper lobe,measuring approximately 8.6 x 7.5 x 7.5 cm, causing downward bulge ofthe minor fissure, likely reflecting known neoplasm. Central hypodensityin this area probably reflects a degenerated or necrotic component oftumor. There is also extensive consolidation in the remainder of theright upper lobe, presumably reflecting postobstructive pneumonia. Lungsare emphysematous. There is a small right-sided pleural effusion. Nomass or consolidation is identified in the left lung. Secretions areseen in the right mainstem bronchus.No liver mass is identified. No biliary ductal dilatation, gallbladderis partly contracted and may contain small stones or sludge.The spleen, pancreas, and adrenal glands are normal.Kidneys demonstrate no mass, hydronephrosis or radiopaque stone.No evidence of bowel obstruction, or abnormal bowel wall thickening.There is mild colonic diverticulosis.In the pelvis, bladder is unremarkable. Prostate gland is mildlyenlarged.There is mild to moderate vascular calcification. No adenopathy. Noascites.Bony structures demonstrate degenerative changes. There is a healingfr acture in the posterior right 11th rib. There is a 1 cm subcutaneousnodule in the left anterior chest wall, likely a sebaceous cyst.IMPRESSION:Impression:Masslike consolidation in the anterior inferiorright upper lobe,probably reflecting a combination of known neoplasm and postobstructiveconsolidation; it contains a hypodense area that may reflect adegenerated/necrotic part of tumor.There is extensive consolidation in the remainder of the right upperlobe, probably reflecting pneumonia.Pulmonary emph ysema. Small right-sided pleural effusion.Bilateral paratracheal lymphadenopathy, likely metastatic.No metastasis is identified within the abdomen or pelvis.Suspect small stones and sludge in the gallbladder.Mild colonic diverticulosis. Electronically Signed By: Sandra [facility]03/03/2023 14:19 CDTWorkstation Name: [id number] CHEST WITH IV [id number] 14:17:24 [facility] : 1950 Sex: MCT of thechest, abdomen and pelvis, with contrastClinical History: Small cell lung cancer, stagingTechnique: CT of the chest, abdomen and pelvis is performed withintravenous contrast administration. This exam was performed accordingto our departmental dose optimization program which includes automatedexposure control, adjustment of the mA and/or kV according to patient'ssize and/or use of iterative reconstructive technique.Comparison Film: March 01iscussion:Exam is mildly degraded by patient's respiratory motion.Visualized thyroid gland is normal. There is a enlarged right highparatracheal lymph node that is centrally necrotic, and measures 3.2 cm,likely metastatic. Several additional paratracheal nodes are borderlineprominent; a left paratracheal node measures up to 1.2 cm in short axis.Heart is normal in size. There is a small pericardial effusion.There is masslike consolidation in anterior inferior right upper lobe,measuring approximately 8.6 x 7.5 x 7.5 cm, causing downward bulge ofthe minor fissure, likely reflecting known neoplasm. Central hypodensityin this area probably reflects a degenerated or necrotic component oftumor. There is also extensive consolidation in the remainder of theright upper lobe, presumably reflecting postobstructive pneumonia. Lungsare emphysematous. There is a small right-sided pleural effusion. [place] or consolidation is identified in the left lung. Secretions areseen in the right mainstem bronchus.No liver mass is identified. No biliary ductal dilatation, gallbladderis partly contracted and may contain small stones or sludge.The spleen, pancreas, and adrenal glands are normal.Kidneys demonstrate no mass, hydronephrosis or radiopaque stone.No evidence of bowel obstruction, or abnormal bowel wall thickening.There is mild colonic diverticulosis.In the pelvis, bladder is unremarkable. Prostate gland is mildlyenlarged.There is mild to moderate vascular calcification. No adenopathy. Noascites.Bony structures demonstrate degenerative changes. There is a healingfr acture in the posterior right 11th rib. There is a 1 cm subcutaneousnodule in the left anterior chest wall, likely a sebaceous cyst.IMPRESSION:Impression:Masslike consolidation in the anterior inferiorright upper lobe,probably reflecting a combination of known neoplasm and postobstructiveconsolidation; it contains a hypodense area that may reflect adegenerated/necrotic part of tumor.There is extensive consolidation in the remainder of the right upperlobe, probably reflecting pneumonia.Pulmonary emph ysema. Small right-sided pleural effusion.Bilateral paratracheal lymphadenopathy, likely metastatic.No metastasis is identified within the abdomen or pelvis.Suspect small stones and sludge in the gallbladder.Mild colonic diverticulosis. Electronically Signed By: Sandra Goel03/03/2023 14:19 CDTWorkstation Name: [id number] BRAIN WITH & WITHOUT IV [id number] 11:17:30[facility] [place] : 1950 Sex: MMR BRAIN WITH & WITHOUT IV CONTRASTINDICATION: Small cell lung cancer, stagingTechnique: Multiplanar, multisequence MRI images of the brain wereobtained before and after demonstration of intravenous contrast.COMPARISON: NoneFINDINGS:Brain parenchyma is normal in morphology. Midline structures arenormally developed. No restricted diffusion to suggest recent ischemicinsult. No abnormal susceptibility. Small a opal of vascular enhancement in the right frontal periventricularwhite matter.Scattered T2/FLAIR hyperintense foci within the periventricular andsubcortical white matter are nonspecific, however, statisticallyrepresent chronic microvascular ischemic changes. Chronic lacunar infarcts in the bilateral thalamiNo hydrocephalus. Cavum septum pellucidum and cavum vergae.Orbits are within normal limits.No obstructive paranasal sinus disease.Additional findings: None.IMPRESSION:1. No acute infarct, intracranial hemorrhage, or mass. No intracranialmetastasis identified.2. Chronic lacunar infarcts in the bilateral thalamiElectronically Signed By: Quan Araiza03/03/2023 11:19 CDTWorkstation Name: [id number] METABOLIC PANEL 2023-03-03 06:43:02 Test Item Value Reference Range Interpretation Comments SODIUM (BEAKER) 136 meq/L 136-145 (test code = 381) POTASSIUM 4.1 meq/L 3.5-5.1 (BEAKER) (test code = 379) CHLORIDE (BEAKER) 103 meq/L 98-107 (test code = 382) CO2 (BEAKER) 24 meq/L 22-29 (test code = 355) BLOOD UREA 22 mg/dL 7-21 H NITROGEN (BEAKER) (test code = 354) CREATININE 0.83 mg/dL 0.57-1.25 (BEAKER) (test code = 358) GLUCOSE RANDOM 88 mg/dL 70-105 (BEAKER) (test code = 652) CALCIUM (BEAKER) 8.3 mg/dL 8.4-10.2 L (test code = 697) EGFR (BEAKER) 94 Interpretatio n of eGFR (test code = mL/min/1.73 values Stage De scription 1092) sq m Result G1 Gina l or high >=90 G2 Mildly decreased 60-89 G3a Mildl y to moderately 45-5 9 G3b Moderately to s everely 30-44 G4 Severl y decreased 15-29 G5 Kidney failure <15Reported eGF R is based on the CKD-EPI 2020 equation that d oes not use a race coefficientEsti mated GFR is not as accur ate as Creatinine Daniela marjan in predicting glom erular filtration rate . Estimated GFR is not appl icable for dialysis patien ts Equipment Manager ID - ADMINLACTIC ACID, [id number] 05:32:30 Test Item Value Reference Range Interpretation Comments LACTATE BLOOD VENOUS 1.73 mmol/L 0.50-2.00 Specime n slightly (2) (BEAKER) (test hemolyzed code = 2872) Equipment Manager ID - ADMINCBC W/PLT COUNT & AUTO [id number] 05:06:28 Test Item Value Reference Range Interpretation Comments WHITE BLOOD CELL COUNT (BEAKER) 22.6 K/ L 3.5-10.5 H (test code = 775) RED BLOOD CELL COUNT (BEAKER) 4.06 M/ L 4.63-6.08 L (test code = 761) HEMOGLOBIN (BEAKER) (test code = 11.4 GM/DL 13.7-17.5 L 410) HEMATOCRIT (BEAKER) (test code = 35.1 % 40.1-51.0 L 411) MEAN CORPUSCULAR VOLUME (BEAKER) 87 fL 79-92 (test code = 753) MEAN CORPUSCULAR HEMOGLOBIN 28.1 pg 25.7-32.2 (BEAKER) (test code = 751) MEAN CORPUSCULAR HEMOGLOBIN CONC 32.5 GM/DL 32.3-36.5 (BEAKER) (test code = 752) RED CELL DISTRIBUTION WIDTH 14.5 % 11.6-14.4 H (BEAKER) (test code = 412) PLATELET COUNT (BEAKER) (test 261 K/CU MM 150-450 code = 756) MEAN PLATELET VOLUME (BEAKER) 9.6 fL 9.4-12.4 (test code = 754) NUCLEATED RED BLOOD CELLS 0 /100 WBC 0-0 (BEAKER) (test code = 413) NEUTROPHILS RELATIVE PERCENT 87 % (BEAKER) (test code = 429) LYMPHOCYTES RELATIVE PERCENT 6 % (BEAKER) (test code = 430) MONOCYTES RELATIVE PERCENT 5 % (BEAKER) (test code = 431) EOSINOPHILS RELATIVE PERCENT 1 % (BEAKER) (test code = 432) BASOPHILS RELATIVE PERCENT 0 % (BEAKER) (test code = 437) NEUTROPHILS ABSOLUTE COUNT 19.59 K/ L 1.78-5.38 H (BEAKER) (test code = 670) LYMPHOCYTES ABSOLUTE COUNT 1.42 K/ L 1.32-3.57 (BEAKER) (test code = 414) MONOCYTES ABSOLUTE COUNT (BEAKER) 1.13 K/ L 0.30-0.82 H (test code = 415) EOSINOPHILS ABSOLUTE COUNT 0.23 K/ L 0.04-0.54 (BEAKER) (test code = 416) BASOPHILS ABSOLUTE COUNT (BEAKER) 0.03 K/ L 0.01-0.08 (test code = 417) IMMATURE GRANULOCYTES-RELATIVE 1.10 % 0.00-1.00 H PERCENT (BEAKER) (test code = 2801) LACTIC ACID, [id number] 19:17:17 Test Item Value Reference Range Interpretation Comments LACTATE BLOOD VENOUS (2) (BEAKER) 1.16 mmol/L 0.50-2.00 (test code = 2872) Equipment Manager ID - mm(CELLAVISION MANUAL DIFF)2023-03-02 04:14:47 Test Item Value Reference Range Interpretation Comments NEUTROPHILS - REL 87 % (CELLAVISION)(BEAKER) (test code = 2816) LYMPHOCYTES - REL 7 % (CELLAVISION)(BEAKER) (test code = 2817) MONOCYTES - REL 5 % (CELLAVISION)(BEAKER) (test code = 2818) BANDS - REL (CELLAVISION)(BEAKER) 1 % 0-10 (test code = 2826) NEUTROPHILS - ABS 21.75 K/ul 1.78-5.38 H (CELLAVISION)(BEAKER) (test code = 2830) LYMPHOCYTES - ABS 1.75 K/ul 1.32-3.57 (CELLAVISION)(BEAKER) (test code = 2831) MONOCYTES - ABS 1.25 K/uL 0.30-0.82 H (CELLAVISION)(BEAKER) (test code = 2832) BANDS - ABS (CELLAVISION)(BEAKER) 0.25 K/uL 0.00-0.80 (test code = 2840) TOTAL COUNTED (BEAKER) (test code 100 = 1351) WBC MORPHOLOGY (BEAKER) (test Normal code = 487) PLT MORPHOLOGY (BEAKER) (test Normal code = 486) POIKILOCYTES (BEAKER) (test code 2+ moderate = 966) OVALOCYTES (BEAKER) (test code = 1+ few 477) NEYMAR CELLS (BEAKER) (test code = 2+ moderate 474) ARTIFACT (CELLAVISION)(BEAKER) Present (test code = 3432) PLATELET CONCENTRATION Adequate (CELLAVISION)(BEAKER) (test code = 3438) Equipment Manager ID - Radha OverholtUser comments: Slide comments:CBC W/PLT COUNT & AUTO [id number] 04:14:46 Test Item Value Reference Range Interpretation Comments WHITE BLOOD CELL COUNT (BEAKER) 25.0 K/ L 3.5-10.5 H (test code = 775) RED BLOOD CELL COUNT (BEAKER) 4.08 M/ L 4.63-6.08 L (test code = 761) HEMOGLOBIN (BEAKER) (test code = 11.2 GM/DL 13.7-17.5 L 410) HEMATOCRIT (BEAKER) (test code = 35.1 % 40.1-51.0 L 411) MEAN CORPUSCULAR VOLUME (BEAKER) 86 fL 79-92 (test code = 753) MEAN CORPUSCULAR HEMOGLOBIN 27.5 pg 25.7-32.2 (BEAKER) (test code = 751) MEAN CORPUSCULAR HEMOGLOBIN CONC 31.9 GM/DL 32.3-36.5 L (BEAKER) (test code = 752) RED CELL DISTRIBUTION WIDTH 14.3 % 11.6-14.4 (BEAKER) (test code = 412) PLATELET COUNT (BEAKER) (test 247 K/CU MM 150-450 code = 756) MEAN PLATELET VOLUME (BEAKER) 9.7 fL 9.4-12.4 (test code = 754) NUCLEATED RED BLOOD CELLS 0 /100 WBC 0-0 (BEAKER) (test code = 413) LACTIC ACID, [id number] 00:32:26 Test Item Value Reference Range Interpretation Comments LACTATE BLOOD VENOUS (2) (BEAKER) 3.22 mmol/L 0.50-2.00 H (test code = 2872) Equipment Manager ID - ADMINCOMPREHENSIVE METABOLIC [id number] 23:47:47 Test Item Value Reference Range Interpretation Comments TOTAL PROTEIN 5.2 gm/dL 6.0-8.3 L (BEAKER) (test code = 770) ALBUMIN (BEAKER) 2.6 g/dL 3.5-5.0 L (test code = 1145) ALKALINE 65 U/L 40-150 PHOSPHATASE (BEAKER) (test code = 346) BILIRUBIN TOTAL 0.6 mg/dL 0.2-1.2 (BEAKER) (test code = 377) SODIUM (BEAKER) 134 meq/L 136-145 L (test code = 381) POTASSIUM (BEAKER) 4.2 meq/L 3.5-5.1 (test code = 379) CHLORIDE (BEAKER) 102 meq/L 98-107 (test code = 382) CO2 (BEAKER) (test 23 meq/L 22-29 code = 355) BLOOD UREA 26 mg/dL 7-21 H NITROGEN (BEAKER) (test code = 354) CREATININE 0.83 mg/dL 0.57-1.25 (BEAKER) (test code = 358) GLUCOSE RANDOM 168 mg/dL 70-105 H (BEAKER) (test code = 652) CALCIUM (BEAKER) 8.1 mg/dL 8.4-10.2 L (test code = 697) AST (SGOT) 22 U/L 5-34 (BEAKER) (test code = 353) ALT (SGPT) 35 U/L 6-55 (LINHAKER) (test code = 347) EGFR (STACEY) 94 Interpretatio n of eGFR (test code = 1092) mL/min/1.[address] age Description sq m Result G1 Norm al or high >=90 G2 Mildly decreased 60-89 G3a Mildl y to moderately 45-5 9 G3b Moderately to s everely 30-44 G4 Severl y decreased 15-29 G5 Kidne y failure <15Reported eGF R is based on the CKD-EPI 2020 equation that d oes not use a race coefficientEsti mated GFR is not as accur ate as Creatinine Daniela marjan in predicting glom erular filtration rate . Estimated GFR is not appl icable for dialysis patien ts Equipment Manager ID - ADMINPT/[id number] 23:36:12 Test Item Value Reference Range Interpretation Comments PROTIME (STACEY) (test code = 17.3 seconds 11.9-14.2 H 759) INR (STACEY) (test code = 370) 1.51 <=5.90 PARTIAL THROMBOPLASTIN TIME 31.8 seconds 22.5-36.0 (STACEY) (test code = 760) RECOMMENDED COUMADIN/WARFARIN INR THERAPY RANGESSTANDARD DOSE: 2.0 - 3.0 Includes: PROPHYLAXIS for venous thrombosis, systemic embolization; TREATMENT for venous thrombosis and/or pulmonary embolus.HIGH RISK: Target INR is 2.5-3.5 for patients with mechanical heart valves.CBC WITH [id number] 18:43:30 Test Item Value Reference Range Interpretation Comments WBC (test code = See_Comment [Automated message] 6690-2) The system ams AG generated this result transmitted ref erence range: 4.20 - 1 0.70 10*3/?L. The re ference range was not u sed to interpret this result as normal/abnor mal. RBC (test code = See_Comment [Automated message] 789-8) The system ams AG generated this result transmitted ref erence range: [...] RDW-SD (test code 43.7 fL 38.5-51.6 = 44059-7) RDW-CV (test code 13.0 % 12.1-15.4 = 788-0) PLT (test code = See_Comment [Automated message] 777-3) The system [employer] generated this result transmitted ref erence range: 150 - 32 8 10*3/?L. The re ference range was not u sed to interpret this result as normal/abnor mal. MPV (test code = 10.2 fL 9.8-13 08479-6) NRBC/100 WBC (test See_Comment [Automat ed message] code = 0589589306) The syste m which generated this result transmitted ref erence range: 0.0 - 10 .0 /100 WBCs. The refer ence range was not u sed to interpret this result as normal/abnor mal. NRBC x10^3 (test See_Comment [Automated message] code = 9021342808) The syste m which generated this result transmitted ref erence range: 10*3/?L. The reference range was not used to interpr et this result as normal/abnormal . GRAN MAT (NEUT) % 59.9 % (test code = 770-8) IMM GRAN % (test 0.30 % code = 0476570599) LYMPH % (test code 29.0 % = 736-9) MONO % (test code 7.5 % = 5905-5) EOS % (test code = 2.2 % 713-8) BASO % (test code 1.1 % = 706-2) GRAN MAT 4.34 10*3/uL 1.99-6.95 x10^3(ANC) (test code = 8971545949) IMM GRAN x10^3 0-0.06 (test code = 2795756031) LYMPH x10^3 (test 2.10 10*3/uL 1.09-3.23 code = 731-0) MONO x10^3 (test 0.54 10*3/uL 0.36-1.02 code = 742-7) EOS x10^3 (test 0.16 10*3/uL 0.06-0.53 code = 711-2) BASO x10^3 (test 0.08 10*3/uL 0.01-0.09 code = 704-7) [facility] WITH [id number] 18:43:30 Test Item Value Reference Range Interpretation Comments WBC (test code = See_Comment [Automated message] 9090-2) The system [employer] generated this result transmitted ref erence range: 4.20 - 1 0.70 10*3/?L. The re ference range was not u sed to interpret this result as normal/abnor mal. RBC (test code = See_Comment [Automated message] 909-8) The system [employer] generated this result transmitted ref erence range: [...] RDW-SD (test code 43.7 fL 38.5-51.6 = 32179-8) RDW-CV (test code 13.0 % 12.1-15.4 = 788-0) PLT (test code = See_Comment [Automated message] 357-3) The system [employer] generated this result transmitted ref erence range: 150 - 32 8 10*3/?L. The re ference range was not u sed to interpret this result as normal/abnor mal. MPV (test code = 10.2 fL 9.8-13 23855-1) NRBC/100 WBC (test See_Comment [Automat ed message] code = 0734621945) The syste m which generated this result transmitted ref erence range: 0.0 - 10 .0 /100 WBCs. The refer ence range was not u sed to interpret this result as normal/abnor mal. NRBC x10^3 (test See_Comment [Automated message] code = 2264638081) The syste m which generated this result transmitted ref erence range: 10*3/?L. The reference range was not used to interpr et this result as normal/abnormal . GRAN MAT (NEUT) % 59.9 % (test code = 770-8) IMM GRAN % (test 0.30 % code = 5790517276) LYMPH % (test code 29.0 % = 736-9) MONO % (test code 7.5 % = 5905-5) EOS % (test code = 2.2 % 713-8) BASO % (test code 1.1 % = 706-2) GRAN MAT 4.34 10*3/uL 1.99-6.95 x10^3(ANC) (test code = 6588539951) IMM GRAN x10^3 0-0.06 (test code = 7623584128) LYMPH x10^3 (test 2.10 10*3/uL 1.09-3.23 code = 731-0) MONO x10^3 (test 0.54 10*3/uL 0.36-1.02 code = 742-7) EOS x10^3 (test 0.16 10*3/uL 0.06-0.53 code = 711-2) BASO x10^3 (test 0.08 10*3/uL 0.01-0.09 code = 704-7) [facility] WITH [id number] 18:43:30 Test Item Value Reference Range Interpretation Comments WBC (test code = See_Comment [Automated message] 6690-2) The system whic h generated this result transmitted ref erence range: 4.20 - 1 0.70 10*3/?L. The re ference range was not u sed to interpret this result as normal/abnor mal. RBC (test code = See_Comment [Automated message] 789-8) The system [employer] generated this result transmitted ref erence range: [...] RDW-SD (test code 43.7 fL 38.5-51.6 = 72265-3) RDW-CV (test code 13.0 % 12.1-15.4 = 788-0) PLT (test code = See_Comment [Automated message] 777-3) The system am[employer] AG generated this result transmitted ref erence range: 150 - 32 8 10*3/?L. The re ference range was not u sed to interpret this result as normal/abnor mal. MPV (test code = 10.2 fL 9.8-13.0 80985-4) NRBC/100 WBC (test See_Comment [Automat ed message] code = 0512115747) The syste m which generated this result transmitted ref erence range: 0.0 - 10 .0 /100 WBCs. The refer ence range was not u sed to interpret this result as normal/abnor mal. NRBC x10^3 (test See_Comment [Automated message] code = 1512317181) The syste m which generated this result transmitted ref erence range: 10*3/?L. The reference range was not used to interpr et this result as normal/abnormal . GRAN MAT (NEUT) % 59.9 % (test code = 770-8) IMM GRAN % (test 0.30 % code = 5939296479) LYMPH % (test code 29.0 % = 736-9) MONO % (test code 7.5 % = 5905-5) EOS % (test code = 2.2 % 713-8) BASO % (test code 1.1 % = 706-2) GRAN MAT 4.34 10*3/uL 1.99-6.95 x10^3(ANC) (test code = 4192259322) IMM GRAN x10^3 0.00-0.06 (test code = 1155519655) LYMPH x10^3 (test 2.10 10*3/uL 1.09-3.23 code = 731-0) MONO x10^3 (test 0.54 10*3/uL 0.36-1.02 code = 742-7) EOS x10^3 (test 0.16 10*3/uL 0.06-0.53 code = 711-2) BASO x10^3 (test 0.08 10*3/uL 0.01-0.09 code = 704-7) [facility] WITH [id number] 18:43:30 Test Item Value Reference Range Interpretation Comments WBC (test code = See_Comment [Automated message] 6390-2) The system ams AG generated this result transmitted ref erence range: 4.20 - 1 0.70 10*3/?L. The re ference range was not u sed to interpret this result as normal/abnor mal. RBC (test code = See_Comment [Automated message] 899-8) The system ams AG generated this result transmitted ref erence range: [...] RDW-SD (test code 43.7 fL 38.5-51.6 = 97075-4) RDW-CV (test code 13.0 % 12.1-15.4 = 788-0) PLT (test code = See_Comment [Automated message] 777-3) The system whic h generated this result transmitted ref erence range: 150 - 32 8 10*3/?L. The re ference range was not u sed to interpret this result as normal/abnor mal. MPV (test code = 10.2 fL 9.8-13.0 78168-8) NRBC/100 WBC (test See_Comment [Automat ed message] code = 0887619080) The syste m which generated this result transmitted ref erence range: 0.0 - 10 .0 /100 WBCs. The refer ence range was not u sed to interpret this result as normal/abnor mal. NRBC x10^3 (test See_Comment [Automated message] code = 9042936488) The syste m which generated this result transmitted ref erence range: 10*3/?L. The reference range was not used to interpr et this result as normal/abnormal . GRAN MAT (NEUT) % 59.9 % (test code = 770-8) IMM GRAN % (test 0.30 % code = 2050066167) LYMPH % (test code 29.0 % = 736-9) MONO % (test code 7.5 % = 5905-5) EOS % (test code = 2.2 % 713-8) BASO % (test code 1.1 % = 706-2) GRAN MAT 4.34 10*3/uL 1.99-6.95 x10^3(ANC) (test code = 6467710921) IMM GRAN x10^3 0.00-0.06 (test code = 6525565976) LYMPH x10^3 (test 2.10 10*3/uL 1.09-3.23 code = 731-0) MONO x10^3 (test 0.54 10*3/uL 0.36-1.02 code = 742-7) EOS x10^3 (test 0.16 10*3/uL 0.06-0.53 code = 711-2) BASO x10^3 (test 0.08 10*3/uL 0.01-0.09 code = 704-7) [facility](PROSTATE SPECIFIC ANTIGEN)2020-06-06 13:41:00 Test Item Value Reference Range Interpretation Comments PSA (test code = PSA-) 0.7 ng/mL 0-4.0 [id number] 13:34:00 Test Item Value Reference Range Interpretation [...] BACTERIA (test code = NEGATIVE NONE BACTERIA) [id number] 13:14:00 Test Item Value Reference Range Interpretation [...] (test code 4.3 K/UL 1.2-7.2 = NEUT) [id number] 13:11:00 Test Item Value Reference Range Interpretation [...] glucose = GLUCOSE) normal <100 MG/ DL- [employer] recommendation* * CALCIUM (test [...] mL/min/1.73m2 mL/min/1.73m2 is considered norm al. LIPID [id number] 13:11:00 Test Item Value Reference Range Interpretation [...] US PATIENTS IS < 7 % HBA1C. [employer] DIABETES CARE 2002;25:S33-S49 [id number] 05:51:00 Test Item Value Reference Range Interpretation [...] K/UL 1.2-7.2 = NEUT) BMP, BASIC METABOLIC [id number] 05:49:00 Test Item Value Reference Range Interpretation [...] glucose = GLUCOSE) normal <100 MG/ DL- [employer] recommendation* * CALCIUM (test code 8.9 MG/DL 8.4-10.2 = CABLOOD) GFR (test code = 71 A GFR of >9 0 GFR) mL/min/1.73m2 mL/min/1.73m2 is considered norm al. URINE UREA,[id number] 16:53:00 Test Item Value Reference Range Interpretation Comments UUREA (test code = UUREA) 798 MG/DL CREATININE RANDOM [id number] 16:53:00 Test Item Value Reference Range Interpretation Comments UCREARAN (test code = UCREARAN) 165.8 MG/DL URINE SODIUM, [id number] 16:53:00 Test Item Value Reference Range Interpretation Comments ALDA (test code = 137 MMOL/L A REFERENC E RANGE HAS ALDA) NOT BEEN ESTABL ISHED FOR THIS ANALYTE IN RANDOM URINE SAMPLES. BMP, BASIC METABOLIC [id number] 12:08:00 Test Item Value Reference Range Interpretation [...] glucose = GLUCOSE) normal <100 MG/ DL- [employer] recommendation* * CALCIUM (test code 8.9 MG/DL 8.4-10.2 = CABLOOD) GFR (test code = 53 A GFR of >9 0 GFR) mL/min/1.73m2 mL/min/1.73m2 is considered norm al. [id number] 12:02:00 Test Item Value Reference Range Interpretation [...] K/UL 1.2-7.2 = NEUT) CHEST 1 VIEW [id number] 19:25:[address] [address]JUXPVYODHR IMAGING REPORTPatient Name: Francia HUYNH of Service: 64-80-6502Odu: 69 Sex: M Order #: 400 [facility] 1950 [facility] Number: [id number] Record Number: [id number] Hospital Number: [id number] Physician: Ramesh VINES Physician: MADISYN VINES 1 [...] 7:23 PMLegally authenticated by DAVID ROMEO 2020-05-18 19:23:[id number] 18:21:00 Test Item Value Reference Range Interpretation [...] code = URMUCOUS) SLIGHT /LPF NONE LIVER [id number] 17:47:00 Test Item Value Reference Range Interpretation [...] code = ALTV) 17 U/L 13-69 TROPONIN [id number] 17:30:00 Test Item Value Reference Range Interpretation Comments TROPER (test code = 0.02 NG/ML 0.0-0.08 INTE RPRETIVE TROPER) DATA A POC T ROPONIN OF </= 0.08 NG/ ML IS CONSIDERED NEGA TIVE [id number] 17:18:00 Test Item Value Reference Range Interpretation [...] 4.2 K/UL 1.2-7.2 = NEUT) ISTAT CHEM [id number] 17:10:00 Test Item Value Reference Range Interpretation [...] G/DL 12.0-18.0 H Notifi ed Nurse/MD of [facility]) results outside of Reference Range s ISTANGAP (test code = 18 MMOL/L Notifi ed Nurse/MD of [facility]) results outside of Reference Range s ISTAT CHEM [id number] 20:55:00 Test Item Value Reference Range Interpretation [...] 17.3 G/DL 12.0-18.0 Notifi ed Nurse/MD of [facility]) results outside of Reference Range s ISTANGAP (test code = 16 MMOL/L Notifi ed Nurse/MD of [facility]) results outside of Reference Range s [id number] 20:31:00 Test Item Value Reference Range Interpretation [...] code 3.8 K/UL 1.2-7.2 = NEUT) TROPONIN [id number] 20:30:00 Test Item Value Reference Range Interpretation Comments TROPER (test code = 0.00 NG/ML 0.0-0.08 INTE RPRETIVE TROPER) DATA A POC T ROPONIN OF </= 0.08 NG/ ML IS CONSIDERED NEGA TIVE ISTAT CHEM [id number] 19:50:00 Test Item Value Reference Range Interpretation [...] of Reference Range s CT HEAD W/O [id number] 17:23:[address] [address]IJHAQQFLLM IMAGING REPORTPatient Name: MAXINE HUYNHDate of Service: 68-61-4027Ywp: 69 Sex: M Order #: 200 [facility] 1950 [facility] Number: [id number] Record Number: [id number] Hospital Number: [id number] Physician: ANDRZEJ BOCANEGRAOrdering Physician: LEV BOCANEGRA scan [...] authenticated by ALICIA HECK 2020-04-17 17:20:55ECHO COMPLETE W/[id number] 19:32:00[facility] REPORTName: MAXINE HUYNH Study Date: 02/09/2017 01:39 PMMRN: [id number] Patient Location: 4S\\S\\419\\S\\AHR: 61DOB: 1950 (M/d/yyyy)Gender: MaleAge: 66 yrsHeight: 75 in Weight: 225 lbBSA: 2.3 u6Duvtkj For Study: StrokeHistory:CVAProceduresA complete two- dimensional transthoracic [...] 02/16/2017Reading Physician: Electronically signed by:07:32 PMOrdering Physician: BURROUGHS, TERRANCEReferring Physician: PEDRO MARIEEPerformedBy: Aundrea Tilley RVSCTA HEAD 2017-02-09 16:09:[address] [address]SWBYGTQGEW IMAGING REPORTPatient Name: Francia HUYNH of Service: 60-86-2224Xhe: 66 Sex: M Order #: [id number] Room: [facility]/ A 4SDOB: 1950 X-Ray Number: [id number] Record Number: [id number] Hospital Number: [id number] Physician: PEDRO MARIEE -Ordering Physician: SANTOSH DUMONT [...] by ROBYN Stanley 2017-02-09 16:06:37CTA NECK 2017-02-09 16:09:[address] [id number] IMAGING REPORTPatient Name: Francia HUYNH of Service: 98-54-1005Ocd: 66 Sex: M Order #: 4000 Room: [facility]/ A 4SDOB: 1950 X-Ray Number: [id number] Record Number: [id number] Hospital Number: [id number] Physician: PEDRO MARIEE -Ordering Physician: SANTOSH DUMONT [...] ROBYN Stanley 2017-02-09 16:06:37MRI BRAIN W 2017-02-09 09:30:[address] [address]LNJARIZHER IMAGING REPORTPatient Name: Francia HUYNH of Service: 26-75-3531Lqm: 66 Sex: M Order #: [id number] Room: [facility] A 4SDOB: 1950 X-Ray Number: [id number] Record Number: [id number] Hospital Number: [id number] Physician: PEDRO MARIEE -Ordering Physician: LAURYN WHELAN [...] AMLegallyauthenticated by DAVID ROMEO 2017-02-09 09:27:59US CAROTID [id number] 06:44:00[place] [id number] IMAGING REPORTPatient Name: Francia HUYNH of Service: 51-37-9954Zan: 66 Sex: M Order #: 3000 Room: [facility] 4SDOB: 1950 X-Ray Number: [id number] Record Number: [id number] Hospital Number: [id number] Physician: PEDRO MARIEE -Ordering Physician: Tre WHELAN [...] by MARIANNE RAJAN 2017-02-09 06:42:20CT HEAD W/O [id number] 21:13:00[place] [id number] IMAGING REPORTPatient Name: Francia HUYNH of Service: 64-23-8025Qyf: 66 Sex: M Order #: 1000 Room: QERDOB: 1950 X-Ray Number: [id number] Record Number: [id number] Hospital Number: [id number] Physician: FABY TAOOrdering Physician: Sharon WHELAN CT [...] by MARIANNE RAJAN 2017-02-08 21:11:06CHEST 1 VIEW [id number] 21:10:00[place] [id number] IMAGING REPORTPat ient Name: MAXINE HUYNHDate of Service: 82-56-6785Ozd: 66 Sex: M Order #: 900 Room: QERDOB: 1950 X-Ray Number: [id number] Record Number: [id number] Hospital Number: [id number] Physician: FABY TAOOrdering Physician: BRIGHT WHELAN chest [...] Notes Date/Time Note Provider Source 2020-05-18 19:23:46-00:00 [facility] [place] [address] DIAGNOSTIC IMAGING REPORT Patient Name: MAXINE HUYNH Date of Service: 05-18-2020 Age: 69 Sex: M Order #: 400 Room: [facility] : 1950 X-Ray Number: [id number] Hospital Number : [id number] Admitting Physician: SUJIT VINES Ordering Physician: SUJIT [...] by DAVID ROMEO 2020-05-18 19:23:46 2020-04-17 17:20:55-00:00 [facility] [place] [address] DIAGNOSTIC IMAGING REPORT Patient Name: MAXINE HUYNH Date of Service: 04-17-2020 Age: 69 Sex: M Order #: 200 Room: [facility] : 1950 X-Ray Number: [id number] Hospital Number : [id number] Admitting Physician: ANDRZEJ BOCANEGRA Ordering Physician: ANDRZEJ [...] Gaviria, 04/17/2020 5:20 PM Legally authenticated by ALICAI HECK 2020-04 17:20:55 2017-02-12 09:49:02-00:00 PEDRO MARIEE [address] [address] Patient Name: MAXINE HUYNH Patient#: [id number] Admission Date: 02/08/2017 Discharge Date: 02/12/2017 Age/Gender: [...] consulted Case Man tiffanie, who is consulting custodial to see if the patient to go, [...] VASQUEZ 2017-02-15 06:12:35 TT: 02/12/2017 09:49:02 CRG/MODL /[id number] Electronically Authenticated by: Pedro Mariee M.D. On 02/15/2017 06:12 PM CDT Legally authenticated by JAYLENE VASQUEZ 2017-02-15 06:12:35
[2023-03-06] MEDS ORDERED: PIPERACIL/TAZO 3.375 GM VIAL IV ONE (19:28)
[2023-03-06] MEDS ORDERED: FAMOTIDINE 20 MG/2 ML VIAL IV ONE (19:28)
[2023-03-06] MEDS ORDERED: NA CHLORIDE 0.9% 500 ML ONE (19:28)
[2023-03-06] MEDS ORDERED: NA CHLORIDE 0.9% 1,000 ML ONE (19:28)
[2023-03-06] MEDS ORDERED: NA CHLORIDE 0.9% 100 ML ONE (19:28)
[2023-03-06 19:42] LABS: Protime INR 1.32
[2023-03-06 19:45] LABS: Absolute Lymphocytes (CBC) 0.9 K/uL (0.7-4.9); Hematocrit 31.2 % (39.6-49.0); Lymphocytes % 5.3 % (15.3-44.8); MCV 84.6 fL (80-100); RBC Red Blood Cell Count 3.69 M/uL (4.33-5.43)
[2023-03-06 20:18] LABS: Albumin 1.7 g/dL (3.4-5.0); Bilirubin Direct 0.2 mg/dL (0-0.2); Bilirubin Indirect, Calculated 0.2 mg/dL (0.2-0.8); Bilirubin Total 0.4 mg/dL (0.2-1.0); Magnesium 2.1 mg/dL (1.6-2.4); Potassium 3.8 mEq/L (3.5-5.1); Protein, Total 5.9 g/dL (6.4-8.2); Troponin High Sensitivity 8.8 pg/mL (<58.9)
--- NOTE | 2023-03-06 20:19 | ER ---
Nurse's Notes [facility] Name: Timoteo Gunn Age: 72 yrs Sex: Male : 1950 Arrival Date: 03/06/2023 Time: 18:26 Bed 7 Private MD: Diagnosis: Malignant neoplasm of upper lobe, right bronchus or lung-squamous;Pneumonia due to other specified infectious organisms-right upper lobe post obstructive ;Weakness;Fall from non-moving wheelchair-soft;Elevated white blood cell count Presentation: 03/06 18:28 Chief complaint: EMS states: toned out to patient home for fall. Pt reports sliding out ld1 of chair, scraping back. Denies hitting head. Coronavirus screen: Client presents with at least one sign or symptom that may indicate coronavirus-19. Ebola Screen: No symptoms or risks identified at this time. Initial Sepsis Screen: Does the patient meet any 2 criteria? No. Patient's initial sepsis screen is negative. Does the patient have a suspected source of infection? No. Patient's initial sepsis screen is negative. Risk Assessment: Do you want to hurt yourself or someone else? Patient reports no desire to harm self or others. Onset of symptoms was March 06, 2023. 18:28 Method Of Arrival: EMS: [facility] ld1 18:28 Acuity: ABIEL 3 ld1 Triage Assessment: 18:29 General: Appears in no apparent distress. comfortable, Behavior is calm, cooperative, ld1 appropriate for age. Pain: Complains of pain in back Pain does not radiate. Pain currently is 6 out of 10 on a pain scale. Quality of pain is described as tender, Pain began suddenly, Is continuous. EENT: No signs and/or symptoms were reported regarding the EENT system. Neuro: Level of Consciousness is awake, alert, obeys commands, Oriented to person, place, time, situation. Cardiovascular: Capillary refill < 3 seconds Patient's skin is warm and dry. Respiratory: Airway is patent Respiratory effort is even, unlabored. GI: Abdomen is flat, non-distended. : No signs and/or symptoms were reported regarding the genitourinary system. Derm: No signs and/or symptoms reported regarding the dermatologic system. Musculoskeletal: No signs and/or symptoms reported regarding the musculoskeletal system. Historical: - Allergies: 18:29 No Known Drug Allergies; hb - Home Meds: 19:26 Tramadol Oral every 6 hours for pain [Active]; lg3 - PMHx: 18:29 Hypercholesterolemia; Lung Cancer; Myocardial infarction; stroke; hb - PSHx: 18:29 heart stent; hb - Immunization history:: Adult Immunizations up to date. - Social history:: Smoking status: . Screenin:29 [facility] ED Fall Risk Assessment (Adult) Score/Fall Risk Level 0 - 2 = Low Risk hb Oriented to surroundings, Maintained a safe environment. Abuse screen: Denies threats or abuse. Denies injuries from another. Nutritional screening: No deficits noted. Tuberculosis screening: No symptoms or risk factors identified. Assessment: 18:32 Reassessment: See triage assessmnet. ld1 19:29 General: Appears in no apparent distress. comfortable, Behavior is calm, cooperative. lg3 Pain: Denies pain. Neuro: No deficits noted. Granda Agitation-Sedation Scale (RASS): 0 - Alert and Calm Level of Consciousness is awake, alert, obeys commands, Oriented to person, place, time, situation. Cardiovascular: No deficits noted. Denies chest pain, shortness of breath, Capillary refill < 3 seconds Clubbing of nail beds is absent JVD is absent Patient's skin is warm and dry. Respiratory: No deficits noted. Airway is patent Respiratory effort is even, unlabored, Respiratory pattern is regular, symmetrical. GI: No deficits noted. No signs and/or symptoms were reported involving the gastrointestinal system. Abdomen is flat, non-distended. : No deficits noted. No signs and/or symptoms were reported regarding the genitourinary system. EENT: No deficits noted. No signs and/or symptoms were reported regarding the EENT system. Derm: Skin is intact, is fragile, is thin, Skin is dry, Skin is normal, Skin temperature is warm. Musculoskeletal: Circulation, motion, and sensation intact. Range of motion: intact in all extremities, Reports generalized weakness. 21:01 Reassessment: Patient appears in no apparent distress at this time. No changes from lg3 previously documented assessment. Patient and/or family updated on plan of care and expected duration. Pain level reassessed. Patient is alert, oriented x 3, equal unlabored respirations, skin warm/dry/pink. Patient denies pain at this time. Vital Signs: 18:28 BP 125 / 70; Pulse 98; Resp 18; Temp 98.2(TE); Pulse Ox 94% on R/A; Weight 85.73 kg; ld1 Height 6 ft. 2 in. ; Pain 6/10; 19:29 BP 134 / 69; Pulse 98; Resp 18 S; Pulse Ox 98% on R/A; lg3 21:01 BP 137 / 58; Pulse 94; Resp 17 S; Pulse Ox 99% on R/A; lg3 18:28 Body Mass Index 24.27 (85.73 kg, 187.96 cm) ld1 18:28 Pain Scale: Adult ld1 ED Course: 18:27 Patient arrived in ED. ld1 18:29 Triage completed. ld1 18:29 Patient has correct armband on for positive identification. hb 18:29 Arm band placed on right wrist. ld1 18:45 Stoney Eli MD is Attending Physician. disha 19:26 Jagruti Fraser, RN is Primary Nurse. lg3 19:29 Client placed on continuous cardiac and pulse oximetry monitoring. NIBP monitoring lg3 applied. ice puller on. Door closed. Noise minimized. Warm blanket given. Family accompanied patient. 19:29 Inserted saline lock: 22 gauge in right forearm, using aseptic technique. Blood lg3 collected. 19:57 XRAY Chest (1 view) In Process Unspecified. EDMS 19:57 Basic Metabolic Panel Sent. sm8 19:57 LFT's Sent. sm8 19:57 Magnesium Sent. sm8 19:57 NT PRO-BNP Sent. sm8 19:57 Troponin HS Sent. sm8 20:17 CT Traumagram (Head C Spine CAP wo con) In Process Unspecified. EDMS 20:18 Dr. Eli initiated transfer to [facility], spoke with Branden Davalos. wm 21:15 Pt accepted for transfer by Dr. Aguilar per Branden Davalos. wm 21:49 Attending Physician role handed off by Stoney Eli MD sp4 21:49 Samuel Riojas MD is Attending Physician. sp4 22:22 No provider procedures requiring assistance completed. Patient transferred, IV remains lg3 in place. No redness/swelling at site. Administered Medications: 19:44 Drug: NS 0.9% IV 500 ml Route: IV; Rate: bolus; Site: right forearm; jb4 21:02 Follow up: Response: No adverse reaction; IV Status: Completed infusion; IV Intake: lg3 500ml 19:48 Drug: NS 0.9% IV 1000 ml Route: IV; Rate: 125 ml/hr; Site: right forearm; jb4 22:21 Follow up: IV Status: Infusion continued upon transfer lg3 19:58 Drug: Famotidine IVP 20 mg Route: IVP; Site: right forearm; jb4 21:02 Follow up: Response: No adverse reaction lg3 19:58 Drug: Piperacillin-Tazobactam IVPB 3.375 grams Route: IVPB; Infused Over: 60 mins; jb4 Site: right forearm; 21:02 Follow up: Response: No adverse reaction; IV Status: Completed infusion; IV Intake: lg3 100ml 21:48 Not Given (Patient Refused): morphine IVP or IV 2 mg IVP once over 4 mins jb4 21:58 Drug: Ondansetron IVP 4 mg Route: IVP; Site: right forearm; jb4 22:21 Follow up: Response: No adverse reaction lg3 21:58 Drug: fentaNYL (PF) IVP 50 mcg Route: IVP; Site: right forearm; jb4 22:21 Follow up: Response: No adverse reaction; Marked relief of symptoms lg3 Medication: 18:29 VIS not applicable for this client. hb Intake: 21:02 IV: 100ml; Total: 100ml. lg3 21:02 IV: 500ml; Total: 600ml. lg3 Outcome: 20:18 ER care complete, transfer ordered by . disha 22:22 Transferred by ground EMS to [facility], Transfer form completed. lg3 22:22 Condition: stable 22:22 Instructed on the need for transfer, Demonstrated understanding of instructions. 22:26 Patient left the ED. lg3 Signatures: Dispatcher [employer] EDStoney Miller MD MD cha Baxter, Heather, RN RN hb Bryson, James, RN RN jb4 Jagruti Fraser RN RN lg3 Salma Serrano RN RN ld1 Cassandra Vernon Sergey, MD MD sp4 Brinda Simon 8
--- NOTE | 2023-03-06 20:19 | EDPHYS ---
Physician Documentation [facility] Name: Timoteo Gunn Age: 72 yrs Sex: Male : 1950 Arrival Date: 03/06/2023 Time: 18:26 Bed 7 Private MD: ED Physician Samuel Riojas HPI: 03/06 18:59 This 72 yrs old Male presents to ER via EMS with complaints of Fall Injury, disha Back Pain. 18:59 Details of fall: The patient fell from seated position, out of a chair. Onset: The disha symptoms/episode began/occurred just prior to arrival, today. Associated injuries: The patient sustained injury to the head, upper back injury, injury to the low back. Severity of symptoms: At their worst the symptoms were mild, moderate, in the emergency department the symptoms are unchanged. The patient has experienced similar episodes in the past. Historical: - Allergies: 18:29 No Known Drug Allergies; hb - Home Meds: 19:26 Tramadol Oral every 6 hours for pain [Active]; lg3 - PMHx: 18:29 Hypercholesterolemia; Lung Cancer; Myocardial infarction; stroke; hb - PSHx: 18:29 heart stent; hb - Immunization history:: Adult Immunizations up to date. - Social history:: Smoking status: . ROS: 19:02 Constitutional: Negative for fever, chills, and weight loss, Eyes: Negative for injury, disha pain, redness, and discharge, ENT: Negative for injury, pain, and discharge, Neck: Negative for injury, pain, and swelling, Cardiovascular: Negative for chest pain, palpitations, and edema, Abdomen/GI: Negative for abdominal pain, nausea, vomiting, diarrhea, and constipation, : Negative for injury, bleeding, discharge, and swelling, MS/Extremity: Negative for injury and deformity, Skin: Negative for injury, rash, and discoloration, Neuro: Negative for headache, weakness, numbness, tingling, and seizure, Psych: Negative for depression, anxiety, suicide ideation, homicidal ideation, and hallucinations, Allergy/Immunology: Negative for hives, rash, and allergies, Endocrine: Negative for neck swelling, polydipsia, polyuria, polyphagia, and marked weight changes, Hematologic/Lymphatic: Negative for swollen nodes, abnormal bleeding, and unusual bruising. 19:02 Respiratory: Positive for cough, "sounds productive". 19:02 Back: Positive for decreased range of motion, pain with movement. Exam: 19:02 Constitutional: This is a well developed, well nourished patient who is awake, alert, disha and in no acute distress. Head/Face: Normocephalic, atraumatic. Eyes: Pupils equal round and reactive to light, extra-ocular motions intact. Lids and lashes normal. Conjunctiva and sclera are non-icteric and not injected. Cornea within normal limits. Periorbital areas with no swelling, redness, or edema. ENT: Nares patent. No nasal discharge, no septal abnormalities noted. Tympanic membranes are normal and external auditory canals are clear. Oropharynx with no redness, swelling, or masses, exudates, or evidence of obstruction, uvula midline. Mucous membranes moist. Neck: Trachea midline, no thyromegaly or masses palpated, and no cervical lymphadenopathy. Supple, full range of motion without nuchal rigidity, or vertebral point tenderness. No Meningismus. Chest/axilla: Normal chest wall appearance and motion. Nontender with no deformity. No lesions are appreciated. Cardiovascular: Regular rate and rhythm with a normal S1 and S2. No gallops, murmurs, or rubs. Normal PMI, no JVD. No pulse deficits. Respiratory: Lungs have equal breath sounds bilaterally, clear to auscultation and percussion. No rales, rhonchi or wheezes noted. No increased work of breathing, no retractions or nasal flaring. Abdomen/GI: Soft, non-tender, with normal bowel sounds. No distension or tympany. No guarding or rebound. No evidence of tenderness throughout. Male : Normal genitalia with no discharge or lesions. Skin: Warm, dry with normal turgor. Normal color with no rashes, no lesions, and no evidence of cellulitis. MS/ Extremity: Pulses equal, no cyanosis. Neurovascular intact. Full, normal range of motion. Neuro: Awake and alert, GCS 15, oriented to person, place, time, and situation. Cranial nerves II-XII grossly intact. Motor strength 5/5 in all extremities. Sensory grossly intact. Cerebellar exam normal. Normal gait. Psych: Awake, alert, with orientation to person, place and time. Behavior, mood, and affect are within normal limits. 19:02 Back: pain, that is mild, ROM is painful, normal spinal alignment noted, CVA tenderness, is absent, vertebral tenderness, is not appreciated. 19:23 ECG was reviewed by the Attending Physician. [facility] Vital Signs: 18:28 BP 125 / 70; Pulse 98; Resp 18; Temp 98.2(TE); Pulse Ox 94% on R/A; Weight 85.73 kg; ld1 Height 6 ft. 2 in. ; Pain 6/10; 19:29 BP 134 / 69; Pulse 98; Resp 18 S; Pulse Ox 98% on R/A; lg3 21:01 BP 137 / 58; Pulse 94; Resp 17 S; Pulse Ox 99% on R/A; lg3 18:28 Body Mass Index 24.27 (85.73 kg, 187.96 cm) ld1 18:28 Pain Scale: Adult ld1 MDM: 18:45 Patient medically screened. disha 19:04 Differential Diagnosis altered mental status, sepsis, Obstructed Airway Bronchitis disha Influenza Upper Respiratory Infection. Differential diagnosis: closed head injury, contusion, multiple trauma, sprain, strain. Data reviewed: vital signs, nurses notes, EMS record, lab test result(s), EKG, radiologic studies, CT scan, plain films. Management of patient was discussed with the following: Hospitalist: DR JOHNSON. Test considered but Not performed: MRI: NO MRI CHEST. Care significantly affected by the following chronic conditions: CAD, PR,HIGH CHOLESTEROL, RIGHT UPPER LUNG MASS , POST OBSTRUCTIVE PNA. Care significantly affected by the following Social Determinants of Health: Poor access to healthcare and/or lack of insurance, Poor access to transportation. Counseling: I had a detailed discussion with the patient and/or guardian regarding: the historical points, exam findings, and any diagnostic results supporting the discharge/admit diagnosis, lab results, radiology results, the need for further work-up and treatment in the hospital. 03/06 18:59 Order name: Basic Metabolic Panel; Complete Time: 20:47 [facility] 03/06 18:59 Order name: CBC with Diff; Complete Time: 20:02 [facility] 03/06 18:59 Order name: LFT's; Complete Time: 20:47 [facility] 03/06 18:59 Order name: Magnesium; Complete Time: 20:47 [facility] 03/06 18:59 Order name: NT PRO-BNP; Complete Time: 20:47 [facility] 03/06 18:59 Order name: PT-INR; Complete Time: 20:02 [facility] 03/06 18:59 Order name: Troponin HS; Complete Time: 20:47 [facility] 03/06 18:59 Order name: Blood Culture Adult (2) 03/06 20:02 Order name: SARS RAPID 03/06 20:02 Order name: Flu 03/06 18:59 Order name: XRAY Chest (1 view); Complete Time: 20:47 [facility] 03/06 18:59 Order name: CT Traumagram (Head C Spine CAP wo con); Complete Time: 20:47 [facility] 03/06 18:59 Order name: EKG; Complete Time: 19:00 [facility] 03/06 18:59 Order name: Cardiac monitoring; Complete Time: 19:32 [facility] 03/06 18:59 Order name: EKG - Nurse/Tech; Complete Time: 19:32 [facility] 03/06 18:59 Order name: IV Saline Lock; Complete Time: 19:32 [facility] 03/06 18:59 Order name: Labs collected and sent; Complete Time: 19:32 [facility] 03/06 18:59 Order name: O2 Per Protocol; Complete Time: 19:58 [facility] 03/06 18:59 Order name: O2 Sat Monitoring; Complete Time: 19:32 [facility] EC:23 Rate is 95 beats/min. Rhythm is regular. QRS [place] is Normal. [place] interval is normal. QRS disha interval is normal. QT interval is normal. No Q waves. T waves are Normal. No ST changes noted. Clinical impression: NSR w/ Non-specific ST/T Changes and No evidence of ischemia. Interpreted by me. Reviewed by me. Administered Medications: 19:44 Drug: NS 0.9% IV 500 ml Route: IV; Rate: bolus; Site: right forearm; jb4 21:02 Follow up: Response: No adverse reaction; IV Status: Completed infusion; IV Intake: lg3 500ml 19:48 Drug: NS 0.9% IV 1000 ml Route: IV; Rate: 125 ml/hr; Site: right forearm; jb4 22:21 Follow up: IV Status: Infusion continued upon transfer lg3 19:58 Drug: Famotidine IVP 20 mg Route: IVP; Site: right forearm; jb4 21:02 Follow up: Response: No adverse reaction lg3 19:58 Drug: Piperacillin-Tazobactam IVPB 3.375 grams Route: IVPB; Infused Over: 60 mins; jb4 Site: right forearm; 21:02 Follow up: Response: No adverse reaction; IV Status: Completed infusion; IV Intake: lg3 100ml 21:48 Not Given (Patient Refused): morphine IVP or IV 2 mg IVP once over 4 mins jb4 21:58 Drug: Ondansetron IVP 4 mg Route: IVP; Site: right forearm; jb4 22:21 Follow up: Response: No adverse reaction lg3 21:58 Drug: fentaNYL (PF) IVP 50 mcg Route: IVP; Site: right forearm; jb4 22:21 Follow up: Response: No adverse reaction; Marked relief of symptoms lg3 Disposition Summary: 03/06/23 20:18 Transfer Ordered Transfer Location: [facility] Reason: Higher level of care disha Condition: Fair dihsa Problem: new disha Symptoms: have improved disha Accepting Physician: to druze tele(03/06/23 22:26) lg3 Diagnosis - Malignant neoplasm of upper lobe, right bronchus or lung - squamous disha - Pneumonia due to other specified infectious organisms - right upper lobe post disha obstructive - Weakness disha - Fall from non-moving wheelchair - soft disha - Elevated white blood cell count disha Forms: - Medication Reconciliation Form disha - SBAR form disha Signatures: Dispatcher [employer] EDStoney Miller MD MD cha Baxter, Heather, RN RN hb Bryson, James, RN RN jb4 Jagruti Fraser RN RN lg3 Samuel Riojas MD MD sp4 Corrections: (The following items were deleted from the chart) : 20:18 to druze tele disha lg3
--- NOTE | 2023-03-06 20:35 | RAD REPORT ---
EXAM DESCRIPTION: CT - Head C Spine Cap Wo Con - 03/06/2023 8:16 pm CLINICAL HISTORY: Head and neck injury with chest and abdominal pain status post fall TECHNIQUE: Computed axial tomography of head, neck, chest, abdomen and pelvis obtained. IV and oral contrast not requested. Coronal and sagittal reconstruction performed. All CT scans are performed using dose optimization technique as appropriate and may include automated exposure control or mA/KV adjustment according to patient size. COMPARISON: March 01, 2023 FINDINGS: An intracranial bleed is not seen. The ventricles are normal in caliber. An extra-axial fluid collection is not noted. . Fluid within the sinuses/mastoids is not seen. A cervical fracture is not seen. No dislocation is noted. The evaluation of mediastinum, aaron, vessels, solid organs and bowel are limited secondary to the lac k of contrast administration. A mediastinal hematoma is not noted. A pleural effusion is not seen. A lung contusion is not present. Right upper lobe necrotic mass with right upper lobe postobstructive pneumonitis again demonstrated. Mediastinal lymphadenopathy. The liver,spleen, pancreas, adrenals,kidneys and bladder do not demonstrate an acute traumatic injury IMPRESSION: No acute intracranial abnormality is seen. A cervical fracture is not visualized. If the patient continues have symptoms to suggest intracrania l/spinal cord pathology MRI be recommended No acute traumatic abnormality involving the chest/abdomen/pelvis.
--- NOTE | 2023-03-06 20:35 | RAD REPORT ---
EXAM DESCRIPTION: Geeta Single View03/06/2023 7:55 pm CLINICAL HISTORY: Chest pain COMPARISON: March 02 1023 FINDINGS: Right upper lobe mass with right upper lobe postobstructive pneumonitis Left lung appears clear of acute infiltrate The heart is normal size
[2023-03-06 21:04] LABS: SARS-CoV-2 Antigen Rapid Res Negative (Negative)
[2023-03-06] MEDS ORDERED: FENTANYL CITR 100 MCG/2 ML ONE (22:00)
[2023-03-06] MEDS ORDERED: ONDANSETRON 4 MG/2 ML VIAL ONE (22:03)
[2023-03-06 22:36] VITALS: TEMP 98.2
[2023-03-06 22:54] VITALS: BP 137/58; O2SAT 99
--- NOTE | 2023-03-08 11:18 | EKG ---
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
== END 2023-03-06 22:26 | disposition short-term general hospital (02) ==
LOC: ER 18:26
DX: J16.8 Pneumonia due to other specified infectious organisms (principal); D72.829 Elevated white blood cell count, unspecified; C34.11 Malignant neoplasm of upper lobe, right bronchus or lung; W05.0XXA Fall from non-moving wheelchair, initial encounter; E78.00 Pure hypercholesterolemia, unspecified; Z59.7 Insufficient social insurance and welfare support; Z59.82 Transportation insecurity; Z20.822 Contact with and (suspected) exposure to COVID-19; Z95.818 Presence of other cardiac implants and grafts
CPT/HCPCS: 96365; 96361; 93005; 87040 ×2; 85025; 80048; 36415; 83735; 85610; 80076; 84484; 83880; 87804 ×2; 70450; 71250; 72125; 71045; 96375; 99285; 87811; J2543; J3010; J2405; J7040; J7030

== ENCOUNTER 2023-04-16 19:32 | Emergency (ER) | payer OTHER ==
--- OUTSIDE RECORDS SUMMARY | 2023-04-16 19:38 | XMS REPORT | Continuity of Care Document ---
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 Medical 500 mg morning Branch tablet and 2 tablets in the evening. acetaminoph 2023-0 Yes [id number] 1000mg Take 2 Univers en (TYLENOL 3-03 tablets by it y of EXTRA 00:00: mouth in [place] STRENGTH) 00 the Medical 500 mg morning Branch tablet and 2 tablets in the evening. acetaminoph 2023-0 Yes [id number] 1000mg Take 2 Univers en (TYLENOL 3-03 tablets by it y of EXTRA 00:00: mouth in [place] STRENGTH) 00 the Medical 500 mg morning Branch tablet and 2 tablets in the evening. acetaminoph 2023-0 Yes [id number] 1000mg Take 2 Univers en (TYLENOL 3-03 tablets by it y of EXTRA 00:00: mouth in [place] STRENGTH) 00 the Medical 500 mg morning Branch tablet and 2 tablets in the evening. acetaminoph 3-0 Yes [id number] 1000mg Take 2 Univers en (TYLENOL 3-03 tablets by it y of EXTRA 00:00: mouth in [place] STRENGTH) 00 the Medical 500 mg morning Branch tablet and 2 tablets in the evening. acetaminoph 3-0 Yes [id number] 1000mg Take 2 Univers en (TYLENOL 3-03 tablets by it y of EXTRA 00:00: mouth in [place] STRENGTH) 00 the Medical 500 mg morning Branch tablet and 2 tablets in the evening. acetaminoph 3-0 Yes [id number] 1000mg Take 2 Univers en (TYLENOL 3-03 tablets by it y of EXTRA 00:00: mouth in [place] STRENGTH) 00 the Medical 500 mg morning Branch tablet and 2 tablets in the evening. acetaminoph 3-0 Yes [id number] 1000mg Take 2 Univers en (TYLENOL 3-03 tablets by it y of EXTRA 00:00: mouth in [place] STRENGTH) 00 the Medical 500 mg morning Branch tablet and 2 tablets in the evening. acetaminoph 3-0 Yes [id number] 1000mg Take 2 Univers en (TYLENOL 3-03 tablets by it y of EXTRA 00:00: mouth in [place] STRENGTH) 00 the Medical 500 mg morning Branch tablet and 2 tablets in the evening. meloxicam 3- No [id number] 7.5mg Take 1 Univers 7.5 mg 3-03 04-25 tablet by ity of tablet 00:00: 00:00 mouth in [place] 00 :00 the Medical morning. Branch HYDROcodone 2021-09- [facility]:00 Medic al 5-325 mg 00 :00 Center per tablet HYDROcodone 2021-09- No [facility] 00:00: 00:00 Medic al 5-325 mg 00 :00 Center per tablet ipratropium 2021-09- No [facility] ([facility] 2-16 06-26 [facility] % 00:[facility]: 00:00 Medical nebulizer 00 :00 [place] solution ipratropium 2021-09- No Q6H [facility] ([facility]) 2-16 -26 [facility] 0[facility] % 00:00: 00:00 Medical nebulizer 00 :00 [place] solution albuterol 2021-09- No Q6[facility] 2-14 -29 [facility] (VENTOLIN 00:00: 00:00 Medical HFA) 90 00 :00 [place] mcg/actuati on inhaler albuterol 2021-09- No Q6H [facility] 2-14 -29 [facility] (VENTOLIN 00:00: 00:00 Medical HFA) 90 00 :00 Center mcg/actuati on inhaler lisinopriL 2021-[address] [facility] (PRINIVIL,Z 2-13 [facility] ESTRIL) 20 00:00: Medical MG tablet 00 [place] lisinopriL 2021-[address] [facility] (PRINIVIL,Z 2-13 [facility] ESTRIL) 20 00:00: Medical MG tablet 00 [place] PARoxetine 2021-09- No DAILY [facility] (PaxiL) 10 2-13 -26 [facility] tablet 00:00: 00:00 Medical 00 :00 [place] tamsulosin 2021-09- No DAILY [facility] (FLOMAX) 2-13 -26 [facility] 0[facility]4 mg Cap 00:00: 00:00 Medica l 24 hr 00 :00 [place] capsule PARoxetine 2021-09- No DAILY [facility] (PaxiL) 10 2-13 -26 [facility] tablet 00:00: 00:00 Medical 00 :00 [place] tamsulosin 2021-09- No DAILY [facility] (FLOMAX) 2-13 -26 [facility] 0[facility]4 mg Cap 00:00: 00:00 Medica l 24 hr 00 :00 [place] capsule FLUoxetine 2021-09 Yes [id number] 10mg Take 1 U nivers 10 mg 0-27 capsule by ity of capsule 00:00: mouth in [place] 00 the Medical morning. Branch FLUoxetine 2021-09 Yes [id number] 10mg Take 1 U nivers 10 mg 0-27 capsule by ity of capsule 00:00: mouth in [place] 00 the Medical morning. Branch FLUoxetine 2021-09 Yes [id number] 10mg Take 1 U nivers 10 mg 0-27 capsule by ity of capsule 00:00: mouth in [place] 00 the Medical morning. Branch FLUoxetine 2021-09 Yes [id number] 10mg Take 1 U nivers 10 mg 0-27 capsule by ity of capsule 00:00: mouth in [place] 00 the Medical morning. Branch FLUoxetine 2021-09 Yes [id number] 10mg Take 1 U nivers 10 mg 0-27 capsule by ity of capsule 00:00: mouth in [place] 00 the Medical morning. Branch FLUoxetine 2021-09 Yes [id number] 10mg Take 1 U nivers 10 mg 0-27 capsule by ity of capsule 00:00: mouth in [place] 00 the Medical morning. Branch FLUoxetine 2021-09 Yes [id number] 10mg Take 1 U nivers 10 mg 0-27 capsule by ity of capsule 00:00: mouth in [place] 00 the Medical morning. Branch FLUoxetine 2021-09 Yes [id number] 10mg Take 1 U nivers 10 mg 0-27 capsule by ity of capsule 00:00: mouth in [place] the Medical morning. Branch FLUoxetine 2021-09 Yes [id number] 10mg Take 1 U nivers 10 mg 0-27 capsule by ity of capsule 00:00: mouth in [place] the Medical morning. Branch FLUoxetine 2021-09 Yes [id number] 10mg Take 1 U nivers 10 mg 0-27 capsule by ity of capsule 00:00: mouth in [place] the Medical morning. Branch FLUoxetine 2021-09 Yes [id number] 10mg Take 1 U nivers 10 mg 0-27 capsule by ity of capsule 00:00: mouth in [place] the Medical morning. Branch FLUoxetine 2021-09 Yes [id number] 10mg Take 1 U nivers 10 mg 0-27 capsule by ity of capsule 00:00: mouth in [place] 00 the Medical morning. Branch FLUoxetine 2021-09 Yes [id number] 10mg Take 1 U nivers 10 mg 0-27 capsule by ity of capsule 00:00: mouth in [place] 00 the Medical morning. Branch FLUoxetine 2021-09 Yes [id number] 10mg Take 1 U nivers 10 mg 0-27 capsule by ity of capsule 00:00: mouth in [place] 00 the Medical morning. Branch FLUoxetine 2021-09 Yes [id number] 10mg Take 1 U nivers 10 mg 0-27 capsule by ity of capsule 00:00: mouth in [place] 00 the Medical morning. Branch FLUoxetine 2021-09- No [id number] 10mg Take 1 Univers 10 mg 0-27 06-08 capsule by ity of capsule 00:00: 00:00 mouth in [place] 00 :00 the Medical morning. Branch FLUoxetine 2021-09- No [id number] 10mg Take 1 Univers 10 mg 0-27 [...] Take 1 Uni vers mg tablet 0-26 -03 tablet by ity of 00:00: 04:59 mouth [place] 00 :00 every 6 Medical (six) Branch hours as needed for Pain (scale 4-6) for up to 7 days. Indication s: acute pain, chronic pain traMADoL 50 2021-09- No [id number] 50mg Take 1 Uni vers mg tablet 0-26 -03 tablet by ity of 00:00: 04:59 mouth [place] 00 :00 every 6 Medical (six) Branch hours as needed for Pain (scale 4-6) for up to 7 days. Indication s: acute pain, chronic pain No known 2021-09 No No known Unive rs medications 0-25 medication it y of 10:00: s [place] 41 Medical Branch PARoxetine 2021-09 Yes [id number] 10mg Take 1 U nivers 10 mg 0-25 tablet by ity of tablet 00:00: mouth in [place] 00 the Medical morning. Branch PARoxetine 2021-09 Yes [id number] 10mg Take 1 U nivers 10 mg 0-25 tablet by ity of tablet 00:00: mouth in [place] 00 the Medical morning. Branch PARoxetine 2021-09 Yes [id number] 10mg Take 1 U nivers 10 mg 0-25 tablet by ity of tablet 00:00: mouth in [place] 00 the Medical morning. Branch PARoxetine 2021-09 Yes [id number] 10mg Take 1 U nivers 10 mg 0-25 tablet by ity of tablet 00:00: mouth in [place] 00 the Medical morning. Branch PARoxetine 2021-09 Yes [id number] 10mg Take 1 U nivers 10 mg 0-25 tablet by ity of tablet 00:00: mouth in [place] 00 the Medical morning. Branch PARoxetine 2021-09 Yes [id number] 10mg Take 1 U nivers 10 mg 0-25 tablet by ity of tablet 00:00: mouth in [place] 00 the Medical morning. Branch PARoxetine 2021-09- No [id number] 10mg Take 1 Univers 10 mg 0-25 10-27 tablet by ity of tablet 00:00: 00:00 mouth in [place] 00 :00 the Medical morning. Branch lisinopriL 2021-09 Yes [id number] 20mg Take 1 U nivers 20 mg 0-11 tablet by ity of tablet 00:00: mouth in [place] 00 the Medical morning. Branch lisinopriL 2021-09 Yes [id number] 20mg Take 1 U nivers 20 mg 0-11 tablet by ity of tablet 00:00: mouth in [place] 00 the Medical morning. Branch lisinopriL 2021-09- No [id number] 20mg Take 1 Univers 20 mg 0-11 10-25 tablet by ity of tablet 00:00: 00:00 mouth in [place] 00 :00 the Medical morning. Branch lisinopriL 2021-09- No [id number] 20mg Take 1 Univers 20 mg 0-11 10-25 tablet by ity of tablet 00:00: 00:00 mouth in [place] 00 :00 the Medical morning. Branch lisinopriL 2021-09- No [id number] 20mg Take 1 Univers 20 mg 0-11 10-25 tablet by ity of tablet 00:00: 00:00 mouth in [place] 00 :00 the Medical morning. Branch lisinopriL 2021-09- No [id number] 20mg Take 1 Univers 20 mg 0-11 10-25 tablet by ity of tablet 00:00: 00:00 mouth in [place] 00 :00 the Medical morning. Branch traMADoL 50 2021-09- No [id number] 50mg Take 1 Uni vers mg tablet 0-11 10-19 tablet by ity of 00:00: 04:59 mouth [place] 00 :00 every 6 Medical (six) Branch hours as needed for Pain (scale 4-6) for up to 7 days. Indication s: acute pain traMADoL 50 2021-09- No [id number] 50mg Take 1 Uni vers mg tablet 011 10-19 tablet by ity of 00:00: 04:59 [...] 15 :00 Medical Branch tamsulosin 2021-0 Yes [id number] .4mg Take 1 Univers 0.4 mg 24 02-05 capsule by ity of hr capsule 00:00: mouth [place] 00 daily. Medical Branch tamsulosin 2021-0 Yes [id number] .4mg Take 1 Univers 0.4 mg 24 02-05 capsule by ity of hr capsule 00:00: mouth [place] 00 daily. Medical Branch tamsulosin 2021-0 Yes [id number] .4mg Take 1 Univers 0.4 mg 24 02-05 capsule by ity of hr capsule 00:00: mouth [place] 00 daily. Medical Branch lisinopriL 2021-0 Yes [id number] 40mg Take 1 U nivers 40 mg 6- tablet by ity of tablet 00:00: mouth [place] 00 daily. Medical Branch tamsulosin 2021-0 Yes [id number] .4mg Take 1 Univers 0.4 mg 24 02-05 01 capsule by ity of hr capsule 00:00: mouth [place] 00 daily. Medical Branch lisinopriL 2021-0 Yes [id number] 40mg Take 1 U nivers 40 mg 6-01 tablet by ity of tablet 00:00: mouth [place] 00 daily. Medical Branch tamsulosin 2021-0 Yes [id number] .4mg Take 1 Univers 0.4 mg 24 -09 07 capsule by ity of hr capsule 00:00: mouth [place] 00 daily. Medical Branch lisinopriL 2021-0 Yes [id number] 40mg Take 1 U nivers 40 mg 6-01 tablet by ity of tablet 00:00: mouth [place] 00 daily. Medical Branch tamsulosin 2021-0 Yes [id number] .4mg Take 1 Univers 0.4 mg 24 6-09 07 capsule by ity of hr capsule 00:00: mouth [place] 00 daily. Medical Branch lisinopriL 2021-0 Yes [id number] 40mg Take 1 U nivers 40 mg 6-01 tablet by ity of tablet 00:00: mouth [place] 00 daily. Medical Branch tamsulosin 2021-0 Yes [id number] .4mg Take 1 Univers 0.4 mg 24 6-09 07 capsule by ity of hr capsule 00:00: mouth [place] 00 daily. Medical Branch lisinopriL 2021-0 Yes [id number] 40mg Take 1 U nivers 40 mg 6-01 tablet by ity of tablet 00:00: mouth [place] 00 daily. Medical Branch tamsulosin 2021-0 Yes [id number] .4mg Take 1 Univers 0.4 mg 24 02-05 capsule by ity of hr capsule 00:00: mouth [place] 00 daily. Medical Branch lisinopriL 2021-0 Yes [id number] 40mg Take 1 U nivers 40 mg 6-01 tablet by ity of tablet 00:00: mouth [place] 00 daily. Medical Branch tamsulosin 2021-0 2021- No [id number] .4mg Take 1 Univers 0.4 mg 24 02-05 capsule by ity of hr capsule 00:00: 00:00 mouth [place] 00 :00 daily. Medical Branch tamsulosin 2021-0 2021- No [id number] .4mg Take 1 Univers 0.4 mg 24 02-05 capsule by ity of hr capsule 00:00: 00:00 mouth [place] 00 :00 daily. Medical Branch tamsulosin 2021-0 2021- No [id number] .4mg Take 1 Univers 0.4 mg 24 -07-01 capsule by ity of hr capsule 00:00: 00:00 mouth [place] 00 :00 daily. Medical Branch tamsulosin 2022021- No [id number] .4mg Take 1 Univers 0.4 mg 24 02-05 capsule by ity of hr capsule 00:00: 00:00 mouth [place] 00 :00 daily. Medical Branch lisinopriL 2021- No [id number] 40mg Take 1 Univers 40 mg - 10-11 tablet by ity of tablet 00:00: 00:00 mouth [place] 00 :00 daily. Medical Branch lisinopriL 2021- No [id number] 40mg Take 1 Univers 40 mg - 10- tablet by ity of tablet 00:00: 00:00 [...] 2023-02-12 21:34:00 165 mm[Hg] Univer sity of [facility] Diastolic blood 2023-02-12 21:34:00 93 mm[Hg] Unive rsity of [facility] Heart rate 2023-02-12 21:23:00 83 /min Universi ty of [place] [facility] Body height 2023-02-12 21:23:00 190.5 cm Universi ty [facility] Body weight 2023-02-12 21:23:00 77.792 kg Universi ty [facility] BMI 2023-02-12 21:23:00 21.44 kg/m2 [facility] Oxygen saturation in 2023-02-12 21:23:00 99 /min University Arterial blood by [facility] [place] [facility] Pulse oximetry Branch Systolic blood 2022-11-17 19:07:00 164 mm[Hg] Univer sity of [facility] Diastolic blood 2022-11-17 19:07:00 97 mm[Hg] Unive rsity of [facility] Heart rate 2022-11-17 19:04:00 82 /min Universi ty [facility] Respiratory rate 2022-11-17 19:04:00 18 /min Univ ersity of [place] [facility] Body height 2022-11-17 19:04:00 190.5 cm Universi ty of [place] [facility] Body weight 2022-11-17 19:04:00 81.647 kg Universi ty of [place] [facility] BMI 2022-11-17 19:04:00 22.50 kg/m2 Universi ty of [place] [facility] Systolic blood 2022-11-07 16:14:00 158 mm[Hg] Univer sity of pressure [place] [facility] Diastolic blood 2022-11-07 16:14:00 92 mm[Hg] Unive rsity of pressure [place] [facility] Heart rate 2022-11-07 16:13:00 89 /min Universi ty of [place] [facility] Body temperature 2022-11-07 16:13:00 36.94 Kirsten Univ ersity of [place] [facility] Respiratory rate 2022-11-07 16:13:00 18 /min Univ ersity of [place] [facility] Body height 2022-11-07 16:13:00 190.5 cm Universi ty of [place] [facility] Body weight 2022-11-07 16:13:00 82.781 kg Universi ty of [place] [facility] BMI 2022-11-07 16:13:00 22.81 kg/m2 Universi ty of [place] [facility] Oxygen saturation in 2022-11-07 16:13:00 97 /min University of Arterial blood by [place] [employer] [facility] Pulse oximetry Branch Systolic blood 2022-07-01 15:08:00 150 mm[Hg] Univer sity of pressure [place] [facility] Diastolic blood 2022-07-01 15:08:00 85 mm[Hg] Unive rsity of pressure [place] [facility] Heart rate 2022-07-01 15:00:00 78 /min Universi ty of [place] [facility] Body temperature 2022-07-01 15:00:00 36.72 Kirsten Univ ersity of [place] [facility] Body height 2022-07-01 15:00:00 190.5 cm Universi ty of [place] [facility] Body weight 2022-07-01 15:00:00 92.08 kg Universi ty of [place] [facility] BMI 2022-07-01 15:00:00 25.37 kg/m2 Universi ty of [place] [facility] Oxygen saturation in 2022-07-01 15:00:00 96 /min University of Arterial blood by [place] [employer] [facility] Pulse oximetry Branch Systolic blood 2022-06-17 21:00:00 93 mm[Hg] Univer sity of pressure [place] [facility] Diastolic blood 2022-06-17 21:00:00 54 mm[Hg] Unive rsity of pressure [place] [facility] Heart rate 2022-06-17 21:00:00 106 /min Universi ty of [place] [facility] Body temperature 2022-06-17 21:00:00 37 Kirsten Univ ersity of [place] [facility] Body height 2022-06-17 21:00:00 190.5 cm Universi ty of [place] [facility] Body weight 2022-06-17 21:00:00 91.173 kg Universi ty of [place] [facility] BMI 2022-06-17 21:00:00 25.12 kg/m2 Universi ty of [place] [facility] Oxygen saturation in 2022-06-17 21:00:00 95 /min University of Arterial blood by [facility] [place] [facility] Pulse oximetry Branch Systolic blood 2022-02-05 18:43:00 154 mm[Hg] Univer sity of pressure [place] [facility] Diastolic blood 2022-02-05 18:43:00 74 mm[Hg] Unive rsity of pressure [place] [facility] Heart rate 2022-02-05 18:42:00 93 /min Universi ty of [place] [facility] Body temperature 2022-02-05 18:42:00 36.78 Kirsten Univ ersity of [place] [facility] Body height 2022-02-05 18:42:00 190.5 cm Universi ty of [place] [facility] Body weight 2022-02-05 18:42:00 102.513 kg Universi ty of [place] [facility] BMI 2022-02-05 18:42:00 28.25 kg/m2 Universi ty [facility] [place] [facility] Oxygen saturation in 2022-02-05 18:42:00 95 /min University of Arterial blood by [place] [employer] [facility] Pulse oximetry Branch Systolic blood 2023-03-19 01:10:37 150 mm[Hg] Method ist [facility] pressure Diastolic blood 2023-03-19 01:10:37 86 mm[Hg] [facility] pressure Heart rate 2023-03-19 01:10:37 89 /min Methodis [facility] Body temperature 2023-03-19 00:50:53 36.11 Kirsten [facility] Respiratory rate 2023-03-19 00:50:53 20 /min [facility] Oxygen saturation in 2023-03-19 00:50:53 95 /min [facility] Arterial blood by Pulse oximetry Body height 2023-03-07 04:59:00 190.5 cm [facility] Body weight 2023-03-07 04:59:00 79.3 kg [facility] BMI 2023-03-07 04:59:00 21.85 kg/m2 [facility] Heart rate 2023-03-05 14:32:00 90 /min [facility] Respiratory rate 2023-03-05 14:32:00 18 /min [facility] Oxygen saturation in 2023-03-05 14:32:00 94 /min [facility] Arterial blood by Medical Ce nter Pulse oximetry Body temperature 2023-03-05 11:00:22 36.67 Kirsten [facility] Systolic blood 2023-03-05 10:59:45 142 mm[Hg] [facility] Diastolic blood 2023-03-05 10:59:45 70 mm[Hg] [facility] Body weight 2023-03-05 06:00:00 78.926 kg [facility] BMI 2023-03-05 06:00:00 22.34 kg/m2 [facility] Body height 2023-03-01 21:51:00 188 cm [facility] Procedures Procedure Date / Time Performing Clinician Source Performed INSURANCE CORRESPONDENCE 2023-03-18 05:01:00 Doctor Unassigned, [facility] [place] [facility] XR CHEST 1 VW PORTABLE 2023-03-16 12:20:00 Black Mckeon [facility] CBC WITH PLATELET AND 2023-03-16 11:23:00 Tamika [facility] DIFFERENTIAL [facility] A COMPREHENSIVE METABOLIC 2023-03-16 11:23:00 Raymundo Lundberg [facility] PANEL Raymundo Ren ESTIMATED GFR 2023-03-16 11:23:00 Raymundo Lundberg ospital Raymundo Ren CBC WITH PLATELET AND 2023-03-15 09:25:00 Tamika [facility] [place] [facility] DIFFERENTIAL Raymundo A COMPREHENSIVE METABOLIC 2023-03-15 09:24:00 Raymundo Lundberg [facility] PANEL Mohamed A ESTIMATED GFR 2023-03-15 09:24:00 Glenna Lundbergdavey [facility] ospital [facility] A XR CHEST 1 VW PORTABLE 2023-03-14 23:55:10 Black Mckeon [facility] CBC WITH PLATELET AND 2023-03-14 09:05:00 [facility] A COMPREHENSIVE METABOLIC 2023-03-14 09:05:00 Raymundo Lundberg [facility] PANEL [facility] A ESTIMATED GFR 2023-03-14 09:05:00 [place] [facility] osp[facility] Mikal BASIC METABOLIC PANEL 2023-03-13 08:59:00 [facility] ESTIMATED GFR 2023-03-13 08:59:00 [facility] AMMONIA LEVEL 2023-03-11 23:04:00 Jackeline Kevin [facility] spital HEPATIC FUNCTION PANEL 2023-03-11 23:04:[address] [facility] CT CHEST WO CONTRAST 2023-03-11 19:32:14 [facility] CBC WITH PLATELET AND 2023-03-09 09:13:00 [facility] DIFFERENTIAL BASIC METABOLIC PANEL 2023-03-09 09:13:00 [facility] ESTIMATED GFR 2023-03-09 09:13:00 [facility] POC GLUCOSE 2023-03-08 20:14:00 [facility] XR CHEST 2 VW 2023-03-08 14:16:00 [facility] CBC WITH PLATELET AND 2023-03-08 08:17:00 [facility] DIFFERENTIAL BASIC METABOLIC PANEL 2023-03-08 08:17:00 [facility] ESTIMATED GFR 2023-03-08 08:17:00 [facility] SMEAR REVIEW 2023-03-08 08:17:00 [facility] METHICILLIN-RESISTANT 2023-03-07 09:22:00 [facility] STAPHYLOCOCCUS AUREUS (MRSA), YARI CBC WITH PLATELET AND 2023-03-07 09:22:00 [facility] DIFFERENTIAL BASIC METABOLIC PANEL 2023-03-07 09:22:00 [facility] ESTIMATED GFR 2023-03-07 09:22:00 [facility] CBC W/PLT COUNT & AUTO 2023-03-05 04:41:00 [facility] BASIC METABOLIC PANEL 2023-03-05 04:41:00 [facility] CBC W/PLT COUNT & AUTO 2023-03-05 04:41:00 [facility] CBC W/PLT COUNT & AUTO 2023-03-04 04:30:00 [facility] BASIC METABOLIC PANEL 2023-03-04 04:30:00 [facility] CBC W/PLT COUNT & AUTO 2023-03-04 04:30:00 [facility] VANCOMYCIN LEVEL, TROUGH 2023-03-03 21:50:[address] [facility] NM BONE SCAN WHOLE BODY 2023-03-03 14:48:18 [facility] MRSA SCREEN 2023-03-03 13:12:[address] [facility] CT ABDOMEN/PELVIS WITH IV 2023-03-03 11:52:00 [facility] CONTRAST [place] [facility] CHEST WITH IV CONTRAST 2023-03-03 11:51:00 [facility] EXTERNAL PROVIDER RECORDS 2023-03-03 05:01:00 Doctor Unassigned, [facility] [place] [facility] CBC W/PLT COUNT & AUTO 2023-03-03 04:34:00 [facility] BASIC METABOLIC PANEL 2023-03-03 04:34:00 [facility] LACTIC ACID, VENOUS 2023-03-03 04:34:00 [facility] CBC W/PLT COUNT & AUTO 2023-03-03 04:34:00 [facility] & WITHOUT 2023-03-02 21:59:00 [facility] CONTRAST [place] LACTIC ACID, VENOUS 2023-03-02 18:53:00 [facility] BLOOD CULTURE 2023-03-02 11:41:00 [facility] LACTIC ACID, VENOUS 2023-03-01 22:50:00 [facility] COMPREHENSIVE METABOLIC 2023-03-01 22:50:00 [facility] [place] CBC W/PLT COUNT & AUTO 2023-03-01 22:50:00 [facility] PT/APTT 2023-03-01 22:50[facility] & AUTO 2023-03-01 22:50:00 [facility] (CELLAVISION MANUAL DIFF) 2023-03-01 22:50:00 Latia I [facility] EKG-SCANNED 2023-03-01 00:00:00 Provider, Juan Diego [facility] REFERRAL- 2023-02-07 05:01:00 Doctor Unaconchisigned, [facility] REQUEST/RESPONSE [place] [facility] EXTERNAL PROVIDER RECORDS 2022-10-29 06:01:00 Doctor Unassigned, [facility] [place] [facility] EXTERNAL PROVIDER RECORDS 2022-09-12 06:01:00 Doctor Unasssherri, [facility] [place] [facility] INSURANCE CORRESPONDENCE 2022-08-19 06:01:00 Doctor Xiomara, [facility] Name Medical [place] CBC WITH DIFF 2022-07-01 15:49[facility]00 [facility] 2022-07-01 15:49:00 [facility] ASSIGNMENT OF BENEFITS 2022-06-17 20:33:00 Doctor Unassigned, [facility] [place] [facility] EXTERNAL PROVIDER RECORDS 2022-04-15 05:01:00 Doctor Solano [facility] AUTHORIZATION TO RELEASE 2022-02-05 05:01:00 Doctor Xiomara, [facility] PHI TO [facility] Minor level new patient 2020-08-17 00:00:00 [facility] Health office visit Plan of Care Planned Activity Planned Date Details Comments Source Future Scheduled 2024-03-[address] [facility] Test 00:00:00 Counseling and Medical Cente r Screening (12+) [code = Tobacco Cessation Counseling and Screening (12+)] Future Scheduled 2024-03-[address] [facility] Test 00:00:00 Counseling and Medical Cente r Screening (12+) [code = Tobacco Cessation Counseling and Screening (12+)] Future Scheduled 2023-05-08 Influenza Vaccine (#1) [facility]00 [code = Influenza Medical Ce nter Vaccine (#1)] Future Scheduled 2023-04-15 Screening for [facility] Test 14:55:00 malignant neoplasm of colon (procedure) [code = 387796396] Future Scheduled 2023-04-15 Screening for [facility] Test 14:55:00 malignant neoplasm of colon (procedure) [code = 911470010] Future Scheduled 2023-04-15 Screening for [facility] Test 14:55:00 malignant neoplasm of colon (procedure) [code = 796793149] Future Scheduled 2023-04-15 COVID-19 VACCINE (#1) [facility] Test 14:55:00 [code = COVID-19 VACCINE (#1)] Future Scheduled 2023-04-15 65+ [facility]OCOCCAL [facility] 14:55:00 VACCINE (1 - PCV) [code = 65+ PNEUMOCOCCAL VACCINE (1 - PCV)] Future Scheduled 2023-04-15 Hepatitis C screening [facility] Test 14:55:00 (procedure) [code = 815768267] Future Scheduled 2023-04-15 Screening for [facility] Test 14:55:00 malignant neoplasm of colon (procedure) [code = 492609443] Future Scheduled 2023-04-15 Screening for [facility] Test 14:55:00 malignant neoplasm of colon (procedure) [code = 596667959] Future Scheduled 2023-04-15 SHINGLES VACCINES (1 Met [facility] Test 14:55:00 of 2) [code = SHINGLES VACCINES (1 of 2)] Future Scheduled 2023-04-15 INFLUENZA VACCINE [facility] Test 14:55:00 [code = INFLUENZA VACCINE] Future Scheduled 2023-02-[address] [facility] Test 00:00:00 WELLNESS (YEAR 2 or Medical Center FIRST YEAR if no IPPE) [code = MEDICARE ANNUAL WELLNESS (YEAR 2 or FIRST YEAR if no IPPE)] Future Scheduled 2023-02-[address] [...] RISK Medical C enter SCREENING] Future Scheduled 2022-09-[address] [facility] Test 00:00:00 (12+) [code = Medical Center DEPRESSION SCREENING (12+)] Future Scheduled 2022-09-07 FALLS RISK SCREENING [facility] Test 00:00:00 [code = FALLS RISK Medical C enter SCREENING] Future Scheduled 2000 SHINGLES VACCINES ([address] [facility] Test 00:00:00 of 2) [code = SHINGLES Medic al Center VACCINES (1 of 2)] Future Scheduled 2000 SHINGLES VACCINES ([address] [facility] Test 00:00:00 of 2) [code = SHINGLES Medic al Center VACCINES (1 of 2)] Future Scheduled 1969 DTAP/TDAP/TD [facility]ACCINES [facility] 00:00:00 (1 - Tdap) [code = Medical C enter DTAP/TDAP/TD VACCINES (1 - Tdap)] Future Scheduled 1969 DTAP/TDAP/TD [facility]ACCINES [facility] 00:00:00 (1 - Tdap) [code = Medical C enter DTAP/TDAP/TD VACCINES (1 - Tdap)] Future Scheduled 1968 HEPATITIS C [facility]CRE[facility]ING [facility] 00:00:00 [code = HEPATITIS C Medical Center SCREENING] Future Scheduled 1968 HEPATITIS C [facility]CRE[facility] 00:00:00 [code = HEPATITIS C Medical Center SCREENING] Future Scheduled 1956 PNEUMOCOCCAL 65+ YRS [facility] Test 00:00:00 (1 - PCV) [code = Medical Ce nter PNEUMOCOCCAL 65+ YRS (1 - PCV)] Future Scheduled 1956 PNEUMOCOCCAL 65+ YRS [facility] Test 00:00:00 (1 - PCV) [code = Medical Ce nter PNEUMOCOCCAL 65+ YRS (1 - PCV)] Future Scheduled 1951-04-15 COVID-19 VACCINE (#1) [facility] 00:00:00 [code = COVID-[address] VACCINE (#1)] Future Scheduled 1951-04-15 COVID-19 VACCINE (#1) [facility] 00:00:00 [code = COVID-[address] VACCINE (#1)] Future Scheduled [address] [facility] 00:00:00 (combo) [code = CT Medical C enter Colonography (combo)] Future Scheduled [address] [facility] 00:[facility]:00 malignant neoplasm of Medica l Center colon (procedure) [code = 027747837] Future Scheduled [address] [facility] Test 00:00:00 malignant neoplasm of Medica l Center colon (procedure) [code = 332262039] Future Scheduled [address] [facility] Test 00:00:00 malignant neoplasm of Medica l Center colon (procedure) [code = 825295605] Future Scheduled [address] [facility] Test 00:00:00 malignant neoplasm of Medica l Center colon (procedure) [code = 574606529] Future Scheduled 1950 Sigmoidoscopy [code = [facility] Sigmoidoscopy] Medical Cente r Future Scheduled 1950 Sigmoidoscopy [code = [facility] Sigmoidoscopy] Medical Cente r Future Scheduled [address] [facility] 00:00:00 (combo) [code = CT Medical C enter Colonography (combo)] Future Scheduled [address] [facility] Test 00:00:00 malignant neoplasm of Medica l Center colon (procedure) [code = 001180555] Future Scheduled [address] [facility] Test 00:00:00 malignant neoplasm of Medica l Center colon (procedure) [code = 023763255] Future Scheduled [address] [facility] Test 00:00:00 malignant neoplasm of Medica l Center colon (procedure) [code = 899343798] Future Scheduled [address] [facility] Test 00:00:00 malignant neoplasm of Medica l Center colon (procedure) [code = 727539183] Encounters Start End Encounter Admission Attending Care Care Encounter Source Date/Time Date/Time Type Type Clinicians Facility Department ID 2023-03-02 Inpatient ER CIVBINNTA [facility] [id number] [facility] 19:23:34 , COLIN 2020-05-20 Inpatient 1 MANI HANNAH TEL [id number] - Yazdanism 09:00:00 [facility] [id number] ([facility]) 2023-04-17 2023-04-17 Outpatient LUCIANA JAIMES [facility] [id number] Univers 08:00:00 08:00:00 LUCIANA TARANGO [facility] 2023-03-23 2023-03-23 [facility] [id number] Univers 00:00:00 00:00:00 [facility] 350.1.13.10 [facility] 4.2.7.2.686 Arturo as BRAD?BLEA [id number] [address] MEDICAL OFFICE BUILDING 2023-03-19 2023-03-19 Outpatient LUCIANA JAIMES [facility] [id number] Univers 11:00:00 11:00:00 LUCIANA TARANGO [facility] 2023-03-06 2023-03-18 [facility] 1.2.840.1 [id number] Methodi 23:20:00 20:30:00 Encounter Betty Flower [id number] 3.430.2.7 Hospit a .3.704801 .8 2023-03-18 2023-03-18 Orders Doctor JULIAN 1.2.840.114 [id number] Univers 00:00:00 00:00:00 Only [place]assigned[place] 350.1.13.10 [place] [facility] 4.2.7.2.686 Arturo as [phone] [facility] 009 Branch 2023-03-06 2023-03-18 Inpatient SYDNEY [facility] [id number] [place] 00:00:00 00:00:[address] 2023-03-17 2023-03-17 Telephone [place], [facility] [id number] 00:00:00 00:00:00 Yanni Smith [facility] 2023-03-16 2023-03-16 Outside System, [facility] [id number] 00:00:00 00:00:00 Orders Provider Sarah Levi In [facility] 2023-03-01 2023-03-05 Inpatient ER [facility] [id number] [facility] 20:34:00 15:38:00 HTUY Med 2023-03-01 2023-03-05 [facility] [id number] [facility] 20:34:00 15:38:00 Encounter Latia [facility] 2023-03-03 2023-03-03 Inpatient ER [facility] [id number] SLE 10:20:51 23:59:00 , COLIN 2023-03-03 2023-03-03 [facility] [id number] 09:50:00 23:59:00 Encounter Latia [facility] 2023-03-03 2023-03-03 Hospital Colin Day [facility] [id number] [facility] 09:50:00 23:59:00 Encounter Latia [facility] 2023-03-03 2023-03-03 Outpatient R PABLO SAGE [facility] [id number] Univers 10:00:00 10:00:00 PABLO SAGE [facility]y [facility] 2023-03-03 2023-03-03 Inpatient ER [facility] [id number] SLE 11:34:23 00:00:00 , [facility] 2023-03-03 2023-03-03 Inpatient ER [facility] [id number] [facility] 11:34:19 00:00:00 , [facility] 2023-03-03 2023-03-03 Orders Doctor JULIAN 1.2.840.114 [id number] Univers 00:00:00 00:00:00 Only [place]assigned[place] 350.1.13.10 [place] [facility] 4.2.7.2.686 Arturo as [phone] [address] 2023-02-26 2023-02-26 Patient [facility] 1.2.840.114 [id number] Univers 00:00:00 00:00:00 Outreach Catie [facility] 350.1.13.10 i ty of [place] 4.2.7.2.686 Arturo as BRAD?BLEA [id number] [address] MEDICAL OFFICE [facility] 2023-02-25 2023-02-25 Telephone [facility] 1.2.911.657 [id number] Univers 00:00:00 00:00:00 Luciana HEALTH 350.1.13.10 ity of [place] 4.2.7.2.686 Arturo as BRAD?BLEA [id number] [address] OFFICE [facility] 2023-02-20 2023-02-20 Telephone [facility] 1.2.313.392 [id number] Univers 00:00:00 00:00:00 Luciana HEALTH 350.1.13.10 ity of [place] 4.2.7.2.686 Arturo as BRAD?BLEA [id number] [address] OFFICE [facility] 2023-02-16 2023-02-16 Outpatient R EDOUARDRachel LUCIANA [facility] [id number] Univers 13:40:00 13:40:00 DONELL TARANGOINE [facility] 2023-02-16 2023-02-16 Telephone [facility] 1.2.542.768 [id number] Univers 00:00:00 00:00:00 [facility] 350.1.13.10 ity of [place] 4.2.7.2.686 Arturo as BRAD?BLEA [id number] [address] OFFICE [facility] 2023-02-16 2023-02-16 Telephone [facility] 1.2.780.444 [id number] Univers 00:00:00 00:00:00 [facility] 350.1.13.10 ity of [place] 4.2.7.2.686 Arturo as BRAD?BLEA [id number] [address] OFFICE [facility] 2023-02-12 2023-02-12 Outpatient R LUCIANA TARANGO [facility] [id number] Univers 16:20:00 17:21:51 EMELINA LUCIANA [facility] 2023-02-12 2023-02-12 Office [facility] 1.2.840.114 [id number] Univers 16:20:00 17:21:51 Visit [facility] 350.1.13.10 ity of [place] 4.2.7.2.686 Arturo as BRAD?BLEA [id number] [address] MEDICAL OFFICE [facility] 2023-02-07 2023-02-07 Orders Doctor JULIAN 1.2.840.114 [id number] Univers 00:00:00 00:00:00 Only [place]assigned[place] 350.1.13.10 [place] [facility] 4.2.7.2.686 Arturo as [id number] [address] 2023-01-27 2023-01-27 Outpatient R LUCIANA TARANGO [facility] [id number] Univers 11:20:00 11:20:00 EMELINA LUCIANA ity [facility] 2022-12-30 2022-12-30 Refill Becket [facility] 1.2.840.114 [id number] Univers 00:00:00 00:00:00 , [facility] 350.1.13.10 ity [place] CHRISTINA 4.2.7.2.686 Arturo as BRAD?BLEA [id number] [address] OFFICE [facility] 2022-12-23 2022-12-23 Telephone [facility] [id number] [id number] Univers 00:00:00 00:00:00 Luciana [facility] 350.1.13.10 ity lobo CHRISTINA 4.2.7.2.686 Arturo as BRAD?BLEA [id number] [address] 2022-12-02 2022-12-02 Outpatient R PABLO SAGE [facility] [id number] Univers 10:00:00 10:00:00 PABLO SAGE [facility] 2022-11-21 2022-11-21 [facility] [id number] Univers 10:20:00 10:20:00 LUCIANA nleda [facility] 2022-11-17 2022-11-17 Out[facility] [id number] Univers 14:15:00 14:46:06 SACHIN rachel [facility] 2022-11-17 2022-11-17 Office [facility] 1.2.840.114 [id number] Univers 14:15:00 14:46:06 Visit Sachin Moreira [place] 350.1.13.10 [place] 4.2.7.2.686 [place] [id number] Pa shelia [address] 2022-11-07 2022-11-07 Outpatient R MILES [facility] [id number] Univers 10:59:37 11:05:00 , SINAI ramos [facility] 2022-11-07 2022-11-07 Office [facility] 1.2.840.114 [id number] Univers 10:15:00 10:47:00 Visit , [facility] 350.1.13.10 ity of [place] 4.2.7.2.686 Arturo as BRAD?BLEA [id number] [address] MEDICAL OFFICE [facility] 2022-10-29 2022-10-29 Orders Doctor JULIAN 1.2.840.114 [id number] Univers 00:00:00 00:00:00 Only [place]assigned[place] 350.1.13.10 [place] [facility] 4.2.7.2.686 Arturo as [phone] [address] 2022-10-29 2022-10-29 Telephone [facility], [facility] 1.2.666.305 [id number] Univers 00:00:00 00:00:00 Luciana HEALTH 350.1.13.10 ity of [place] 4.2.7.2.686 Arturo as BRAD?BLEA [id number] [address] MEDICAL OFFICE [facility] 2022-10-27 2022-10-27 Telephone [facility], [facility] 1.2.653.671 [id number] Univers 00:00:00 00:00:00 Luciana HEALTH 350.1.13.10 ity of [place] 4.2.7.2.686 Arturo as BRAD?BLEA [id number] [address] OFFICE [facility] 2022-10-24 2022-10-24 Telephone Kley, IAMB 1.2.541.007 [id number] Univers 00:00:00 00:00:00 Luciana HEALTH 350.1.13.10 ity of [place] 4.2.7.2.686 Arturo as BRAD?BLEA [id number] [address] MEDICAL OFFICE [facility] 2022-10-02 2022-10-02 Telephone Kley, IAMB 1.2.059.616 [id number] Univers 00:00:00 00:00:00 Luciana HEALTH 350.1.13.10 ity of [place] 4.2.7.2.686 Arturo as BRAD?BLEA [id number] [address] MEDICAL OFFICE [facility] 2022-09-12 2022-09-12 Orders Doctor JULIAN 1.2.840.114 [id number] Univers 00:00:00 00:00:00 Only [place]assigned, [place] 350.1.13.10 [place] [facility] 4.2.7.2.686 Arturo as [phone] [address] 2022-08-19 2022-08-19 Orders Doctor JULIAN 1.2.840.114 [id number] Univers 00:00:00 00:00:00 Only [place]assigned[place] 350.1.13.10 [place] [facility] 4.2.7.2.686 Arturo as [id number] [address] 2022-08-04 2022-08-04 Out[facility] [id number] Univers 14:00:00 14:00:00 LUCIANA ity [facility] 2022-07-30 2022-07-30 Telephone [facility] 1.2.364.488 [id number] Univers 00:00:00 00:00:00 [facility] 350.1.13.10 ity of [place] 4.2.7.2.686 Arturo as BRAD?BLEA [id number] [address] OFFICE [facility] 2022-07-03 2022-07-03 Telephone [facility] 1.2.430.423 [id number] Univers 00:00:00 00:00:00 Luciana HEALTH 350.1.13.10 ity of [place] 4.2.7.2.686 Arturo as BRAD?BLEA [id number] [address] OFFICE [facility] 2022-07-03 2022-07-03 Telephone [facility] 1.2.415.793 [id number] Univers 00:00:00 00:00:00 Luciana HEALTH 350.1.13.10 ity of [place] 4.2.7.2.686 Arturo as BRAD?BLEA [id number] [address] 2022-07-01 2022-07-01 Telehealth Case Manager Lab, Ang - Db [facility] 1.2.840.1 14 [id number] Univers 10:45:00 11:00:00 Visit [facility] 350.1.13.10 [facility] 4.2.7.2.686 Arturo as BRAD?BLEA [phone] [facility] [address] [facility] OFFICE [facility] 2022-07-01 2022-07-01 Outpatient [facility] [id number] Univers 09:40:00 10:38:49 [facility] 2022-07-01 2022-07-01 Office [facility] 1.2.840.114 [id number] Univers 09:40:00 10:38:49 Visit [facility] 350.1.13.10 ity of [place] 4.2.7.2.686 Arturo as BRAD?BLEA [id number] [address] OFFICE [facility] 2022-07-01 2022-07-01 Telephone [facility] 1.2.765.079 [id number] Univers 00:00:00 00:00:00 [facility] 350.1.13.10 ity of [place] 4.2.7.2.686 Arturo as BRAD?BLEA [id number] [address] OFFICE [facility] 2022-06-27 2022-06-27 Patient Doctor JULIAN 1.2.840.114 [id number] Univers 00:00:00 00:00:00 Secure Msg [place]assigned, [place] 350.1.13.10 [place] [facility] 4.2.7.2.686 Arturo as [id number] [address] 2022-06-17 2022-06-17 Outpatient [facility] [id number] Univers 15:20:00 16:43:52 [facility] 2022-06-17 2022-06-17 Office [facility] 1.2.840.114 [id number] Univers 15:20:00 15:40:00 Visit [facility] 350.1.13.10 ity [facility] 4.2.7.2.686 Arturo as BRAD?BLEA [id number] [address] OFFICE [facility] 2022-06-17 2022-06-17 Orders Doctor JULIAN 1.2.840.114 [id number] Univers 00:00:00 00:00:00 Only [place]assigned, [place] 350.1.13.10 [place] [facility] 4.2.7.2.686 Arturo as [phone] [address] 2022-04-15 2022-04-15 Orders Doctor JULIAN 1.2.840.114 [id number] Univers 00:00:00 00:00:00 Only [place]assigned, [place] 350.1.13.10 [place] [facility] 4.2.7.2.686 Arturo as [phone] [address] 2022-03-20 2022-03-20 Outpatient [facility] [id number] Univers 13:00:00 13:00:00 KRISTI [facility] 2022-02-14 2022-02-14 Outpatient Emelyn [facility] [id number] Univers 10:40:00 10:40:00 COOKIELAKSHMI mertrachel [facility] 2022-02-05 2022-02-05 Telehealth Case Manager Lab, [facility] 1.2.840.1 14 [id number] Univers 14:15:00 14:30:00 Visit Korina Flores [facility] 350.1.13 .10 ity of [place] 4.2.7.2.686 Arturo as BRAD?BLEA [id number] [address] MEDICAL OFFICE BUILDING 2022-02-05 2022-02-05 Outpatient R SANDRA [facility] [id number] Univers 14:15:00 14:15:00 KORINA [facility] 2022-02-05 2022-02-05 Office [facility] 1.2.840.114 [id number] Univers 13:30:00 14:00:00 [facility] 350.1.13.10 it y of [place] 4.2.7.2.686 Arturo as BRAD?BLEA [id number] [address] MEDICAL OFFICE BUILDING 2022-02-05 2022-02-05 Outpatient R SANDRA [facility] [id number] Univers 13:30:00 13:30:00 KORINA y [facility] 2022-02-05 2022-02-05 Telephone Sandra [facility] 1.2.840.114 [id number] Univers 00:00:00 00:00:00 [facility] 350.1.13.10 it y of [place] 4.2.7.2.686 Arturo as BRAD?BLEA [id number] Pa dicorlando [address] MEDICAL OFFICE BUILDING 2022-02-05 2022-02-05 Orders Doctor JULIAN 1.2.840.114 [id number] 00:00:00 00:00:00 Only Unassigned, [place] 350.1.13.10 it[place] [facility] 4.2.7.2.686 Arturo as [phone] [address] 2020-08-17 2020-08-17 Discharged REINA CORTEZ REINA [id number] CHRISTEnriqueta 12:57:00 12:57:[address] 2020-06-06 2020-06-06 Outpatient 3 DULCE [facility] OPE [id number] Yazdanism 11:08:00 11:08:00 , ZAHRA [id number] Hospi ta l ([place]) 2020-05-18 2020-05-18 Emergency VINES, [facility] QER [id number]- Yazdanism 16:02:00 16:02:00 SUJIT [id number] Hospi ta l ([place]) 2020-04-17 2020-04-17 [facility] [id number]- Yazdanism 16:42:00 16:42:00 ANDRZEJ [id number] Hospi ta l ([place]) 2017-02-08 2017-02-12 Inpatient 1 MANI FERRIS TEL [id number] [facility] 23:47:00 17:45:00 RASARAN [facility] ([place]) Results Test Description Test Time Test Comments Results Result Comments Source POC glucose 2023-03-08 20:15:00 Test Item Value Reference Range Interpretation Comme nts POC glucose (test code = 115 mg/dL 65-99 H Ope rator Name: David Catalan [id number]) ID: [id number] hartable: [facility] Notified life coach Interpretation (test code = Abnormal 60909-4) Tyra WarnerBLOOD [id number] 18:00:59 Test Item Value Reference Range Interpretation Comments CULTURE (BEAKER) (test No growth in 5 days code = 1095) The specimen volume collected for this blood culture was below the optimum (10 mL per bottle or 20 mL total). Use of lower volumes may adversely affect recovery and/or detection times of some organisms.BLOOD [id number] 18:00:59 Test Item Value Reference Range Interpretation Comments CULTURE (BEAKER) (test No growth in 5 days code = 1095) The specimen volume collected for this blood culture was below the optimum (10 mL per bottle or 20 mL total). Use of lower volumes may adversely affect recovery and/or detection times of some organisms.MRSA [id number] 12:19:43 Test Item Value Reference Range Interpretation Comments Result (test code = 6463-4) No [facility] [id number] 12:19:43 Test Item Value Reference Range Interpretation Comments Result (test code = 6463-4) No [facility] [id number] 12:19:43 Test Item Value Reference Range Interpretation Comments CULTURE (BEAKER) (test code No MRSA isolated = 1095) BASIC METABOLIC [id number] 08:02:00 Test Item Value Reference Range Interpretation [...] eGFR (test code = mL/min/1.73 values Stage D escription 1092) sq m Result G1 Gina l [...] patien ts CBC W/PLT COUNT & AUTO [id number] 05:16:39 Test Item Value Reference Range Interpretation [...] = 2801) CBC W/PLT COUNT & AUTO [id number] 05:57:49 Test Item Value Reference Range Interpretation [...] (BEAKER) (test code = 2801) BASIC METABOLIC [id number] 05:31:36 Test Item Value Reference Range Interpretation [...] G3b Moderately to s everely 30-44 G4 Sever ly decreased 15-29 G5 Kidney failure <15Repo rted eGFR is based on the CKD-EPI 2020 equation t hat does not use a race coefficientEsti mated GFR is not as accur ate as Creatinine Daniela marjan in predicting glom erular filtration rate . 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 This exam was performed accordingto our departmental dose optimization program which includes automatedexposure control, adjustment of the mA and/or kV according to patient'ssize and/or use of iterative reconstructive technique.Comparison Film: March 013Discussion:Exam is mildly degraded by patient's respiratory motion.Visualized [...] Signed By: Sandra Goel03/03/2023 14:19 CDTWorkstation Name: [id number] CHEST WITH IV [id number] 14:17:24 [facility] : 1950 Sex: MCT of [...] gallbladder.Mild colonic diverticulosis. Electronically Signed By: Sandra [facility]03/03/2023 14:19 CDTWorkstation Name: [id number] BRAIN WITH & WITHOUT IV [id number] 11:17:30[facility] : 1950 Sex: MMR BRAIN [...] Signed By: Quan Araiza03/03/2023 11:19 CDTWorkstation Name: [id number] METABOLIC PANEL 2023-03-03 06:43:02 Test Item Value [...] De scription 1092) sq m Result G1 Norm al or [...] not appl icable for dialysis patien ts Wheel Installer ID - ADMINLACTIC ACID, [id number] 05:32:30 Test Item Value Reference Range Interpretation Comments LACTATE BLOOD VENOUS 1.73 mmol/L 0.50-2.00 Specime n slightly (2) (BEAKER) (test hemolyzed code = 9012) Wheel Installer ID - ADMINCBC W/PLT COUNT & AUTO [id number] 05:06:28 Test Item Value Reference Range Interpretation [...] (BEAKER) (test code = 2801) LACTIC ACID, [id number] 19:17:17 Test Item Value Reference Range Interpretation Comments LACTATE BLOOD VENOUS (2) (BEAKER) 1.16 mmol/L 0.50-2.00 (test code = 2872) Wheel Installer ID - mm(CELLAVISION MANUAL DIFF)2023-03-02 04:14:47 Test [...] CONCENTRATION Adequate (CELLAVISION)(BEAKER) (test code = 3438) Wheel Installer ID - Radha OverholtUser comments: Slide comments:CBC W/PLT COUNT & AUTO [id number] 04:14:46 Test Item Value Reference Range Interpretation [...] (BEAKER) (test code = 413) LACTIC ACID, [id number] 00:32:26 Test Item Value Reference Range Interpretation Comments LACTATE BLOOD VENOUS (2) (BEAKER) 3.22 mmol/L 0.50-2.00 H (test code = 2872) Wheel Installer ID - ADMINCOMPREHENSIVE METABOLIC [id number] 23:47:47 Test Item Value Reference Range Interpretation [...] = 353) ALT (SGPT) 35 U/L 6-55 (BEAKER) (test code = 347) EGFR (STACEY) 94 Interpretatio n of eGFR (test code = 1092) mL/min/1.[address] age Description sq m Result G1 Gina l or [...] not appl icable for dialysis patien ts Wheel Installer ID - ADMINPT/[id number] 23:36:12 Test Item Value Reference Range Interpretation Comments PROTIME (STACEY) (test code = 17.3 seconds 11.9-14.2 H 759) INR (RealScout) (test code = 370) 1.51 <=5.90 PARTIAL THROMBOPLASTIN TIME 31.8 seconds 22.5-36.0 (STACEY) (test code = 760) RECOMMENDED COUMADIN/WARFARIN INR THERAPY RANGESSTANDARD DOSE: 2.0 - 3.0 Includes: PROPHYLAXIS for venous thrombosis, systemic embolization; TREATMENT for venous thrombosis and/or pulmonary embolus.HIGH RISK: Target INR is 2.5-3.5 for patients with mechanical heart valves.CBC WITH [id number] 18:43:30 Test Item Value Reference Range Interpretation Comments WBC (test code = See_Comment [Automated message] 9690-2) The system [employer] generated this result transmitted ref erence range: 4.20 - 1 0.70 10*3/?L. The re ference range was not u sed to interpret this result as normal/abnor mal. RBC (test code = See_Comment [Automated message] 086-8) The system [employer] generated this result transmitted ref erence range: [...] RDW-SD (test code 43.7 fL 38.5-51.6 = 28189-4) RDW-CV (test code 13.0 % 12.1-15.4 = 788-0) PLT (test code = See_Comment [Automated message] 777-3) The system [employer] generated this result transmitted ref erence range: 150 - 32 8 10*3/?L. The re ference range was not u sed to interpret this result as normal/abnor mal. MPV (test code = 10.2 fL 9.8-13 57770-8) NRBC/100 WBC (test See_Comment [Automat ed message] code = 7652279817) The syste m which generated this result transmitted ref erence range: 0.0 - 10 .0 /100 WBCs. The refer ence range was not u sed to interpret this result as normal/abnor mal. NRBC x10^3 (test See_Comment [Automated message] code = 9319063446) The syste m which generated this result transmitted ref erence range: 10*3/?L. The reference range was not used to interpr et this result as normal/abnormal . GRAN MAT (NEUT) % 59.9 % (test code = 770-8) IMM GRAN % (test 0.30 % code = 0853026564) LYMPH % (test code 29.0 % = 736-9) MONO % (test code 7.5 % = 5905-5) EOS % (test code = 2.2 % 713-8) BASO % (test code 1.1 % = 706-2) GRAN MAT 4.34 10*3/uL 1.99-6.95 x10^3(ANC) (test code = 6350235535) IMM GRAN x10^3 0-0.06 (test code = 3771309335) LYMPH x10^3 (test 2.10 10*3/uL 1.09-3.23 code = 731-0) MONO x10^3 (test 0.54 10*3/uL 0.36-1.02 code = 742-7) EOS x10^3 (test 0.16 10*3/uL 0.06-0.53 code = 711-2) BASO x10^3 (test 0.08 10*3/uL 0.01-0.09 code = 704-7) [facility] WITH [id number] 18:43:30 Test Item Value Reference Range Interpretation Comments WBC (test code = See_Comment [Automated message] 8590-2) The system [employer] generated this result transmitted ref erence range: 4.20 - 1 0.70 10*3/?L. The re ference range was not u sed to interpret this result as normal/abnor mal. RBC (test code = See_Comment [Automated message] 539-8) The system [employer] generated this result transmitted ref erence range: [...] RDW-SD (test code 43.7 fL 38.5-51.6 = 12034-4) RDW-CV (test code 13.0 % 12.1-15.4 = 788-0) PLT (test code = See_Comment [Automated message] 187-3) The system [employer] generated this result transmitted ref erence range: 150 - 32 8 10*3/?L. The re ference range was not u sed to interpret this result as normal/abnor mal. MPV (test code = 10.2 fL 9.8-13 75831-3) NRBC/100 WBC (test See_Comment [Automat ed message] code = 6752047714) The syste m which generated this result transmitted ref erence range: 0.0 - 10 .0 /100 WBCs. The refer ence range was not u sed to interpret this result as normal/abnor mal. NRBC x10^3 (test See_Comment [Automated message] code = 8938948286) The syste m which generated this result transmitted ref erence range: 10*3/?L. The reference range was not used to interpr et this result as normal/abnormal . GRAN MAT (NEUT) % 59.9 % (test code = 770-8) IMM GRAN % (test 0.30 % code = 2682036929) LYMPH % (test code 29.0 % = 736-9) MONO % (test code 7.5 % = 5905-5) EOS % (test code = 2.2 % 713-8) BASO % (test code 1.1 % = 706-2) GRAN MAT 4.34 10*3/uL 1.99-6.95 x10^3(ANC) (test code = 5120178939) IMM GRAN x10^3 0-0.06 (test code = 7747299601) LYMPH x10^3 (test 2.10 10*3/uL 1.09-3.23 code = 731-0) MONO x10^3 (test 0.54 10*3/uL 0.36-1.02 code = 742-7) EOS x10^3 (test 0.16 10*3/uL 0.06-0.53 code = 711-2) BASO x10^3 (test 0.08 10*3/uL 0.01-0.09 code = 704-7) [facility] WITH [id number] 18:43:30 Test Item Value Reference Range Interpretation Comments WBC (test code = See_Comment [Automated message] 6690-2) The system [employer] generated this result transmitted ref erence range: 4.20 - 1 0.70 10*3/?L. The re ference range was not u sed to interpret this result as normal/abnor mal. RBC (test code = See_Comment [Automated message] 789-8) The system [employer] generated this result transmitted ref erence range: [...] RDW-SD (test code 43.7 fL 38.5-51.6 = 95289-0) RDW-CV (test code 13.0 % 12.1-15.4 = 788-0) PLT (test code = See_Comment [Automated message] 777-3) The system [employer] generated this result transmitted ref erence range: 150 - 32 8 10*3/?L. The re ference range was not u sed to interpret this result as normal/abnor mal. MPV (test code = 10.2 fL 9.8-13.0 79577-0) NRBC/100 WBC (test See_Comment [Automat ed message] code = 1805791310) The syste m which generated this result transmitted ref erence range: 0.0 - 10 .0 /100 WBCs. The refer ence range was not u sed to interpret this result as normal/abnor mal. NRBC x10^3 (test See_Comment [Automated message] code = 8603023554) The syste m which generated this result transmitted ref erence range: 10*3/?L. The reference range was not used to interpr et this result as normal/abnormal . GRAN MAT (NEUT) % 59.9 % (test code = 770-8) IMM GRAN % (test 0.30 % code = 6265605590) LYMPH % (test code 29.0 % = 736-9) MONO % (test code 7.5 % = 5905-5) EOS % (test code = 2.2 % 713-8) BASO % (test code 1.1 % = 706-2) GRAN MAT 4.34 10*3/uL 1.99-6.95 x10^3(ANC) (test code = 2117193198) IMM GRAN x10^3 0.00-0.06 (test code = 6293932745) LYMPH x10^3 (test 2.10 10*3/uL 1.09-3.23 code = 731-0) MONO x10^3 (test 0.54 10*3/uL 0.36-1.02 code = 742-7) EOS x10^3 (test 0.16 10*3/uL 0.06-0.53 code = 711-2) BASO x10^3 (test 0.08 10*3/uL 0.01-0.09 code = 704-7) [facility] WITH [id number] 18:43:30 Test Item Value Reference Range Interpretation Comments WBC (test code = See_Comment [Automated message] 2679-2) The system [employer] generated this result transmitted ref erence range: 4.20 - 1 0.70 10*3/?L. The re ference range was not u sed to interpret this result as normal/abnor mal. RBC (test code = See_Comment [Automated message] 441-8) The system [employer] generated this result transmitted ref erence range: [...] RDW-SD (test code 43.7 fL 38.5-51.6 = 46395-8) RDW-CV (test code 13.0 % 12.1-15.4 = 788-0) PLT (test code = See_Comment [Automated message] 777-3) The system whic h generated this result transmitted ref erence range: 150 - 32 8 10*3/?L. The re ference range was not u sed to interpret this result as normal/abnor mal. MPV (test code = 10.2 fL 9.8-13.0 87926-7) NRBC/100 WBC (test See_Comment [Automat ed message] code = 0040711447) The syste m which generated this result transmitted ref erence range: 0.0 - 10 .0 /100 WBCs. The refer ence range was not u sed to interpret this result as normal/abnor mal. NRBC x10^3 (test See_Comment [Automated message] code = 0040242765) The syste m which generated this result transmitted ref erence range: 10*3/?L. The reference range was not used to interpr et this result as normal/abnormal . GRAN MAT (NEUT) % 59.9 % (test code = 770-8) IMM GRAN % (test 0.30 % code = 4834371044) LYMPH % (test code 29.0 % = 736-9) MONO % (test code 7.5 % = 5905-5) EOS % (test code = 2.2 % 713-8) BASO % (test code 1.1 % = 706-2) GRAN MAT 4.34 10*3/uL 1.99-6.95 x10^3(ANC) (test code = 9686285931) IMM GRAN x10^3 0.00-0.06 (test code = 4605477611) LYMPH x10^3 (test 2.10 10*3/uL 1.09-3.23 code = 731-0) MONO x10^3 (test 0.54 10*3/uL 0.36-1.02 code = 742-7) EOS x10^3 (test 0.16 10*3/uL 0.06-0.53 code = 711-2) BASO x10^3 (test 0.08 10*3/uL 0.01-0.09 code = 704-7) [facility](PROSTATE SPECIFIC ANTIGEN)2020-06-06 13:41:00 Test Item Value Reference Range Interpretation Comments PSA (test code = PSA-) 0.7 ng/mL 0-4.0 [id number] 13:34:00 Test Item Value Reference Range Interpretation [...] BACTERIA (test code = NEGATIVE NONE BACTERIA) [id number] 13:14:00 Test Item Value Reference Range Interpretation [...] (test code 4.3 K/UL 1.2-7.2 = NEUT) [id number] 13:11:00 Test Item Value Reference Range Interpretation [...] glucose = GLUCOSE) normal <100 MG/ DL- [place] [employer] recommendation* * CALCIUM (test [...] mL/min/1.73m2 mL/min/1.73m2 is considered norm al. LIPID [id number] 13:11:00 Test Item Value Reference Range Interpretation [...] code = GLYCO-) THE TREATMENT OF DIABETES MELL US PATIENTS IS < 7 % HBA1C. [place]. DIABETES CARE 2002;25:S33-S49 [id number] 05:51:00 Test Item Value Reference Range Interpretation [...] K/UL 1.2-7.2 = NEUT) BMP, BASIC METABOLIC [id number] 05:49:00 Test Item Value Reference Range Interpretation [...] glucose = GLUCOSE) normal <100 MG/ DL- [place] [employer] recommendation* * CALCIUM (test code 8.9 MG/DL 8.4-10.2 = CABLOOD) GFR (test code = 71 A GFR of >9 0 GFR) mL/min/1.73m2 mL/min/1.73m2 is considered norm al. URINE UREA,[id number] 16:53:00 Test Item Value Reference Range Interpretation Comments UUREA (test code = UUREA) 798 MG/DL CREATININE RANDOM [id number] 16:53:00 Test Item Value Reference Range Interpretation Comments UCREARAN (test code = UCREARAN) 165.8 MG/DL URINE SODIUM, [id number] 16:53:00 Test Item Value Reference Range Interpretation Comments ALDA (test code = 137 MMOL/L A REFERENC E RANGE HAS ALDA) NOT BEEN ESTABL ISHED FOR THIS ANALYTE IN RANDOM URINE SAMPLES. BMP, BASIC METABOLIC [id number] 12:08:00 Test Item Value Reference Range Interpretation [...] glucose = GLUCOSE) normal <100 MG/ DL- [place] [employer] recommendation* * CALCIUM (test code 8.9 MG/DL 8.4-10.2 = CABLOOD) GFR (test code = 53 A GFR of >9 0 GFR) mL/min/1.73m2 mL/min/1.73m2 is considered norm al. [id number] 12:02:00 Test Item Value Reference Range Interpretation [...] K/UL 1.2-7.2 = NEUT) CHEST 1 VIEW [id number] 19:25:[address] [id number] IMAGING REPORTPatient Name: Francia HUYNH of Service: 39-67-4142Wyk: 69 Sex: M Order #: 400 [facility] 1950 [facility] Number: [id number] Record Number: [id number] Hospital Number: [id number] Physician: Ramesh VINES Physician: MADISYN VINES 1 [...] nipple markers may beuseful.Electronically Signed By: Henry Hernandez M.D., 05/18/2020 7:23 PMLegally authenticated by DAVID ROMEO 2020-05-18 19:23:[id number] 18:21:00 Test Item Value Reference Range Interpretation [...] code = URMUCOUS) SLIGHT /LPF NONE LIVER [id number] 17:47:00 Test Item Value Reference Range Interpretation [...] code = ALTV) 17 U/L 13-69 TROPONIN [id number] 17:30:00 Test Item Value Reference Range Interpretation Comments TROPER (test code = 0.02 NG/ML 0.0-0.08 INTE RPRETIVE TROPER) DATA A POC T ROPONIN OF </= 0.08 NG/ ML IS CONSIDERED NEGA TIVE [id number] 17:18:00 Test Item Value Reference Range Interpretation [...] 4.2 K/UL 1.2-7.2 = NEUT) ISTAT CHEM [id number] 17:10:00 Test Item Value Reference Range Interpretation [...] G/DL 12.0-18.0 H Notifi ed Nurse/MD of [facility]) results outside of Reference Range s ISTANGAP (test code = 18 MMOL/L Notifi ed Nurse/MD of [facility]) results outside of Reference Range s ISTAT CHEM [id number] 20:55:00 Test Item Value Reference Range Interpretation [...] 17.3 G/DL 12.0-18.0 Notifi ed Nurse/MD of [facility]) results outside of Reference Range s ISTANGAP (test code = 16 MMOL/L Notifi ed Nurse/MD of [facility]) results outside of Reference Range s [id number] 20:31:00 Test Item Value Reference Range Interpretation [...] code 3.8 K/UL 1.2-7.2 = NEUT) TROPONIN [id number] 20:30:00 Test Item Value Reference Range Interpretation Comments TROPER (test code = 0.00 NG/ML 0.0-0.08 INTE RPRETIVE TROPER) DATA A POC T ROPONIN OF </= 0.08 NG/ ML IS CONSIDERED NEGA TIVE ISTAT CHEM [id number] 19:50:00 Test Item Value Reference Range Interpretation [...] of Reference Range s CT HEAD W/O [id number] 17:23:[address] [id number] IMAGING REPORTPatient Name: MAXINE HUYNHDate of Service: 40-80-4871Ddi: 69 Sex: M Order #: 200 [facility] 1950 [facility]-Ray Number: [id number] Record Number: [id number] Hospital Number: [id number] Physician: ANDRZEJ BOCANEGRAOrdering Physician: LEV BOCANEGRA scan [...] changesince 08 February 2017.Electronically Signed By: Esau Vargas M.D., 04/17/2020 5:20 PMLegally authenticated by ALICIA HECK 2020-04-17 17:20:55ECHO COMPLETE W/[id number] 19:32:00[facility] FORT WORTHECHOCARDIOGRAM REPORTName: MAXINE HUYNH Study Date: 02/09/2017 01:39 PMMRN: [id number] Patient Location: 4S\\S\\419\\S\\AHR: 61DOB: 1950 (M/d/yyyy)Gender: MaleAge: 66 yrsHeight: 75 in Weight: 225 lbBSA: 2.3 c7Svycxa For Study: StrokeHistory:CVAProceduresA complete two- dimensional transthoracic [...] mean: 74.2 cm/sec RVSP(TR): 26.0 mmHgPA mean P.0mmHgPA V2 VTI: 21.4 cm RAP systole: 10.0 mmHgLeft VentricleThe left ventricle is grossly normal size. Left ventricular systolicfunction is normal. Ejection Fraction = 55-60%. The transmitral spectralDoppler flow pattern is suggestive of impaired LV relaxation. The leftventricular wall motion is normal.Right VentricleThe right ventricle is jessica ssly normal size. The right ventricular systolicfunction is [...] Physician: Electronically signed by:07:32 PMOrdering Physician: SADI BURROUGHScrossbridge behavioral healthing Physician: PEDRO FERRISPerformed By: Aundrea Tilley RVSCTA HEAD 2017-02-09 16:09:[address] [id number] IMAGING REPORTPatient Name: Francia HUYNH of Service: 66-86-3247Eqo: 66 Sex: M Order #: [id number] Room: [facility] A 4SDOB: 1950 X-Ray Number: [id number] Record Number: [id number] Hospital Number: [id number] Physician: PEDRO FERRIS -Ordering Physician: SANTOSH DUMONT carotid angiogram, CT [...] by ROBYN Stanley 2017-02-09 16:06:37CTA NECK 2017-02-09 16:09:[address] [id number] IMAGING REPORTPatient Name: Francia HUYNH of Service: 84-58-5215Zpi: 66 Sex: M Order #: 4000 Room: [facility] A 4SDOB: 1950 X-Ray Number: [id number] Record Number: [id number] Hospital Number: [id number] Physician: PEDRO FERRIS -Ordering Physician: SANTOSH DUMONT carotid angiogram, CT [...] ROBYN Stanley 2017-02-09 16:06:37MRI BRAIN W 2017-02-09 09:30:[address] [id number] IMAGING REPORTPatient Name: Francia HUYNH of Service: 70-11-3939Fgh: 66 Sex: M Order #: [id number] Room: [facility] 4SDOB: 1950 X-Ray Number: [id number] Record Number: [id number] Hospital Number: [id number] Physician: PEDRO FERRIS -Ordering Physician: LAURYN WHELAN of the brain [...] in the bilateral thalami.Electronically Signed By: Henry Hernandez M.D., 02/09/2017 9:27 AMLegallyauthenticated by DAVID ROMEO 2017-02-09 09:27:59US CAROTID [id number] 06:44:00[place] [id number] IMAGING REPORTPatient Name: Francia HUYNH of Service: 82-77-1263Ycc: 66 Sex: M Order #: 3000 Room: [facility] 4SDOB: 1950 X-Ray Number: [id number] Record Number: [id number] Hospital Number: [id number] Physician: PEDRO FERRIS -Ordering Physician: Tre WHELAN cervical carotid. duplex [...] by MARIANNE RAJAN 2017-02-09 06:42:20CT HEAD W/O [id number] 21:13:00[place] [id number] IMAGING REPORTPatient Name: Francia HUYNH of Service: 86-72-0885Kuf: 66 Sex: M Order #: 1000 Room: ERDOB: 1950 X-Ray Number: [id number] Record Number: [id number] Hospital Number: [id number] Physician: FABY TAOOrdering Physician: Sharon WHELAN CT [...] by MARIANNE RAJAN 2017-02-08 21:11:06CHEST 1 VIEW [id number] 21:10:[address] [id number] IMAGING REPORTPat ient Name: Francia HUYNH of Service: 05-07-0286Owz: 66 Sex: M Order #: 900 [facility] 1950 X-Ray Number: [id number] Record Number: [id number] Hospital Number: [id number] Physician: FABY TAOOrdering Physician: BRIGHT WHELAN chest one viewHistory:DX) AMSPT. FRIEND SERA WALKING AROUND HIS RESIDENCEAPPEARED CONFUSEDD, SO HE CALLED 911SLURRED SPEECHBPP 167/60HX) HTNPSV: FPFindings:. There is mild basilar pulmonary atelectasis. There is mildpulmonary vascular congestion. Heart size upper limits of normal. Noairspace consolidation or pleural fluid identified.Electronically Signed By: Bernardo Solorzano M.D., 02/08/2017 9:08 PMLegally authenticated by MARIANNE RAJAN 2017-02-08 21:08:48 Notes Date/Time Note Provider Source 2023-04-01 Formatting of this note might be differe nt from the original. Katharine Simmons MA [facility] 10:44:45-00:00 Closing encounter, no return calls from patient. 2023-03-30 Formatting of this note might be differe nt from the original. Marti Miranda LVN [facility] 17:30:14-00:00 LVM on 03/30/2023 to callback Marti Miranda LVN Electronically signed by Marti Miranda LVN at 0 03/30/2023 5:30 PM CDT 2023-03-25 Formatting of this note might be differe nt from the original. Selma Talley LVN [facility] 16:44:08-00:00 Attempted to contact patient . No answer. Left message to call back. Selma Talley LVN 03/25/2023 4:44 PM 2023-03-24 [facility] 09:43:52-00:00 Attempted to contact patient . No answer. Left message to call back. Selma Talley LVN 03/24/2023 9:43 AM 2023-03-23 Formatting of this note might be differe nt from the original. Tejal Vazquez [facility] 10:27:28-00:00 Pt son is calling want to di scuss pain meds says the cancer is causing him to be in severe pain and is out of meds he says he being told pcp need to prescribe meds, has appt with new oncologist next month so need a month supply of meds Electronically signed by Tejal Vazquez at 10:29 AM CDT 2020-05-18 [facility] 19:23:46-00:[address] [place] [id number] DIAGNOSTIC IMAGING REPORT Patient Name: MAXINE HUYNH Date of Service: 05-18-2020 Age: 69 Sex: M Order #: 400 Room: [facility] : 1950 X-Ray Number: [id number] Hospital Number : [id number] Admitting Physician: SUJIT VINES Ordering Physician: SUJIT [...] markers may be useful. Electronically Signed By: Henry Hernandez M.D., 05/18/2020 7:23 PM Legally authenticated by DAVID ROMEO 2020-05-18 19:23:46 2020-04-17 [facility] Ana VARGAS [facility] 17:20:55-00:[address] [place] [address] DIAGNOSTIC IMAGING REPORT Patient Name: MAXINE HUYNH Date of Service: 04-17-2020 Age: 69 Sex: M Order #: 200 Room: [facility] : 1950 X-Ray Number: [id number] Hospital Number : [id number] Admitting Physician: ANDRZEJ BOCANEGRA Ordering Physician: ANDRZEJ [...] authenticated by ALICIA HECK 2020-04 17:20:55 2017-02-12 [facility] 09[facility]:02-00:00 [place] [address] Patient Name: MAXINE HUYNH Patient#: [id number] Admission Date: 02/08/2017 Discharge Date: 02/12/2017 Age/Gender: 66/M Date of : 1950 HSSV/RM/BED: TEL/419/A Admitting Phys: Pedro Ferris MD DISCHARGE SUMMARY DATE OF ADMISSION: 02/08/2017 [...] consulted Case Rinku moreno, who is consulting alf to see if the patient to go, [...] VASQUEZ 2017-02-15 06:12:35 TT: 02/12/2017 09:49:02 JOSE/VALERIEL /[id number] Electronically Authenticated by: Pedro Ferris M.D. On 02/15/2017 06:12 PM CDT Legally authenticated by JAYLENE VASQUEZ 2017-02-15 06:12:35
[2023-04-16 20:34] LABS: Absolute Lymphocytes (CBC) 1.3 K/uL (0.7-4.9); Hematocrit 29.6 % (39.6-49.0); MCV 84.6 fL (80-100); MPV 7.3 fL (7.6-11.3); Platelets 331 thou/uL (152-406); Protime INR 1.15
[2023-04-16] MEDS ORDERED: NA CHLORIDE 0.9% 1,000 ML ONE (20:37)
--- NOTE | 2023-04-16 20:41 | RAD REPORT ---
EXAM DESCRIPTION: RADChest Single View04/16/2023 8:15 pm CLINICAL HISTORY: PAIN COMPARISON: Chest Single View dated 03/06/2023; Chest Single View dated 03/01/2023; Chest Single View dated 02/20/2023; Chest Single View dated 02/16/2023; Head C Spine Cap Wo Con dated 03/06/2023 TECHNIQUE: Portable AP view of the chest. FINDINGS: Improving aeration throughout the upper aspect of the long compared to the prior exam. A p reviously noted right upper lobe rounded/ovoid abscess versus necrotic collection now demonstrates so me internal lucency, possibly suggesting bronchial communication. Left lung remains clear No pneumoth orax or effusion. The cardiomediastinal contours are unremarkable. IMPRESSION: Improving right upper lobe pneumonitis. Rounded/ovoid right upper lobe abscess versus necrotic collection now demonstrates some internal luce ncy suggesting bronchial communication.
[2023-04-16 20:50] LABS: Potassium 3.5 mEq/L (3.5-5.1)
[2023-04-16] MEDS ORDERED: NA CHLORIDE 0.9% 250 ML ONE (21:34)
[2023-04-16] MEDS ORDERED: NA CHLORIDE 0.9% 100 ML ONE (21:34)
[2023-04-16] MEDS ORDERED: VANCOMYCIN 1 GM/VIAL ONE (21:34)
[2023-04-16] MEDS ORDERED: CEFEPIME 2 GM VIAL ONE (21:34)
--- NOTE | 2023-04-16 21:44 | RAD REPORT ---
EXAM DESCRIPTION: US - Extremity Venous Uni Ltd - 04/16/2023 9:14 pm CLINICAL HISTORY: Right leg swelling COMPARISON: None. TECHNIQUE: Real-time sonographic evaluation of the right lower extremity deep venous system was perf ormed. FINDINGS: Normal compressibility, flow augmentation, phasic flow and spontaneous flow is identified in the right lower extremity deep venous system. No intraluminal filling defects seen. IMPRESSION: No DVT in the right lower extremity.
--- NOTE | 2023-04-17 00:13 | EDPHYS ---
Physician Documentation [facility] Name: Timoteo Gunn Age: 72 yrs Sex: Male : 1950 Arrival Date: 04/16/2023 Time: 19:32 Bed 8 Private MD: ED Physician Figueroa Alicia HPI: 04/16 19:55 This 72 yrs old Male presents to ER via EMS with complaints of General Weakness. cp 19:55 The patient's problem is reported as weakness, that is generalized. Onset: The cp symptoms/episode began/occurred today. Duration: The episode is continuous. 19:55 Associated signs and symptoms: Pertinent positives: hypotension, Pertinent negatives: cp abdominal pain, chest pain, diaphoresis, diarrhea, headache, vomiting. Severity of symptoms: in the emergency department the symptoms are unchanged despite home interventions. 19:55 Patient's baseline: Neuro: alert and fully oriented, Motor: no deficits, Ambulation: cp walks with assist only, Speech: normal. Historical: - PMHx: 19:38 Hypercholesterolemia; Lung Cancer; Myocardial infarction; stroke; rv - PSHx: 19:38 heart stent; rv - Immunization history:: Adult Immunizations unknown. - Social history:: Smoking status: Patient denies any tobacco usage or history of. ROS: 20:00 Constitutional: Negative for fever. cp 20:00 Eyes: Negative for injury, pain, redness, and discharge. cp 20:00 Cardiovascular: Negative for chest pain, edema. 20:00 Respiratory: Negative for cough, wheezing. 20:00 Abdomen/GI: Negative for abdominal pain, vomiting, diarrhea, constipation. 20:00 : Negative for urinary symptoms. 20:00 Skin: Negative for rash. 20:00 Neuro: Positive for weakness, Negative for altered mental status, headache. 20:00 All other systems are negative. Exam: 19:47 ECG was reviewed by the Attending Physician. cp 20:05 Constitutional: The patient appears in no acute distress, alert, awake, cp non-diaphoretic, non-toxic, well developed, frail. 20:05 Head/Face: Normocephalic, atraumatic. cp 20:05 Eyes: Periorbital structures: appear normal, Pupils: equal, round, and reactive to light and accomodation, Extraocular movements: intact throughout, Conjunctiva: normal, no exudate, no injection, Sclera: no appreciated abnormality, Lids and lashes: appear normal, bilaterally. 20:05 ENT: External ear(s): are unremarkable, Nose: is normal, Mouth: Lips: dry, Oral mucosa: moist, Posterior pharynx: Airway: no evidence of obstruction, patent. 20:05 Neck: ROM/movement: is normal, is supple, without pain, no range of motions limitations. 20:05 Chest/axilla: Inspection: normal, Palpation: is normal, no crepitus, no tenderness. 20:05 Cardiovascular: Rate: normal, Rhythm: regular, Edema: is not appreciated, JVD: is not appreciated. 20:05 Respiratory: the patient does not display signs of respiratory distress, Respirations: normal, no use of accessory muscles, no retractions, labored breathing, is not present, Breath sounds: are clear throughout, no decreased breath sounds, no stridor, no wheezing. 20:05 Abdomen/GI: Inspection: abdomen appears normal, Bowel sounds: active, all quadrants, Palpation: abdomen is soft and non-tender, in all quadrants. 20:05 Back: CVA tenderness, is absent. 20:05 Skin: cellulitis, is not appreciated, no rash present. 20:05 Neuro: Orientation: to person, place \T\ time. Mentation: able to follow commands, slow to respond, Motor: moves all fours, general weakness with no focal deficits, Sensation: no obvious gross deficits. Vital Signs: 19:35 BP 90 / 62; Pulse 94; Resp 18; Temp 97.5; Pulse Ox 98% ; rv 20:33 BP 102 / 59; Pulse 86; Resp 16; Pulse Ox 100% on R/A; rv 20:57 Weight 72.57 kg; Height 6 ft. 3 in. ; rv 22:50 BP 114 / 67; Pulse 74; Resp 18; Pulse Ox 100% on R/A; ll3 04/17 01:45 BP 115 / 69; Pulse 72; Resp 18; Pulse Ox 100% on R/A; ll3 04/16 20:57 Body Mass Index 20.00 (72.57 kg, 190.5 cm) rv MDM: 04/16 19:41 Patient medically screened. cp 04/17 00:45 ED course: consult with accepting physician at [facility] who will accept patient after cp discussion. 01:00 Data reviewed: vital signs, nurses notes, lab test result(s), EKG, radiologic studies, cp CT scan, plain films. 01:00 Independent interpretation of the following test(s) in the Emergency Department EKG: cp See my EKG interpretation above. Care significantly affected by the following chronic conditions: Cancer. Counseling: I had a detailed discussion with the patient and/or guardian regarding: the historical points, exam findings, and any diagnostic results supporting the discharge/admit diagnosis, lab results, radiology results, the need to transfer to another facility, [facility] does not immediately have the required specialist. Response to treatment: the patient's symptoms have markedly improved after treatment. 04/16 20:28 Order name: Basic Metabolic Panel; Complete Time: 21:00 EDMS 04/16 21:00 Interpretation: Normal except: GLUC 116; BUN 26; GFR 75. 04/16 20:28 Order name: Troponin High Sensitivity; Complete Time: 21:00 EDMS 04/16 20:28 Order name: NT PRO-BNP; Complete Time: 21:00 EDMS 04/16 21:01 Interpretation: Reviewed. 04/16 20:28 Order name: Magnesium; Complete Time: 21:00 EDMS 04/16 20:28 Order name: Lactate w/ 2H reflex if indic.; Complete Time: 21:00 EDMS 04/16 21:01 Interpretation: Abnormal: LAC 5.8. 04/16 20:28 Order name: CBC with Automated Diff; Complete Time: 21:00 EDMS 04/16 21:01 Interpretation: Normal except: WBC 12.90; RBC 3.50; HGB 9.5; HCT 29.6; MCHC 31.9; RDW cp 15.5; MPV 7.3; JOSE DANIEL% 84.3; LYM% 10.0; MN% 3.1; NEUT A 10.9. 04/16 20:28 Order name: Protime (+INR); Complete Time: 21:00 EDMS 04/16 21:34 Order name: Blood Culture Adult (2) 04/17 00:10 Order name: Lactate Sepsis 2 HR Follow-up; Complete Time: 00:38 EDMS 04/17 00:42 Order name: ABG 04/16 19:50 Order name: US Extremity Venous Unilateral Ltd 08/10 19:59 Order name: Chest Single View; Complete Time: 21:00 EDMS 04/16 20:06 Order name: Extremity Venous Uni Ltd; Complete Time: 00:38 EDMS 04/16 21:03 Order name: CT Chest, Abdomen, Pelvis - W/Contrast cp 04/16 19:50 Order name: EKG; Complete Time: 21:28 cp 04/16 19:50 Order name: Cardiac monitoring; Complete Time: 20:25 cp 04/16 19:50 Order name: EKG - Nurse/Tech; Complete Time: 20:13 cp 04/16 19:50 Order name: IV Saline Lock; Complete Time: 20:25 cp 04/16 19:50 Order name: Labs collected and sent; Complete Time: 20:25 cp 04/16 19:50 Order name: O2 Per Protocol; Complete Time: 20:25 cp 04/16 19:50 Order name: O2 Sat Monitoring; Complete Time: 20:25 cp EC/10 19:47 Rate is 93 beats/min. Rhythm is regular. MD interval is normal. QRS interval is normal. cp QT interval is normal. T waves are Inverted in lead aVR. Interpreted by me. Reviewed by me. Administered Medications: 20:00 Drug: NS 0.9% IV (30 ml/kg) 30 ml/kg Route: IV; Rate: bolus; Site: left antecubital; rv 20:32 Drug: NS 0.9% IV 1000 ml Route: IV; Rate: 1 bolus; Site: left antecubital; rv 21:52 Follow up: IV Status: Completed infusion; IV Intake: 1000ml rv 21:51 Drug: Cefepime IVPB 2 grams Route: IVPB; Rate: 200 ml/hr; Infused Over: 30 mins; Site: rv left antecubital; 22:30 Follow up: Response: No adverse reaction; IV Status: Completed infusion rv 21:53 Drug: NS 0.9% IV (30 ml/kg) 30 ml/kg Route: IV; Rate: bolus; Site: left antecubital; rv 21:53 Follow up: IV Status: Completed infusion; IV Intake: 1000ml rv 22:45 Drug: vancoMYCIN IVPB 1 grams Route: IVPB; Infused Over: 2 hrs; Site: left antecubital; ll3 Disposition Summary: 04/17/23 00:12 Transfer Ordered Transfer Location: [facility] cp Reason: Higher level of care cp Condition: Stable cp Problem: an ongoing problem cp Symptoms: have improved cp Accepting Physician: doctor(04/17/23 03:48) rv Diagnosis - Severe sepsis with septic shock cp Forms: - Medication Reconciliation Form cp - SBAR form cp Addendum: 04/21/2023 12:19 Co-signature as Attending Physician, Figueroa Alicia MD I reviewed the patient's care r n provided by the Advanced Practice Provider and agree with the diagnosis and treatment plan. Signatures: Dispatcher [employer] EDMS Figueroa Alicia MD MD rn Page, Corey, PA PA cp Edi King RN RN rv Greta Rivas RN RN ll3 Corrections: (The following items were deleted from the chart) 04/16 21:37 21:28 Chest Single View+RAD.RAD.BRZ ordered. EDMS EDMS 22:33 21:28 BASIC METABOLIC PANEL+C.LAB.BRZ ordered. EDMS EDMS 22:33 21:28 CBC+H.LAB.BRZ ordered. EDMS EDMS 22:33 21:28 MAGNESIUM+C.LAB.BRZ ordered. EDMS EDMS 22:33 21:28 PROBNP+C.LAB.BRZ ordered. EDMS EDMS 22:33 21:28 Troponin High Sensitivity+C.LAB.BRZ ordered. EDMS EDMS 22:34 21:28 PROTIME (+INR)+COAG.LAB.BRZ ordered. EDMS EDMS 22:34 21:28 LACTATE+C.LAB.BRZ ordered. EDLA EDMS 04/17 03:48 00:12 doctor cp rv 04/18 02:56 04/17 02:55 This 72 yrs old Male presents to ER via EMS with complaints of General cp Weakness. cp 04/18 02:58 02:56 This 72 yrs old Male presents to ER via EMS with complaints of General Weakness. cp cp
--- NOTE | 2023-04-17 00:13 | ER ---
Nurse's Notes [facility] Name: Timoteo Gunn Age: 72 yrs Sex: Male : 1950 Arrival Date: 04/16/2023 Time: 19:32 Bed 8 Private MD: Diagnosis: Severe sepsis with septic shock Presentation: 04/16 19:35 Chief complaint: EMS states: pt has been in and out of the hospital recently and has rv refused treatment at rehab. got discharged and went home, unable to ambulate, EMS showed up. hypotensive initially. given 450ml of NS as bolus, BP increased to 90 systolic. AAOX4. complaining of gen weakness. BGL is 193. Coronavirus screen: At this time, the client does not indicate any symptoms associated with coronavirus-19. Ebola Screen: No symptoms or risks identified at this time. Initial Sepsis Screen: Does the patient meet any 2 criteria? No. Patient's initial sepsis screen is negative. Does the patient have a suspected source of infection? No. Patient's initial sepsis screen is negative. Risk Assessment: Do you want to hurt yourself or someone else? Patient reports no desire to harm self or others. Onset of symptoms was April 16, 2023. 19:35 Method Of Arrival: EMS: [facility] rv 19:35 Acuity: ABIEL 2 rv Triage Assessment: 19:38 General: Appears WEAK. Behavior is calm, cooperative. Pain: Denies pain. EENT: No signs rv and/or symptoms were reported regarding the EENT system. Neuro: Level of Consciousness is awake, alert, obeys commands, Oriented to person, place, time, situation. Neuro: Reports weakness GENERALIZED. Cardiovascular: Capillary refill < 3 seconds. Respiratory: Airway is patent Respiratory effort is even, unlabored. GI: No signs and/or symptoms were reported involving the gastrointestinal system. : No signs and/or symptoms were reported regarding the genitourinary system. Derm: Skin is intact. Historical: - PMHx: 19:38 Hypercholesterolemia; Lung Cancer; Myocardial infarction; stroke; rv - PSHx: 19:38 heart stent; rv - Immunization history:: Adult Immunizations unknown. - Social history:: Smoking status: Patient denies any tobacco usage or history of. Screenin:39 [facility] ED Fall Risk Assessment (Adult) History of falling in the last 3 months, rv including since admission No falls in past 3 months (0 pts) Confusion or Disorientation No (0 pts) Intoxicated or Sedated No (0 pts) Impaired Gait Yes (1 pt) Mobility Assist Device Used No (0 pt) Altered Elimination No (0 pt) Score/Fall Risk Level 3 or more points = High Risk Oriented to surroundings, Maintained a safe environment, Educated pt \T\ family on fall prevention, incl call for assistance when getting out of bed, Assessed \T\ reinforced patient's understanding of fall precautions, Provided non-skid footwear, Hourly rounding (assess needs \T\ fall precautionary measures) done, Used ambulatory aids as needed (educated on \T\ assisted with), Used gait belt as appropriate Implemented a Fall Risk Plan of Care, Apply high fall risk patient identification: yellow non skid footwear/ fall signage, Placed fall mat w/ non beveled edge next to bed, Activated bed/chair alarm, Remained w/in arm's length of patient and in sight while toileting, Offered frequent toileting (1:1 observation), Remained with patient while ambulating, Utilized family, sitter, or virtual lumber buyer as indicated. Abuse screen: Denies threats or abuse. Denies injuries from another. Nutritional screening: No deficits noted. Tuberculosis screening: No symptoms or risk factors identified. Vital Signs: 19:35 BP 90 / 62; Pulse 94; Resp 18; Temp 97.5; Pulse Ox 98% ; rv 20:33 BP 102 / 59; Pulse 86; Resp 16; Pulse Ox 100% on R/A; rv 20:57 Weight 72.57 kg; Height 6 ft. 3 in. ; rv 22:50 BP 114 / 67; Pulse 74; Resp 18; Pulse Ox 100% on R/A; ll3 04/17 01:45 BP 115 / 69; Pulse 72; Resp 18; Pulse Ox 100% on R/A; ll3 04/16 20:57 Body Mass Index 20.00 (72.57 kg, 190.5 cm) rv ED Course: 04/16 19:34 Patient arrived in ED. rv 19:38 Triage completed. rv 19:39 Arm band placed on right wrist. rv 19:39 Patient has correct armband on for positive identification. Bed in low position. Call rv light in reach. Side rails up X2. Client placed on continuous cardiac and pulse oximetry monitoring. NIBP monitoring applied. esthetician and manager medical spa on. 19:41 Stoney Lipscomb PA is PHCP. cp 19:41 Figueroa Alicia MD is Attending Physician. cp 19:45 Maintain EMS IV. Dressing intact. Good blood return noted. Site clean \T\ dry. Gauge \T\ rv site: 18 LAC. 19:47 EKG done, by telemetry technician. reviewed by Stoney PRATHER. oe 20:09 Edi King, CITLALLI is Primary Nurse. rv 20:16 Chest Single View In Process Unspecified. EDMS 21:16 Extremity Venous Uni Ltd In Process Unspecified. EDMS 22:34 CT Chest, Abdomen, Pelvis - W/Contrast In Process Unspecified. EDMS 04/17 03:46 No provider procedures requiring assistance completed. Patient transferred, IV remains rv in place. 03:48 Provided Education on: BREATHING EXERCISES. rv Administered Medications: 04/16 20:00 Drug: NS 0.9% IV (30 ml/kg) 30 ml/kg Route: IV; Rate: bolus; Site: left antecubital; rv 20:32 Drug: NS 0.9% IV 1000 ml Route: IV; Rate: 1 bolus; Site: left antecubital; rv 21:52 Follow up: IV Status: Completed infusion; IV Intake: 1000ml rv 21:51 Drug: Cefepime IVPB 2 grams Route: IVPB; Rate: 200 ml/hr; Infused Over: 30 mins; Site: rv left antecubital; 22:30 Follow up: Response: No adverse reaction; IV Status: Completed infusion rv 21:53 Drug: NS 0.9% IV (30 ml/kg) 30 ml/kg Route: IV; Rate: bolus; Site: left antecubital; rv 21:53 Follow up: IV Status: Completed infusion; IV Intake: 1000ml rv 22:45 Drug: vancoMYCIN IVPB 1 grams Route: IVPB; Infused Over: 2 hrs; Site: left antecubital; ll3 Medication: 04/17 03:46 VIS not applicable for this client. rv Intake: 04/16 21:52 IV: 1000ml; Total: 1000ml. rv 21:53 IV: 1000ml; Total: 2000ml. rv Outcome: 04/17 00:12 ER care complete, transfer ordered by . cp 03:46 Transferred by ground EMS to [facility], Transfer form completed. X-rays rv sent w/ patient. 03:46 Condition: stable 03:46 Instructed on the need for transfer. 03:48 Patient left the ED. rv Signatures: Dispatcher [employer] EDMS Stoney Lipscomb PA PA cp Sadiq Contreras Ronaldo RN RN rv Greta Rivas RN RN ll3 Corrections: (The following items were deleted from the chart) 02:04 02:03 BP 115 / 69; Pulse 72bpm; Resp 18bpm; Pulse Ox 100% RA; ll3 ll3 03:48 03:47 Provided Education on: LUNG EXERCISES. rv rv
[2023-04-17 01:53] LABS: Arterial Blood Carboxyhemoglob 1.6 % (0-1.5); Blood Gas Oxyhemoglobin 93.2 % (94-97); Blood O2 Saturation 95.9 % (92-98.5)
[2023-04-17 03:53] VITALS: TEMP 97.5
[2023-04-17 03:54] VITALS: O2SAT 100
[2023-04-17 03:57] VITALS: BP 115/69
--- NOTE | 2023-04-17 18:11 | RAD REPORT ---
EXAM DESCRIPTION: CT - Chest Abdomen Pelvis W Cont - 04/17/2023 6:56 am The patient is 72 years old and is Male; weakness TECHNIQUE: Axial computed tomography images of the chest, abdomen and pelvis with intravenous contra st. Sagittal and coronal reformatted images were created and reviewed. This CT exam was performed using one or more of the following dose reduction techniques: automated exposure control, adjustme nt of the mA and/or kV according to patient size, and/or use of iterative reconstruction technique. COMPARISON: CT March 06, 2023 FINDINGS: CHEST: LUNGS: Scarring and emphysematous change within the right lung apex is noted. Previously demonstr ated necrotic mass within the right upper lobe anteriorly now demonstrates central cavitation measuri ng approximately 7.5 x 5.6 cm. Redemonstration of the left lower lobe, superior segment 0.7 cm pulmon deborah nodule. The lungs are otherwise hyperinflated with emphysematous change. PLEURAL SPACE: Unremarkable. No significant effusion. No pneumothorax. HEART: A small pericardial effusion is present. MEDIASTINUM: Previously demonstrated pretracheal/anterior mediastinal mass/lymph node has increas ed in size measuring 4.9 x 4.0 cm and demonstrates central area of low attenuation suggestive of necr osis. This previously measured 3.0 x 2.5 cm. ABDOMEN: LIVER: Unremarkable. No mass. GALLBLADDER AND BILE DUCTS: Suggestion of a few gallstones versus sludge within the gallbladder w ith mild gallbladder wall thickening is noted. PANCREAS: No ductal dilation. No mass. SPLEEN: Unremarkable. ADRENALS: Unremarkable. No mass. KIDNEYS AND URETERS: The mild bilateral hydroureteronephrosis is present. No obstructing renal or ureteral calculus is seen. The kidneys enhance symmetrically. STOMACH AND BOWEL: The stomach is distended with fluid and air. The small bowel is relatively nor mal in caliber. A moderate amount stool is present throughout colon. There is no mucosal thickening o r evidence of obstruction. PELVIS: APPENDIX: No findings to suggest acute appendicitis. BLADDER: The bladder is moderately distended. A few small calcifications layering within the bl adder are noted. REPRODUCTIVE: Calcifications are present within the prostate. CHEST, ABDOMEN and PELVIS: INTRAPERITONEAL SPACE: Unremarkable. No significant fluid collection. No free air. BONES/JOINTS: No lytic or blastic lesions are noted. Degenerative change of the spine is present. SOFT TISSUES: A small sebaceous cyst within the left anterior chest wall measuring 1.4 cm is pres ent. Interval wasting of the subcutaneous tissues is noted. VASCULATURE: Multiple calcified phleboliths are present within the pelvis. No aortic aneurysm. LYMPH NODES: Unremarkable. No enlarged lymph nodes. IMPRESSION: 1. Redemonstration of the necrotic right upper lobe mass with associated postobstructi ve pneumonia. There has been interval development of cavitation since prior exam. 2. Interval significant enlargement of the necrotic mediastinal adenopathy as described suggesting progression of disease. 3. No change in the left lower lobe pulmonary nodule. 4. Moderate bilateral hydroureteronephrosis without obstructing calculus. Electronically signed by: Sneha Mariee MD 04/16/2023 11:47 PM CDT Due to temporary technical issues with the PACS/Fluency reporting system, reports are being signed by the in house radiologists without review as a courtesy to insure prompt reporting. The interpreting radiologist is fully responsible for the content of the report.
--- NOTE | 2023-04-19 15:35 | EKG ---
Test Date: 2023-04-16 Test Time: 19:42:48 Watch Train Inspector: TIFFANI MEASUREMENT RESULTS: Intervals: Rate: 93 [place]: 140 QRSD: 88 QT: 368 QTc: 457 [place]: P: 74 [place]: 140 QRS: 65 T: 81 INTERPRETIVE STATEMENTS: Normal sinus rhythm Right atrial enlargement Septal infarct, age undetermined Abnormal ECG Compared to ECG 03/06/2023 19:15:24 Atrial abnormality now present Atrial premature complex(es) no longer present Myocardial infarct finding still present Electronically Signed On 04-19-23 15:31:37 CDT by German Fagan
== END 2023-04-17 03:48 | disposition short-term general hospital (02) ==
LOC: ER 19:32
DX: A41.9 Sepsis, unspecified organism (principal); R65.21 Severe sepsis with septic shock; I95.9 Hypotension, unspecified; E78.00 Pure hypercholesterolemia, unspecified; I25.2 Old myocardial infarction; Z95.818 Presence of other cardiac implants and grafts
CPT/HCPCS: 96365; 93005; 87040 ×2; 85025; 80048; 36415; 83735; 85610; 83605 ×2; 84484; 83880; 71260; 74177; 71045; 93971; 82805; 96375; 99285; Q9967; J0692; J7050; J7030